=== PATIENT | male | born 1955 | race Caucasian/White ===

== ENCOUNTER → 2017-04-23 10:58 | Outpatient (CLI) | payer MEDICARE, SELFPAY ==
[2017-04-23 12:11] LABS: Basophils % 0.5 % (0.1-2.0); Eosinophils # 0.3 K/mm3 (0.0-0.4); Eosinophils % 4.3 % (0.1-12.0); Hematocrit 43.4 % (42.0-52.0); Hemoglobin 14.6 g/dL (14.1-18.0); Lymphocytes # 1.3 K/mm3 (0.7-4.5); Lymphocytes % 20.2 K/mm3 (10-50); Mean Corpuscular HGB Conc 33.6 g/dL (31.8-35.4); Mean Corpuscular Volume 86.4 fl (80-94); Mean Platelet Volume 7.2 fl (7.4-10.4); Monocytes # 0.4 K/mm3 (0.1-1.0); Monocytes % 6.4 % (1.7-9.3); Neutrophils # 4.5 K/mm3 (1.8-7.8); Neutrophils % 68.5 % (37.0-80.0); Platelet Count 266 K/mm3 (142-424); Red Blood Count 5.02 M/mm3 (4.60-6.20); White Blood Count 6.5 K/mm3 (4.8-10.8)
[2017-04-23 15:30] LABS: Alanine Aminotransferase 28 U/L (12-78); Albumin Level 3.5 gm/dL (3.4-5.0); Albumin/Globulin Ratio 1.1 (1.1-1.8); Alkaline Phosphatase 108 U/L (46-116); Aspartate Amino Transferase 11 U/L (15-37); Bilirubin,Total 0.4 mg/dL (0.2-1.0); Blood Urea Nitrogen 13 mg/dL (7-18); Calcium 8.8 mg/dL (8.5-10.1); Carbon Dioxide 29 mmol/L (21.0-32.0); Creatinine,Serum 0.97 mg/dL (0.70-1.30); Estimated Glomerular Filt Rate 79 ml/min (>60); GFR (African American) 96 ML/MIN (>60); Globulin 3.3 gm/dl (1.3-3.2); Glucose 167 mg/dL (74-106); Total Protein,Serum 6.8 gm/dL (6.4-8.2)
[2017-04-23 18:11] LABS: Chloride 104 mmol/L (98-107); Sodium 141 mmol/L (136-145)
== END ==
PROVIDERS: Visit Provider Internal Medicine
DX: E13.65 Other specified diabetes mellitus with hyperglycemia (principal); F41.9 Anxiety disorder, unspecified; I10 Essential (primary) hypertension; I48.91 Unspecified atrial fibrillation; B96.89 Other specified bacterial agents as the cause of diseases classified elsewhere
CPT/HCPCS: 36415; 80053; 85025

== ENCOUNTER → 2017-08-07 08:29 | Outpatient (CLI) | payer MEDICARE, SELFPAY ==
[2017-08-07 09:23] LABS: Basophils # 0.1 K/mm3 (0-0.2); Basophils % 0.5 % (0.1-2.0); Eosinophils # 0.4 K/mm3 (0.0-0.4); Eosinophils % 4.4 % (0.1-12.0); Hematocrit 47.1 % (42.0-52.0); Hemoglobin 15.5 g/dL (14.1-18.0); Lymphocytes # 2.1 K/mm3 (0.7-4.5); Mean Corpuscular Hemoglobin 28.4 pg (27.0-31.2); Mean Corpuscular Volume 86.1 fl (80-94); Mean Platelet Volume 7.4 fl (7.4-10.4); Monocytes # 0.5 K/mm3 (0.1-1.0); Monocytes % 5.5 % (1.7-9.3); Neutrophils # 6.1 K/mm3 (1.8-7.8); Neutrophils % 66.6 % (37.0-80.0); Platelet Count 263 K/mm3 (142-424); Red Blood Count 5.46 M/mm3 (4.60-6.20); Red Cell Distribution Width 13.8 % (11.5-17.5); White Blood Count 9.2 K/mm3 (4.8-10.8)
[2017-08-07 10:44] LABS: Alanine Aminotransferase 23 U/L (12-78); Albumin Level 3.7 gm/dL (3.4-5.0); Albumin/Globulin Ratio 1.2 (1.1-1.8); Alkaline Phosphatase 126 U/L (46-116); Anion Gap 15.2 mEq/L (5-15); Aspartate Amino Transferase 13 U/L (15-37); Bilirubin,Total 0.6 mg/dL (0.2-1.0); Blood Urea Nitrogen 15 mg/dL (7-18); Calcium 9.4 mg/dL (8.5-10.1); Carbon Dioxide 27 mmol/L (21.0-32.0); Chloride 103 mmol/L (98-107); Creatinine,Serum 1.03 mg/dL (0.70-1.30); Estimated Glomerular Filt Rate 74 ml/min (>60); GFR (African American) 89 ML/MIN (>60); Globulin 3.2 gm/dl (1.3-3.2); Glucose 192 mg/dL (74-106); Potassium 4.2 mmoL/L (3.5-5.1); Sodium 141 mmol/L (136-145); Total Protein,Serum 6.9 gm/dL (6.4-8.2)
== END ==
PROVIDERS: Visit Provider Internal Medicine
DX: I10 Essential (primary) hypertension (principal); E13.65 Other specified diabetes mellitus with hyperglycemia; F41.9 Anxiety disorder, unspecified; I48.91 Unspecified atrial fibrillation; B96.89 Other specified bacterial agents as the cause of diseases classified elsewhere
CPT/HCPCS: 36415; 80053; 85025

== ENCOUNTER → 2017-10-30 10:19 | Outpatient (POV) | payer MEDICARE, SELFPAY | PROVIDERS: Visit Provider Otolaryngology | DX: Z00.00 Encounter for general adult medical examination without abnormal findings (principal) ==

== ENCOUNTER → 2018-01-30 11:30 | Outpatient (CLI) | payer MEDICARE, SELFPAY ==
[2018-01-30 11:55] LABS: Basophils % 0.5 % (0.1-2.0); Eosinophils # 0.2 K/mm3 (0.0-0.4); Eosinophils % 2.7 % (0.1-12.0); Hematocrit 47.1 % (42.0-52.0); Hemoglobin 15.4 g/dL (14.1-18.0); Lymphocytes # 1.5 K/mm3 (0.7-4.5); Lymphocytes % 21.1 % (10-50); Mean Corpuscular HGB Conc 32.7 g/dL (31.8-35.4); Mean Corpuscular Hemoglobin 28.8 pg (27.0-31.2); Mean Corpuscular Volume 88.1 fl (80-94); Mean Platelet Volume 7.5 fl (7.4-10.4); Monocytes # 0.4 K/mm3 (0.1-1.0); Monocytes % 5.2 % (1.7-9.3); Neutrophils % 70.4 % (37.0-80.0); Platelet Count 245 K/mm3 (142-424); Red Blood Count 5.35 M/mm3 (4.60-6.20); Red Cell Distribution Width 14.2 % (11.5-17.5); White Blood Count 7.1 K/mm3 (4.8-10.8)
[2018-01-30 12:44] LABS: Alanine Aminotransferase 28 U/L (12-78); Albumin Level 3.5 gm/dL (3.4-5.0); Albumin/Globulin Ratio 1.1 (1.1-1.8); Alkaline Phosphatase 129 U/L (46-116); Anion Gap 15.9 mEq/L (5-15); Aspartate Amino Transferase 10 U/L (15-37); Bilirubin,Total 0.6 mg/dL (0.2-1.0); Blood Urea Nitrogen 10 mg/dL (7-18); Calcium 8.9 mg/dL (8.5-10.1); Carbon Dioxide 26 mmol/L (21.0-32.0); Chloride 100 mmol/L (98-107); Estimated Glomerular Filt Rate 76 ml/min (>60); GFR (African American) 92 ML/MIN (>60); Globulin 3.2 gm/dl (1.3-3.2); Glucose 238 mg/dL (74-106); Potassium 3.9 mmoL/L (3.5-5.1); Sodium 138 mmol/L (136-145); Total Protein,Serum 6.7 gm/dL (6.4-8.2)
== END ==
PROVIDERS: Visit Provider Internal Medicine
DX: E13.65 Other specified diabetes mellitus with hyperglycemia (principal)
CPT/HCPCS: 36415; 80053; 85025

== ENCOUNTER → 2018-04-26 07:53 | Outpatient (CLI) | payer MEDICARE, SELFPAY ==
--- NOTE | 2018-04-26 08:00 | MR_ITS ---
MR lumbar spine wo con, MR 3-d myelogram/MRCP HISTORY: LBP with LT hip and leg pain and tingling. X3WKS. Twisted back while lifting object. ITS.REASON: LEFT SIDED SCIATICA ORDERING PHYSICIAN: Alpesh Hanson MD PATIENT AGE: 62 years Comparison: None TECHNIQUE: Standard multiplanar multiecho sequences are performed without contrast. 3-D MIP and myelographic images are also rendered and reviewed FINDINGS: There is normal alignment. The spinal cord ends at the L1 level. L1-L2 has an unremarkable appearance. L2-L3: Mild degenerative disc disease with concentric bulging disc along with facet and ligamentum flavum hypertrophy. There is an associated left foraminal disc protrusion causing moderate size left foraminal narrowing. There is bilateral lateral recess narrowing at this level well. L3-L4: Degenerative disc disease with bulging disc along with facet and ligamentum flavum hypertrophy with mild bilateral lateral recess narrowing and mild right foraminal narrowing. L4-5: Degenerative disc disease with concentric bulging disc along with moderate facet and ligamentum flavum hypertrophy. There is bilateral lateral recess narrowing which is greater on the right. There is moderate to severe bilateral foraminal narrowing from the facets hypertrophic change and bulging disc. There is impingement upon both L5 nerve roots in the lateral recess from the facet hypertrophic change. This is. L5-S1: Unremarkable.. There is partial sacralization of L5. IMPRESSION: 1. L2-L3: Mild degenerative disc disease with concentric bulging disc along with facet and ligamentum flavum hypertrophy. There is an associated left foraminal disc protrusion causing moderate size left foraminal narrowing. There is bilateral lateral recess narrowing at this level well. 2. L3-L4: Degenerative disc disease with bulging disc along with facet and ligamentum flavum hypertrophy with mild bilateral lateral recess narrowing and mild right foraminal narrowing. 3. L4-5: Degenerative disc disease with concentric bulging disc along with moderate facet and ligamentum flavum hypertrophy. There is bilateral lateral recess narrowing which is greater on the right. There is moderate to severe bilateral foraminal narrowing from the facets hypertrophic change and bulging disc. There is impingement upon both L5 nerve roots in the lateral recess from the facet hypertrophic change.
== END ==
PROVIDERS: PCP Family Medicine; Visit Provider Family Medicine
DX: M54.32 Sciatica, left side (principal)
CPT/HCPCS: 72148; 76376

== ENCOUNTER 2018-05-08 08:00 | Outpatient (RCR) | payer MEDICARE, SELFPAY ==
--- NOTE | 2018-05-06 18:03 | HMH.PTOPEV ---
PT Outpatient Evaluation Rehab PT Outpatient Evaluation Start: 05/06/18 09:41 Freq: Status: Active Protocol: Document 05/06/18 09:59 PWJORGE LUIS (Rec: 05/06/18 10:25 PWJORGE LUIS [id number]) Electronically Signed By Armani Houser, PT 05/06/18 09:59 Outpatient Therapy Subjective History Subjective History This is the initial Physical Therapy evaluation for for Ken Lopes. Pt is a 62 y/o male referred to PT for c/o LBP and LLE pain. Pt reports pain began 1st week of march. Pt reports he was lifting stuff into pick-up bed and his foot slipped causing him to twist and flex his back. Pt rpeorts pain has stayed the same since March . Pt rpeorts MRI done at [facility], MRI showed multi-level bulging discs w/ L side foraminal stenosis. Pt reports pain into LLE to ankle at worst, mostly in posterior thigh/HS Chief Complaint Pain Symptom Type Ache Throb Sharp Dull Stabbing Burning Numbness Tingling Shooting Symptoms Relieved By Rest/Positioning Prescription Meds Symptoms Aggravated By Sitting Bending/Stooping Twisting Lifting Prior Functional Limitations None Current Functional Limitations Sitting Recreation Activity Bending/Stooping Symptom Description Constant but Variable Level of pain today (0-10) 3 Pain scale - at its best (0-10) 2 Pain scale - at its worst (0-10) 8 Lumbopelvic Eval Posture Lumbar Spine Posture Standing Position Neutral Assistive device Assistive Devices None / NA Gait Observation General Gait Pattern Observation Antalgic Gait Decrease Weight Bear (L) Decrease Stride Lngth (R) Palapation tenderness left thoracic spinal tenderness No lumbar spinal tenderness Yes paraspinal tenderness Yes butt
== END 2018-05-08 08:05 | disposition home or self-care (01) ==
LOC: PT 08:00
PROVIDERS: Visit Provider Family Medicine
DX: M54.16 Radiculopathy, lumbar region (principal)
CPT/HCPCS: 97010; 97014; 97110; 97163; G0283

== ENCOUNTER → 2018-05-13 07:56 | Outpatient (CLI) | payer MEDICARE, SELFPAY ==
[2018-05-13 08:22] LABS: Basophils % 0.6 % (0.1-2.0); Eosinophils # 0.3 K/mm3 (0.0-0.4); Eosinophils % 5.1 % (0.1-12.0); Hematocrit 43.4 % (42.0-52.0); Hemoglobin 14.8 g/dL (14.1-18.0); Lymphocytes # 1.3 K/mm3 (0.7-4.5); Lymphocytes % 22.2 % (10-50); Mean Corpuscular Hemoglobin 29.8 pg (27.0-31.2); Mean Corpuscular Volume 87.6 fl (80-94); Mean Platelet Volume 7.1 fl (7.4-10.4); Monocytes # 0.6 K/mm3 (0.1-1.0); Monocytes % 9.8 % (1.7-9.3); Neutrophils # 3.7 K/mm3 (1.8-7.8); Neutrophils % 62.3 % (37.0-80.0); Platelet Count 280 K/mm3 (142-424); Red Blood Count 4.96 M/mm3 (4.60-6.20); Red Cell Distribution Width 13.7 % (11.5-17.5)
[2018-05-13 11:44] LABS: Alanine Aminotransferase 23 U/L (12-78); Albumin Level 3.6 gm/dL (3.4-5.0); Albumin/Globulin Ratio 1.2 (1.1-1.8); Alkaline Phosphatase 107 U/L (46-116); Aspartate Amino Transferase 10 U/L (15-37); Bilirubin,Total 0.7 mg/dL (0.2-1.0); Blood Urea Nitrogen 16 mg/dL (7-18); Calcium 8.9 mg/dL (8.5-10.1); Carbon Dioxide 25 mmol/L (21.0-32.0); Chloride 101 mmol/L (98-107); Creatinine,Serum 0.98 mg/dL (0.70-1.30); Estimated Glomerular Filt Rate 78 ml/min (>60); GFR (African American) 94 ML/MIN (>60); Glucose 271 mg/dL (74-106); Sodium 137 mmol/L (136-145); Total Protein,Serum 6.6 gm/dL (6.4-8.2)
== END ==
PROVIDERS: Visit Provider Internal Medicine
DX: E13.65 Other specified diabetes mellitus with hyperglycemia (principal); Z94.1 Heart transplant status; F41.9 Anxiety disorder, unspecified; I10 Essential (primary) hypertension; I48.91 Unspecified atrial fibrillation; B96.89 Other specified bacterial agents as the cause of diseases classified elsewhere; K80.20 Calculus of gallbladder without cholecystitis without obstruction
CPT/HCPCS: 36415; 80053; 85025

== ENCOUNTER → 2019-01-10 13:48 | Outpatient (CLI) | payer MEDICARE, SELFPAY ==
[2019-01-10 14:32] LABS: Basophils # 0.1 K/mm3 (0-0.2); Basophils % 0.9 % (0.1-2.0); Eosinophils # 0.2 K/mm3 (0.0-0.4); Eosinophils % 2.5 % (0.1-12.0); Hematocrit 49.8 % (42.0-52.0); Hemoglobin 16.7 g/dL (14.1-18.0); Lymphocytes # 1.7 K/mm3 (0.7-4.5); Lymphocytes % 20.6 % (10-50); Mean Corpuscular HGB Conc 33.5 g/dL (31.8-35.4); Mean Corpuscular Hemoglobin 30.6 pg (27.0-31.2); Mean Corpuscular Volume 91.3 fl (80-94); Mean Platelet Volume 8.1 fl (7.4-10.4); Monocytes # 0.3 K/mm3 (0.1-1.0); Monocytes % 4.2 % (1.7-9.3); Neutrophils # 5.9 K/mm3 (1.8-7.8); Neutrophils % 71.9 % (37.0-80.0); Platelet Count 296 K/mm3 (142-424); Red Blood Count 5.45 M/mm3 (4.60-6.20); Red Cell Distribution Width 13.6 % (11.5-17.5); White Blood Count 8.2 K/mm3 (4.8-10.8)
[2019-01-10 15:14] LABS: Alanine Aminotransferase 27 U/L (12-78); Albumin Level 3.8 gm/dL (3.4-5.0); Albumin/Globulin Ratio 1.2 (1.1-1.8); Alkaline Phosphatase 137 U/L (46-116); Anion Gap 14.9 mEq/L (5-15); Aspartate Amino Transferase 17 U/L (15-37); Blood Urea Nitrogen 14 mg/dL (7-18); Calcium 9.1 mg/dL (8.5-10.1); Carbon Dioxide 25 mmol/L (21.0-32.0); Chloride 102 mmol/L (98-107); Creatinine,Serum 1.06 mg/dL (0.70-1.30); Estimated Glomerular Filt Rate 71 ml/min (>60); GFR (African American) 86 ML/MIN (>60); Globulin 3.1 gm/dl (1.3-3.2); Potassium 4.9 mmoL/L (3.5-5.1); Sodium 137 mmol/L (136-145); Total Protein,Serum 6.9 gm/dL (6.4-8.2)
[2019-01-10 15:40] LABS: Glucose 431 mg/dL (74-106)
== END ==
PROVIDERS: Visit Provider Internal Medicine
DX: Z94.1 Heart transplant status (principal)
CPT/HCPCS: 36415; 80053; 85025

== ENCOUNTER → 2019-02-04 10:28 | Outpatient (CLI) | payer MEDICARE, SELFPAY ==
[2019-02-04 11:22] LABS: Hemoglobin A1C 11.3 % (0.0-7.0)
[2019-02-04 12:16] LABS: Glucose,Random 506 mg/dL (70-110)
== END ==
PROVIDERS: Visit Provider Family Medicine
DX: E11.65 Type 2 diabetes mellitus with hyperglycemia (principal)
CPT/HCPCS: 36415; 82947; 83036

== ENCOUNTER → 2020-06-15 08:45 | Outpatient (CLI) | payer MEDICARE, SELFPAY ==
[2020-06-15 09:13] LABS: Hematocrit 45.8 % (42.0-52.0); Hemoglobin 15.7 g/dL (14.1-18.0); Mean Corpuscular HGB Conc 34.3 g/dL (31.8-35.4); Mean Corpuscular Hemoglobin 30.3 pg (27.0-31.2); Mean Corpuscular Volume 88.3 fl (80-94); Platelet Count 252 K/mm3 (142-424); Red Blood Count 5.19 M/mm3 (4.60-6.20); Red Cell Distribution Width 13.5 % (11.5-17.5); White Blood Count 7.8 K/mm3 (4.8-10.8)
[2020-06-15 09:40] LABS: Chloride 102 mmol/L (98-107)
[2020-06-15 09:41] LABS: Sodium 136 mmol/L (136-145)
[2020-06-15 09:43] LABS: Alanine Aminotransferase 16 U/L (12-78); Albumin Level 4.3 g/dl (3.5-5.0); Albumin/Globulin Ratio 1.8 (1.1-1.8); Alkaline Phosphatase 115 U/L (38-126); Aspartate Amino Transferase 19 U/L (17-59); Bilirubin,Total 0.9 mg/dl (0.2-1.3); Blood Urea Nitrogen 19 mg/dl (9-20); Carbon Dioxide 26 mmol/L (22.0-30.0); Estimated Glomerular Filt Rate 86 ml/min (>60); GFR (African American) 103 ML/MIN (>60); Globulin 2.4 g/dL (1.3-3.2); Total Protein,Serum 6.7 g/dl (6.3-8.2)
[2020-06-15 09:44] LABS: Calcium 9.9 mg/dl (8.4-10.2); Glucose 260 mg/dl (74-100)
== END ==
PROVIDERS: Visit Provider Internal Medicine
DX: Z94.1 Heart transplant status (principal)
CPT/HCPCS: 36415; 80053; 85014; 85018; 85048; 85049

== ENCOUNTER → 2020-12-06 15:31 | Outpatient (CLI) | payer MEDICARE, SELFPAY | PROVIDERS: Visit Provider Obstetrics & Gynecology Gynecology | DX: Z01.812 Encounter for preprocedural laboratory examination (principal); Z11.52 Encounter for screening for COVID-19 | CPT/HCPCS: C9803; U0003; U0005 ==

== ENCOUNTER → 2020-12-10 16:57 | Outpatient (CLI) | payer MEDICARE, SELFPAY ==
[2020-12-10 18:32] LABS: Creatinine,Urine Random 88 mg/dL (Not Estab.)
== END ==
PROVIDERS: Visit Provider Internal Medicine
DX: Z94.1 Heart transplant status (principal)
CPT/HCPCS: 82570; 84155

== ENCOUNTER → 2021-01-14 09:24 | Outpatient (CLI) | payer MEDICARE, SELFPAY ==
[2021-01-14 10:16] LABS: Basophils # 0.1 K/mm3 (0-0.2); Basophils % 1.1 % (0.1-2.0); Eosinophils # 0.2 K/mm3 (0.0-0.4); Eosinophils % 3.2 % (0.1-12.0); Hematocrit 46.9 % (42.0-52.0); Lymphocytes # 1.5 K/mm3 (0.7-4.5); Lymphocytes % 22.3 % (10-50); Mean Corpuscular HGB Conc 34.2 g/dL (31.8-35.4); Mean Corpuscular Hemoglobin 29.5 pg (27.0-31.2); Mean Corpuscular Volume 86.3 fl (80-94); Mean Platelet Volume 7.8 fl (7.4-10.4); Monocytes # 0.4 K/mm3 (0.1-1.0); Monocytes % 5.5 % (1.7-9.3); Neutrophils # 4.5 K/mm3 (1.8-7.8); Neutrophils % 67.8 % (37.0-80.0); Platelet Count 370 K/mm3 (142-424); Red Blood Count 5.44 M/mm3 (4.60-6.20); Red Cell Distribution Width 12.9 % (11.5-17.5); White Blood Count 6.6 K/mm3 (4.8-10.8)
[2021-01-14 10:57] LABS: Creatinine,Urine Random 155 mg/dL (Not Estab.)
[2021-01-14 11:50] LABS: Alanine Aminotransferase 30 U/L (12-78); Albumin Level 4.3 g/dl (3.5-5.0); Albumin/Globulin Ratio 1.6 (1.1-1.8); Alkaline Phosphatase 140 U/L (38-126); Anion Gap 11.3 mEq/L (5-15); Aspartate Amino Transferase 27 U/L (17-59); Bilirubin,Total 0.4 mg/dl (0.2-1.3); Blood Urea Nitrogen 13 mg/dl (9-20); Calcium 9.7 mg/dl (8.4-10.2); Carbon Dioxide 27 mmol/L (22.0-30.0); Chloride 100 mmol/L (98-107); Chol/HDL Ratio 5.6 (1-3.5); Cholesterol 235 mg/dl (140-200); Estimated Glomerular Filt Rate 98 ml/min (>60); GFR (African American) 118 ML/MIN (>60); Globulin 2.7 g/dL (1.3-3.2); Glucose 362 mg/dl (74-100); HDL Cholesterol 42 mg/dl (40-60); Magnesium 1.6 mg/dl (1.6-2.3); Potassium 4.3 mmoL/L (3.5-5.1); Sodium 134 mmol/L (136-145)
[2021-01-14 12:07] LABS: Direct LDL Cholesterol 136.87 mg/dL (100-129)
[2021-01-14 12:16] LABS: Triglycerides 598 mg/dl (30-150)
== END ==
PROVIDERS: Visit Provider Internal Medicine
DX: Z94.1 Heart transplant status (principal); Z79.899 Other long term (current) drug therapy
CPT/HCPCS: 36415; 80053; 80061; 82570; 83735; 84155; 85025

== ENCOUNTER → 2021-02-09 08:47 | Outpatient (CLI) | payer MEDICARE, SELFPAY ==
[2021-02-09 09:36] LABS: Hematocrit 40.3 % (42.0-52.0); Hemoglobin 14.5 g/dL (14.1-18.0); Mean Corpuscular HGB Conc 36.1 g/dL (31.8-35.4); Mean Corpuscular Hemoglobin 29.8 pg (27.0-31.2); Mean Corpuscular Volume 82.3 fl (80-94); Platelet Count 233 K/mm3 (142-424); Red Blood Count 4.89 M/mm3 (4.60-6.20); Red Cell Distribution Width 13.2 % (11.5-17.5); White Blood Count 6.7 K/mm3 (4.8-10.8)
[2021-02-09 10:25] LABS: Chloride 102 mmol/L (98-107); Sodium 136 mmol/L (136-145)
[2021-02-09 10:27] LABS: Alanine Aminotransferase 18 U/L (12-78); Aspartate Amino Transferase 18 U/L (17-59); Bilirubin,Total 0.5 mg/dl (0.2-1.3); Blood Urea Nitrogen 12 mg/dl (9-20); Estimated Glomerular Filt Rate 114 ml/min (>60); GFR (African American) 138 ML/MIN (>60)
[2021-02-09 10:28] LABS: Albumin Level 3.8 g/dl (3.5-5.0); Albumin/Globulin Ratio 1.5 (1.1-1.8); Alkaline Phosphatase 117 U/L (38-126); Calcium 8.9 mg/dl (8.4-10.2); Carbon Dioxide 25 mmol/L (22.0-30.0); Chol/HDL Ratio 2.7 (1-3.5); Cholesterol 119 mg/dl (140-200); Globulin 2.5 g/dL (1.3-3.2); Glucose 345 mg/dl (74-100); HDL Cholesterol 44 mg/dl (40-60); Magnesium 1.7 mg/dl (1.6-2.3); Total Protein,Serum 6.3 g/dl (6.3-8.2); Triglycerides 172 mg/dl (30-150); VLDL Cholesterol 34 mg/dL (0-40)
[2021-02-09 10:33] LABS: Creatinine,Urine Random 68 mg/dL (Not Estab.)
[2021-02-09 10:39] LABS: Direct LDL Cholesterol 54.91 mg/dL (100-129)
== END ==
PROVIDERS: Visit Provider Internal Medicine
DX: Z94.1 Heart transplant status (principal); Z79.899 Other long term (current) drug therapy
CPT/HCPCS: 36415; 80053; 80061; 82570; 83735; 84155; 85014; 85018; 85048; 85049

== ENCOUNTER → 2021-04-05 16:04 | Outpatient (CLI) | payer MEDICARE, SELFPAY ==
[2021-04-05 17:34] LABS: Hematocrit 49.3 % (42.0-52.0); Hemoglobin 16.4 g/dL (14.1-18.0); Mean Corpuscular HGB Conc 33.2 g/dL (31.8-35.4); Mean Corpuscular Hemoglobin 28.1 pg (27.0-31.2); Mean Corpuscular Volume 84.7 fl (80-94); Platelet Count 293 K/mm3 (142-424); Red Blood Count 5.82 M/mm3 (4.60-6.20); Red Cell Distribution Width 14.4 % (11.5-17.5); White Blood Count 6.2 K/mm3 (4.8-10.8)
[2021-04-05 19:40] LABS: Alanine Aminotransferase 32 U/L (12-78); Albumin Level 4.4 g/dl (3.5-5.0); Albumin/Globulin Ratio 1.7 (1.1-1.8); Alkaline Phosphatase 140 U/L (38-126); Anion Gap 16.1 mEq/L (5-15); Aspartate Amino Transferase 27 U/L (17-59); Bilirubin,Total 0.9 mg/dl (0.2-1.3); Blood Urea Nitrogen 9 mg/dl (9-20); Calcium 9.5 mg/dl (8.4-10.2); Carbon Dioxide 24 mmol/L (22.0-30.0); Chloride 98 mmol/L (98-107); Chol/HDL Ratio 3.2 (1-3.5); Cholesterol 133 mg/dl (140-200); Estimated Glomerular Filt Rate 114 ml/min (>60); GFR (African American) 138 ML/MIN (>60); Globulin 2.6 g/dL (1.3-3.2); Glucose 326 mg/dl (74-100); HDL Cholesterol 41 mg/dl (40-60); Magnesium 1.6 mg/dl (1.6-2.3); Potassium 4.1 mmoL/L (3.5-5.1); Sodium 134 mmol/L (136-145); Triglycerides 239 mg/dl (30-150); VLDL Cholesterol 48 mg/dL (0-40)
[2021-04-05 19:50] LABS: Direct LDL Cholesterol 64.35 mg/dL (100-129)
== END ==
PROVIDERS: PCP Family Medicine; Visit Provider Internal Medicine
DX: Z94.1 Heart transplant status (principal); Z79.899 Other long term (current) drug therapy
CPT/HCPCS: 36415; 80053; 80061; 83735; 85014; 85018; 85048; 85049

== ENCOUNTER → 2021-04-06 15:51 | Outpatient (CLI) | payer MEDICARE, SELFPAY ==
[2021-04-06 17:28] LABS: Creatinine,Urine Random 52 mg/dL (Not Estab.)
== END ==
PROVIDERS: PCP Family Medicine; Visit Provider Internal Medicine
DX: Z94.1 Heart transplant status (principal)
CPT/HCPCS: 36415; 82570; 84155

== ENCOUNTER → 2021-07-18 10:27 | Outpatient (CLI) | payer MEDICARE, SELFPAY | PROVIDERS: Visit Provider Specialist | DX: Z94.1 Heart transplant status (principal); D84.821 Immunodeficiency due to drugs; G51.0 Bell's palsy; Z79.899 Other long term (current) drug therapy | CPT/HCPCS: 36415; 86618 ==

== ENCOUNTER → 2021-11-08 09:39 | Outpatient (CLI) | payer MEDICARE, SELFPAY ==
[2021-11-08 10:15] LABS: Hemoglobin 15.3 g/dL (14.1-18.0); Mean Corpuscular HGB Conc 33.2 g/dL (31.8-35.4); Mean Corpuscular Hemoglobin 28.6 pg (27.0-31.2); Platelet Count 270 K/mm3 (142-424); Red Blood Count 5.35 M/mm3 (4.60-6.20); Red Cell Distribution Width 13.9 % (11.5-17.5); White Blood Count 6.6 K/mm3 (4.8-10.8)
[2021-11-08 11:25] LABS: Alanine Aminotransferase 22 U/L (12-78); Albumin Level 3.7 g/dl (3.5-5.0); Albumin/Globulin Ratio 1.6 (1.1-1.8); Alkaline Phosphatase 171 U/L (38-126); Anion Gap 16.8 mEq/L (5-15); Aspartate Amino Transferase 20 U/L (17-59); Bilirubin,Total 0.4 mg/dl (0.2-1.3); Blood Urea Nitrogen 11 mg/dl (9-20); Calcium 8.8 mg/dl (8.4-10.2); Carbon Dioxide 24 mmol/L (22.0-30.0); Chloride 97 mmol/L (98-107); Estimated Glomerular Filt Rate 97 ml/min (>60); GFR (African American) 118 ML/MIN (>60); Globulin 2.3 g/dL (1.3-3.2); Glucose 336 mg/dl (74-100); Magnesium 1.4 mg/dl (1.6-2.3); Potassium 3.8 mmoL/L (3.5-5.1); Sodium 134 mmol/L (136-145)
== END ==
PROVIDERS: PCP Family Medicine; Visit Provider Internal Medicine
DX: Z94.1 Heart transplant status (principal)
CPT/HCPCS: 36415; 80053; 83735; 85014; 85018; 85048; 85049

== ENCOUNTER → 2021-11-28 16:06 | Outpatient (CLI) | payer MEDICARE, SELFPAY ==
[2021-11-28 18:22] LABS: Chloride 98 mmol/L (98-107); Sodium 136 mmol/L (136-145)
[2021-11-28 18:23] LABS: Potassium 4.7 mmoL/L (3.5-5.1)
[2021-11-28 18:25] LABS: Alanine Aminotransferase 24 U/L (12-78); Albumin Level 4.3 g/dl (3.5-5.0); Albumin/Globulin Ratio 1.7 (1.1-1.8); Alkaline Phosphatase 153 U/L (38-126); Anion Gap 18.7 mEq/L (5-15); Aspartate Amino Transferase 26 U/L (17-59); Blood Urea Nitrogen 11 mg/dl (9-20); Calcium 9.3 mg/dl (8.4-10.2); Carbon Dioxide 24 mmol/L (22.0-30.0); Estimated Glomerular Filt Rate 114 ml/min (>60); GFR (African American) 137 ML/MIN (>60); Globulin 2.5 g/dL (1.3-3.2); Glucose 303 mg/dl (74-100); Total Protein,Serum 6.8 g/dl (6.3-8.2)
[2021-11-28 18:26] LABS: Magnesium 1.7 mg/dl (1.6-2.3)
[2021-11-28 18:38] LABS: Basophils % 0.5 % (0.1-2.0); Eosinophils # 0.1 K/mm3 (0.0-0.4); Eosinophils % 1.3 % (0.1-12.0); Hematocrit 49.3 % (42.0-52.0); Hemoglobin 16.5 g/dL (14.1-18.0); Lymphocytes # 1.5 K/mm3 (0.7-4.5); Lymphocytes % 19.5 % (10-50); Mean Corpuscular HGB Conc 33.5 g/dL (31.8-35.4); Mean Corpuscular Hemoglobin 28.2 pg (27.0-31.2); Mean Corpuscular Volume 84.1 fl (80-94); Monocytes # 0.4 K/mm3 (0.1-1.0); Monocytes % 4.8 % (1.7-9.3); Neutrophils # 5.8 K/mm3 (1.8-7.8); Neutrophils % 73.9 % (37.0-80.0); Platelet Count 285 K/mm3 (142-424); Red Blood Count 5.87 M/mm3 (4.60-6.20); Red Cell Distribution Width 13.8 % (11.5-17.5); White Blood Count 7.9 K/mm3 (4.8-10.8)
== END ==
PROVIDERS: PCP Family Medicine; Visit Provider Internal Medicine
DX: Z94.1 Heart transplant status (principal)
CPT/HCPCS: 36415; 80053; 83735; 85025

== ENCOUNTER → 2021-12-13 11:18 | Outpatient (CLI) | payer MEDICARE, SELFPAY ==
[2021-12-13 11:54] LABS: Hematocrit 45.9 % (42.0-52.0); Hemoglobin 15.4 g/dL (14.1-18.0); Mean Corpuscular HGB Conc 33.5 g/dL (31.8-35.4); Mean Corpuscular Hemoglobin 28.6 pg (27.0-31.2); Mean Corpuscular Volume 85.3 fl (80-94); Platelet Count 272 K/mm3 (142-424); Red Blood Count 5.38 M/mm3 (4.60-6.20); Red Cell Distribution Width 14.3 % (11.5-17.5); White Blood Count 8.8 K/mm3 (4.8-10.8)
[2021-12-13 12:22] LABS: Hemoglobin A1C 13.3 % (4.0-6.0)
[2021-12-13 12:30] LABS: Alanine Aminotransferase 22 U/L (12-78); Albumin Level 3.8 g/dl (3.5-5.0); Albumin/Globulin Ratio 1.5 (1.1-1.8); Alkaline Phosphatase 190 U/L (38-126); Anion Gap 15.3 mEq/L (5-15); Aspartate Amino Transferase 23 U/L (17-59); Bilirubin,Total 0.5 mg/dl (0.2-1.3); Blood Urea Nitrogen 10 mg/dl (9-20); Calcium 8.9 mg/dl (8.4-10.2); Carbon Dioxide 25 mmol/L (22.0-30.0); Chloride 100 mmol/L (98-107); Chol/HDL Ratio 3.1 (1-3.5); Cholesterol 128 mg/dl (140-200); Estimated Glomerular Filt Rate 114 ml/min (>60); GFR (African American) 137 ML/MIN (>60); Globulin 2.5 g/dL (1.3-3.2); Glucose 312 mg/dl (74-100); HDL Cholesterol 41 mg/dl (40-60); Potassium 4.3 mmoL/L (3.5-5.1); Sodium 136 mmol/L (136-145); Total Protein,Serum 6.3 g/dl (6.3-8.2); Triglycerides 209 mg/dl (30-150); VLDL Cholesterol 42 mg/dL (0-40)
[2021-12-13 12:30] LABS: Magnesium 1.6 mg/dl (1.6-2.3)
[2021-12-13 12:41] LABS: Direct LDL Cholesterol 59.73 mg/dL (100-129)
== END ==
PROVIDERS: PCP Family Medicine; Visit Provider Internal Medicine
DX: Z94.1 Heart transplant status (principal); E11.65 Type 2 diabetes mellitus with hyperglycemia; E78.5 Hyperlipidemia, unspecified; Z12.5 Encounter for screening for malignant neoplasm of prostate
CPT/HCPCS: 36415; 80053; 80061; 83036; 83735; 85014; 85018; 85048; 85049; G0103

== ENCOUNTER → 2022-07-27 16:15 | Outpatient (CLI) | payer MEDICARE, SELFPAY ==
[2022-07-27 17:57] LABS: Alanine Aminotransferase 23 U/L (12-78); Albumin/Globulin Ratio 1.5 (1.1-1.8); Alkaline Phosphatase 130 U/L (38-126); Anion Gap 15.4 mEq/L (5-15); Aspartate Amino Transferase 19 U/L (17-59); Bilirubin,Total 0.6 mg/dl (0.2-1.3); Blood Urea Nitrogen 12 mg/dl (9-20); Carbon Dioxide 27 mmol/L (22.0-30.0); Chloride 101 mmol/L (98-107); Chol/HDL Ratio 2.3 (1-3.5); Cholesterol 140 mg/dl (140-200); Estimated Glomerular Filt Rate 114 ml/min (>60); GFR (African American) 137 ML/MIN (>60); Globulin 2.6 g/dL (1.3-3.2); Glucose 242 mg/dl (74-100); HDL Cholesterol 62 mg/dl (40-60); Potassium 4.4 mmoL/L (3.5-5.1); Sodium 139 mmol/L (136-145); Total Protein,Serum 6.6 g/dl (6.3-8.2); Triglycerides 145 mg/dl (30-150); VLDL Cholesterol 29 mg/dL (0-40)
[2022-07-27 18:08] LABS: Direct LDL Cholesterol 64.23 mg/dL (100-129)
[2022-07-27 18:19] LABS: Hemoglobin A1C 7.9 % (4.0-6.0)
== END ==
PROVIDERS: PCP Family Medicine; Visit Provider Family Medicine
DX: E11.65 Type 2 diabetes mellitus with hyperglycemia (principal); E78.5 Hyperlipidemia, unspecified; I10 Essential (primary) hypertension
CPT/HCPCS: 36415; 80053; 80061; 83036

== ENCOUNTER → 2022-08-30 15:39 | Outpatient (CLI) | payer MEDICARE, SELFPAY ==
--- NOTE | 2022-08-30 15:45 | XR_ITS ---
FINAL REPORT CLINICAL HISTORY: LEFT FOOT PAIN FINDINGS: LEFT FOOT SERIES Three views of the left foot were obtained. There is no acute fracture or dislocation. There is mild degenerative change. Vascular calcifications are present. A small plantar calcaneal spur is seen. There is dorsal forefoot soft tissue swelling. IMPRESSION: Mild degenerative change. Reviewed, Interpreted and Dictated by Qamar Hennessy III, MD Transcribed by Jena Giles Authenticated and [facility]
== END ==
PROVIDERS: PCP Family Medicine; Visit Provider Family Medicine
DX: M79.672 Pain in left foot (principal)
CPT/HCPCS: 73630

== ENCOUNTER → 2022-11-07 14:41 | Outpatient (CLI) | payer MEDICARE, SELFPAY ==
[2022-11-07 15:04] LABS: Basophils % 0.6 % (0.1-2.0); Eosinophils # 0.1 K/mm3 (0.0-0.4); Eosinophils % 1.7 % (0.1-12.0); Hematocrit 50.8 % (42.0-52.0); Hemoglobin 16.6 g/dL (14.1-18.0); Lymphocytes # 1.4 K/mm3 (0.7-4.5); Lymphocytes % 19.4 % (10-50); Mean Corpuscular HGB Conc 32.7 g/dL (31.8-35.4); Mean Corpuscular Hemoglobin 27.6 pg (27.0-31.2); Mean Corpuscular Volume 84.3 fl (80-94); Mean Platelet Volume 7.5 fl (7.4-10.4); Monocytes # 0.4 K/mm3 (0.1-1.0); Monocytes % 5.4 % (1.7-9.3); Neutrophils # 5.1 K/mm3 (1.8-7.8); Neutrophils % 72.9 % (37.0-80.0); Platelet Count 262 K/mm3 (142-424); Red Blood Count 6.03 M/mm3 (4.60-6.20); Red Cell Distribution Width 13.5 % (11.5-17.5)
[2022-11-07 15:26] LABS: Alanine Aminotransferase 22 U/L (12-78); Albumin Level 4.1 g/dl (3.5-5.0); Albumin/Globulin Ratio 1.5 (1.1-1.8); Alkaline Phosphatase 140 U/L (38-126); Anion Gap 14.4 mEq/L (5-15); Aspartate Amino Transferase 19 U/L (17-59); Bilirubin,Total 0.9 mg/dl (0.2-1.3); Blood Urea Nitrogen 13 mg/dl (9-20); Calcium 9.2 mg/dl (8.4-10.2); Carbon Dioxide 26 mmol/L (22.0-30.0); Chloride 103 mmol/L (98-107); Estimated Glomerular Filt Rate 97 ml/min (>60); GFR (African American) 117 ML/MIN (>60); Globulin 2.8 g/dL (1.3-3.2); Glucose 289 mg/dl (74-100); Potassium 4.4 mmoL/L (3.5-5.1); Sodium 139 mmol/L (136-145); Total Protein,Serum 6.9 g/dl (6.3-8.2)
[2022-11-13 12:44] LABS: Sirolimus(Rapamune) 5.4 ng/mL; Tacrolimus (FK506), Blood 4.2
== END ==
PROVIDERS: PCP Family Medicine; Visit Provider Internal Medicine
DX: Z94.1 Heart transplant status (principal)
CPT/HCPCS: 36415; 80053; 80195; 80197; 85025

== ENCOUNTER → 2022-11-09 10:11 | Outpatient (CLI) | payer MEDICARE, SELFPAY ==
[2022-11-09 10:59] LABS: Hematocrit 49.8 % (42.0-52.0); Hemoglobin 16.6 g/dL (14.1-18.0); Mean Corpuscular HGB Conc 33.3 g/dL (31.8-35.4); Mean Corpuscular Volume 84.1 fl (80-94); Platelet Count 259 K/mm3 (142-424); Red Blood Count 5.93 M/mm3 (4.60-6.20); Red Cell Distribution Width 13.4 % (11.5-17.5); White Blood Count 8.4 K/mm3 (4.8-10.8)
[2022-11-09 11:22] LABS: Alanine Aminotransferase 25 U/L (12-78); Albumin Level 3.9 g/dl (3.5-5.0); Albumin/Globulin Ratio 1.5 (1.1-1.8); Alkaline Phosphatase 156 U/L (38-126); Anion Gap 13.2 mEq/L (5-15); Aspartate Amino Transferase 20 U/L (17-59); Bilirubin,Total 0.6 mg/dl (0.2-1.3); Blood Urea Nitrogen 12 mg/dl (9-20); Carbon Dioxide 27 mmol/L (22.0-30.0); Chloride 103 mmol/L (98-107); Estimated Glomerular Filt Rate 97 ml/min (>60); GFR (African American) 117 ML/MIN (>60); Globulin 2.6 g/dL (1.3-3.2); Glucose 331 mg/dl (74-100); Potassium 4.2 mmoL/L (3.5-5.1); Sodium 139 mmol/L (136-145); Total Protein,Serum 6.5 g/dl (6.3-8.2)
[2022-11-13 13:00] LABS: Tacrolimus (FK506), Blood 6.9
[2022-11-13 13:01] LABS: Sirolimus(Rapamune) 5.9 ng/mL
== END ==
PROVIDERS: PCP Family Medicine; Visit Provider Internal Medicine
DX: Z94.1 Heart transplant status (principal)
CPT/HCPCS: 36415; 80053; 80195; 80197; 85014; 85018; 85048; 85049

== ENCOUNTER → 2022-12-07 11:05 | Outpatient (CLI) | payer MEDICARE, SELFPAY ==
[2022-12-07 11:39] LABS: Basophils % 0.5 % (0.1-2.0); Eosinophils # 0.1 K/mm3 (0.0-0.4); Eosinophils % 1.1 % (0.1-12.0); Hemoglobin 16.2 g/dL (14.1-18.0); Lymphocytes # 1.4 K/mm3 (0.7-4.5); Lymphocytes % 21.2 % (10-50); Mean Corpuscular HGB Conc 35.2 g/dL (31.8-35.4); Mean Corpuscular Hemoglobin 29.9 pg (27.0-31.2); Mean Platelet Volume 7.8 fl (7.4-10.4); Monocytes # 0.4 K/mm3 (0.1-1.0); Monocytes % 5.4 % (1.7-9.3); Neutrophils # 4.8 K/mm3 (1.8-7.8); Neutrophils % 71.7 % (37.0-80.0); Platelet Count 213 K/mm3 (142-424); Red Blood Count 5.41 M/mm3 (4.60-6.20); Red Cell Distribution Width 13.7 % (11.5-17.5); White Blood Count 6.7 K/mm3 (4.8-10.8)
[2022-12-07 12:32] LABS: Alanine Aminotransferase 24 U/L (12-78); Albumin Level 3.9 g/dl (3.5-5.0); Albumin/Globulin Ratio 1.4 (1.1-1.8); Alkaline Phosphatase 149 U/L (38-126); Anion Gap 12.1 mEq/L (5-15); Aspartate Amino Transferase 25 U/L (17-59); Bilirubin,Total 0.9 mg/dl (0.2-1.3); Blood Urea Nitrogen 11 mg/dl (9-20); Calcium 9.1 mg/dl (8.4-10.2); Carbon Dioxide 26 mmol/L (22.0-30.0); Chloride 103 mmol/L (98-107); Estimated Glomerular Filt Rate 113 ml/min (>60); GFR (African American) 137 ML/MIN (>60); Globulin 2.7 g/dL (1.3-3.2); Glucose 318 mg/dl (74-100); Potassium 4.1 mmoL/L (3.5-5.1); Sodium 137 mmol/L (136-145); Total Protein,Serum 6.6 g/dl (6.3-8.2)
[2022-12-12 12:02] LABS: Sirolimus(Rapamune) 4.1 ng/mL; Tacrolimus (FK506), Blood 5.8
== END ==
PROVIDERS: PCP Family Medicine; Visit Provider Internal Medicine
DX: Z94.1 Heart transplant status (principal)
CPT/HCPCS: 36415; 80053; 80195; 80197; 85025

== ENCOUNTER 2024-09-05 16:07 | Outpatient (CLI) | payer MEDICARE, SELFPAY ==
--- OUTSIDE RECORDS SUMMARY | 2024-02-14 05:45 | XMS_ITS ---
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 Role Phone Fatoumata Hanson Primary Care Provider [phone] Allergies Allergen (clinical drug ingredient) Drug/Non Drug Allergy documented on EMR Reaction Allergy Type Onset Date Status carvedilol Coreg Unknown Drug Allergy Active Results Component Value Reference Range Notes Glycohemoglobin A1c (in hous e) Reviewed date:02/26/2024 08:52:15 AM Interpretation:10.7% Performing Lab: Notes/Report: 10.7% glycohemoglobin 10.7% 5 - 6.5 % P-Comprehensive Metabolic Pa alessandra (CMP) Reviewed date:02/26/2024 08:52:15 AM Interpretation:gluc 171, alk phos 171 Performing Lab: Notes/Report: Test performed by [facility] , [address], [place] [address] Mukund Wolff MD, Senior Energy Market Coordinator CLIA: [id number] Sodium 139 135-145 mmol/L Potassium 4.2 3.5-5.3 mmol/L Chloride 102 97-108 mmol/L CO2 26 22-32 mmol/L Glucose 171 65-99 mg/dL BUN 14 8-23 mg/dL Creatinine 0.88 0.70-1.30 mg/dL Calcium 9.9 8.6-10.4 mg/dL eGFR by Creatinine 95 >59 mL/min/1.73m2 Protein 6.9 6.0-8.3 g/dL Albumin 4.3 3.5-5.3 g/dL Alkaline Phosphatase 171 40-129 IU/L ALT (SGPT) 23 <5-55 IU/L AST (SGOT) 16 <5-46 IU/L Bilirubin, Total 0.8 <0.2-1.2 mg/dL A/G Ratio 1.7 1.1-2.5 P-Lipid Panel Reviewed date:02/26/2024 08:52:15 AM Interpretation:Normal Performing Lab: Notes/Report: Test performed by [facility], [address] , [address], [place] [address] Mukund Wolff MD, Senior Energy Market Coordinator CLIA: [id number] Cholesterol 138 <200 mg/dL Triglycerides 141 <150 mg/dL HDL Cholesterol 51 >39 mg/dL Cholesterol / HDL Ratio 2.71 0.00-4.99 Ratio Non-HDL Cholesterol 87 <130 mg/dL LDL Cholesterol (Calculation) 59 <130 mg/dL LDL Cholesterol Levels* Less than 100 mg/dL Optimal 100 to 129 mg/dL Near Optimal/ Above Optimal 130 to 159 mg/dL Borderline High 160 to 189 mg/dL High 190 mg/dL and above Very High * Categories as recommended by the 2004 ATPIII guidelines LDL/HDL Ratio 1.2 <3.3 Ratio LDL Cholesterol Patient History Test Date: 02/15/2023 LDL Results: 41 Units: mg/dL % Change: - Test Date: 08/16/2023 LDL Results: 38 Units: mg/dL % Change: -7% Test Date: 02/14/2024 LDL Results: 59 Units: mg/dL % Change: +55% REASON FOR VISIT 6 MOS CHECKUP, Needs labs with PSA, colon cancer screening, diabetic eye exam, Prevnar, & flu vaccine Medications Medication SIG (Take, Route, Frequency, Duration) Notes Start Date End Date Status DULoxetine HCl 60 MG 1 cap(s) orally onc e a day; Duration: 30 day(s) Active traMADol HCl 50 MG 1-2 tab(s) orally fo ur times a day as needed 01/31/2024 Active NovoLOG Mix 70/30 (70-30) 100 UNIT/ML 60 units sq qam; 40 units sq qpm subcutaneously Active Gabapentin 800 MG 1 tab(s) Orally Two times a day Active Baclofen 20 MG 1 tab(s) orally At B ed Time; Duration: 90 days Active Atorvastatin Calcium 80 MG 1 tab(s) orally once a day Active amLODIPine Besylate 10 MG 1 tab(s) orally once a day Active Lisinopril 10 MG 1 tab(s) orally once a day Active Tacrolimus 1 MG 1 cap(s) orally 2 ca ps in the am, 1 cap at night Active Synthroid 25 MCG 1 tab(s) orally once a day Active BD INSULIN SYRINGE 1CC - DIRECTED; Du ration: 30 DAY(S) 08/10/2020 Active RELION BLOOD GLUCOSE MONITOR Active ReliOn Blood Glucose Test Active Aspirin 81 MG 1 tab(s) orally once a day Active Tamsulosin HCl 0.4 MG 2 cap(s) orally qhs Active Multivitamin - 1 tab(s) orally once a day Active Mycophenolate Mofetil 250 MG 4 cap(s) orally 2 times a day Active BD Pen Needle Short U/F 31G X 8 MM as directed Active Magnesium 400 MG as directed Orally Active Immunizations Vaccine Route Administration Date Status Comme nts Fluzone High Dose (65yr and older) IM Intramuscular 02/14/2024 Administered Prevnar (PCV20) IM Intramuscular 02/14/2024 Administered Vital Signs Weight 189.8 lbs 02/14/2024 Blood pressure systolic 132 mm Hg 02/14/20 24 Blood pressure diastolic 90 mm Hg 024 Heart Rate 85 /min 02/14/2024 Height 66.50 in 02/14/2024 BMI 30.17 kg/m2 02/14/2024 Encounters Encounter Location Date Provider Diagnosis [facility] [address] [id number] 02/14/2024 Fatoumata Hanson Dyslipidemia E78.5 ; Type 2 diabetes mellitus without complications E11.9 ; Essential hypertension I10 ; Hypothyroidism E03.9 ; Diabetic neuropathy E11.40 ; 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 ; Status post orthotopic heart transplant Z94.1 ; Benign prostatic hyperplasia with lower urinary tract symptoms N40.1 and Encounter for immunization Z23 Assessments Encounter Date Diagnosis (ICD Code) Assessment Notes Treatment Notes Treatment Clinical Notes Section Notes 02/14/2024 Dyslipidemia (ICD-10 - E78.5) 02/14/2024 Type 2 diabetes mellitus without complications (ICD-10 - E11.9) 02/14/2024 Essential hypertension (ICD-10 - I10) 02/14/2024 Hypothyroidism (ICD-10 - E03.9) 02/14/2024 Diabetic neuropathy (ICD-10 - E11.40) 02/14/2024 termite treater helper 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 use of insulin (ICD-10 - Z79.4) 02/14/2024 Status post orthotopic heart transplant (ICD-10 - Z94.1) 02/14/2024 Benign prostatic hyperplasia with lower urinary tract symptoms (ICD-10 - N40.1) 02/14/2024 Encounter for immunization (ICD-10 - Z23) Plan Of Treatment Medication Medication Name Sig Start Date Stop Date Notes NovoLOG Mix 70/30 (70-30) 100 UNIT/ML 60 units sq qam; 40 units sq qpm subcutaneously Gabapentin 800 MG 1 tab(s) Orally Two times a day Atorvastatin Calcium 80 MG 1 tab(s) orally once a day amLODIPine Besylate 10 MG 1 tab(s) orally once a day Lisinopril 10 MG 1 tab(s) orally once a day Tacrolimus 1 MG 1 cap(s) orally 2 ca ps in the am, 1 cap at night Synthroid 25 MCG 1 tab(s) orally once a day Next Appt Details Follow Up: 6 Months, Reason: Progress Notes * YENNI MOONNEDOB:[birth year] (69 yo M)Acc No.[id number]:02/14/2024 Progress Notes Patient: YENNI KAHN Provider: Fatoumata Hanson M.D. :1955 A ge:68 Y S ex:Male Date:02/14/2024 Address:[address] [place] [address] Subjective: * Chief Complaints: * 1 . 6 MOS CHECKUP. 2. Needs labs with PSA, colon cancer screening, diabetic eye exam, Prevnar, & flu vaccine. * HPI: E ndocrinology: Pt presents today for a 6 month check up. Pt is fasting today. Pt sts that he has no new concerns or complaints. Pt sts that he just has a few aches and pains. Pt would like to get his flu shot and Prevnar today. He is still getting frequent high blood sugar readings at home. He is accompanied by his today who reports that he is not always compliant with his diet. C ardiology: He continues to follow with the [facility] cardiac transplant team with no change in his regimen. He is scheduled for heart cath in February. Denies : Chest Pain. D enies : Short of Breath. D enies : Palpitations. D enies : Leg Edema. * ROS: D ERMATOLOGY: no R hannah. n o H jimmy. G ASTROENTEROLOGY: no N ausea. n o V omiting. U ROLOGY: no D ifficulty urinating. n o B lood in urine. 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 Tadeo, Vitamin D Deficiency, Paroxysmal AF, MADDISON/ Panic Attacks, Abdominal pain, Congetive Heart Failure, Type 2 diabetes. * Surgical History: h eart cath and pacemaker/defibrillator 10/2004, hernia repair 2003, skin cancer removed from right shoulder 2006, Implanted LVAD (Left Ventricular Assist Device) 03/2013, bacteria removed from drive line 03/2014, Orthotopic heart transplant - [facility] 03/20/2015, heart cath- 07/12/2015, heart cath - - stent 02/2023. * Hospitalization/Major Diagno stic Procedure: R eaction to Medication- [facility] ER 09/2009, Shocked by Pacemaker, later sent to [facility] 08/06/2011, [facility], Heart out of Rhythm- [facility] 10/2012, Dehydration- [facility] 01/2013. * Family History: F ather: alive, DM, heart disease, arthritis, anemia. M other: alive, Potwin Palsy, cataracts. S iblings: heart disease, testicular problems. 2 brother(s) . 2 son(s) - healthy. .? * Social History: C URRENT TOBACCO USE S moking Status: Patient does NOT smoke. C affeine: no. Exercise: yes. Home smoke detector use: yes. Marital Status: . New since last visit: none. Past smoking status: no, hx of cigars and smokeless tobacco, quit Oct 2012 after using for 30 yrs.. Occup. exposure: none. Recreational drug use: no. Alcohol: no, Type: , Frequency: ,Years: , Determination:quit 1 beer qd one mopnth ago. Travel ouside [place]: no. * Medications: T aking BD Pen Needle Short U/F 31G X 8 MM Miscellaneous as directed , Taking Magnesium 400 MG Capsule as directed Orally , Taking Multivitamin - Tablet 1 tab(s) orally once a day , Taking Mycophenolate Mofetil 250 MG Capsule 4 cap(s) orally 2 times a day , Taking Aspirin 81 MG Tablet Delayed Release 1 tab(s) orally once a day , Taking Tamsulosin HCl 0.4 MG Capsule 2 cap(s) orally qhs , Taking BD INSULIN SYRINGE 1CC - DIRECTED , Taking RELION BLOOD GLUCOSE MONITOR , Taking ReliOn Blood Glucose Test , Taking Gabapentin 800 MG Tablet 1 tab(s) Orally Two times a day , Taking Tacrolimus 1 MG Capsule 1 cap(s) orally 2 caps in the am, 1 cap at night , Taking Synthroid 25 MCG Tablet 1 tab(s) orally once a day , Taking Atorvastatin Calcium 80 MG Tablet 1 tab(s) orally once a day , Taking amLODIPine Besylate 10 MG Tablet 1 tab(s) orally once a day , Taking Lisinopril 10 MG Tablet 1 tab(s) orally once a day , Taking NovoLOG Mix 70/30 (70-30) 100 UNIT/ML Suspension 80 units sq qam; 40 units sq qpm subcutaneously , Taking Baclofen 20 MG Tablet 1 tab(s) orally At Bed Time , Taking DULoxetine HCl 60 MG Capsule Delayed Release Particles 1 cap(s) orally once a day , Taking traMADol HCl 50 MG Tablet 1-2 tab(s) orally four times a day as needed , Medication List reviewed and reconciled with the patient * Allergies: C oreg. Objective: * Vitals: W t:189.8, Temp:*, BP:132/90, HR:85, Nurse:FARZAD, Ht: 66.50, BMI:30.17. * Examination: C ardiology: General Appearance: N AD. Weight loss noted. H EENT:?sclera and conjunctiva clear, PERRLA, TM's normal, translucent. C arotid upstroke: n ormal, no bruits. H eart sounds: R RR, normal S1, S2. M urmur, click , gallop: n one. Lungs: c lear. E xtremities: no leg edema. B ell's palsy seems to have resolved. Assessment: * Assessment: 1. T ype 2 diabetes mellitus without complications - E11.9 (Primary) 2 . D yslipidemia - E78.5 3 . E ssential hypertension - I10 4 . H ypothyroidism - E03.9 5 . D iabetic neuropathy - E11.40 6 . L alvaro term current use of insulin - Z79.4 7 . S tatus post orthotopic heart transplant - Z94.1 8 . B enign prostatic hyperplasia with lower urinary tract symptoms - N40.1 9 . E ncounter for immunization - Z23 Plan: * Treatment: Value Reference Range g lycohemoglobin 10.7% 5 - 6.5 % * Jimena Huynh 02/14/2024 10 :30:01 AM > ValentinFatoumata 02/26/2024 8:52:05 AM >See phone encounter 2.?Dyslipidemia? Continue Atorvastatin Calcium Tablet, 80 MG, 1 tab(s), orally, once a day.?LAB: P-Lipid Panel (Collection Date & Time - 02/14/2024 09:09 AM)?Normal* Value Reference Range C holesterol / HDL Ratio 2.71 0.00-4.99 - Ratio * C holesterol 138 <200 - mg/dL * H DL Cholesterol 51 >39 - mg/dL * L DL Cholesterol (Calculation) 59 <130 - mg/d L * L DL/HDL Ratio 1.2 <3.3 - Ratio * N on-HDL Cholesterol 87 <130 - mg/dL * T riglycerides 141 <150 - mg/dL * Fatoumata Hanson 02/26/2024 8:52:05 AM >See phone encounter 3.?Essential hypertension? Continue amLODIPine Besylate Tablet, 10 MG, 1 tab(s), orally, once a day;?Continue Lisinopril Tablet, 10 MG, 1 tab(s), orally, once a day.?LAB: P-Comprehensive Metabolic Panel (CMP) (Collection Date & Time - 02/14/2024 09:09 AM)?gluc 171, alk phos 171* Value Reference Range A /G Ratio 1.7 1.1-2.5 - * A lbumin 4.3 3.5-5.3 - g/dL * A lkaline Phosphatase 171 H 40-129 - IU/L * A LT (SGPT) 23 <5-55 - IU/L * A ST (SGOT) 16 <5-46 - IU/L * B ilirubin, Total 0.8 <0.2-1.2 - mg/dL * B UN 14 8-23 - mg/dL * C alcium 9.9 8.6-10.4 - mg/dL * C hloride 102 97-108 - mmol/L * C O2 26 22-32 - mmol/L * C reatinine 0.88 0.70-1.30 - mg/dL * G lucose 171 H 65-99 - mg/dL * P otassium 4.2 3.5-5.3 - mmol/L * S odium 139 135-145 - mmol/L * P rotein 6.9 6.0-8.3 - g/dL * e GFR by Creatinine 95 >59 - mL/min/1.73m2 * Fatoumata Hanson 02/26/2024 8:52:05 AM >See phone encounter 4.?Hypothyroidism? Continue Synthroid Tablet, 25 MCG, 1 tab(s), orally, once a day.??5.?Diabetic neuropathy? Continue Gabapentin Tablet, 800 MG, 1 tab(s), Orally, Two times a day.?? 6.?Status post orthotopic heart transplant? Continue Tacrolimus Capsule, 1 MG, 1 cap(s), orally, 2 caps in the am, 1 cap at night.?? * Immunizations: Prevnar (PCV20) : 0.5 mL (Route: Intramuscular) given by Payton Jj on Right Deltoid (Encounter for immunization) Fluzone High Dose (65yr and older) : 0.5 mL (Route: Intramuscular) given by Payton Jj on Left Deltoid (Encounter for immunization) * Procedure Codes: G 2211 Complex e/[place], [address] GLYCATED HEMOGLOBIN TEST, Modifiers: QW * Follow Up: 6 Months * Images: Billing Information: * Visit Code: 76112 Office Visit, Est Pt., Level 4. * Procedure Codes: G2211 Complex e/[place]. [address] GLYCATED HEMOGLOBIN TEST. Modifiers: QW * Electronic signature of Fatoumata Hanson MD on 09/05/2024 at 04:11 PM EDT Sign off status: Pending * Provider: Fatoumata Hanson M.D. Date: 04/16/2023 Generated for Chana grimes/Gio/eTransmitting on: 0 09/05/2024 04:11 PM EDT History and Physical Notes * HPI (History of Present Illness) Category Sub-Category Detail Notes Category Not es Endocrinology He is still ge tting frequent high blood sugar readings at home. He is accompanied by his today who reports that he is not always compliant with his diet. Cardiology Short of Breath Chest Pain Palpitations Leg Edema Examination Category Sub-Category Detail Notes Category Not es Cardiology Lungs: clear Haider's palsy se ems to have resolved HEENT: sclera and conjuncti va clear, PERRLA, TM's normal, translucent Heart sounds: RRR, normal S1, S2 Carotid upstroke: normal, no bruits Extremities: no leg edema Murmur, click , gallop: none General Appearance: NAD. Weight loss not ed
--- OUTSIDE RECORDS SUMMARY | 2024-08-12 12:15 | XMS_ITS ---
Author Organization [facility] Address [address] [facility] [address] [id number] Care Team Providers Care Design Leader Name Role Phone Fatoumata Hanson Primary Care Provider Allergies Allergen (clinical drug ingredient) Drug/Non Drug Allergy documented on EMR Reaction Allergy Type Onset Date Status carvedilol Coreg Unknown Drug Allergy Active Results Component Value Reference Range Notes CBC Venipuncture (in house) Reviewed date:09/03/2024 02:49:40 PM Interpretation:Normal Performing Lab: Notes/Report: Normal wbc 8.6 3.5 - 10 lymph 15.3% 15 - 50 mid 4.9% 2 - 15 gran 79.8% 35 - 80 rbc 4.31 3.5 - 5.5 hgb 10.7 11.5 - 16.5 hct 32.8 35 - 55 mcv 76.2 75 - 100 mch 24.8 25 - 35 mchc 32.6 31 - 38 platlet 426 100 - 400 Glycohemoglobin A1c (in hous e) Reviewed date:09/03/2024 02:49:40 PM Interpretation:8.6 Performing Lab: Notes/Report: 8.6 glycohemoglobin 8.6% 5 - 6.5 % P-Comprehensive Metabolic Pa alessandra (CMP) Reviewed date:09/03/2024 02:49:40 PM Interpretation:gluc 288, alb 3.3, alk phos 132, a/g 1 Performing Lab: Notes/Report: Test performed by [facility] [address] , [address], [place] [address] Mukund Wolff MD, Public School Teacher CLIA: [id number] Sodium 135 135-145 mmol/L Potassium 4.3 3.5-5.3 mmol/L Chloride 99 97-108 mmol/L CO2 25 22-32 mmol/L Glucose 288 65-99 mg/dL BUN 14 8-23 mg/dL Creatinine 0.83 0.70-1.30 mg/dL Calcium 8.9 8.6-10.4 mg/dL eGFR by Creatinine 96 >59 mL/min/1.73m2 Protein 6.5 6.0-8.3 g/dL Albumin 3.3 3.5-5.3 g/dL Alkaline Phosphatase 132 40-129 IU/L ALT (SGPT) 12 <5-55 IU/L AST (SGOT) 14 <5-46 IU/L Bilirubin, Total 0.3 <0.2-1.2 mg/dL A/G Ratio 1.0 1.1-2.5 P-Magnesium Reviewed date:09/03/2024 02:49:40 PM Interpretation:Normal Performing Lab: Notes/Report: Test performed by [facility] [address] , [place] [address] Mukund Wolff MD, Public School Teacher CLIA: [id number] Magnesium 1.9 1.6-2.4 mg/dL P-PSA Reviewed date:09/03/2024 02:49:40 PM Interpretation:Normal Performing Lab: Notes/Report: Test performed by [facility] [address] , [place] [address] Mukund Wolff MD, Public School Teacher CLIA: [id number] PSA 0.64 <4.00 ng/mL Please note this is an ultrasensitive PSA assay with a lower limit of detection of 0.014 ng/mL. This test is performed by the Christina ECLIA methodology. Values obtained with different assay methods or kits cannot be directly compared. P-TSH Reviewed date:09/03/2024 02:49:40 PM Interpretation:Normal Performing Lab: Notes/Report: Test performed by [facility] [address] [place] [address] , [address], [place] [address] Mukund Wolff MD, Public School Teacher CLIA: [id number] TSH 1.74 0.43-5.25 mU/L P-Microalbumin/Creatinine, R andom Urine Sample Reviewed date:09/03/2024 02:49:40 PM Interpretation:a/c 59 Performing Lab: Notes/Report: Test performed by [facility] [address] [place] [address] , [address], [place] [address] Mukund Wolff MD, Public School Teacher CLIA: [id number] Albumin/Creatinine Ratio, Urine 59 0-30 ug/m g Microalbumin, Urine, Random 4.7 Creatinine, Urine 79.3 Reason For Referral Reason suspicious lesion of arm Diagnosis 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) Referral Organization [facility] Referring Provider First Name Fatoumata Vazquez Referring Provider Last Name Valenitn Referring Provider Speciality Family Pra khoaice Referred Provider Alan Franco Referred Provider Specialty Dermatology General Notes Adelaida Orantes 2024 11:18:43 AM > completed referral online and also faxed OV notes Referral Priority Routine REASON FOR VISIT 6 month check up and Annual Wellness Visit, Needs KED (uACR and eGFR), Patient in danger of failingfor med adherence for diabetes, hypertension and cholesterol, Needs Diabetic Eye Exam and Colonoscopy Medications Medication SIG (Take, Route, Frequency, Duration) Notes Start Date End Date Status Lisinopril 10 MG 1 tab(s) orally once a day Not-Taking traMADol HCl 50 MG 1-2 tab(s) orally fo ur times a day as needed 08/05/2024 Active Atorvastatin Calcium 80 MG 1 tab(s) orally once a day; Duration: 30 days Active NovoLOG FlexPen 100 UNIT/ML per sliding scale subcutaneously ACHS Active FreeStyle Shan 3 [place] - as directed 06/06/2024 Active Levothyroxine Sodium 25 MCG Take 1 tablet by mouth once daily; Duration: 90 Active Gabapentin 800 MG 1 tab(s) Orally Two times a day; Duration: 30 day(s) 02/25/2024 Active BD Insulin Syringe U-100 1 ML as directed Two times a day 04/02/2024 Active Baclofen 20 MG 1 tab(s) orally At B ed Time; Duration: 90 days Active DULoxetine HCl 60 MG Take 1 capsule by m outh once daily; Duration: 90 Active FreeStyle Shan 3 Plus Sensor - as directed 06/06/2024 Active NovoLOG Mix 70/30 (70-30) 100 UNIT/ML 60 units sq qam; 40 units sq qpm subcutaneously Active amLODIPine Besylate 10 MG 1 tab(s) orally once a day Active ReliOn Blood Glucose Test Active Tacrolimus 1 MG 1 cap(s) orally 2 ca ps in the am, 1 cap at night Active RELION BLOOD GLUCOSE MONITOR Active Losartan Potassium 100 MG 1 tablet Orally Once a day Active Prasugrel HCl 10 MG as directed Orally Active Sirolimus 0.5 MG 1 tablet Orally Once a day Active Magnesium 400 MG 2 Tablets Orally twi ce a day Active Multivitamin - 1 tab(s) orally once a day Active Sirolimus 1 MG 1 tablet Orally Once a day Active Cefdinir 300 MG 1 cap Orally twice a day Active Problems Problem Type SNOMED Code ICD Code Onset Dates Problem Status W/U Status Risk Notes Problem Paroxysmal atrial fibrillation ([id number]) Paroxysmal atrial fibrillation (I48.0) Active confirmed Vital Signs Weight 174.4 lbs 08/12/2024 Blood pressure systolic 130 mm Hg 08/13/19 25 Blood pressure diastolic 70 mm Hg 025 Heart Rate 96 /min 08/12/2024 Height 66.50 in 08/12/2024 BMI 27.72 kg/m2 08/12/2024 Encounters Encounter Location Date Provider Diagnosis [facility] [address] [facility] [address] [id number] 08/12/2024 R George Hanson Adult general medica l examination Z00.00 ; Acute bronchitis J20.9 ; Uncontrolled type 2 diabetes mellitus with hyperglycemia E11.65 ; Dyslipidemia E78.5 ; Essential hypertension I10 ; Benign prostatic hyperplasia with lower urinary tract symptoms N40.1 ; Hypothyroidism E03.9 ; Status post orthotopic heart transplant Z94.1 ; 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 08/12/2024 Acute bronchitis (ICD-10 - J20.9) 08/12/2024 Uncontrolled type 2 diabetes mellitus with hyperglycemia (ICD-10 - E11.65) 08/12/2024 Dyslipidemia (ICD-10 - E78.5) 08/12/2024 Essential hypertension (ICD-10 - I10) 08/12/2024 Benign prostatic hyperplasia with lower urinary tract symptoms (ICD-10 - N40.1) 08/12/2024 Hypothyroidism (ICD-10 - E03.9) 08/12/2024 Status post orthotopic heart transplant (ICD-10 - Z94.1) 08/12/2024 Neoplasm of uncertain behavior (ICD-10 - D48.9) 08/12/2024 Diabetic neuropathy (ICD-10 - E11.40) 08/12/2024 Paroxysmal atrial fibrillation (ICD-10 - I48.0) 08/12/2024 BMI 27.0-27.9,adult (ICD-10 - Z68.27) Plan Of Treatment Medication Medication Name Sig Start Date Stop Date Notes Cefdinir 300 MG 1 cap Orally twice a day 08/12/2024 Treatment Notes Assessment Notes Adult general medical examination Patien t instructed to return to office Annually for Annual Wellness Visits to include annual screenings of Pain assessment, Functional Ability assessment, Cognitive Ability assessment, Fall Risk assessment, Depression screening and Bladder control screening. Referrals Referral Date Details 08/12/2024 08/12/2024, suspicio us lesion of arm, Alan Salvador Next Appt Details Follow Up: 3 Months, Reason: Progress Notes * YENNI MOONOB:[birth year] (69 yo M)Acc No.[id number]:08/12/2024 Annual Wellness Visit Patient: Debra ERICSUSANYENNI Provider: Fatoumata Hanson M.D. :1955 A ge:69 Y S ex:Male Date:08/12/2024 Address:[address] [place] [address] Subjective: * Chief Complaints: * 1 . 6 month check up and Annual Wellness Visit. 2. Needs KED (uACR and eGFR). 3. Patient in danger of failing for med adherence for diabetes, hypertension and cholesterol. 4. Needs Diabetic Eye Exam and Colonoscopy. * HPI: H PI: Patient is here today for a scheduled 6 month check up and?a Medicare Annual Wellness Visit. He brings all of his prescription bottles with him today which are reviewed and his medication list reconciled. His refills are all current and he appears to be compliant with taking his medication. E ndocrinology: Since his last office visit, he has managed to secure health insurance and has been able to obtain a continuous glucose monitor which he states has helped greatly in monitoring his daily sugar. He was having multiple low readings in the mornings and in the middle of the night and therefore discontinued his 70/30 insulin altogether. In reviewing the data from his CGM, it appears that his a.m. readings are consistently in the normal range but afternoon and evening sugars are much higher and while in the office today's reading 290. He would like to go back on sliding scale insulin at least in the short-term to control his sugar. He has been working on his diet but is inconsistent. He has lost weight. C ardiology: He continues to follow with heart transplant team. He had his annual heart cath in February. No change in his regimen, however I have no records from . D ermatology: He is requesting dermatology referral for some lesions on his face and arms. E NT/respiratory: He complains of persistent congestion and productive cough for about a month. No fever. Sputum is green in color at times. No shortness of breath or chest pain. * ROS: D ERMATOLOGY: no R hannah. n o H jimmy. G ASTROENTEROLOGY: no N ausea. n o V omiting. n o D iarrhea.? O PTHALMOLOGY: Negative for d enies vision issues. U ROLOGY: no D ifficulty urinating. n o B lood in urine. * Medical History: H eart transplant, Feb 2015 at , Hypertriglyceridemia, Hyperglycemia, Viral Cardiomyopathy - Ejection fraction =15 % by Cardiac Cath [...] drive line 03/2014, Orthotopic heart transplant - [facility] 03/20/2015, heart cath- 07/12/2015, heart cath - - stent 02/2023. * Hospitalization/Major Diagno stic Procedure: R eaction to Medication- [facility] ER 09/2009, Shocked by Pacemaker, later sent to [facility] 08/06/2011, [facility]thm[facility]2012, [facility] Rhythm[facility], Dehydration- [facility] 01/2013. * Family History: F ather: alive, DM, heart disease, arthritis, anemia. M other: alive, Suring Palsy, cataracts. S iblings: heart disease, testicular [...] ouside US: no. * Medications: T aking Sirolimus 1 MG Tablet 1 tablet Orally Once a day , Taking Losartan Potassium 100 MG Tablet 1 tablet Orally Once a day , Taking Prasugrel HCl 10 MG Tablet as directed Orally , Taking Sirolimus 0.5 MG Tablet 1 tablet Orally Once a day , Taking Magnesium 400 MG Capsule 2 Tablets Orally twice a day , Taking Multivitamin - Tablet 1 tab(s) orally once a day , Taking RELION BLOOD GLUCOSE MONITOR , Taking ReliOn Blood Glucose Test , Taking Tacrolimus 1 MG Capsule 1 cap(s) orally 2 caps in the am, 1 cap at night , Taking amLODIPine Besylate 10 MG Tablet 1 tab(s) orally once a day , Taking NovoLOG Mix 70/30 (70-30) 100 UNIT/ML Suspension 60 units sq qam; 40 units sq qpm subcutaneously , Taking Gabapentin 800 MG Tablet 1 tab(s) Orally Two times a day , Taking BD Insulin Syringe U-100 1 ML Miscellaneous as directed Two times a day , Taking Baclofen 20 MG Tablet 1 tab(s) orally At Bed Time , Taking DULoxetine HCl 60 MG Capsule Delayed Release Particles Take 1 capsule by mouth once daily , Taking FreeStyle Shan 3 Plus Sensor - Miscellaneous as directed , Taking FreeStyle Shan 3 [place] - Device as directed , Taking Levothyroxine Sodium 25 MCG Tablet Take 1 tablet by mouth once daily , Taking NovoLOG FlexPen 100 UNIT/ML Solution Pen-injector per sliding scale subcutaneously ACHS , Taking traMADol HCl 50 MG Tablet 1-2 tab(s) orally four times a day as needed , Taking Atorvastatin Calcium 80 MG Tablet 1 tab(s) orally once a day , Not-Taking Lisinopril 10 MG Tablet 1 tab(s) orally once a day , Discontinued Mycophenolate Mofetil 250 MG Capsule 4 cap(s) orally 2 times a day , Discontinued Aspirin 81 MG Tablet Delayed Release 1 tab(s) orally once a day , Discontinued Tamsulosin HCl 0.4 MG Capsule 2 cap(s) orally qhs , Discontinued Januvia 50 MG Tablet 1 tablet Orally Once a day , Medication List reviewed and reconciled with the patient * Allergies: C oreg. Objective: * Vitals: W t: 174.4, Temp: 000, BP: 130/70, HR: 96, Nurse: analisa, Ht: 66.50, BMI:27.72. * Examination: C ardiology: General Appearance: N AD. Weight loss noted. H EENT:?sclera and conjunctiva clear, PERRLA, TM's normal, translucent. C arotid upstroke: n ormal, no bruits. H eart sounds: R RR, normal S1, S2. M urmur, click , gallop: n one.?Lungs: F ew upper airway rhonchi. E xtremities: no leg edema. G eneral Examination: Skin: Rony akhtar has several keratotic lesions on his face and arms. There is 1 large nodular and crusted lesion on the left forearm suspicious for possible squamous cell carcinoma. * Physical Examination: G ENERAL: Pain Assessment: P ain level: 6, on a scale of 0-10 (with 10 being extreme pain). F unctional Status Assessment: P atient response to question of how often physical health interferes with daily activities: Almost never. Able to perform ADLs-including meal preparation, grocery shopping, housework, laundry, taking medications or handling finances. Cognitive Status: alert and oriented. Ambulation Status: Fully ambulatory. F all Risk Assessment: I ndependant in ambulation, adequate lighting in home. Patient has fallen or had trouble walking within the past 12 months. D epression Screening: D enies depressed mood or anxiety. Describes emotional health as: calm. B ladder Control Screening: D enies problems.? Assessment: * Assessment: 1. A dult general medical examination - Z00.00 (Primary) 2 . A cute bronchitis - J20.9 3 . U ncontrolled type 2 diabetes mellitus with hyperglycemia - E11.65 4 . D yslipidemia - E78.5 5 . E ssential hypertension - I10 6 . B enign prostatic hyperplasia with lower urinary tract symptoms - N40.1? 7. H ypothyroidism - E03.9 8 . S tatus post orthotopic heart transplant - Z94.1 9 . N eoplasm of uncertain behavior - D48.9 1 0. D iabetic neuropathy - E11.40 1 1. P aroxysmal atrial fibrillation - I48.0 1 2. B MN 27.0-27.9,adult - Z68.27 Plan: * Treatment: 2. A cute bronchitis Start Cefdinir Capsule, 300 MG, 1 cap, Orally, twice a day, 14. L AB: CBC Venipuncture (in house) (Collection Date & Time - 08/12/2024) N ormal Value Reference Range w bc 8.6 3.5 - 10 * l ymph 15.3% 15 - 50 * m id 4.9% 2 - 15 * g ran 79.8% 35 - 80 * r bc 4.31 3.5 - 5.5 * h gb 10.7 11.5 - 16.5 * h ct 32.8 35 - 55 * m cv 76.2 75 - 100 * m ch 24.8 25 - 35 * m chc 32.6 31 - 38 * p latlet 426 100 - 400 * Nikia Turner 08/12/2024 05:45: 30 PM EDT > Fatoumata Hanson 09/03/2024 02:49:08 PM EDT > See 08/25/2024 phone encounter 3.?Uncontrolled type 2 diabetes mellitus with hyperglycemia?LAB: P-Microalbumin/Creatinine, Random Urine Sample (Collection Date & Time - 08/12/2024 04:10 PM)?a/c 59* Value Reference Range A lbumin/Creatinine Ratio, Urine 59 H 0-30 - ug /mg * C reatinine, Urine 79.3 - mg/dL * M icroalbumin, Urine, Random 4.7 - mg/dL * Fatoumata Hanson 09/03/2024 0 2:49:08 PM EDT > See 08/25/2024 phone encounter ?LAB: Glycohemoglobin A1c (in house) (Collection Date & Time - 08/12/2024)? 8.6* Value Reference Range g lycohemoglobin 8.6% 5 - 6.5 % * Nikia Turner 08/12/2024 05:47: 00 PM EDT > Fatoumata Hanson 09/03/2024 02:49:08 PM EDT > See 08/25/2024 phone encounter 4.?Essential hypertension?LAB: P-Comprehensive Metabolic Panel (CMP) (Collection Date & Time - 08/12/2024 04:10 PM)?gluc 288, alb 3.3, alk phos 132, a/g 1* Value Reference Range A /G Ratio 1.0 L 1.1-2.5 - * A lbumin 3.3 L 3.5-5.3 - g/dL * A lkaline Phosphatase 132 H 40-129 - IU/L * A LT (SGPT) 12 <5-55 - IU/L * A ST (SGOT) 14 <5-46 - IU/L * B ilirubin, Total 0.3 <0.2-1.2 - mg/dL * B UN 14 8-23 - mg/dL * C alcium 8.9 8.6-10.4 - mg/dL * C hloride 99 97-108 - mmol/L * C O2 25 22-32 - mmol/L * C reatinine 0.83 0.70-1.30 - mg/dL * G lucose 288 H 65-99 - mg/dL * P otassium 4.3 3.5-5.3 - mmol/L * S odium 135 135-145 - mmol/L * P rotein 6.5 6.0-8.3 - g/dL * e GFR by Creatinine 96 >59 - mL/min/1.73m2 * Fatoumata Hanson George 09/03/2024 0 2:49:08 PM EDT > See 08/25/2024 phone encounter ?LAB: P-Magnesium (Collection Date & Time - 08/12/2024 04:10 PM)?Normal* Value Reference Range M agnesium 1.9 1.6-2.4 - mg/dL * Valentin Fatoumata George 09/03/2024 0 2:49:08 PM EDT > See 08/25/2024 phone encounter 5.?Benign prostatic hyperplasia with lower urinary tract symptoms?LAB: P-PSA (Collection Date & Time - 08/12/2024 04:10 PM)?Normal* Value Reference Range P SA 0.64 <4.00 - ng/mL * ValentinFatoumata 09/03/2024 0 2:49:08 PM EDT > See 08/25/2024 phone encounter 6.?Hypothyroidism?LAB: P-TSH (Collection Date & Time - 08/12/2024 04:10 PM)?Normal* Value Reference Range T SH 1.74 0.43-5.25 - mU/L * Valentin Fatoumata George 09/03/2024 0 2:49:08 PM EDT > See 08/25/2024 phone encounter 7.?Neoplasm of uncertain behavior? Referral To:Alan Franco??Dermatology ?Reason:suspicious lesion of arm * Procedure Codes: G 0439 ANNUAL WELLNESS VST; PPS SUBSQT VST, G2211 Complex [place], [address] GLYCATED HEMOGLOBIN TEST, Modifiers: QW , 1090F PRES/ABSN URINE INCON ASSESS, 3288F FALL RISK ASSESSMENT DOCD, 1170F FXNL STATUS ASSESSED, 1159F MED LIST DOCD IN RCRD, 1003F LEVEL OF ACTIVITY ASSESS, 1036F TOBACCO NON-USER, 07066 CBC WITH AUTO DIFF, 1125F AMNT PAIN NOTED PAIN PRSNT, 3052F HG A1C>EQUAL 8.0%<EQUAL 9.0%, G8510 NEG SCR Depression PT NOT ELIG F/U/PLN DOC, G8420 BMI<30 AND >=22 CALC & DOCU, G8950 PREHTN/HTN BP DOC INDCD F/U DOC, G8752 MOST RECENT SYSTOLIC BP < 140MM HG, G8754 MOST RECENT DIASTOLIC BP < 90MM HG * Preventive Medicine: Counseling: E motional health: D iscussed ways to improve socialization. E xercise: P atient advised to start, increase or maintain level of exercise/physical activity. Injury prevention: F all prevention discussed. Discussed need for cane/walker. Potential trip hazards discussed. Immunizations: T etanus u p to date. P neumococcal u p to date. I nfluenza u p to date. Screening / Special Tests: C olonoscopy R ecent history:04/22/2013, recommended.?PSA 1 04/18/2022, normal, ordered today. D iabetic Retinal Eye Exam R ecent history:, recommended today. N ephrology History R ecent history:, GFR and urine M/A ordered today.? * Follow Up: 3 Months * Images: Billing Information: * Visit Code: 72803 Office Visit, Est Pt., Level 3. Modifiers: 25 * Procedure Codes: G0439 ANNUAL WELLNESS VST; PPS SUBSQT VST. G2211 Complex e/[place]. [address] GLYCATED HEMOGLOBIN TEST. Modifiers: QW 1090F PRES/ABSN URINE INCON ASSESS. 3288F FALL RISK ASSESSMENT DOCD. 1170F FXNL STATUS ASSESSED. 1159F MED LIST DOCD IN RCRD. 1003F LEVEL OF ACTIVITY ASSESS. 1036F TOBACCO NON-USER. 95279 CBC WITH AUTO DIFF. 1125F AMNT PAIN NOTED PAIN PRSNT. 3052F HG A1C>EQUAL 8.0%<EQUAL 9.0%. G8510 NEG SCR Depression PT NOT ELIG F/U/PLN DOC. G8420 BMI<30 AND >=22 CALC & DOCU. G8950 PREHTN/HTN BP DOC INDCD F/U DOC. G8752 MOST RECENT SYSTOLIC BP < 140MM HG. G8754 MOST RECENT DIASTOLIC BP < 90MM HG. * Electronic signature of Fatoumata Hanson MD on 09/05/2024 at 04:12 PM EDT Sign off status: Pending * Provider: Fatoumata Hanson M.D. Date: 0 08/12/2024 Generated for Raphaeli cornelio/F[employer]/eTransmitting on: 0 09/05/2024 04:12 PM EDT History and Physical Notes * HPI (History of Present Illness) Category Sub-Category Detail Notes Category Not es ENT/respiratory He complains of persistent congestion and productive cough for about a month. No fever. Sputum is green in color at times. No shortness of breath or chest pain. Dermatology He is parminder pacheco dermatology referral for some lesions on his face and arms. Endocrinology Since his last office visit, he has managed to secure health insurance and has been able to obtain a continuous glucose monitor which he states has helped greatly in monitoring his daily sugar. He was having multiple low readings in the mornings and in the middle of the night and therefore discontinued his 70/30 insulin altogether. In reviewing the data from his CGM, it appears that his a.m. readings are consistently in the normal range but afternoon and evening sugars are much higher and while in the office today's reading 290. He would like to go back on sliding scale insulin at least in the short-term to control his sugar. He has been working on his diet but is inconsistent. He has lost weight. Cardiology He continues to follow with heart transplant team. He had his annual heart cath in February. No change in his regimen, however I have no records from . HPI Patient is here today for a scheduled 6 month check up and a Medicare Annual Wellness Visit He brings all of his prescription bottles with him today which are reviewed and his medication list reconciled. His refills are all current and he appears to be compliant with taking his medication. Physical Examination Category Sub-Category Detail Notes Section Note s GENERAL Pain Assessment: Pain level: 6, on a scale of 0-10 (with 10 being extreme pain) Functional Status Assessment: Patient re sponse to question of how often physical health interferes with daily activities: Almost never. Able to perform ADLs-including meal preparation, grocery shopping, housework, laundry, taking medications or handling finances.Cognitive Status: alert and oriented.Ambulation Status: Fully ambulatory Fall Risk Assessment: Independant in amb ulation, adequate lighting in home. Patient has fallen or had trouble walking within the past 12 months Depression Screening: Denies depressed m ood or anxiety. Describes emotional health as: calm Bladder Control Screening: Denies proble ms Examination Category Sub-Category Detail Notes Category Not es General Examination Skin: He has sever al keratotic lesions on his face and arms. There is 1 large nodular and crusted lesion on the left forearm suspicious for possible squamous cell carcinoma Cardiology Lungs: Few upper airway rhonchi HEENT: sclera and conjuncti va clear, PERRLA, TM's normal, translucent Heart sounds: RRR, normal S1, S2 Carotid upstroke: normal, no bruits Extremities: no leg edema Murmur, click , gallop: none General Appearance: NAD. Weight loss not ed Consultation Request Notes Referral Date Referring Provider Referred Provider Not es 08/12/2024 Fatoumata Hanson Chase suspiciou s lesion of arm
--- OUTSIDE RECORDS SUMMARY | 2024-08-25 17:09 | XMS_ITS ---
Author Organization [facility] Address [address] [place] [phone] Care Team Providers Care Record Press Supervisor Name Role Phone Fatoumata Hanson Primary Care Provider [phone] Problems Problem Type SNOMED Code ICD Code Onset Dates Problem Status W/U Status Risk Notes Problem Hemoglobin low (328093955) Low hemoglobin (D64.9) Active confirmed Encounters Encounter Location Date Provider Diagnosis [facility] [address] [place] [id number] 08/25/2024 Fatoumata Hanson Low hemoglobin D64.9 Assessments Encounter Date Diagnosis (ICD Code) Assessment Notes Treatment Notes Treatment Clinical Notes Section Notes 08/25/2024 Low hemoglobin (ICD-10 - D64.9) Plan Of Treatment Pending Test Test Name Order Date H-Iron, TIBC, Iron Saturation 08/25/2024 H-Folate 08/25/2024 H-VITAMIN B12 08/25/2024 H-Retic count 08/25/2024 H-Ferritin 08/25/2024 Progress Notes * YENNI MOONNEDOB:[birth year] (69 yo M)Acc No.[id number]:08/25/2024 Patient: Debra WALLACE YENNI DIAS :1955 A ge:69 Y S ex:Male Address:[address] [place] [id number] Subjective: * Chief Complaints: * * Medical History: * Surgical History: * Hospitalization/Major Diagno stic Procedure: * Medications: Objective: * Vitals: * Physical Examination: Assessment: * Assessment: 1. L ow hemoglobin - D64.9 (Primary) Plan: * Treatment: * Procedure Codes: * * Date:
--- OUTSIDE RECORDS SUMMARY | 2024-09-05 16:11 | XMS_ITS | Encounter Summary ---
Author Organization [facility] Address [address] [place] [address] Care Team Providers Care Proc Tech Name Role Phone Alpesh Hanson MD Primary Care Provider [phone] Encounter Details Date Type Department Care Team (Late st Contact Info) Description 03/02/2015 [facility] Historical OTTR [address] [place] [address] Dorota Quevedo, RN [facility] [address] [place], [place] [phone] Social History Tobacco Use Types Packs/Day Years Used Date Smoking Tobacco: Never Assessed Sex and Gender Information Value Date Recorded Sex Assigned at Not on file Legal Sex Male 6:23 PM EDT Gender Identity Not on file Sexual Orientation Not on file documented as of this encounter Miscellaneous Notes * Progress Notes - Dorota Quevedo - 03/02/2015 12:50 PM EST Patient discussed in conference. The patient is listed status 1A. Due to high PVR prior to LVAD, the patient will have a repeat RHC today to assess PVR. documented in this encounter Plan of Treatment Upcoming Encounters Date Type Department Care Team (Late st Contact Info) Description 09/17/2024 8:40 AM EDT Clinical Support MD Clinic Lab [address], [address] [place] [address] 09/17/2024 9:30 AM EDT Office Visit [facility] [place] [facility] [address] [facility] [address]st [address] [place] [address] documented as of this encounter Visit Diagnoses Not on filedocumented in this encounter Additional Health Concerns Infection Onset Date Last Indicated Resolved Time Toxoplasmosis Comment:Resolve date added to set historic infection(s) to inactive from SCM to Epic conversion. 03/20/2015 03/20/2015 07/26/2020 12:00 AM EDT Toxoplasmosis 03/20/2015 03/20/2015 documented as of this encounter Care Teams Proc Tech Relationship Specialty Start Date End Date Alpesh Hanson MD [address] [place] [address] [address] PCP - General 07/09/20 documented as of this encounter
--- OUTSIDE RECORDS SUMMARY | 2024-09-05 16:11 | XMS_ITS | Patient Health Record ---
Author Organization [facility] Address [address] [facility] [address] [id number] Care Team Providers Care Direct Care Professional Name Role Phone Fatoumata Hanson Primary Care [...] 1 Performing Lab: Notes/Report: Test performed by [facility]ly [facility] , [address], [place] [address] Mukund Wolff MD, Wetland Scientist CLIA: [id number] Sodium 135 135-145 mmol/L Potassium 4.3 3.5-5.3 [...] 0.3 <0.2-1.2 mg/dL A/G Ratio 1.0 1.1-2.5 P-PSA Reviewed date:09/03/2024 02:49:40 PM Interpretation:Normal Performing Lab: Notes/Report: Test performed by [facility] [address] [place] [address] , [address], [place] [address] Mukund Wolff MD, Wetland Scientist CLIA: [id number] PSA 0.64 <4.00 ng/mL Please note this is an ultrasensitive PSA assay with a lower limit of detection of 0.014 ng/mL. This test is performed by the Christina ECLIA methodology. Values obtained with different assay methods or kits cannot be directly compared. P-TSH Reviewed date:09/03/2024 02:49:40 PM Interpretation:Normal Performing Lab: Notes/Report: Test performed by [facility] [address] [place] [address] , [address], [place] [address] Mukund Wolff MD, Wetland Scientist CLIA: [id number] TSH 1.74 0.43-5.25 mU/L P-Microalbumin/Creatinine, R andom Urine Sample Reviewed date:09/03/2024 02:49:40 PM Interpretation:a/c 59 Performing Lab: Notes/Report: Test performed by [facility] [address] [place] [address] , [address], [place] [address] Mukund Wolff MD, Wetland Scientist CLIA: [id number] Albumin/Creatinine Ratio, Urine 59 0-30 ug/m g Microalbumin, Urine, Random 4.7 Creatinine, Urine 79.3 P-Microalbumin/Creatinine, R andom Urine Sample Reviewed date:08/11/2024 03:35:41 PM Interpretation:no record performed Performing Lab: Notes/Report: no record performed P-Comprehensive Metabolic Pa alessandra (CMP) Reviewed date:08/11/2024 03:36:14 PM Interpretation:no record performed Performing Lab: Notes/Report: no record performed Glycohemoglobin A1c (in hous e) Reviewed date:02/26/2024 08:52:15 AM Interpretation:10.7% Performing Lab: Notes/Report: 10.7% glycohemoglobin 10.7% 5 - 6.5 % P-Comprehensive Metabolic Pa alessandra (CMP) Reviewed date:02/26/2024 08:52:15 AM Interpretation:gluc 171, alk phos 171 Performing Lab: Notes/Report: Test performed by [facility] [address] [place], [place] [address] [address] , [address], [place] [address] Mukund Wolff MD, Wetland Scientist CLIA: [id number] Sodium 139 135-145 mmol/L Potassium 4.2 3.5-5.3 [...] Interpretation:Normal Performing Lab: Notes/Report: Test performed by [facility] [address] [place], [place] [address] [address] , [address], [place] [address] Mukund Wolff MD, Wetland Scientist CLIA: [id number] Cholesterol 138 <200 mg/dL Triglycerides 141 <150 [...] Results: 59 Units: mg/dL % Change: +55% P-Magnesium Reviewed date:09/03/2024 02:49:40 PM Interpretation:Normal Performing Lab: Notes/Report: Test performed by [facility] [address] , [address], [place] [address] Mukund Wolff MD, Wetland Scientist CLIA: [id number] Magnesium 1.9 1.6-2.4 mg/dL Medications Medication SIG (Take, Route, Frequency, Duration) Notes Start Date End Date Status DULoxetine HCl 60 MG 1 capsule Orally On ce a day; Duration: 90 days Active Gabapentin 800 MG 1 tab(s) Orally Two times a day; Duration: 30 days 09/03/2024 Active ReliOn Blood Glucose Test Active Tacrolimus 1 MG 1 cap(s) orally 2 ca ps in the am, 1 cap at night Active Sirolimus 0.5 MG 1 tablet Orally Once a day Active Cefdinir 300 MG 1 cap Orally twice a day Active Magnesium 400 MG 2 Tablets Orally twi ce a day Active FreeStyle Shan 3 Plus Sensor - as directed 06/06/2024 Active Multivitamin - 1 tab(s) orally once a day Active FreeStyle Shan 3 Falcon - as directed 06/06/2024 Active RELION BLOOD GLUCOSE MONITOR Active Levothyroxine Sodium 25 MCG Take 1 tablet by mouth once daily; Duration: 90 Active BD Insulin Syringe U-100 1 ML as directed Two times a day 04/02/2024 Active NovoLOG Mix 70/30 (70-30) 100 UNIT/ML 60 units sq qam; 40 units sq qpm subcutaneously Active Lisinopril 10 MG 1 tab(s) orally once a day Not-Taking Sirolimus 1 MG 1 tablet Orally Once a day Active Losartan Potassium 100 MG 1 tablet Orally Once a day Active Prasugrel HCl 10 MG as directed Orally Active Baclofen 20 MG 1 tab(s) orally At B ed Time; Duration: 90 days Active traMADol HCl 50 MG 1-2 tab(s) orally fo ur times a day as needed 08/05/2024 Active NovoLOG FlexPen 100 UNIT/ML per sliding scale subcutaneously ACHS Active amLODIPine Besylate 10 MG 1 tab(s) orally once a day Active Atorvastatin Calcium 80 MG 1 tab(s) orally once a day; Duration: 30 days Active Immunizations Vaccine Route Administration Date Status Comme nts Flublok IM Intramuscular 03/06/2018 Administered Fluzone High Dose (65yr and older) IM Intramuscular 02/15/2023 Administered Fluzone High Dose (65yr and older) IM Intramuscular 02/14/2024 Administered Fluzone Intradermal Quad private(18-64yrs) ID Intradermal 02/04/2015 Administered Fluzone Quad (6months&older) IM Intramuscular 12/12/2018 Administered Fluzone Quad (6months&older) IM Intramuscular 12/13/2021 Administered Fluzone Quad-Medicare (6months&older) IM Intramuscular 01/02/2017 Administered Fluzone Quad-Medicare (6months&older) IM Intramuscular 10/31/2019 Administered Fluzone Quad-Medicare (6months&older) IM Intramuscular 11/26/2020 Administered Hepatitis A (adult) Unknown 02/13/2018 Administered MMR SC Subcutaneous 12/19/2004 Administered PNEUMOVAX 23 VACCINE IM Intramuscular 11/15/2010 Administe red PNEUMOVAX 23 VACCINE IM Intramuscular 07/04/2016 Administe red PNEUMOVAX 23 VACCINE IM Intramuscular 12/13/2021 Administe red Prevnar (PCV20) IM Intramuscular 02/14/2024 Administered Shingrix IM Intramuscular 04/30/2018 Administered Shingrix Unknown 04/30/2018 Administered Tetanus Tdap-Adacel (over 7yrs) Unknown 10/19/2023 Administered xFlu shot-36 months and older IM Intramuscular 12/24/2006 Administered xFlu shot-36 months and older IM Intramuscular 01/29/2009 Administered xFlu shot-36 months and older IM Intramuscular 11/09/2009 Administered xFlu shot-36 months and older IM Intramuscular 11/15/2010 Administered xFluzone Intradermal (18-64yrs)-trivalent-medic are pts ID Intradermal 11/14/2011 Administered xFluzone Intradermal (18-64yrs)-trivalent-medic are pts ID Intradermal 11/12/2012 Administered Problems Problem Type SNOMED Code ICD Code Onset Dates Problem Status W/U Status Risk Notes Problem Type II diabetes mellitus without complication (262216666) Type 2 diabetes mellitus without complications (E11.9) Active confirmed Problem Essential hypertension (12674151) Essential hypertension (I10) Active confirmed Problem Anxiety (13431565) Anxiety (F41.9) Active confirmed Problem Diabetic neuropathy (707202941) Diabetic neuropathy (E11.40) Active confirmed Problem Paroxysmal atrial fibrillation (183788745) Paroxysmal atrial fibrillation (I48.0) Active confirmed Problem Long-term current use of insulin (879856388) nursing home current use of insulin (Z79.4) Active confirmed Problem Hypothyroidism (02160819) Hypothyroidism (E03.9) Active confirmed Problem Hyperglycemia due to type 2 diabetes mellitus (022250047983555) Poorly controlled diabetes mellitus (E11.65) Active confirmed Problem Body mass index 30.00 to 34.99 (013576423737967) BMI 31.0-31.9,adult (Z68.31) Active confirmed Problem Dyslipidemia (750937372) Dyslipidemia (E78.5) Active confirmed Problem Nocturnal myoclonus (G47.69) Active confirmed Problem Hemoglobin low (165987536) Low hemoglobin (D64.9) Active confirmed Problem Lower urinary tract symptoms due to benign prostatic hypertrophy (39356396156161) Benign prostatic hyperplasia with lower urinary tract symptoms (N40.1) Active confirmed Problem History of heart recipient (471779050) Status post orthotopic heart transplant (Z94.1) Active confirmed Problem Hyperglycemia due to type 2 diabetes mellitus (049367288104753) Uncontrolled type 2 diabetes mellitus with hyperglycemia (E11.65) Active confirmed Vital Signs Heart Rate 96 /min 08/12/2024 Blood pressure diastolic 70 mm Hg 08/12/2024 Height 66.50 in 08/12/2024 Blood pressure systolic 130 mm Hg 08/12/2024 Weight 174.4 lbs 08/12/2024 BMI 27.72 kg/m2 08/12/2024 Encounters Encounter Location Date Provider Diagnosis Maddie [address] [place] [id number] 02/14/2024 R George Hanson Dyslipidemia E78.5 ; Type 2 diabetes mellitus without complications E11.9 ; Essential hypertension I10 ; Hypothyroidism E03.9 ; Diabetic neuropathy E11.40 ; nursing home current use of insulin Z79.4 ; Status post orthotopic heart transplant Z94.1 ; Benign prostatic hyperplasia with lower urinary tract symptoms N40.1 and Encounter for immunization Z23 [facility] [address] [place], [place] [id number] 08/12/2024 R George Valentin Adult general medica l examination Z00.00 ; [...] atrial fibrillation I48.0 and BMI 27.0-27.9,adult Z68.27 [facility] [address] [place], [place] [id number] 08/25/2024 R George Valentin Low hemoglobin D64.9 [facility] [address] [place], [place] [id number] 10/03/2023 R George Valentin [facility] [address] [place], [place] [id number] 11/05/2023 R George Valentin [facility] [address] [place], [place] [id number] 12/10/2023 R Geogre Valentin [facility] [address] [place], [place] [id number] 01/31/2024 R George Valentin [facility] [address] [place], [place] [id number] 02/25/2024 R George Valentin Diabetic neuropathy E11.40 [facility] [address] [place], [place] [id number] 02/26/2024 R George Valentin [facility] [address] [place], [place] [id number] 03/28/2024 R George Valentin [facility] [address] [place], [place] [id number] 04/01/2024 R George Valentin Hypothyroidism E03.9 [facility] [address] [place], [place] [id number] 04/02/2024 R George Valentin [facility] [address] [place], [place] [id number] 04/18/2024 R George Valentin [facility] [address] [place], [place] [id number] 04/28/2024 R George Valentin [facility] [address] [place], [place] [id number] 06/06/2024 R George Valentin [facility] [address] [place], [place] [id number] 06/11/2024 R George Valentin [facility] [address] [place], [place] [id number] 07/22/2024 R George Valentin Poorly controlled diabetes mellitus E11.65 [facility] [address] [place], [place] [id number] 08/05/2024 R George Valentin Dyslipidemia E78.5 [facility] [address] [place], [place] [id number] 08/13/2024 R George Valentin Poorly controlled diabetes mellitus E11.65 [facility] [address] [place] [id number] 08/19/2024 R George Valentin [facility] [address] [place], [place] [id number] 09/03/2024 R George Valentin Diabetic neuropathy E11.40 Assessments Encounter Date Diagnosis (ICD Code) Assessment Notes Treatment Notes Treatment Clinical Notes Section Notes 02/14/2024 Type 2 diabetes mellitus without complications (ICD-10 - E11.9) 02/14/2024 Dyslipidemia (ICD-10 - E78.5) 02/25/2024 Diabetic neuropathy (ICD-10 - E11.40) 04/01/2024 Hypothyroidism (ICD-10 - E03.9) 07/22/2024 Poorly controlled diabetes mellitus (ICD-10 - E11.65) 08/05/2024 Dyslipidemia (ICD-10 - E78.5) 08/12/2024 Acute bronchitis (ICD-10 - J20.9) 08/12/2024 Adult general medical examination (ICD-10 - Z00.00) Patient instructed to return to office Annually for Annual Wellness Visits to include annual screenings of Pain assessment, Functional Ability assessment, Cognitive Ability assessment, Fall Risk assessment, Depression screening and Bladder control screening. 08/13/2024 Poorly controlled diabetes mellitus (ICD-10 - E11.65) 08/25/2024 Low hemoglobin (ICD-10 - D64.9) 09/03/2024 Diabetic neuropathy (ICD-10 - E11.40) 08/12/2024 Uncontrolled type 2 diabetes mellitus with hyperglycemia (ICD-10 - E11.65) 02/14/2024 Essential hypertension (ICD-10 - I10) 02/14/2024 Hypothyroidism (ICD-10 - E03.9) 08/12/2024 Dyslipidemia (ICD-10 - E78.5) 08/12/2024 Essential hypertension (ICD-10 - I10) 02/14/2024 Diabetic neuropathy (ICD-10 - E11.40) 02/14/2024 nursing home current use of insulin (ICD-10 - Z79.4) 08/12/2024 Benign prostatic hyperplasia with lower urinary tract symptoms (ICD-10 - N40.1) 08/12/2024 Hypothyroidism (ICD-10 - E03.9) 02/14/2024 Status post orthotopic heart transplant (ICD-10 - Z94.1) 02/14/2024 Benign prostatic hyperplasia with lower urinary tract symptoms (ICD-10 - N40.1) 08/12/2024 Status post orthotopic heart transplant (ICD-10 - Z94.1) 08/12/2024 Neoplasm of uncertain behavior (ICD-10 - D48.9) 02/14/2024 Encounter for immunization (ICD-10 - Z23) 08/12/2024 Diabetic neuropathy (ICD-10 - E11.40) 08/12/2024 Paroxysmal atrial fibrillation (ICD-10 - I48.0) 08/12/2024 BMI 27.0-27.9,adult (ICD-10 - Z68.27) Plan Of Treatment Pending Test Test Name Order Date colonoscopy 02/15/2023 H-Iron, TIBC, Iron Saturation 08/25/2024 H-Folate 08/25/2024 H-VITAMIN B12 08/25/2024 H-Retic count 08/25/2024 H-Ferritin 08/25/2024 Insurance Providers Payer Name Payer Address Payer Phone Subscriber Number Group Number Insured Name Patient Relationship to Insured Coverage Start Date Coverage End Date [employer] (MEDICARE) [address] [address] [place] [address] [id number] YENNI MOON Self - patient is the insured MEDICARE PART B [address] [address] [place] [address] [id number] YENNI MOON Self - patient is the insured Medications Administered Medication Instructions Date of Administration Dosage Notes Dexamethasone 07/04/2022 1 mL Medical (General) History Medical History History ICD Code Heart transplant, Feb 2015 at Hypertriglyceridemia Hyperglycemia Viral Cardiomyopathy - Ejection fraction =15 % by Cardiac Cath 10/31 Severe Mitral regurgitation - followed b y Dr. Tadeo Vitamin D Deficiency Paroxysmal AF MADDISON/ Panic Attacks Abdominal pain Congetive Heart Failure Type 2 diabetes Surgical History Surgery Date(Month/Year) heart cath and pacemaker/defibrillator 0 10/2004 hernia repair 2003 skin cancer removed from right shoulder 2006 Implanted LVAD (Left Ventricular Assist Device) 03/[address] line 03/2014 Orthotopic heart transplant - [facility] 03/20 heart cath- 07/12/2015 heart cath - - stent 02/2023 Hospitalization History Reason Date(Month/Year) Reaction to Medication- [facility] ER 09/2009 Dehydration- [facility] 01/2013 Heart out of Rhythm- [facility] 2012 Heart out of Rythmn- [facility] Shocked by Pacemaker, later sent to [facility] 08/06/2011
--- OUTSIDE RECORDS SUMMARY | 2024-09-05 16:11 | XMS_ITS ---
Author Organization Healthcare Address [address] [place] [address] Care Team Providers Care Wildlife Biologist Name Role Phone Alpesh Hanson MD Primary Care Provider [phone] Transplant Episode Heart Recipient [facility] ([place], [place]) [facility] Organ Received: Heart Transplanted on 03/20/2015 Marked as Active Follow-up on 09/19/2016 Heart CoordinatorDorota Quevedo RN Fax: N/A Email: N/A [place] Organ Diagnosis Organ Primary Contributory Heart Dilated Myopathy: Idiopathic Donor Information Organ ABO Source Meets Risk Criteria HLA Match Mismatches Cross Match Heart Transplanted O DBD No A: B: DR: Heart Donor Serology Results Anti-CMV CMV IgG: Negative EBV IgG EBV VCA IgG: Positive Anti-HBcAb HBC Total: Negative HBsAg HBsAg: Negative HBV DNA HBV HENRY: Negative Anti-HCV HCV: Negative Anti-HIV I/II HIV-1: Negative Anti-HTLV I/II HTLV: Not Done RPR/VDRL RPR: Negative EBV IgM EBV VCA IgM: Negative HBsAb HBsAb: Not Done EBNA No results on file SARS CoV-2 No results on file Care Team Name Role Phone Fax Email Dorota Quevedo RN Director Of Campus Recreation [phone] N/A N/A Dragan Eng Transformer Shop Supervisor N/A N/A N/A Bharathi Goodrich MD Transplant Physician [phone] N/A Berny Mora MD Referring Physician [phone] N/A Alpesh Hanson MD Primary Care Provider [phone] N/A Events Post-Transplant Pre-Transplant Admitted: 02/05/2015 Referred: 02/08/2015 Transplanted: 03/20/2015 Evaluation began: 5 Discharged: 04/13/2015 Center waitlisted: 5 Appointments (08/06/2024 - 10/06/2024) When With Visit Type Description 09/17/2024 Transplant Office Visit - T ransplant
--- OUTSIDE RECORDS SUMMARY | 2024-09-05 16:11 | XMS_ITS ---
Author Organization Unknown Allergies, Adverse Reactions and Alerts Date IsAllergic OnsetDate Allergen Reaction Type Severity Porter rgyCode Legacyallergictoid ReactionCode ReactionCodeSystemID 08/05 00:00 :00 1 Coreg 98483242190 07/22 00:00 :00 1 Coreg 80036983268 06/11 00:00 :00 1 Coreg 59910899535 06/06 00:00 :00 1 Coreg 77730295851
--- OUTSIDE RECORDS SUMMARY | 2024-09-05 16:11 | XMS_ITS | Clinical Summary ---
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 q.i.d. FORTAZ (IV) Bharathi Christopher SODIUM BICARBONATE 650 MG TABS SODIUM BICARBONATE 97200531510 Bharathi Christopher ALPRAZOLAM 0.5 MG TABS ALPRAZOLAM 34029592868 Bharathi Christopher COUMADIN 2.5 MG ORAL TABLET WARFARIN SODIUM 94114237731 Bharathi Christopher VITAMIN D3 50 MCG (1999 [place]) CAPS CHOLECALCIFEROL 04575175000 Bharathi Christopher BETAPACE 80 MG TABS SOTALOL HCL 56942449867 Bharathi Christopher REGLAN 10 MG TABS METOCLOPRAMIDE HCL 84622724799 Bharathi Christopher RANITIDINE HCL 300 MG ORAL CAPSULE RANITIDINE HCL 18595721677 Bharathi Christopher MULTIVITAMINS ORAL CAPSULE MULTIPLE VITAMIN 63940748346 Bharathi Candi LASIX 40 MG TABS FUROSEMIDE 94317541798 Bharathi Candi ASPIRIN 81 MG ORAL TABLET ASPIRIN 82013733207 Bharathi Christopher Medications Administered No information available. 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 Vital Signs Date Name Value Unit Description BMI (Body Mass Index) 32.50 kg/m2 Bod y Mass Index (Ratio) Body Temperature 97.9 [degF] temperat ure E&M BP Diastolic 70 mm[Hg] blood pressu re, diastolic BP Systolic 92 mm[Hg] blood pressur e, systolic Heart Rate 68 /min pulse rate Height 68 [in_us] height E&M Respiratory Rate 18 /min respirat ory rate E&M Weight Measured 213 [lb_av] weight E& M Weight Measured 213 [lb_av] weight E& M Immunizations No information available. Advance Directives No information available.
--- OUTSIDE RECORDS SUMMARY | 2024-09-05 16:11 | XMS_ITS | Data Portability ---
Author Organization [facility] [place] & [facility] Address [address] [place] [id number] Assessment Encounter Date Assessment Date Assessment LastModified by Organization Details LastModified Time 10/19/2023 10/19/2023 xray viewed no fracture noted will await the final radiology reading brace placed on patient at visit patient was instructed on DX to take medicine as prescribed warm compresses and follow up as needed [email or web address] Not available 10/19/2023 13:53:51 Plan of Treatment Reminders Order Date Submit Date Provider Last Modified By Organization Details Last Modified Time Details Appointments None recorded. Lab None recorded. Referral None recorded. Procedures None recorded. Surgeries None recorded. Imaging XR, finger(s), 2 or more view 2023 024 [facility], [address] , [place], [address], 13:55:10 Medication Orders ketorolac 60 mg/2 mL intramuscul ar solution 2023 024 Not available 14:03:35 cephalexin 500 mg capsule 2023 024 [facility] 591, [address], [address], 13:49:07 Patient TargetsNo targets recorded. Patient InstructionsNo instructions recorded. Reason for Referral None Reported. Results Created Date Observation Date Name Description Value Unit Range Abnormal Flag Note LastModifiedBy Organization Detail LastModifiedTime 10/19/19 24 10/19/2023 XR, finge r(s), 2 or more view No observ ation record ed. [email or web address] In-House Imaging - [facility] [address] , [place], [address], 10/19/2023 14:01:08 Result Notes None recorded. Medical Equipment None Reported. Allergies No known drug allergies Medications Name Sig Start Date Stop Date Status Note LastModified by Organization Details LastModified Time metformin 500 mg tablet TAKE 1 TABLET BY MOUTH TWICE DAILY WITH FOOD active Not Available Not Available No t Available atorvastati n 80 mg tablet TAKE 1 TABLET BY MOUTH ONCE DAILY IN THE EVENING active Not Available Not Available No t Available gabapentin 600 mg tablet TAKE 1 TABLET BY MOUTH TWICE DAILY active Not Available Not Available No t Available tramadol 50 mg tablet TAKE 1 TO 2 TABLETS BY MOUTH 4 TIMES DAILY NEEDED active Not Available Not Available No t Available baclofen 20 mg tablet TAKE 1 TABLET BY MOUTH EVERY DAY AT BEDTIME 10/18 completed Not Available Not Available Not Available sirolimus 1 mg tablet TAKE 1 TABLET BY MOUTH ONCE DAILY IN THE MORNING TAKE WITH 0.5 MG TABLET FOR 1.5 MG DAILY. DO NOT CRUSH, CHEW, OR SPLIT active Not Available Not Available No t Available gabapentin 800 mg tablet TAKE 1 TABLET BY MOUTH TWICE DAILY active Not Available Not Available No t Available amlodipine 10 mg tablet TAKE 1 TABLET BY MOUTH ONCE DAILY active Not Available Not Available No t Available cephalexin 500 mg capsule TAKE 1 CAPSULE BY MOUTH EVERY 8 HOURS FOR 10 DAYS active Not Available Not Available No t Available gabapentin 300 mg capsule TAKE 1 CAPSULE BY MOUTH TWICE DAILY active Not Available Not Available No t Available ketorolac 60 mg/2 mL intramuscul ar solution Inject 60 mg by intramusc ular route. 2023 active Not Available Not Available Not Avai lable losartan 100 mg tablet TAKE 1 TABLET BY MOUTH ONCE DAILY active Not Available Not Available No t Available tacrolimus 1 mg capsule, immediate-r elease TAKE 2 CAPSULES BY MOUTH ONCE DAILY IN THE MORNING THEN TAKE 1 CAPSULE BY MOUTH ONCE DAILY IN THE EVENING active Not Available Not Available No t Available Novolog Mix 70-30 U-100 Insulin 100 unit/mL subcutaneou s solution INJECT 60 UNITS SUBCUTANE OUSLY IN THE MORNING AND 40 UNITS IN THE EVENING active Not Available Not Available No t Available duloxetine 60 mg capsule,del ayed release TAKE 1 CAPSULE BY MOUTH ONCE DAILY FOR 90 DAYS active Not Available Not Available No t Available prasugrel HCl 10 mg tablet TAKE 1 TABLET BY MOUTH ONCE DAILY active Not Available Not Available No t Available sirolimus 0.5 mg tablet TAKE 1 TABLET BY MOUTH ONCE DAILY IN THE MORNING TAKE WITH 1 MG TABLET FOR 1.5 MG DAILY. DO NOT CRUSH, CHEW, OR SPLIT active Not Available Not Available No t Available Vitals Date Recorded Body weight Body temperature Oxygen saturation Oxygen saturation in Arterial blood by Pulse oximetry Heart rate Heart rate Systolic And Diastolic Provider Name and Address Organization Details Last Updated DateTime 4 98243.6 6 g 99 [degF] 97 % 97 % 84 /min 84 /min 156/98 mm[Hg] Isela PAUL [facility] & [place] 13:30:49 Social History None recorded. Functional Status None recorded. Mental Status None recorded. Family History Nothing Reported. Medical History No medical history recorded. Immunizations Vaccine Type Date Status Note Provider Nam e and Address Organization Details Recorded Time Tdap 10/19/2023 completed [place] [facility] & [place] 10/19/2023 14:07:10 Past Encounters Encounter ID Performer Location Encounter Start Date Encounter Closed Date Diagnosis/Indication Diagnosis SNOMED-CT Code Diagnosis ICD10 Code Diagnosis Note [id number] JUAN Harris [facility] [address] [facility] [place] [address] 10/19/2023 13:16:23 10/19/2023 13:58:28 Pain in finger of left hand [id number] 11472 M79.645 Accident c aused by powered staple gun [id number] W29.8XXA Health Concerns Section Related Observation LastModified by Organization Detai ls LastModified Time None Recorded Concern Status LastModified by Organization Details LastModified Time None Recorded Advance Directives Directive None Recorded Payers Insurance Date Sequence Insurance Name Policy Number Policy Garrett Covered Member ID Garrett Member ID Guarantor Name 01/15/2024 1 [place]ICARE[place] Ken Lopes [id number] Ken Lopes 10/19/2023 1 [facility] PLAN [facility] (MEDICARE SUPPLEMENT) Ken Lopes [id number] 1 Ken Lopes Notes Date Note Type Note Provider Name and Address Organization Details Recorded Time 10/19/2023 text/html Joint & Soft Tissue PainReported bypatient.Location :left middle finger Quality:aching; throbbing Timing:constant Severity:worsening ;pain level 10/10 Duration:1 days Context:staple went through the finger yesterday Alleviating Factors:none Aggravating Factors:moving the left middle finger Associated Symptoms:no weakness; no numbness; no tingling; no warmth; no ecchymosis; no catching/locking; no popping/clicking; no buckling; no grinding; no instability; no radiating pain; no fever/chills; no sleep disturbance; no cognitive disturbance; no weight loss; no fatigue; no change in bowel habits; no change in bladder habits;swellingNot es:patient states that he is not up to date on TDAP Daily Conde, [employer] [address], [place], [address], [facility] - [facility] & [place] 10/19/2023 13:54:31
--- OUTSIDE RECORDS SUMMARY | 2024-09-05 16:11 | XMS_ITS | Encounter Summary ---
Author Organization Healthcare Address [address] [id number] Care Team Providers Care Canoe Inspector Name Role Phone Alpesh Hanson MD Primary Care Provider [phone] Encounter Details Date Type Department Care Team (Late st Contact Info) Description 11/08/2021 Lab Requisition [facility] [address] [place] [address] Bharathi Goodrich MD [address] [place] [address] Heart transplant status (CMS/HCC); Other fpc (current) drug therapy Social History Tobacco Use Types Packs/Day Years Used Date Smoking Tobacco: Never Smokeless Tobacco: Former Sex and Gender Information Value Date Recorded Sex Assigned at Not on file Legal Sex Male 6:23 PM EDT Gender Identity Not on file Sexual Orientation Not on file COVID-19 Exposure Response Date Recorded In the last 10 days, have yo u been in contact with someone who was confirmed or suspected to have Coronavirus/COVID-19? No / Unsure 11/02/2021 7:47 AM EDT documented as of this encounter Miscellaneous Notes * Result Encounter Note - Arcelia Concepcion RN - 11/08/2021 1:35 PM EDT Per aquilino note pt took tacro/siro during clinic labs and these are repeat documented in this encounter Plan of Treatment Upcoming Encounters Date Type Department Care Team (Late st Contact Info) Description 09/17/2024 8:40 AM EDT Clinical Support [place] [facility] [address] [place] [address] 09/17/2024 9:30 AM EDT Office Visit [facility] [place] [facility] [address] [place] [address] documented as of this encounter Procedures Procedure Name Priority Date/Time Associated Diagnosis Comments TACROLIMUS LEVEL Routine 11/08/2021 10:0 0 AM EDT Heart transplant status (CMS/HCC) Other predatory animal exterminator (current) drug therapy SIROLIMUS LEVEL Routine 11/08/2021 10:00 AM EDT Heart transplant status (CMS/HCC) Other fpc (current) drug therapy documented in this encounter Results * Tacrolimus level (11/08/2021 10:00 AM EDT) Tacrolimus 11.1 4 - 17 ng/mL 11/09/2021 12:54 PM EDT HEALTHCARE LAB Blood Venous blood specimen / Unknown 11/08/2021 10:00 AM EDT 11/08/2021 1:35 PM EDT Bharathi Goodrich MD LAB BLOOD ORDERABLES Final Result Performing Organization Address City/[facility]/ZIP Co de Phone Number [facility] [address] [place] [address] * Sirolimus level (11/08/2021 10:00 AM EDT) Sirolimus 6.8 3 - 20 ng/mL 11/09/2021 12:54 PM EDT HEALTHCARE LAB Blood Venous blood specimen / Unknown 11/08/2021 10:00 AM EDT 11/08/2021 1:35 PM EDT Bharathi Goodrich MD LAB BLOOD ORDERABLES Final Result [facility] [address] [place] [address] documented in this encounter Visit Diagnoses Diagnosis Heart transplant status (CMS/HCC) Other fpc (current) drug therapy documented in this encounter Additional Health Concerns Infection Onset Date Last Indicated Resolved Time 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
--- OUTSIDE RECORDS SUMMARY | 2024-09-05 16:11 | XMS_ITS | Encounter Summary ---
Author Organization [facility] Address [address] [id number] Care Team Providers Care Health Service Worker Name Role Phone Alpesh Hanson MD Primary Care Provider [phone]- [phone] Encounter Details Date Type Department Care Team (Late st Contact Info) Description 02/25/2016 Legacy OTTR Encounter Historical OTTR [address] [place] [address] Arcelia Concepcion, [id number] [address] [place] [address] Social History Tobacco Use Types Packs/Day Years Used Date Smoking Tobacco: Never Assessed Sex and Gender Information Value Date Recorded Sex Assigned at Not on file Legal Sex Male 6:23 PM EDT Gender Identity Not on file Sexual Orientation Not on file documented as of this encounter Miscellaneous Notes * Progress Notes - Arabella Arellano - 01/31/2017 3:30 PM EST Pt scheduled for 2 year Cath MD Jensen 03/29/17 * Progress Notes - Arabella Arellano - 01/31/2017 9:38 AM EST Pt seen in [facility] today. Pt states he is doing well. Pt reports he has had a cold for a few days now. Pt has taken Mucinex a few times but nothing else. Told pt he can take plain Tylenol cold and Coricidin HBP as well. Pt verbalizes understanding. BP 135/80. FSBS 120-130. Pt following with PCPfor DM management. F/U appt given. Pepcid stopped. * Progress Notes - Arabella Arellano - 01/24/2017 5:51 PM EST 01/24 appt canceled and rescheduled for 01/31 in [facility] * Progress Notes - Maddi Melissa Cyndi - 01/23/2017 1:30 PM EST pt had a to attend and cannot come on 01/24, appt moved to 01/31. * Progress Notes - Arabella Arellano - 01/17/2017 9:06 AM EST Labs reviewed with MD Fregoso. No changes. * Progress Notes - Arabella Arellano - 12/18/2016 5:36 PM EDT Escribed Famotidine to [facility]. * Progress Notes - Arcelia Concepcion - 11/20/2016 3:33 PM EDT Meds refilled to [facility] * Progress Notes - Arabella Arellano - 10/04/2016 4:33 PM EDT Pt called asking if he is allowed to eat oysters on the half shell. I told him no, he is not allowed to eat any raw fish and that includes oysters. He states he thought he couldn't but just wanted tomake sure. Pt also states he went to his PCP for prostate issues and they put him on something to help but he can't remember what it is called because he is not at home right now. * Progress Notes - Arabella Arellano - 09/28/2016 10:38 AM EDT Labs reviewed with MD Fregoso. No changes. * Progress Notes - Arabella Arellano - 09/27/2016 3:51 PM EDT Pt scheduled for [facility] only 9am 01/24. Pt requested early appointment. * Progress Notes - Arabella Arellano - 09/27/2016 3:09 PM EDT Pt seen in TC. Pt states he is doing very well and has no complaints. Pt states he still has issueswith sleeping. He takes melatonin still but it does not seem to help. Pt to see PCP for sleep regimen. BPs at home 130/80-90s. Meds reviewed with Allen Astorga. Follow up appt given. * Progress Notes - Arabella Arellano - 09/26/2016 9:50 AM EDT Pt called me back this morning. Told pt we need an accurate Tacro level on him because his last onewas drawn at 1630. Pt states he can go this morning. Faxed order for Tacro level to be drawn to [facility]. * Progress Notes - Arabella Arellano - 09/25/2016 9:41 AM EDT Called pt and left VM to let him know we reviewed his labs but his Tacro level was really high but he had labs drawn at 430pm so it is not accurate. Asked pt if he would be able to have labs drawn tomorrow morning or if he would rather have labs drawn here on Sunday before clinic appt. Asked pt to call me back when he got my VM so we could decide. * Progress Notes - Arabella Arellano - 06/30/2016 3:50 PM EDT Allomap 31. MD Fregoso and Arcelia Concepcion notified. * Progress Notes - Arcelia Concepcion - 06/28/2016 3:19 PM EDT Patient seen in TC. Has c/o not sleeping well and pain in the back of his head. Denies any other symptoms. I instructed the patient to f/U with his PCP in regards to those issues and to contact me with results. Given f/u appointments. * Progress Notes - Arcelia Concepcion - 06/28/2016 2:49 PM EDT RTC 2pm 09/27/16 with allomap * Progress Notes - Arcelia Concepcion - 06/22/2016 1:28 PM EDT Labs reviewed with Md Fregoso. No changes. * Progress Notes - Arcelia Concepcion - 06/19/2016 4:12 PM EDT New standing lab order faxed to lab * Progress Notes - Arcelia Concepcion - 04/13/2016 1:22 PM EST Labs reviewed with MD Fregoso. No changes * Progress Notes - Arcelia Concepcion - 03/27/2016 11:02 AM EST Labs and biopsy results reviewed with Md Fregoso. Tacro decreased to 1BID. TSH/Free T4 added to standing lab order and faxed for a one time lab draw. * Progress Notes - Ana Diaz - 03/24/2016 5:44 PM EST Biopsy result received. Per Dr. Cunha, grade 0R, no rejection. Result entered into OTTR. CATHLEEN Maguire and MD Juarez notified. * Progress Notes - Arcelia Concepcion - 02/25/2016 3:52 PM EST labs reviewed with MD Fregoso. No changes. * Progress Notes - Arcelia Concepcion - 02/22/2016 10:09 AM EST Prednisone escribed to pharmacy. * Progress Notes - Dorota Quevedo - 02/14/2016 7:02 PM EST pt contacted me for Pred refill-spoke with MD Fregoso and Pred dose changed to 2.5mg every other day X1week and then stop, pt notified and he stated he will let me know if he needs a refill, Arcelia Concepcionnotified * Progress Notes - Isela Noriega Thomas - 02/07/2016 11:21 AM EST DOS 03/23/2016 OP cpt [id number] RHC/LHC, [id number] BX, [id number] Echo: Fed Med B, NPR. Notified jamison pinto via email. * Progress Notes - Arcelia Concepcion - 02/01/2016 5:17 PM EST Labs reviewed with Md Fregoso. No changes. * Progress Notes - rAcelia Concepcion - 01/31/2016 3:18 PM EST Called [facility] to get patients lab results. Patient did not go for labs. Called and left him a VM to return my call or go for labs as soon as possible for him. * Progress Notes - Karen Bermudez - 01/27/2016 11:17 AM EST LM with pt notify him that we have not recieved his labs from [facility]. I asked him to have his labs drawn 8 -9 am before taking his medications on 01/28/16 * Progress Notes - Karen Bermudez - 01/25/2016 10:54 AM EST Labs requested * Progress Notes - Karen Bermudez - 01/13/2016 8:54 AM EST Labs reviewed with Dr. Juarez, tacrolimus dose decreased to 2 mg am and 1 mg pm. Updated prescription escribed to [facility]. Local labs ordered for 01/24/16. Pt notified and verbalized understanding re POC. * Progress Notes - Karen Bermudez. - 01/12/2016 2:48 PM EST Pt seen in clinic, seen by PCP and started on paroxetine 20 mg once a day and citalopram dc'd. Pt is experiencing problems with anxiety because of family dynamics. Discussed ways of managing anxiety.Pt verbalized understanding re POC. * Progress Notes - Karen Bermudez - 01/11/2016 11:42 AM EST Labs requested from local lab. Pt no show for labs 01/05/16. LM with pt asking him to have labs drawn 01/12/16 am and then we would see him in clinic 01/12/16 pm. Asked pt to return my call to confirm. * Progress Notes - Karen Bermudez - 12/24/2015 12:30 PM EDT Labs reviewed by Dr. Juarez, no changes noted. * Progress Notes - Karen Bermudez - 12/21/2015 2:47 PM EDT LM asking pt to have labs drawn in am, pt no show on 12/19. I stressed that it is important for us to know his tacro level and that his kidney function is normal. I asked pt to return my call. * Progress Notes - Karen Bermudez - 12/17/2015 8:06 AM EDT Called lab to request labs, pt no show on 12/15/15. * Progress Notes - Karen Bermudez - 12/14/2015 4:24 PM EDT Per IMP: The current, 09-13-15, specimen contains low level donor specific antibodies directed against HLA-DRB1*04:04 (1680 MFI), HLA-DR53 (1092 MFI), HLA- DQA1*05:01 (1880 MFI) and HLA-DPA1*01:03/DPB1*01:01 combined epitope (2022 MFI), all of which fall below our laboratory cutoff for positivity. The previous, 06-14-15, specimen contains low level donor specific antibodies directed against HLA-DRB1*04:04 (1318 MFI), HLA-DR53 (1043 MFI), HLA-DQA1*05:01 (291 MFI) and HLA-DPA1*01:03/ DPB1*01:01 combined epitope ([address] Juarez notified * Progress Notes - Karen Bermudez - 12/06/2015 2:32 PM EDT Per pts request prescription for famotidine escribed to [facility] for 30 day supply with 11refills. * Progress Notes - Karen Bermudez - 11/26/2015 3:18 PM EDT pt called to request a 5 day supply of cellcept to be escribed to [facility]. A second prescription for cellcept escribed to [facility] for a 30 day supply with 11 refills. * Progress Notes - Karen Bermudez - 11/19/2015 12:11 PM EDT Allomap score reviewed with Dr. Juarez, prednisone dose decreased to 2.5mg once a day. Pt notified and verbalized understanding re POC. * Progress Notes - Karen Bermudez - 11/16/2015 9:52 AM EDT Labs reviewed by Dr. Juarez no changes noted. Awaiting Allomap score before decreasing prednisone dose. * Progress Notes - Karen eBrmudez - 11/15/2015 10:23 AM EDT Pt seen by Dr. Juarez who reinforced the need to exercise and lose weight. No chnages with POCat this time. Will continue to follow. * Progress Notes - Karen Bermudez - 11/15/2015 10:22 AM EDT Pt seen in [facility]. Discussed weight gain and lack of exercise. Pt educated re why exercise andheart healthy diet is important. Pt advised to lose 1 - 2 pounds a week and to walk 30 minutes twice a day. Pt verbalized understanding. BP at home 120 - 130/70-80. Pt has no questions or concerns atthis time. * Progress Notes - Karen Bermudez. - 11/12/2015 10:36 AM EDT Pt returned my call to confirm schedule for 11/14 * Progress Notes - Karen Bermudez - 11/11/2015 1:09 PM EDT LM to remind pt that he will have allomap on sunday. [facility] Asked pt to call back to confirm message. * Progress Notes - Karen Bermudez - 11/11/2015 1:04 PM EDT RHC cancelled for 11/15/15. Labs only transplant clinic am followed by cardiology appt at [facility] with Dr. Juarez. Melissa Linda notified * Progress Notes - Karen Bermudez - 11/05/2015 10:59 AM EDT Per pts request refills for magnesium oxide, multivitamin, asprin, melatonin, pravastatin and calcium escribed to [facility] for 30 days with 11 refills. * Progress Notes - Elizabeth Arzola MD - 11/02/2015 7:12 PM EDT DOS 11/15/2015 OP cpt [id number] RHC: Fed Med B, NPR. Notified cardiac cath technologist via email. * Progress Notes - Karen Bermudez - 10/28/2015 4:16 PM EDT Labs reviewed with Dr. Juarez no changes noted. * Progress Notes - Karen Bermudez - 10/14/2015 9:45 AM EDT Labs reviewd with Dr. Juarez, tacrolimus dose increased to 2mg BID, updated prescription escribed to [facility]. Local labs orederd for 10/27/15. Pt notified and verbalized understanding re POC. * Progress Notes - Elizabeth Arzola MD - 09/29/2015 12:49 PM EDT Per IMP, preliminary DSA results are positive; DR4, DR53, [id number], [id number], [id number], all <2500. * Progress Notes - Karen Bermudez - 09/27/2015 3:34 PM EDT Pt called to say that he did not recieve his mycopheolate from [facility]. Pt said that he has ran out of medication. Prescrition for 4 days called into [facility]. I notified Joselo kaba and they confrimed pt's address and said that the medication was mailed on Sunday and he should receive it today or tomorrow. Pt notified * Progress Notes - Karen Bermudez - 09/22/2015 12:04 PM EDT I returned pts call, LM asking him to return my call. * Progress Notes - Karen Bermudez - 09/14/2015 10:57 AM EDT Labs and biopsy results reviewed with Dr. Juarez, prednisone dose decraesed to 5mg once a day,SCM updated. Local labs on 10/13/15 and clinic MD only at 2pm on 10/20/15. Pt notified and verbalizedundertsanding re POC. * Progress Notes - Elizabeth Arzola MD - 09/13/2015 5:19 PM EDT Biopsy results received,0R * Progress Notes - Karen Bermudez - 09/13/2015 10:26 AM EDT Pt seen by Dr. Juarez no change with POC at this time. Local labs ordered for 10/13/15. Clinic appointment scheduled for 10/19 at 14:00. Pt verbalized understanding re schedule. 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 Pt educated re the importance of skin checks and wearing sunscreen and a hat. Pt verbalized understanding re POC. * Progress Notes - Karen Bermudez - 09/09/2015 11:42 AM EDT Labs reviewed by Dr. Juarez, tacrolimus dose decreased to 2mg in am and 1 mg in pm, SCM updated. Pt has RHC scheduled for 09/13/15. Pt notified and verbalized understanding re POC. * Progress Notes - Karen Bermudez - 09/09/2015 7:21 AM EDT Lab results requested from [facility] * Progress Notes - Arcelia Concepcion - 09/02/2015 1:28 PM EDT Called patients lab provider to get results faxed over. They reported they dont have lab results for patient. Called patient to see if he went for labs. No answer, left VM. * Progress Notes - ProviderElizabeth MD - 08/24/2015 5:58 PM EDT received word that patient out of his cellcept and needed sent to [facility]. I escribed to [facility] * Progress Notes - Karen Bermudez. - 08/19/2015 5:31 PM EDT Insurance information faxed to [facility] * Progress Notes - Karen Bermudez - 08/19/2015 10:59 AM EDT Allomap score 25, reviewed with Dr. Juarez no changes noted. Pt notified and verbalized understanding * Progress Notes - Karen Bermudez - 08/17/2015 10:56 AM EDT Labs reviewed with Dr. Juarez, tacrolimus dose increased to 3mg BID, SCM updated. Local labs ordered for 08/31/15. Pt notified and verbalized understanding re POC. * Progress Notes - Dorota Quevedo Rin - 08/16/2015 11:42 AM EDT pt stopped by my office and asked that I call in refills for Celexa-refills called in to [facility] [id number], pt also expressed that he received a bill from the pharmacy and shouldnt have because he put his credit card on file- I suggested he speak to the pharmacy aide, pt also stated he requested Pred refill to be mailed and they didn't mail it-I suggested that he also discuss that with the pharmacy mgr, I also verified that pt has Karen Bermudez's contact info for refill requests and asked that the pt contact the coordinator instead of the ENCEPHALOGRAPHER when he needs refills, etc., pt verbalizedunderstanding Karen Bermudez notified * Progress Notes - Karen Bermudez. - 08/16/2015 11:01 AM EDT Pt seen by Dr. Juarez, no changes noted with POC. RHC on 09/13/15 * Progress Notes - Karen Bermudez - 08/16/2015 10:25 AM EDT Pt seen in clinic after lab draw, including allomap. Pt complains of sore throat, no fever, coughing greenish sputum, denies SOA. Pt states that his cold symptoms are improving. Pt advised to follow with PCP if symptoms worsen. Left eye bloodshot, pt complains of allergies, advised to use eye dropsto relieve itchiness. PCP managing blood sugar, next appointment in am. Pt continues to experience foot cramps, * Progress Notes - Karen Bermudez. - 08/12/2015 3:36 PM EDT RHC and labs cancelled for 08/16/15. Labs ordered for transplant clinic on 08/15 in am (allomap, cbc,cmp, and tacro). After labs have been drawn pt will go [facility] to see Dr. Juarez. Melissa Linda notifie. Pt notified and verbalized understanding re POC. * Progress Notes - Dorota Quevedo - 08/11/2015 11:35 AM EDT pt contacted Dolly Tello ENCEPHALOGRAPHER for Pravastatin refills-escribed to [facility] as requested with 12refKaren sesay notified * Progress Notes - Dorota Quevedo - 08/06/2015 6:46 PM EDT lab results reviewed with MD Fregoso-no changes noted * Progress Notes - Karen Bermudez - 08/04/2015 9:01 AM EDT I spoke with pt he forgot to have labs drawn on 07/27 and will go in am on 08/05/15. * Progress Notes - Karen Bermudez - 08/04/2015 8:33 AM EDT Labs requested from [place] [facility] * Progress Notes - Elizabeth Arzola MD - 07/28/2015 2:57 PM EDT DOS 08/16/2015 OP cpt [id number] RHC: Fed Med B, NPR. Notified cardiac cath technologist via email. * Progress Notes - Elizabeth Arzola MD - 07/15/2015 4:00 PM EDT DOS 09/13/2015 OP cpt [id number] RHC: Fed Med B, NPR. Notified cardiac cath technologist via email. * Progress Notes - Karen Bermudez - 07/13/2015 12:34 PM EDT Labs and biopsy results reviewed with Dr. Juarez, prednisone dose decreased to 7.5mg once a day SCM updated. RHC ordered for 08/16/15. Pt notified and verbalized understanding re POC. Pt saw his PCP and was started on levemir 10 units at night. Pt told to call PCP if changes are made to prednisone. * Progress Notes - ProviderElizabeth MD - 07/12/2015 5:52 PM EDT biopsy result per DR Guerline Burrows reported to Dr Fregoso and coordinator * Progress Notes - Karen Bermudez - 07/12/2015 12:15 PM EDT Pt seen by Dr. Juarez no changes with POC at this time. * Progress Notes - Karen Bermudez - 07/12/2015 11:40 AM EDT Pt seen in clinic after RHC, pt says that he has occasional ringing in his ears and his hearing hasnot completely returned. * Progress Notes - Karen Bermudez - 07/12/2015 8:11 AM EDT Labs ordered for transplant clinic this morning, 07/12/15. Melissa Linda notified * Progress Notes - Karen Bermudez - 06/30/2015 3:20 PM EDT Labs reviewed with Dr. Juarez, tacrolimus dose decreased to 2mgs BID, RHC ordered for 06/1615. LM to notify pts re changes and asked him to return my call. * Progress Notes - Karen Bermudez - 06/24/2015 5:44 PM EDT Per [facility] lab re specimen date 06/14/15 Possible donor specific low level antibody directed against HLA-DR4 (1492 MFI) and HLA-DQB1*02 (1250 MFI) are identified but fall below our laboratory cutoff for positivity. The MFI values for both of these possible antibodies has risen compared with the 04/26/15erum, tested simultaneously: HLA-DR4 (1168 MFI) and HLA-DQB1*02 ([address] Juarez notifed * Progress Notes - Ana Diaz - 06/17/2015 10:11 AM EDT Preliminary DSA results received. Per Jeannie in the [facility] lab, negative. RN coordinator and Dr. Fregoso notified. * Progress Notes - Karen Bermudez - 06/15/2015 1:26 PM EDT Labs and biopsy results reviewed with Dr. Juarez. Tacrolimus dose increased to 3 mgs BID. Outside labs ordered for 06/28/15, RHC 07/12/15. Prednisone dose decreased to 10mgs once a day. Pt notifiedand verbalized understanding re POC. * Progress Notes - Ana Diaz - 06/14/2015 4:49 PM EDT Biopsy results received. Per Dr. Rosales, results are as follows: 0R, negative. Biopsy results entered into OTTR. MD Fregoso and RN coordinator notified. * Progress Notes - Karen Bermudez - 06/14/2015 11:13 AM EDT Pt seen by Dr. Juarez, no changes with POC at this time. Pt told that he can go fishing. RHC on 07/12/15. Pt verbalizes understanding re POC. * Progress Notes - Karen Bermudez - 06/14/2015 10:50 AM EDT Pt seen in clinic after RHC. Pt seeing Dr. Bocanegra re blood sugars. Pt has no questions or concerns at this time. Bp at home 117/80 - 130/85. * Progress Notes - Elizabeth Arzola MD - 05/30/2015 6:48 PM EDT DOS 06/14/2015 OP cpt [id number] RHC: Fed med B, NPR. Notified cardiac cath technologist via email. * Progress Notes - Karen Bermudez - 05/18/2015 11:24 AM EDT Labs and biopsy results reviewed with Dr. Juarez, tacrolimus dose increased to 3mgs in am and 2 mgs in pm. Local labs scheduled for 06/01/15. RHC scheduled for 06/14/15.LM asking pt to return my call. * Progress Notes - Karen Bermudez - 05/17/2015 5:[address] Lorenz, biopsy result 1R. Dr. Juarez notified. * Progress Notes - Karen Bermudez - 05/17/2015 11:25 AM EDT Pt seen by jackelin Callahan. RHC scheduled 06/13. Pt verbalized understanding re POC. * Progress Notes - Karen Bermudez - 05/13/2015 8:10 AM EDT No donor specific antibodies are considered positive. Antibodies to donor DR4 (1121 MFI) and DPB1 (1575 MFI) are below our usual cut-off value for positivity. Dr. Juarez notified * Progress Notes - Karen Bermudez - 05/11/2015 10:47 AM EDT Labs reviewed with Dr. Juarez, tacrolimus dose increased to 2mgs in am and 1 mgs in pm. RHC scheduled for 05/17/15. Pt notified and verbalized understanding re POC. Pt said that his wound is healing with no signs of infection. * Progress Notes - Dorota Quevedo - 05/04/2015 3:28 PM EST rec'd call from [facility] this AM and they stated they rec'd 2 specimens for HLA antibody screen and theyare aware that pt has been transplanted, after discussion with Karen Bermudez we discovered that the outside lab theron labs using pre transplant orders, I notified Mabel in [facility] not to perform HLA testing, Dr. Cunha later called me and asked if he can perform DSA testing because he is suspicious that pt may have DSA's due to C4d high background, I told him that is okay to complete DSA's, MD Fregoso and Karen Bermudez notified * Progress Notes - Karen Bermudez - 05/04/2015 11:14 AM EST Labs and biopsy results reviewed with Dr. Juarez, pt to hold tonights dose of tacrolimus and then take 1mgs BID. Local labs scheduled for 05/09. RHC scheduled for 05/19. Pt notified and verbalizedunderstanding re POC. * Progress Notes - Ana Diaz - 05/04/2015 10:48 AM EST Biopsy results put into OTTR. RN coordinator and Dr. Fregoso notified. 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 * Progress Notes - ProviderElizabeth MD - 05/03/2015 9:53 PM EST DOS 05/17/2015 OP cpt [id number] RHC: Fed Med B, NPR. Notified cardiac cath technologist via email. * Progress Notes - Karen Bermudez - 05/03/2015 2:15 PM EST Pt seen by Dr. Juarez, abdominal wound clean, moist, pink, no odor, no drainage, packed with 1' wick, wound healing. Local labs on 05/09 and RHC 05/16. Stop torsemide. Pt verbalized understanding re POC. * Progress Notes - Karen Bermudez - 05/03/2015 1:49 PM EST Pt seen in clinic after RHC. Complains of legs and arms jerking at night. Occasional foot cramps. Education provided re diet and blood sugar management. Pt waiting to see Dr. Juarez * Progress Notes - Karen Bermudez - 04/30/2015 3:38 PM EST Labs reviewed with Dr Juarez, tacrolimus dose decreased to 2mgs in am and 1 mgs in pm. C scheduled for 05/02. Pt notified and verbalized understanding re POC * Progress Notes - Karen Bermudez - 04/30/2015 11:39 AM EST Per cardiac cath technologist request pt to have labs drawn in transplant clinic on 05/03/15. Melissa Maddi notified * Progress Notes - Karen Bermudez - 04/30/2015 10:43 AM EST Pt called asking if he could chage his appt to 05/04. I expalined that we were fully booked on 05/04. Pt verbalized understanding and said that he would keep his appointment on 05/02. wastewater analyst lab analyst notified * Progress Notes - Karen Bermudez - 04/28/2015 3:57 PM EST Pt confirmed that he had his labs drawn after he had taken his medications. Pt told to have labs drawn in am before taking his medications. Pt verbalized understanding re POC. * Progress Notes - Karen Bermudez - 04/28/2015 12:36 PM EST LM asking if pt took his tacro before having labs drawn * Progress Notes - Elizabeth Arzola MD - 04/23/2015 7:19 AM EST DOS 05/03/2015 OP cpt [id number] RHC: Fed Med B, NPR. Notified cardiac cath technologist via email. * Progress Notes - Karen Bermudez - 04/21/2015 5:32 PM EST 03/31/15: SPECIMEN DESCRIPTION:: HARDWARE AICD LEAD TIPS CULTURE:: NO FUNGAL GROWTH AT [address] Juarez notified * Progress Notes - Karen Bermudez - 04/20/2015 11:09 AM EST Labs and biopsy results reviewed with Dr Juarez, tacrolimus dose decreased to 2mgs BID, prednisone dose decreased to 10mgs in am and 5 mgs in pm. Local labs scheduled for 04/26/15 and RHC scheduled for 05/03/15. Pt notified and verbalized understanding re POC. * Progress Notes - Karen Bermudez - 04/19/2015 4:44 PM EST Per Cornea, biopsy OR. Dr. Juarez notified * Progress Notes - Karen Bermudez - 04/19/2015 11:00 AM EST Sutures removed from right groin, wound has small open area, no drainage, reddened, no swelling noted, Kira CASSIDY notified, per her instructions wound cleaned with betadine and bacitracin applied. Pt and educated re signs of wound infection and when to call. Magnesium oxide increased to TID. Ptnotified and verbalized understanding re POC. * Progress Notes - Karen Bermudez - 04/19/2015 9:40 AM EST Pt seen in clinic after RHC, complains of sternal pain when he moves, right quadrant dressing old drainage, wound clean, no odor. Sternal and left upper chest incisions scabbed, no signs of infection. * Progress Notes - Elizabeth Arzola MD - 04/16/2015 3:15 PM EST DOS 11/15/2015 OP cpt [id number] RHC/Bx: Fed Med B, NPR. Notified cardiac cath technologist via email. * Progress Notes - Elizabeth Arzola MD - 04/16/2015 3:14 PM EST DOS 08/16/2015 OP cpt [id number] RHC/Bx: Fed Med B, NPR. Notified cardiac cath technologist via email. * Progress Notes - Elizabeth Arzola MD - 04/16/2015 3:13 PM EST DOS 07/12/2015 OP cpt [id number] RHC/Bx: Fed Med B, NPR. Notified cardiac cath technologist via email. * Progress Notes - Elizabeth Arzola MD - 04/16/2015 3:12 PM EST DOS 05/17/2015 OP cpt [id number] RHC/Bx: Fed Med B, NPR. Notified cardiac cath technologist via email. * Progress Notes - Elizabeth Arzola MD - 04/16/2015 3:10 PM EST DOS 04/19/2015 OP cpt [id number] RHC/Bx; Fed Med B, NPR. Notified cardiac cath technologist via email. * Progress Notes - Karen Bermudez. - 04/16/2015 2:11 PM EST Labs reviewed with Dr. Juarez no changes noted. * Progress Notes - Karen Bermudez - 04/15/2015 10:12 AM EST Pt seen in clinic after lab draw, pt said that he was going to go home for the day because his father is very sick. Pt denies pain and SOA, says that swelling in ankles is improving. BP 126/85, No insulin required for control of blood sugars.Pt has no questions or concerns at this time * Progress Notes - Karen Bermudez. - 04/14/2015 5:18 PM EST Pt called to say that he was experiencing sternal pain when moving. Gail Tello notified and prescription for percocet5 1-2 tablets every 4 hours as needed for pain sent to [facility] * Progress Notes - Karen Bermudez - 04/13/2015 5:34 PM EST Reviewed post discharge instructions with pt and his . Reviewed medication regime with pt and his . Reviewed follow up appointment, labs and clinic on 04/15, [facility] 04/19. Patient and his have my number and the information security officer coordinators number and I have explained scenarios for when they should call. Patient and his have received glucometer and insulin administration by his bedside nurse. Patient and his were engaged and asked appropriate questions and verbalized understanding re POC. * Progress Notes - Karen Bermudez - 04/13/2015 1:10 PM EST Labs and nurse scheduled for 2/18/16 at 8am. Melissa Truongtaker notified * Progress Notes - Elizabeth Arzola MD - 04/09/2015 6:16 PM EST Biopsy results received, 0R. * Progress Notes - Dorota Quevedo - 03/31/2015 11:30 AM EST Per MD Lower-biopsy 0R, MD Jacob Bermudez notified * Progress Notes - Karen Bermudez. - 03/30/2015 10:52 AM EST Clinic MD only scheduled for 10/20/15, 7mths, and 01/11, 10mths. 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 Notifications sent and orders entered. 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 There were no lesions identified that are concerning for malignancy. In addition we did not identify any areas that would require a biopsy at this time. No lesions of the skin would preclude any surgical interventions for his cardiac disease. * Progress Notes - Refugio Juarez MD - 03/06/2015 10:24 AM EST Listed 1A for heart transplantation. Worsening anemia due to daily blood draws and low level of hemolysis. Discussed with Dr Solis. Will transfuse 1 unit. Will need repeat PRA - has several unacceptables. Will discuss using ATG at the time of transplant instead of Simulect. Pre-nursing program coordinator notified. documented in this encounter Plan of Treatment Upcoming Encounters Date Type Department Care Team (Late st Contact Info) Description 09/17/2024 8:40 AM EDT Clinical Support [place] [facility] [address], [address] [place] [address] 09/17/2024 9:30 AM EDT Office Visit [facility] [address] [place] [address] documented as of this encounter Procedures Procedure Name Priority Date/Time Associated Diagnosis Comments OTTR LAB RESULTS (MANUAL) Routine 01/15/2017 2:33 PM EST OTTR LAB RESULTS (MANUAL) Routine 09/27/2016 11:31 AM EDT OTTR LAB RESULTS (MANUAL) Routine 09/19/2016 11:41 AM EDT OTTR LAB RESULTS (MANUAL) Routine 06/28/2016 3:44 PM EDT OTTR LAB RESULTS (MANUAL) Routine 06/20/2016 8:03 AM EDT OTTR LAB RESULTS (MANUAL) Routine 04/07/2016 3:08 PM EST OTTR LAB RESULTS (MANUAL) Routine 03/24/2016 5:43 PM EST OTTR LAB RESULTS (MANUAL) Routine 03/23/2016 10:15 AM EST OTTR LAB RESULTS (MANUAL) Routine 02/23/2016 1:49 PM EST OTTR LAB RESULTS (MANUAL) Routine 01/31/2016 12:00 AM EST OTTR LAB RESULTS (MANUAL) Routine 12/22/2015 8:58 AM EDT OTTR LAB RESULTS (MANUAL) Routine 11/15/2015 9:03 AM EDT OTTR LAB RESULTS (MANUAL) Routine 11/15/2015 8:37 AM EDT OTTR LAB RESULTS (MANUAL) Routine 10/27/2015 10:17 AM EDT OTTR LAB RESULTS (MANUAL) Routine 10/13/2015 12:41 PM EDT OTTR LAB RESULTS (MANUAL) Routine 09/13/2015 5:19 PM EDT OTTR LAB RESULTS (MANUAL) Routine 09/13/2015 6:52 AM EDT OTTR LAB RESULTS (MANUAL) Routine 09/03/2015 8:50 AM EDT OTTR LAB RESULTS (MANUAL) Routine 09/03/2015 8:02 AM EDT OTTR LAB RESULTS (MANUAL) Routine 08/16/2015 10:59 AM EDT OTTR LAB RESULTS (MANUAL) Routine 08/16/2015 8:44 AM EDT OTTR LAB RESULTS (MANUAL) Routine 08/05/2015 6:19 PM EDT OTTR LAB RESULTS (MANUAL) Routine 07/12/2015 11:41 AM EDT OTTR LAB RESULTS (MANUAL) Routine 07/12/2015 9:13 AM EDT OTTR LAB RESULTS (MANUAL) Routine 06/28/2015 6:41 PM EDT OTTR LAB RESULTS (MANUAL) Routine 06/14/2015 4:49 PM EDT OTTR LAB RESULTS (MANUAL) Routine 06/14/2015 7:31 AM EDT OTTR LAB RESULTS (MANUAL) Routine 05/17/2015 11:20 AM EDT OTTR LAB RESULTS (MANUAL) Routine 05/17/2015 7:55 AM EDT OTTR LAB RESULTS (MANUAL) Routine 05/10/2015 4:52 PM EDT OTTR LAB RESULTS (MANUAL) Routine 05/03/2015 10:45 AM EST OTTR LAB RESULTS (MANUAL) Routine 05/03/2015 10:12 AM EST documented in this encounter Results * OTTR LAB RESULTS (MANUAL) (01/15/2017 2:33 PM EST) External WBC 8 k/uL EXTERNAL LAB External Red Blood Cell (RBC) 5.53 M/uL EXTERNAL LAB External Hemoglobin (Hgb) 15.5 gm/dL EXTERNAL LAB External Hematocrit (Hct) 47.7 % EXTERNAL LAB External Platelet Count (Plt) 252 k/uL EXTERNAL LAB External MCV 86.4 fL EXTERNAL LAB External Glucose 329 mg/dL EXTERNAL LAB External BUN 12 mg/dL EXTERNAL LAB External Creatinine Blood 1 mg/dL EXTERNAL LAB External Sodium (Na) 141 mmol/L EXTERNAL LAB External Potassium (K) 4.2 mmol/L EXTERNAL LAB External Chloride (Cl) 102 mmol/L EXTERNAL LAB External Carbon Dioxide (CO2) 26 mmol/L EXTERNAL LAB External Calcium (Ca) 9.1 mg/dL EXTERNAL LAB External AST (SGOT) 20 units/L EXTERNAL LAB External ALT (SGPT) 30 units/L EXTERNAL LAB External Alkaline Phosphatase 138 U/L EXTERNAL LAB External Bilirubin Total 0.7 mg/dL EXTERNAL LAB External Total Protein 7.2 g/dL EXTERNAL LAB External Albumin 3.8 g/dL EXTERNAL LAB External Estimated GFR 81.29 EXTERNAL LAB 01/15/2017 2:33 PM EST Narrative EXTERNAL LAB - 01/16/2017 2:35 PM EST [facility] Historical Provider MD LAB BLOOD ORDERABLES Angi l Result EXTERNAL LAB * OTTR LAB RESULTS (MANUAL) (09/27/2016 11:31 AM EDT) External Allomap Score 33 EXTERNAL LAB 09/27/2016 11:3 1 AM EDT Narrative EXTERNAL LAB - 10/04/2016 11:32 AM EDT Lab Dx us Historical Provider LAB BLOOD ORDERABLES Angi l Result EXTERNAL LAB * OTTR LAB RESULTS (MANUAL) (09/19/2016 11:41 AM EDT) External WBC 7.9 k/uL EXTERNAL LAB External Red Blood Cell (RBC) 5.50 M/uL EXTERNAL LAB External Hemoglobin (Hgb) 16.1 gm/dL EXTERNAL LAB External Hematocrit (Hct) 47.9 % EXTERNAL LAB External MCV 87.0 fL EXTERNAL LAB External Platelet Count (Plt) 252 k/uL EXTERNAL LAB External Glucose 271 mg/dL EXTERNAL LAB External BUN 12 mg/dL EXTERNAL LAB External Creatinine Blood 0.9 mg/dL EXTERNAL LAB External Sodium (Na) 138 mmol/L EXTERNAL LAB External Potassium (K) 3.7 mmol/L EXTERNAL LAB External Chloride (Cl) 100 mmol/L EXTERNAL LAB External Carbon Dioxide (CO2) 26 mmol/L EXTERNAL LAB External Calcium (Ca) 9.3 mg/dL EXTERNAL LAB External AST (SGOT) 19 units/L EXTERNAL LAB External ALT (SGPT) 28 units/L EXTERNAL LAB External Alkaline Phosphatase 118 U/L EXTERNAL LAB External Bilirubin Total 0.9 mg/dL EXTERNAL LAB External Total Protein 6.9 g/dL EXTERNAL LAB External Albumin 3.6 g/dL EXTERNAL LAB External Estimated GFR 91.80 EXTERNAL LAB 09/19/2016 11:4 1 AM EDT Narrative EXTERNAL LAB - 10/11/2016 11:47 AM EDT [facility] Historical Provider MD LAB BLOOD ORDERABLES Angi l Result EXTERNAL LAB * OTTR LAB RESULTS (MANUAL) (06/28/2016 3:44 PM EDT) Pathologist [facility] External Allomap Score 31 EXTERNAL LAB 06/28/2016 3:44 PM EDT Narrative EXTERNAL LAB - 06/30/2016 3:47 PM EDT [facility] us Historical Provider MD LAB BLOOD ORDERABLES Angi l Result EXTERNAL LAB * OTTR LAB RESULTS (MANUAL) (06/20/2016 8:03 AM EDT) External WBC 6.8 k/uL EXTERNAL LAB External Red Blood Cell (RBC) 5.03 M/uL EXTERNAL LAB External Hemoglobin (Hgb) 14.4 gm/dL EXTERNAL LAB External Hematocrit (Hct) 44.4 % EXTERNAL LAB External Platelet Count (Plt) 324 k/uL EXTERNAL LAB External MCV 88.3 fL EXTERNAL LAB External Glucose 226 mg/dL EXTERNAL LAB External BUN 11 mg/dL EXTERNAL LAB External Creatinine Blood 1.0 mg/dL EXTERNAL LAB External Sodium (Na) 139 mmol/L EXTERNAL LAB External Potassium (K) 3.7 mmol/L EXTERNAL LAB External Chloride (Cl) 102 mmol/L EXTERNAL LAB External Carbon Dioxide (CO2) 28 mmol/L EXTERNAL LAB External Calcium (Ca) 8.8 mg/dL EXTERNAL LAB External AST (SGOT) 15 units/L EXTERNAL LAB External ALT (SGPT) 27 units/L EXTERNAL LAB External Alkaline Phosphatase 135 U/L EXTERNAL LAB External Bilirubin Total 0.4 mg/dL EXTERNAL LAB External Total Protein 6.5 g/dL EXTERNAL LAB External Albumin 3.3 g/dL EXTERNAL LAB External Estimated GFR 81.29 EXTERNAL LAB 06/20/2016 8:03 AM EDT Narrative EXTERNAL LAB - 08/24/2016 3:31 PM EDT [facility] Historical Provider MD LAB BLOOD ORDERABLES Angi l Result EXTERNAL LAB * OTTR LAB RESULTS (MANUAL) (04/07/2016 3:08 PM EST) External WBC 5.9 k/uL EXTERNAL LAB External Red Blood Cell (RBC) 4.63 M/uL EXTERNAL LAB External Hemoglobin (Hgb) 14.2 gm/dL EXTERNAL LAB External Hematocrit (Hct) 39.9 % EXTERNAL LAB External Platelet Count (Plt) 231 k/uL EXTERNAL LAB External MCV 86.1 fL EXTERNAL LAB External Glucose 315 mg/dL EXTERNAL LAB External BUN 13 mg/dL EXTERNAL LAB External Creatinine Blood 0.9 mg/dL EXTERNAL LAB External Sodium (Na) 140 mmol/L EXTERNAL LAB External Potassium (K) 4.1 mmol/L EXTERNAL LAB External Chloride (Cl) 102 mmol/L EXTERNAL LAB External Carbon Dioxide (CO2) 28 mmol/L EXTERNAL LAB External Calcium (Ca) 9.1 mg/dL EXTERNAL LAB External AST (SGOT) 10 units/L EXTERNAL LAB External ALT (SGPT) 27 units/L EXTERNAL LAB External Alkaline Phosphatase 130 U/L EXTERNAL LAB External Bilirubin Total 0.3 mg/dL EXTERNAL LAB External Total Protein 6.4 g/dL EXTERNAL LAB External Albumin 3.4 g/dL EXTERNAL LAB External Thyroid Stimulating Hormone (TSH) 0.34 uIU/mL EXTERNAL LAB External Thyroxine Free (T4 Free) 1.26 EXTERNAL LAB External Estimated GFR 91.80 EXTERNAL LAB 04/07/2016 3:08 PM EST Narrative EXTERNAL LAB - 06/26/2016 3:10 PM EDT [facility] Historical Provider LAB BLOOD ORDERABLES Angi l Result EXTERNAL LAB * OTTR LAB RESULTS (MANUAL) (03/24/2016 5:43 PM EST) External Biopsy 0R EXTERNAL LAB 03/24/2016 5:43 PM EST Narrative EXTERNAL LAB - 03/24/2016 5:43 PM EST [facility] Historical Provider MD LAB BLOOD ORDERABLES Angi l Result EXTERNAL LAB * OTTR LAB RESULTS (MANUAL) (03/23/2016 10:15 AM EST) External Estimated GFR 80.36 EXTERNAL LAB 03/23/2016 10:1 5 AM EST Narrative EXTERNAL LAB - 03/23/2016 2:33 PM EST Automated LAB Interface Historical Provider MD LAB BLOOD ORDERABLES Angi l Result EXTERNAL LAB * OTTR LAB RESULTS (MANUAL) (02/23/2016 1:49 PM EST) External Glucose 285 mg/dL EXTERNAL LAB External BUN 8 mg/dL EXTERNAL LAB External Creatinine Blood 1 mg/dL EXTERNAL LAB External UN/Creat Ratio (UC) 8 EXTERNAL LAB External Sodium (Na) 138 mmol/L EXTERNAL LAB External Potassium (K) 4.2 mmol/L EXTERNAL LAB External Chloride (Cl) 102 mmol/L EXTERNAL LAB External Carbon Dioxide (CO2) 29 mmol/L EXTERNAL LAB External Calcium (Ca) 8.9 mg/dL EXTERNAL LAB External AST (SGOT) 17 units/L EXTERNAL LAB External ALT (SGPT) 28 units/L EXTERNAL LAB External Alkaline Phosphatase 127 U/L EXTERNAL LAB External Bilirubin Total 1.1 mg/dL EXTERNAL LAB External Total Protein 6.4 g/dL EXTERNAL LAB External Albumin 3.6 g/dL EXTERNAL LAB External WBC 9.1 k/uL EXTERNAL LAB External Red Blood Cell (RBC) 4.65 M/uL EXTERNAL LAB External Hemoglobin (Hgb) 13.4 gm/dL EXTERNAL LAB External Hematocrit (Hct) 40.9 % EXTERNAL LAB External Platelet Count (Plt) 269 k/uL EXTERNAL LAB External MCV 88 fL EXTERNAL LAB External Basophils % 0.5 % EXTERNAL LAB External Eosinophils 1.7 % EXTERNAL LAB External Lymphocytes 10.7 % EXTERNAL LAB External Monocytes 5.6 % EXTERNAL LAB External Neutrophils 81.6 % EXTERNAL LAB External Estimated GFR 81.29 EXTERNAL LAB 02/23/2016 1:49 PM EST Narrative EXTERNAL LAB - 03/04/2016 1:51 PM [facility] Historical Provider LAB BLOOD ORDERABLES Angi l Result Performing Organization Address City/[facility]/ZIP Co de Phone Number EXTERNAL LAB * OTTR LAB RESULTS (MANUAL) (01/31/2016 12:00 AM EST) External Glucose 255 mg/dL EXTERNAL LAB External BUN 13 mg/dL EXTERNAL LAB External Creatinine Blood 1 mg/dL EXTERNAL LAB External Sodium (Na) 141 mmol/L EXTERNAL LAB External Potassium (K) 3.8 mmol/L EXTERNAL LAB External Chloride (Cl) 102 mmol/L EXTERNAL LAB External Carbon Dioxide (CO2) 30 mmol/L EXTERNAL LAB External Calcium (Ca) 8.8 mg/dL EXTERNAL LAB External AST (SGOT) 18 units/L EXTERNAL LAB External ALT (SGPT) 30 units/L EXTERNAL LAB External Alkaline Phosphatase 117 U/L EXTERNAL LAB External Bilirubin Total 0.7 mg/dL EXTERNAL LAB External Total Protein 6.8 g/dL EXTERNAL LAB External Albumin 3.9 g/dL EXTERNAL LAB External WBC 8.4 k/uL EXTERNAL LAB External Red Blood Cell (RBC) 4.63 M/uL EXTERNAL LAB External Hemoglobin (Hgb) 13.4 gm/dL EXTERNAL LAB External Hematocrit (Hct) 40.1 % EXTERNAL LAB External Platelet Count (Plt) 233 k/uL EXTERNAL LAB External MCV 86.8 fL EXTERNAL LAB External Estimated GFR 81.29 EXTERNAL LAB 01/31/2016 Narrative EXTERNAL LAB - 02/04/2016 11:53 AM [facility] Historical Provider LAB BLOOD ORDERABLES Angi l Result Performing Organization Address City/[facility]/ZIP Co de Phone Number EXTERNAL LAB * OTTR LAB RESULTS (MANUAL) (12/22/2015 8:58 AM EDT) External WBC 5.8 k/uL EXTERNAL LAB External Red Blood Cell (RBC) 4.35 M/uL EXTERNAL LAB External Hemoglobin (Hgb) 13.1 gm/dL EXTERNAL LAB External Hematocrit (Hct) 39.5 % EXTERNAL LAB External Platelet Count (Plt) 225 k/uL EXTERNAL LAB External Glucose 196 mg/dL EXTERNAL LAB External BUN 15 mg/dL EXTERNAL LAB External Creatinine Blood 1 mg/dL EXTERNAL LAB External Sodium (Na) 142 mmol/L EXTERNAL LAB External Potassium (K) 4 mmol/L EXTERNAL LAB External Chloride (Cl) 104 mmol/L EXTERNAL LAB External Carbon Dioxide (CO2) 28 mmol/L EXTERNAL LAB External Calcium (Ca) 8.7 mg/dL EXTERNAL LAB External AST (SGOT) 11 units/L EXTERNAL LAB External ALT (SGPT) 24 units/L EXTERNAL LAB External Alkaline Phosphatase 113 U/L EXTERNAL LAB External Bilirubin Total 0.5 mg/dL EXTERNAL LAB External Total Protein 6.2 g/dL EXTERNAL LAB External Albumin 3.5 g/dL EXTERNAL LAB External Estimated GFR 81.57 EXTERNAL LAB 12/22/2015 8:58 AM EDT Narrative EXTERNAL LAB - 12/23/2015 8:59 AM EDT [facility] Historical Provider MD LAB BLOOD ORDERABLES Angi l Result EXTERNAL LAB * OTTR LAB RESULTS (MANUAL) (11/15/2015 9:03 AM EDT) External Allomap Score 31 EXTERNAL LAB 11/15/2015 9:03 AM EDT Narrative EXTERNAL LAB - 11/18/2015 9:03 AM EDT [facility] Historical Provider MD LAB BLOOD ORDERABLES Angi l Result EXTERNAL LAB * OTTR LAB RESULTS (MANUAL) (11/15/2015 8:37 AM EDT) External Estimated GFR 73.08 EXTERNAL LAB 11/15/2015 8:37 AM EDT Narrative EXTERNAL LAB - 11/15/2015 9:48 AM EDT Automated LAB Interface Historical Provider MD LAB BLOOD ORDERABLES Angi l Result EXTERNAL LAB * OTTR LAB RESULTS (MANUAL) (10/27/2015 10:17 AM EDT) External WBC 7.9 k/uL EXTERNAL LAB External Red Blood Cell (RBC) 4.18 M/uL EXTERNAL LAB External Hemoglobin (Hgb) 13 gm/dL EXTERNAL LAB External Hematocrit (Hct) 38.7 % EXTERNAL LAB External Platelet Count (Plt) 261 k/uL EXTERNAL LAB External Glucose 155 mg/dL EXTERNAL LAB External BUN 15 mg/dL EXTERNAL LAB External Creatinine Blood 1.1 mg/dL EXTERNAL LAB External Sodium (Na) 141 mmol/L EXTERNAL LAB External Potassium (K) 3.9 mmol/L EXTERNAL LAB External Chloride (Cl) 104 mmol/L EXTERNAL LAB External Carbon Dioxide (CO2) 29 mmol/L EXTERNAL LAB External Calcium (Ca) 8.8 mg/dL EXTERNAL LAB External AST (SGOT) 11 units/L EXTERNAL LAB External ALT (SGPT) 23 units/L EXTERNAL LAB External Alkaline Phosphatase 111 U/L EXTERNAL LAB External Bilirubin Total 0.6 mg/dL EXTERNAL LAB External Total Protein 6.7 g/dL EXTERNAL LAB External Albumin 3.9 g/dL EXTERNAL LAB External Estimated GFR 73.08 EXTERNAL LAB 10/27/2015 10:1 7 AM EDT Narrative EXTERNAL LAB - 10/27/2015 10:19 AM EDT [facility] us Historical Provider LAB BLOOD ORDERABLES Angi l Result EXTERNAL LAB * OTTR LAB RESULTS (MANUAL) (10/13/2015 12:41 PM EDT) External WBC 6.8 k/uL EXTERNAL LAB External Red Blood Cell (RBC) 4.28 M/uL EXTERNAL LAB External Hemoglobin (Hgb) 13.3 gm/dL EXTERNAL LAB External Hematocrit (Hct) 40.6 % EXTERNAL LAB External Platelet Count (Plt) 252 k/uL EXTERNAL LAB External Glucose 188 mg/dL EXTERNAL LAB External BUN 17 mg/dL EXTERNAL LAB External Creatinine Blood 1.2 mg/dL EXTERNAL LAB External Sodium (Na) 139 mmol/L EXTERNAL LAB External Potassium (K) 4 mmol/L EXTERNAL LAB External Chloride (Cl) 102 mmol/L EXTERNAL LAB External Carbon Dioxide (CO2) 31 mmol/L EXTERNAL LAB External Calcium (Ca) 8.7 mg/dL EXTERNAL LAB External AST (SGOT) 8 units/L EXTERNAL LAB External ALT (SGPT) 22 units/L EXTERNAL LAB External Alkaline Phosphatase 110 U/L EXTERNAL LAB External Bilirubin Total 0.5 mg/dL EXTERNAL LAB External Total Protein 6.5 g/dL EXTERNAL LAB External Albumin 3.7 g/dL EXTERNAL LAB External Estimated GFR 66.09 EXTERNAL LAB 10/13/2015 12:4 1 PM EDT Narrative EXTERNAL LAB - 10/13/2015 12:43 PM EDT [facility] us Historical Provider MD LAB BLOOD ORDERABLES Angi l Result EXTERNAL LAB * OTTR LAB RESULTS (MANUAL) (09/13/2015 5:19 PM EDT) External Biopsy 0R EXTERNAL LAB 09/13/2015 5:19 PM EDT Narrative EXTERNAL LAB - 09/13/2015 5:19 PM EDT [facility] Historical Provider MD LAB BLOOD ORDERABLES Angi l Result Performing Organization Address City/[facility]/ZIP Co de Phone Number EXTERNAL LAB * OTTR LAB RESULTS (MANUAL) (09/13/2015 6:52 AM EDT) External Estimated GFR 95.79 EXTERNAL LAB 09/13/2015 6:52 AM EDT Narrative EXTERNAL LAB - 09/13/2015 2:40 PM EDT Automated LAB Interface us Historical Provider MD LAB BLOOD ORDERABLES Angi l Result EXTERNAL LAB * OTTR LAB RESULTS (MANUAL) (09/03/2015 8:50 AM EDT) External Glucose 155 mg/dL EXTERNAL LAB External BUN 17 mg/dL EXTERNAL LAB External Creatinine Blood 1.3 mg/dL EXTERNAL LAB External Sodium (Na) 140 mmol/L EXTERNAL LAB External Potassium (K) 4.1 mmol/L EXTERNAL LAB External Chloride (Cl) 104 mmol/L EXTERNAL LAB External Carbon Dioxide (CO2) 29 mmol/L EXTERNAL LAB External Calcium (Ca) 8.6 mg/dL EXTERNAL LAB External AST (SGOT) 13 units/L EXTERNAL LAB External ALT (SGPT) 18 units/L EXTERNAL LAB External Alkaline Phosphatase 95 U/L EXTERNAL LAB External Bilirubin Total 0.6 mg/dL EXTERNAL LAB External Total Protein 6.6 g/dL EXTERNAL LAB External Albumin 3.9 g/dL EXTERNAL LAB External WBC 8.4 k/uL EXTERNAL LAB External Red Blood Cell (RBC) 4.22 M/uL EXTERNAL LAB External Hemoglobin (Hgb) 13.3 gm/dL EXTERNAL LAB External Hematocrit (Hct) 41.6 % EXTERNAL LAB External Platelet Count (Plt) 248 k/uL EXTERNAL LAB External MCV 98.6 fL EXTERNAL LAB External Estimated GFR 60.26 EXTERNAL LAB 09/03/2015 8:50 AM EDT Narrative EXTERNAL LAB - 09/13/2015 8:53 AM EDT [facility] us Historical Provider LAB BLOOD ORDERABLES Angi l Result EXTERNAL LAB * OTTR LAB RESULTS (MANUAL) (09/03/2015 8:02 AM EDT) External WBC 8.4 k/uL EXTERNAL LAB External Red Blood Cell (RBC) 4.22 M/uL EXTERNAL LAB External Hemoglobin (Hgb) 13.3 gm/dL EXTERNAL LAB External Hematocrit (Hct) 41.6 % EXTERNAL LAB External Platelet Count (Plt) 248 k/uL EXTERNAL LAB External Glucose 155 mg/dL EXTERNAL LAB External BUN 17 mg/dL EXTERNAL LAB External Creatinine Blood 1.3 mg/dL EXTERNAL LAB External Sodium (Na) 140 mmol/L EXTERNAL LAB External Potassium (K) 4.1 mmol/L EXTERNAL LAB External Chloride (Cl) 104 mmol/L EXTERNAL LAB External Carbon Dioxide (CO2) 29 mmol/L EXTERNAL LAB External Calcium (Ca) 8.6 mg/dL EXTERNAL LAB External AST (SGOT) 13 units/L EXTERNAL LAB External ALT (SGPT) 18 units/L EXTERNAL LAB External Alkaline Phosphatase 95 U/L EXTERNAL LAB External Bilirubin Total 0.6 mg/dL EXTERNAL LAB External Total Protein 6.6 g/dL EXTERNAL LAB External Albumin 3.9 g/dL EXTERNAL LAB External Estimated GFR 60.26 EXTERNAL LAB 09/03/2015 8:02 AM EDT Narrative EXTERNAL LAB - 09/09/2015 8:03 AM EDT [facility] Historical Provider MD LAB BLOOD ORDERABLES Angi l Result EXTERNAL LAB * OTTR LAB RESULTS (MANUAL) (08/16/2015 10:59 AM EDT) Pathologist [facility] External Allomap Score 25 EXTERNAL LAB 08/16/2015 10:5 9 AM EDT Narrative EXTERNAL LAB - 08/19/2015 10:59 AM EDT [facility] Historical Provider MD LAB BLOOD ORDERABLES Angi l Result Performing Organization Address [facility]/ZIP Co de Phone Number EXTERNAL LAB * OTTR LAB RESULTS (MANUAL) (08/16/2015 8:44 AM EDT) Pathologist [facility] External Estimated GFR 79.73 EXTERNAL LAB 08/16/2015 8:44 AM EDT Narrative EXTERNAL LAB - 08/16/2015 9:48 AM EDT Automated LAB Interface Historical Provider MD LAB BLOOD ORDERABLES Angi l Result Performing Organization Address [facility] Co de Phone Number EXTERNAL LAB * OTTR LAB RESULTS (MANUAL) (08/05/2015 6:19 PM EDT) Pathologist [facility] External WBC 12.5 k/uL EXTERNAL LAB External Red Blood Cell (RBC) 4.31 M/uL EXTERNAL LAB External Hemoglobin (Hgb) 13.7 gm/dL EXTERNAL LAB External Hematocrit (Hct) 43.1 % EXTERNAL LAB External Platelet Count (Plt) 288 k/uL EXTERNAL LAB External MCV 99.9 fL EXTERNAL LAB External Glucose 159 mg/dL EXTERNAL LAB External BUN 16 mg/dL EXTERNAL LAB External Creatinine Blood 1.0 mg/dL EXTERNAL LAB External Sodium (Na) 138 mmol/L EXTERNAL LAB External Potassium (K) 3.8 mmol/L EXTERNAL LAB External Chloride (Cl) 102 mmol/L EXTERNAL LAB External Carbon Dioxide (CO2) 27 mmol/L EXTERNAL LAB External Calcium (Ca) 8.8 mg/dL EXTERNAL LAB External AST (SGOT) 10 units/L EXTERNAL LAB External ALT (SGPT) 15 units/L EXTERNAL LAB External Alkaline Phosphatase 103 U/L EXTERNAL LAB External Bilirubin Total 0.9 mg/dL EXTERNAL LAB External Total Protein 6.7 g/dL EXTERNAL LAB External Albumin 3.7 g/dL EXTERNAL LAB External Estimated GFR 81.57 EXTERNAL LAB 08/05/2015 6:19 PM EDT Narrative EXTERNAL LAB - 08/06/2015 6:21 PM EDT [facility] Historical Provider MD LAB BLOOD ORDERABLES Angi l Result EXTERNAL LAB * OTTR LAB RESULTS (MANUAL) (07/12/2015 11:41 AM EDT) External Biopsy 0R EXTERNAL LAB 07/12/2015 11:4 1 AM EDT Narrative EXTERNAL LAB - 07/12/2015 5:53 PM EDT [facility] Historical Provider LAB BLOOD ORDERABLES Angi l Result EXTERNAL LAB * OTTR LAB RESULTS (MANUAL) (07/12/2015 9:13 AM EDT) External Estimated GFR 80.64 EXTERNAL LAB 07/12/2015 9:13 AM EDT Narrative EXTERNAL LAB - 07/12/2015 10:17 AM EDT Automated LAB Interface Historical Provider LAB BLOOD ORDERABLES Angi l Result EXTERNAL LAB * OTTR LAB RESULTS (MANUAL) (06/28/2015 6:41 PM EDT) External WBC 8.9 k/uL EXTERNAL LAB External Red Blood Cell (RBC) 4.23 M/uL EXTERNAL LAB External Hemoglobin (Hgb) 13.8 gm/dL EXTERNAL LAB External Hematocrit (Hct) 42.6 % EXTERNAL LAB External Platelet Count (Plt) 261 k/uL EXTERNAL LAB External Glucose 144 mg/dL EXTERNAL LAB External BUN 12 mg/dL EXTERNAL LAB External Creatinine Blood 1.1 mg/dL EXTERNAL LAB External Sodium (Na) 143 mmol/L EXTERNAL LAB External Potassium (K) 4.4 mmol/L EXTERNAL LAB External Chloride (Cl) 105 mmol/L EXTERNAL LAB External Carbon Dioxide (CO2) 27 mmol/L EXTERNAL LAB External Calcium (Ca) 9 mg/dL EXTERNAL LAB External AST (SGOT) 12 units/L EXTERNAL LAB External ALT (SGPT) 21 units/L EXTERNAL LAB External Alkaline Phosphatase 85 U/L EXTERNAL LAB External Bilirubin Total 0.8 mg/dL EXTERNAL LAB External Total Protein 6.8 g/dL EXTERNAL LAB External Albumin 3.8 g/dL EXTERNAL LAB External Estimated GFR 73.08 EXTERNAL LAB 06/28/2015 6:41 PM EDT Narrative EXTERNAL LAB - 06/29/2015 6:42 PM EDT [facility] Historical Provider LAB BLOOD ORDERABLES Angi l Result EXTERNAL LAB * OTTR LAB RESULTS (MANUAL) (06/14/2015 4:49 PM EDT) External Biopsy 0R, Negative. EXTERNAL LAB 06/14/2015 4:49 PM EDT Narrative EXTERNAL LAB - 06/14/2015 4:52 PM EDT [facility] Historical Provider LAB BLOOD ORDERABLES Angi l Result EXTERNAL LAB * OTTR LAB RESULTS (MANUAL) (06/14/2015 7:31 AM EDT) External Estimated GFR 93.31 EXTERNAL LAB 06/14/2015 7:31 AM EDT Narrative EXTERNAL LAB - 06/14/2015 10:00 AM EDT Automated LAB Interface Historical Provider MD LAB BLOOD ORDERABLES Angi l Result EXTERNAL LAB * OTTR LAB RESULTS (MANUAL) (05/17/2015 11:20 AM EDT) External Biopsy 1R EXTERNAL LAB 05/17/2015 11:2 0 AM EDT Narrative EXTERNAL LAB - 05/18/2015 11:20 AM EDT [facility] Historical Provider MD LAB BLOOD ORDERABLES Angi l Result EXTERNAL LAB * OTTR LAB RESULTS (MANUAL) (05/17/2015 7:55 AM EDT) External Estimated GFR 115.46 EXTERNAL LAB 05/17/2015 7:55 AM EDT Narrative EXTERNAL LAB - 05/17/2015 10:15 AM EDT Automated LAB Interface us Historical Provider MD LAB BLOOD ORDERABLES Angi l Result Performing Organization Address City/[facility]/ZIP Co de Phone Number EXTERNAL LAB * OTTR LAB RESULTS (MANUAL) (05/10/2015 4:52 PM EDT) External WBC 10 k/uL EXTERNAL LAB External Red Blood Cell (RBC) 4.36 M/uL EXTERNAL LAB External Hemoglobin (Hgb) 13.1 gm/dL EXTERNAL LAB External Hematocrit (Hct) 39.7 % EXTERNAL LAB External Platelet Count (Plt) 170 k/uL EXTERNAL LAB External Glucose 133 mg/dL EXTERNAL LAB External BUN 20 mg/dL EXTERNAL LAB External Creatinine Blood 1.2 mg/dL EXTERNAL LAB External Sodium (Na) 142 mmol/L EXTERNAL LAB External Potassium (K) 4.1 mmol/L EXTERNAL LAB External Chloride (Cl) 105 mmol/L EXTERNAL LAB External Carbon Dioxide (CO2) 28 mmol/L EXTERNAL LAB External Calcium (Ca) 9 mg/dL EXTERNAL LAB External AST (SGOT) 12 units/L EXTERNAL LAB External ALT (SGPT) 32 units/L EXTERNAL LAB External Alkaline Phosphatase 99 U/L EXTERNAL LAB External Bilirubin Total 1 mg/dL EXTERNAL LAB External Total Protein 6 g/dL EXTERNAL LAB External Albumin 3.5 g/dL EXTERNAL LAB External Estimated GFR 66.09 EXTERNAL LAB 05/10/2015 4:52 PM EDT Narrative EXTERNAL LAB - 05/10/2015 4:54 PM EDT [facility] us Historical Provider MD LAB BLOOD ORDERABLES Angi l Result EXTERNAL LAB * OTTR LAB RESULTS (MANUAL) (05/03/2015 10:45 AM EST) External Biopsy 1R EXTERNAL LAB 05/03/2015 10:4 5 AM EST Narrative EXTERNAL LAB - 05/04/2015 10:46 AM EST [facility] Historical Provider MD LAB BLOOD ORDERABLES Angi l Result EXTERNAL LAB * OTTR LAB RESULTS (MANUAL) (05/03/2015 10:12 AM EST) External Estimated GFR 37.30 EXTERNAL LAB 05/03/2015 10:1 2 AM EST Narrative EXTERNAL LAB - 05/03/2015 12:16 PM EST Automated LAB Interface Historical Provider MD LAB BLOOD ORDERABLES Angi l Result EXTERNAL LAB documented in this encounter Visit Diagnoses Not on filedocumented in this encounter Additional Health Concerns Infection Onset Date Last Indicated Resolved Time Toxoplasmosis Comment:Resolve date added to set historic infection(s) to inactive from SCM to Epic conversion. 03/20/2015 03/20/2015 07/26/2020 12:00 AM EDT Toxoplasmosis 03/20/2015 03/20/2015 documented as of this encounter Care Teams Health Service Worker Relationship Specialty Start Date End Date Alpesh Hanson MD [address] [place] [id number] PCP - General 07/09/20 documented as of this encounter
--- OUTSIDE RECORDS SUMMARY | 2024-09-05 16:11 | XMS_ITS | Encounter Summary ---
Author Organization Healthcare Address [address] [id number] Care Team Providers Care Eyeglass Lens Grinder Name Role Phone Alpesh Hanson MD Primary Care Provider [phone]- [phone] Encounter Details Date Type Department Care Team (Late st Contact Info) Description 02/06/2018 [facility] OT[facility] Encounter Historical OTTR [address] [place] [address] Arcelia Concepcion RN [id number] [address] [place] [address] Social History Tobacco Use Types Packs/Day Years Used Date Smoking Tobacco: Never Assessed Sex and Gender Information Value Date Recorded Sex Assigned at Not on file Legal Sex Male 6:23 PM EDT Gender Identity Not on file Sexual Orientation Not on file documented as of this encounter Miscellaneous Notes * Progress Notes - Arabella Arellano - 01/14/2019 1:44 PM EST Labs reviewed with PharmD . No changes. Called pt to let him know results and that there are no changes. He understood. * Progress Notes - Arabella Arellano - 01/10/2019 3:40 PM EST Pt's lab called with critical glucose result of 431 * Progress Notes - Arabella Arellano - 01/10/2019 10:17 AM EST 12/19 Cath report reviewed by MD Goodrich on 12/31. No changes. * Progress Notes - Ameya Goncalves - 01/08/2019 11:51 AM EST Called to remind him that he needs to get his labs drawn this week. * Progress Notes - Arabella Arellano - 12/23/2018 11:07 AM EDT DSA Results (normalized MFI units) Sample DateA 1A 24B 8B 60C 7C 10DR 4DR 17DRw 53DRw 52DQA 03:01DQA 05:01DQ 2DQ 3DPA 01:03DPA 02:01DPB 01:01DPB 03:01Tested Date 12/19/20181629103/29/2017175 Comments CLINICAL PATHOLOGY CONSULTATION REPORT: Comparison of the results of the Luminex single antigen testing performed on the current specimen (12/19/18) and the concurrently run previous specimen (03/29/17) to the mismatched donor antigens reveals that the strength of the donor specific antibody, based upon MFI values, has not significantly changed. * Progress Notes - Arabella Arellano - 12/20/2018 2:21 PM EDT Labs reviewed with WK PharmD. Tacro increased to 2mg bid. Called pt and had to leave stating results from yesterday are normal and also told him to increase tacro to 2mg twice a day and to repeat labs locally in 2 weeks, 01/02. Asked him to call me back if he had any questions. New tacro script escribed to [facility]. Standing lab order faxed to [facility] * Progress Notes - Arabella Arellano - 12/19/2018 3:54 PM EDT Pt seen in [facility] for annual testing. Pt reports he is doing well and has no major complaints or concerns. Went over lab results with pt and he is aware his [id number] is 13 and will contact hisPCP to discuss better DM control. He is also aware his triglycerides are very high. We discussed getting blood sugar under control to help this and also diet and exercise. He understood. Medications reviewed with pt. No changes. He is aware I will call him tomorrow with results. Pt scheduled for follow up on 07/02/19 with labs locally the week prior. * Progress Notes - Arabella Arellano - 12/19/2018 10:19 AM EDT Pt scheduled for RTC MD only 07/02/19 * Progress Notes - ProviderElizabeth MD - 11/19/2018 11:48 AM EDT DOS 12/19/2018 RHC/LHC/Echo/CXR/Labs Pt has Fed Medicare AandB active NPR updating IAuth and nurse. * Progress Notes - Arabella Arellano - 06/05/2018 2:37 PM EDT Pt scheduled for 4 year Cath Any 12/19 * Progress Notes - Arabella Arellano - 06/05/2018 2:35 PM EDT Pt seen in [facility] today for routine f/u appt. Pt still has some residual coughing and post nasal drip after being sick a few weeks back. Oterwise, pt has not complaints and is doing well. Medications reviewed with Allen Astorga PharmD. Pt reports blood pressures at home have been running 140s/90s now. Lisinopril increased to 10mg daily per MD Stanley. New script sent to [facility]. Pt scheduled for annual appt 12/19. * Progress Notes - Arabella Arellano - 05/15/2018 9:33 AM EDT Labs reviewed with MD THAO. No changes. * Progress Notes - Arabella Arellano - 05/14/2018 1:45 PM EDT Pt called to let me know he has a bacterial infection and the doctor started him on Cefdinir. Told pt we should reschedule him to be on the safe side. 05/15 appt canceled and rescheduled for MD faustin 06/05 130pm * Progress Notes - Ameya Goncalves - 05/14/2018 11:42 AM EDT Called for Labs and they are faxing results today * Progress Notes - Arabella Arellano - 05/10/2018 2:52 PM EDT Pt going for local labs Sunday. New standing lab order faxed to [facility] * Progress Notes - Arcelia Concepcion - 03/14/2018 12:17 PM EST Pt was a no show for endocrine appt * Progress Notes - Arcelia Concepcion - 02/06/2018 9:43 AM EST RTC 05/15 Md only. local labs 05/07 * Progress Notes - Arcelia Concepcion - 02/06/2018 9:41 AM EST Patient seen in [facility]. He reports he is doing well. PCP is managing diabetes. He reports starting a new diabetic medication that they are slowly increasing. FSBS have been running right at 300.Doesn't check BP's at home but reports his PCP does. They run around 140/80's. He has restless leg that PCP is managing and is needing help with what he can take for arthritis. Will be seen in 3 months for MD/Clinic. * Progress Notes - Arcelia Concepcion - 02/01/2018 1:10 PM EST Labs reviewed with Md Fregoso. no changes * Progress Notes - Arabella Arellano - 10/30/2017 12:07 PM EDT Pt scheduled for RTC Md only 02/06 (pt would like morning appt time if possible) * Progress Notes - Arabella Arellano - 10/30/2017 11:58 AM EDT Called and talked to pt about labs and Cath result from last week. Told him there are no changes. Asked if he would like 01/30 or 02/06 for RTC appt and he would like 02/06 morning appt time if possible. Told him we will send appt reminder in mail. * Progress Notes - Arcelia Concepcion - 10/26/2017 11:04 AM EDT Labs reviewed with MD Fregoso. Cath still pending. no med changes * Progress Notes - Elizabeth Arzola MD - 10/17/2017 3:04 PM EDT DOS 10/25/2017 [facility]/LHC/Labs Pt has Federal Medicare NPR updating IAuth and nurse. 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 * Progress Notes - Arabella Arellano - 08/15/2017 3:20 PM EDT Pt seen in [facility] for routine f/u. Pt has no complaints today and reports he has been doing well. Medications reviewed. Per MD Fregoso, stop Pravastatin and start Lipitor 40mg once a day. Pt also started on Lisinopril 5mg once a day. Scripts sent to [facility] per pt request and anew med list printed for pt to take home. BPs at home running 120-140/85-90. Pt also reports FSBS have been well controlled. 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 Pt scheduled for 10/25. * Progress Notes - Arabella Arellano - 08/14/2017 2:59 PM EDT Labs reviewed with MD Fregoso. No changes. * Progress Notes - Arabella Arellano - 08/06/2017 3:09 PM EDT Pt called saying he needs new standing lab order faxed to his lab. New order faxed to [facility]. Reminded pt to go in the morning before taking morning meds. * Progress Notes - Arabella Arellano - 05/02/2017 11:06 AM EST Pt scheduled for RTC MD only 08/15 (pt flexible with time of appt) * Progress Notes - Arabella Arellano - 05/02/2017 11:01 AM EST Pt seen in [facility]. Pt reports he is doing great. Pt has been making a lot of diet changes and has been more actively lately. Pt has better diabetic control now, FSBS 120-140. MD Fregoso discussed starting Sirolimus with him but he would like to hold off since he has been making diet and exercise changes. Pt to return to clinic in 3 months. Medications reviewed with Allen Astorga PharmD, F/u appt given for 08/15. Pt aware he needs to start taking blood pressures at home more regularly to let us knowin 3 months how they have been running. * Progress Notes - Arabella Arellano - 04/26/2017 1:32 PM EST Labs reviewed with MD Fregoso. No changes. Called pt to let him know labs were good and we do not need to make any changes. Pt aware of appt next Sunday. * Progress Notes - Arabella Arellano - 04/03/2017 1:24 PM EST Per IMP report, No DSAs. MD Fregoso notified. * Progress Notes - Arabella Arellano - 03/30/2017 9:49 AM EST Labs and tests reviewed with MD Fregoso. Tacro increased to 2mg/1mg. Called pt to update him on medication change. Pt verbalized understanding and states he will make the change. Told pt his ECHO and Chest Xray were normal. Told him to continue to work on DM management because his HgbA1C is 8.7. Pt reports he will. Pt said his FSBS was 125 this morning. Pt aware to go for local labs the week of 04/23. * Progress Notes - Arabella Arellano - 03/29/2017 1:36 PM EST Pt seen in [facility] delivery for 2 year visit. Pt reports he has been trying to walk and eat healthy to loseweight. Pt reports he has stopped drinking soft drinks and has been drinking more tea and water. Ptstates he is getting over head cold still and has taken Coricidin HBP OTC. Still has small cough d/t sinus drainage. Pt reports he has an appt with his PCP in the next 2 weeks. At that time he will discuss Clonazepam and Prostate medications with him. Pt reports they have not been as effective. BPsrunning higher, 145/90s. FSBS 130s. Pt still following with PCP for DM management. Medications reviewed. Pt states he has stopped taking Famotidine and Protonix. Pt denies heartburn. F/U appt given for 05/02. * Progress Notes - Arabella Arellano - 03/29/2017 1:35 PM EST Per MD Fregoso., pt scheduled for RTC MD roxie 05/02 (pt would like around 10am appt time) * Progress Notes - Arabella Arellano - 03/20/2017 3:10 PM EST Escribed Tacro to [facility] per pt request. Reminded pt of his appt on 03/29 in [facility]. Pt reports he will be here. * Progress Notes - Hari Isela G - 03/09/2017 1:38 PM EST DOS 03/29/17 Op Cpt RHC/LHC [id number], Echo [id number], NPR. Pt has Fed Med B. Nurse, cath and echo updated. documented in this encounter Plan of Treatment Upcoming Encounters Date Type Department Care Team (Late st Contact Info) Description 09/17/2024 8:40 AM EDT Clinical Support [facility] [address] [place] [address] 09/17/2024 9:30 AM EDT Office Visit [facility] [place] [address] [place] [address] documented as of this encounter Procedures Procedure Name Priority Date/Time Associated Diagnosis Comments OTTR LAB RESULTS (MANUAL) Routine 05/13/2018 3:41 PM EDT OTTR LAB RESULTS (MANUAL) Routine 01/30/2018 1:46 PM EST OTTR LAB RESULTS (MANUAL) Routine 10/25/2017 9:39 AM EDT OTTR LAB RESULTS (MANUAL) Routine 08/07/2017 2:59 PM EDT OTTR LAB RESULTS (MANUAL) Routine 04/23/2017 3:58 PM EST documented in this encounter Results * OTTR LAB RESULTS (MANUAL) (05/13/2018 3:41 PM EDT) External WBC 6.0 k/uL EXTERNAL LAB External Red Blood Cell (RBC) 4.96 M/uL EXTERNAL LAB External Hemoglobin (Hgb) 14.8 gm/dL EXTERNAL LAB External Hematocrit (Hct) 43.4 % EXTERNAL LAB External Platelet Count (Plt) 280 k/uL EXTERNAL LAB External Glucose 271 mg/dL EXTERNAL LAB External BUN 16 mg/dL EXTERNAL LAB External Creatinine Blood 0.98 mg/dL EXTERNAL LAB External Sodium (Na) 137 mmol/L EXTERNAL LAB External Potassium (K) 4.0 mmol/L EXTERNAL LAB External Chloride (Cl) 101 mmol/L EXTERNAL LAB External Carbon Dioxide (CO2) 25 mmol/L EXTERNAL LAB External Calcium (Ca) 8.9 mg/dL EXTERNAL LAB External AST (SGOT) 10 units/L EXTERNAL LAB External ALT (SGPT) 23 units/L EXTERNAL LAB External Alkaline Phosphatase 107 U/L EXTERNAL LAB External Bilirubin Total 0.7 mg/dL EXTERNAL LAB External Total Protein 6.6 g/dL EXTERNAL LAB External Albumin 3.6 g/dL EXTERNAL LAB External Estimated GFR 82.64 EXTERNAL LAB 05/13/2018 3:41 PM EDT Narrative EXTERNAL LAB - 05/16/2018 3:44 PM EDT [facility] us Historical Provider LAB BLOOD ORDERABLES Angi gallegos Result EXTERNAL LAB * OTTR LAB RESULTS (MANUAL) (01/30/2018 1:46 PM EST) External WBC 7.1 k/uL EXTERNAL LAB External Red Blood Cell (RBC) 5.35 M/uL EXTERNAL LAB External Hemoglobin (Hgb) 15.4 gm/dL EXTERNAL LAB External Hematocrit (Hct) 47.1 % EXTERNAL LAB External Platelet Count (Plt) 245 k/uL EXTERNAL LAB External MCV 88.1 fL EXTERNAL LAB External Glucose 238 mg/dL EXTERNAL LAB External BUN 10 mg/dL EXTERNAL LAB External Creatinine Blood 1.00 mg/dL EXTERNAL LAB External Sodium (Na) 138 mmol/L EXTERNAL LAB External Potassium (K) 3.9 mmol/L EXTERNAL LAB External Chloride (Cl) 100 mmol/L EXTERNAL LAB External Carbon Dioxide (CO2) 26 mmol/L EXTERNAL LAB External Calcium (Ca) 8.9 mg/dL EXTERNAL LAB External AST (SGOT) 10 units/L EXTERNAL LAB External ALT (SGPT) 28 units/L EXTERNAL LAB External Alkaline Phosphatase 129 U/L EXTERNAL LAB External Bilirubin Total 0.6 mg/dL EXTERNAL LAB External Total Protein 6.7 g/dL EXTERNAL LAB External Albumin 3.5 g/dL EXTERNAL LAB External Estimated GFR 80.74 EXTERNAL LAB 01/30/2018 1:46 PM EST Narrative EXTERNAL LAB - 01/30/2018 1:48 PM EST [facility] Historical Provider MD LAB BLOOD ORDERABLES Angi l Result EXTERNAL LAB * OTTR LAB RESULTS (MANUAL) (10/25/2017 9:39 AM EDT) Pathologist [facility] External Estimated GFR 92.67 EXTERNAL LAB 10/25/2017 9:39 AM EDT Narrative EXTERNAL LAB - 10/25/2017 11:00 AM EDT Automated LAB Interface Historical Provider MD LAB BLOOD ORDERABLES Angi l Result EXTERNAL LAB * OTTR LAB RESULTS (MANUAL) (08/07/2017 2:59 PM EDT) Pathologist [facility] External WBC 9.2 k/uL EXTERNAL LAB External Red Blood Cell (RBC) 5.46 M/uL EXTERNAL LAB External Hemoglobin (Hgb) 15.5 gm/dL EXTERNAL LAB External Hematocrit (Hct) 47.1 % EXTERNAL LAB External Platelet Count (Plt) 263 k/uL EXTERNAL LAB External MCV 86.1 fL EXTERNAL LAB External Glucose 192 mg/dL EXTERNAL LAB External BUN 15 mg/dL EXTERNAL LAB External Creatinine Blood 1.03 mg/dL EXTERNAL LAB External Sodium (Na) 141 mmol/L EXTERNAL LAB External Potassium (K) 4.2 mmol/L EXTERNAL LAB External Chloride (Cl) 103 mmol/L EXTERNAL LAB External Carbon Dioxide (CO2) 27 mmol/L EXTERNAL LAB External Calcium (Ca) 9.4 mg/dL EXTERNAL LAB External AST (SGOT) 13 units/L EXTERNAL LAB External ALT (SGPT) 23 units/L EXTERNAL LAB External Alkaline Phosphatase 126 U/L EXTERNAL LAB External Bilirubin Total 0.6 mg/dL EXTERNAL LAB External Total Protein 6.9 g/dL EXTERNAL LAB External Albumin 3.7 g/dL EXTERNAL LAB External Estimated GFR 78.30 EXTERNAL LAB 08/07/2017 2:59 PM EDT Narrative EXTERNAL LAB - 08/14/2017 3:01 PM EDT [facility] Historical Provider LAB BLOOD ORDERABLES Angi gallegos Result EXTERNAL LAB * OTTR LAB RESULTS (MANUAL) (04/23/2017 3:58 PM EST) External WBC 6.5 k/uL EXTERNAL LAB External Red Blood Cell (RBC) 5.02 M/uL EXTERNAL LAB External Hemoglobin (Hgb) 14.6 gm/dL EXTERNAL LAB External Hematocrit (Hct) 43.4 % EXTERNAL LAB External Platelet Count (Plt) 266 k/uL EXTERNAL LAB External MCV 86.4 fL EXTERNAL LAB External Glucose 167 mg/dL EXTERNAL LAB External BUN 13 mg/dL EXTERNAL LAB External Creatinine Blood 0.97 mg/dL EXTERNAL LAB External Sodium (Na) 141 mmol/L EXTERNAL LAB External Potassium (K) 5.0 mmol/L EXTERNAL LAB External Chloride (Cl) 104 mmol/L EXTERNAL LAB External Carbon Dioxide (CO2) 29 mmol/L EXTERNAL LAB External Calcium (Ca) 8.8 mg/dL EXTERNAL LAB External AST (SGOT) 11 units/L EXTERNAL LAB External ALT (SGPT) 28 units/L EXTERNAL LAB External Alkaline Phosphatase 108 U/L EXTERNAL LAB External Bilirubin Total 0.4 mg/dL EXTERNAL LAB External Total Protein 6.8 g/dL EXTERNAL LAB External Albumin 3.5 g/dL EXTERNAL LAB External Estimated GFR 83.91 EXTERNAL LAB 04/23/2017 3:58 PM EST Narrative EXTERNAL LAB - 05/09/2017 4:01 PM EDT [facility] Historical Provider LAB BLOOD ORDERABLES Angi l Result EXTERNAL LAB documented in this encounter Visit Diagnoses Not on filedocumented in this encounter Additional Health Concerns Infection Onset Date Last Indicated Resolved Time Toxoplasmosis Comment:Resolve date added to set historic infection(s) to inactive from [facility] to Epic conversion. 03/20/2015 03/20/2015 07/26/2020 12:00 AM EDT Toxoplasmosis 03/20/2015 03/20/2015 documented as of this encounter Care Teams Eyeglass Lens Grinder Relationship Specialty Start Date End Date Alpesh Hanson MD [address] [place] [id number] PCP - General 07/09/20 documented as of this encounter
--- OUTSIDE RECORDS SUMMARY | 2024-09-05 16:12 | XMS_ITS | Encounter Summary ---
Author Organization [facility] Address [address] [place] [address] Care Team Providers Care Distributor Sales Consultant Name Role Phone Alpesh Hanson MD Primary Care Provider +1- [phone] Encounter Details Date Type Department Care Team (Late st Contact Info) Description 01/14/2021 Lab Requisition [facility] [address] [place] [address] Bharathi Goodrich MD [address] [place] [address] Heart transplant status (CMS/HCC) Social History Tobacco Use Types Packs/Day Years Used Date Smoking Tobacco: Never Assessed Sex and Gender Information Value Date Recorded Sex Assigned at Not on file Legal Sex Male 6:23 PM EDT Gender Identity Not on file Sexual Orientation Not on file documented as of this encounter Plan of Treatment Upcoming Encounters Date Type Department Care Team (Late st Contact Info) Description 09/17/2024 8:40 AM EDT Clinical Support [place] [facility] [address], [address] [place] [address] 09/17/2024 9:30 AM EDT Office Visit [facility] [place] [address] [facility] 1st Floor [address] [place] [phone] documented as of this encounter Procedures Procedure Name Priority Date/Time Associated Diagnosis Comments TACROLIMUS LEVEL Routine 01/14/2021 10:0 0 AM EST Heart transplant status (CMS/HCC) SIROLIMUS LEVEL Routine 01/14/2021 10:00 AM EST Heart transplant status (CMS/HCC) documented in this encounter Results * Tacrolimus level (01/14/2021 10:00 AM EST) Tacrolimus 8.2 4 - 17 ng/mL 01/15/2021 1:51 PM EST [facility] Comment: Tacrolimus therapeutic range: Initial (<3 mo.) Maintenance Kidney 8-13 ng/mL 4-8 ng/mL Liver 8-13 ng/mL 4-8 ng/mL Heart 8-15 ng/mL 7-13 ng/mL Lung;Heart/Lung 8-17 ng/mL 8-13 ng/mL Test performed by LC-MS/MS at the [facility]. This test was developed and its performance characteristics determined by [facility]. It has not been cleared or approved by the FDA. The laboratory is regulated under CLIA as qualified to perform high-complexity testing. This test is used for clinical purposes. Blood Venous blood specimen / Unknown 01/14/2021 10:00 AM EST 01/14/2021 12:43 PM EST Bharathi Goodrich MD LAB BLOOD ORDERABLES Final Result [facility] [address] [place] [address] * Sirolimus level (01/14/2021 10:00 AM EST) Sirolimus 6.7 3 - 20 ng/mL 01/15/2021 1:52 PM EST [facility] Comment: Test performed by LC-MS/MS at the [facility]. This test was developed and its performance characteristics determined by [facility]. It has not been cleared or approved by the FDA. The laboratory is regulated under CLIA as qualified to perform high-complexity testing. This test is used for clinical purposes. Blood Venous blood specimen / Unknown 01/14/2021 10:00 AM EST 01/14/2021 12:43 PM EST Bharathi Goodrich MD LAB BLOOD ORDERABLES Final Result [facility] [address] [place] [address] documented in this encounter Visit Diagnoses Diagnosis Heart transplant status (CMS/HCC) documented in this encounter Additional Health Concerns Infection Onset Date Last Indicated Resolved Time Toxoplasmosis 03/20/2015 03/20/2015 documented as of this encounter Care Teams Distributor Sales Consultant Relationship Specialty Start Date End Date Alpesh Hanson MD [address] [place] [address] PCP - General 07/09/20 documented as of this encounter
--- OUTSIDE RECORDS SUMMARY | 2024-09-05 16:12 | XMS_ITS | Encounter Summary ---
Author Organization [facility] Address [address] [place] [address] Care Team Providers Care Videographer Name Role Phone Alpesh Hanson MD Primary Care Provider +1- [phone] Reason for Visit * Reason Comments Med Refill Encounter Details Date Type Department Care Team (Late st Contact Info) Description 08/05/2024 Refill [facility] [place] 800 [facility]. [address] [place] [phone] Bharathi Goodrich MD [address] [place] [address] Social History Tobacco Use Types Packs/Day Years Used Date Smoking Tobacco: Never Smokeless Tobacco: Former PHQ-2A Answer Date Recorded Depression Risk 0 11/22/2022 Sex and Gender Information Value Date Recorded Sex Assigned at Not on file Legal Sex Male 6:23 PM EDT Gender Identity Not on file Sexual Orientation Not on file documented as of this encounter Plan of Treatment Upcoming Encounters Date Type Department Care Team (Late st Contact Info) Description 09/17/2024 8:40 AM EDT Clinical Support [place] [facility] Lab [address], [address] [place] [address] 09/17/2024 9:30 AM EDT Office Visit [facility] 800 [facility] 1st Floor [address] [place] [phone] documented as of this encounter Visit Diagnoses Not on filedocumented in this encounter Additional Health Concerns Infection Onset Date Last Indicated Resolved Time 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
--- OUTSIDE RECORDS SUMMARY | 2024-09-05 16:12 | XMS_ITS | Encounter Summary ---
Author Organization Healthcare Address [address] [place] [address] Care Team Providers Care Neuropsychology Division Chief Name Role Phone Alpesh Hanson MD Primary Care Provider +1- [phone] Reason for Visit * Reason Comments Med Refill Encounter Details Date Type Department Care Team (Late Contact Info) Description 03/01/2022 Refill [facility] [address] [address] Bharathi Goodrich MD [address] [place] [address] Social History Tobacco Use Types Packs/Day Years Used Date Smoking Tobacco: Never Smokeless Tobacco: Former Sex and Gender Information Value Date Recorded Sex Assigned at Not on file Legal Sex Male 6:23 PM EDT Gender Identity Not on file Sexual Orientation Not on file documented as of this encounter Plan of Treatment Upcoming Encounters Date Type Department Care Team (Late Contact Info) Description 09/17/2024 8:40 AM EDT Clinical Support [place] [facility] [address], [address] [place] [address] 09/17/2024 9:30 AM EDT Office Visit [facility] [address] [phone] documented as of this encounter Visit Diagnoses Not on filedocumented in this encounter Additional Health Concerns Infection Onset Date Last Indicated Resolved Time 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
--- OUTSIDE RECORDS SUMMARY | 2024-09-05 16:12 | XMS_ITS | Encounter Summary ---
Author Organization Healthcare Address [address] [place] [address] Care Team Providers Care Automatic Lathe Setter Name Role Phone Alpesh Hanson MD Primary Care Provider +1- [phone] Reason for Visit * Reason Comments Med Refill Encounter Details Date Type Department Care Team (Late st Contact Info) Description 03/16/2022 Refill [facility] 800 [facility] [address] [address] Riri Mujica, AUDIT TECH 800 [place] [address] Social History Tobacco Use Types Packs/Day Years [...] Description 09/17/2024 8:40 AM EDT Clinical Support [place] [facility] [address], [address] [place] [address] 09/17/2024 9:30 AM EDT Office Visit [facility] 800 [facility] [address]st [address] [phone] documented as of this encounter Visit Diagnoses Not on filedocumented in this encounter Additional Health Concerns Infection Onset Date Last Indicated Resolved Time 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
--- OUTSIDE RECORDS SUMMARY | 2024-09-05 16:12 | XMS_ITS | Clinical Summary ---
Author Organization [facility] Address [address] [place] [address] Care Team Providers Care Optics Engineer Name Role Phone Alpesh Hanson MD Primary Care Provider +1- [phone] Allergies Active Allergy Reactions Criticality Noted Date Comments Carvedilol Itching,Other - plea se document in the comment field,Unknown - Patient states they do not know rxn details Medium 03/17/2013 at high doses of Coreg, patient reports getting jittery and also itching on his arms Morphine Other - please docum ent in the comment field Low 10/20/2015 hallucinations at high doses Medications DULoxetine (Cymbalta) [address] capsule Take 1 capsule (60 mg) by mouth 1 (one) time each day. Do not crush or chew. Prescribed by PCP Active baclofen (Lioresal) 20 MG tablet Take 1 tablet (20 mg) by mouth every night. Prescribed by PCP 4 Active traMADol (Ultram) 50 MG tablet Take 1 tablet (50 mg) by mouth every 6 (six) hours if needed for moderate pain (back pain). Prescribed by PCP 3 Active Multiple Vitamins-Mineral s (MENS MULTIVITAMIN PO) Take 1 tablet by mouth 1 (one) time each day. Pt purchases OTC Active insulin NPH-insulin regular (Novolin 70-30,Humulin 70-30) (70-30) 100 UNIT/ML injection vial Inject 0.6 mL (60 Units) under the skin 1 (one) time each day in the morning AND 0.4 mL (40 Units) 1 (one) time each day in the evening. Prescribed by PCP. 90 mL 3 4 Active SITagliptin (Januvia) 50 MG tablet Take 1 tablet (50 mg) by mouth 1 (one) time each day. Active amLODIPine (Norvasc) 10 MG tablet Take 1 tablet (10 mg) by mouth 1 (one) time each day. 90 tablet 5 Active atorvastatin (Lipitor) 80 MG tablet Take 1 tablet (80 mg) by mouth 1 (one) time each day in the evening. 90 tablet 5 Active losartan (Cozaar) 100 MG tablet Take 1 tablet (100 mg) by mouth 1 (one) time each day. 90 tablet 5 Active magnesium oxide (Mag-Ox) 400 (240 Mg) MG tabletIndication s:Hypomagnesemia Take 2 tablets (800 mg) by mouth 2 (two) times a day. 120 tablet 5 Active prasugrel (Effient) 10 MG tablet Take 1 tablet (10 mg) by mouth 1 (one) time each day. 90 tablet 5 Active levothyroxine (Synthroid) 25 MCG tablet Take 1 tablet (25 mcg) by mouth Daily. Active tamsulosin (Flomax) 0.4 MG 24 hr capsule Take 2 capsules (0.8 mg) by mouth every night. Active gabapentin (Neurontin) 800 MG tablet Take 1 tablet (800 mg) by mouth 2 (two) times a day. 5 Active sirolimus (Rapamune) 0.5 MG tablet Take 1 tablet by mouth every morning. Take with 1mg tablet for 1.5mg daily. Do not crush, chew, or split. 30 tablet 5 Active sirolimus (Rapamune) 1 MG tablet Take 1 tablet by mouth every morning. Take with 0.5mg tablet for 1.5mg daily. Do not crush, chew, or split. 30 tablet 5 Active tacrolimus 1 MG PO capsule Take 2 capsules by mouth every morning AND 1 capsule every evening. 270 capsule 5 Active sirolimus (Rapamune) 0.5 MG tablet Take 1 tablet (0.5 mg) by mouth 1 (one) time each morning. Take with 1mg tablet for 1.5mg daily. Do not crush, chew, or split. 30 tablet 11 4 025 Discontin ued(Reord er) sirolimus (Rapamune) 1 MG tablet Take 1 tablet (1 mg) by mouth 1 (one) time each morning. Take with 0.5mg tablet for 1.5mg daily. Do not crush, chew, or split. 30 tablet 11 4 025 Discontin ued(Reord er) tacrolimus 1 MG PO capsule Take 2 capsules by mouth every morning AND 1 capsule every evening. 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 Overview (03/28/2024): STUART to LAD 11/2020, patent stent 05/2021, patent stent 04/2022, 2 LAD stents 04/19/23 Donor specific antibody (DSA) positive 5 Status post transplant, heart 12/13/2020 Overview (12/13/2020): Added automatically from request for surgery [id number] Long-term use of immunosuppressant medication Overview (12/13/2020): Added automatically from request for surgery [id number] HTN (hypertension) 09/24/2014 Overview (03/28/2024): Hypertensive disorder Diabetes mellitus Hyperlipidemia Encounters Date Type Department Care Team Description 09/03/2024 [facility] [place] 800 [facility] [address]st Floor [address] [place] [address] Dorota Quevedo, RN 08/05/2024 [facility] [place] [address] [place] [address] Bharathi Goodrich MD from Last 3 Months Immunizations Immunization Administration Dates Next Due Hep A, Adult 02/13/2018 Influenza, Recombinant, inje ctable, preservative free 03/06/2018 Influenza, high-dose, quadrivalent 02/14/2024, Influenza, injectable, quadrivalent 11/26,11/26/2020,10/31/2019,12/12,01/02/2017 Influenza, seasonal, injectable 01/26/20 17,11/15/2010,11/09/2009,01/29,12/24/2006 Influenza, seasonal, intrade rmal, preservative free 02/04/2015,11/12/2012,11/14/2011 MMR 12/19/2004 Pneumococcal 20-ca Conj Vaccine 02/14/2024 Pneumococcal Conjugate PCV 13 08/25/2016 Pneumococcal Polysaccharide PPV23 12/13/2021,10/2016,11/15/2010 Tdap 10/19/2023 Zoster, Recombinant 04/30/2018 Family History Medical History Relation Name Comments Cardiac disorder Father Diabetes type II Father Hypertension Father Relation Name Status Comments Father Social History Tobacco Use Types Packs/Day Years Used Date Smoking Tobacco: Never Smokeless Tobacco: Former Tobacco Cessation:Counseling Given: Not Answered PHQ-2A Answer Date Recorded Depression Risk 0 11/22/2022 Sex and Gender Information Value Date Recorded Sex Assigned at Not on file Legal Sex Male 6:23 PM EDT Gender Identity Not on file Sexual Orientation Not on file Last Filed Vital Signs Vital Sign Reading Time Taken Comments Blood Pressure 161/91 03/27/2024 2:00 PM EST Pulse 72 03/27/2024 2:00 PM EST Temperature 36.7 C (98 F) 03/27/2024 11:30 AM EST Respiratory Rate 14 03/27/2024 2:00 PM EST Oxygen Saturation 95% 03/27/2024 2:00 PM EST Inhaled Oxygen Concentration - - Weight 89.2 kg (196 lb 10.4 oz) 03/27/2024 8:33 AM EST Height 172.7 cm (5' 7.99 ) 03/27/2024 8:33 AM ES T Body Mass Index 29.91 03/27/2024 8:33 AM EST Plan of Treatment Upcoming Encounters Date Type Department Care Team (Late st Contact Info) Description 09/17/2024 8:40 AM EDT Clinical Support [place] [facility] [address], [address] [place] [address] 09/17/2024 9:30 AM EDT Office Visit [facility] [place] [address] [place] [address] Health Maintenance Due Date Last Done Comments [facility]-Medicare Annual Wellness (AWV) 1955 [facility]-/Child/Adol SDOH Screenings 1955 [id number] Vaccine (#1) 1962 Diabetes: Dental Exam 07/30/1967 [facility]- SDOH Screenings 07/30/1975 [facility]-Adult SDOH Screenings 07/30/1975 CT Colonography 2002 FIT-DNA 2002 FIT 2002 FOBT 2002 Sigmoidoscopy 2002 [facility]-RSV Vaccine: 60+ Years or (1 - Risk 60-74 years 1-dose series) 2017 [facility]-Zoster Vaccines (2 of 2) 06/25/2018 04/30/2018 Colonoscopy 04/22/2023 04/22/2013 [facility]-Colorectal Cancer Screening 04/22/2023 [facility]-Depression Screening 11/23/2023 11/22/2022 [facility]-Diabetes: Hemoglobin A1C 06/26/2024, 04/19/2023, 04/27/2022, Additional history exists [facility]-Influenza Vaccine (#1) 10/27/202402/13, 02/15/2023, 12/13/2021, Additional history exists [facility]-DTaP,Tdap,and Td Vaccines (2 - Td or Tdap) 10/18/2033 10/19/2023 [facility]-Hepatitis C Screening Completed 02/10/2015 [facility]-Hepatitis A Vaccines Aged Out 02/13/2018 No longer eligible based on patient's age to complete this topic [facility]-Obesity Intervention Completed 024, 11/22/2022, 10/23/2022 [facility]-Pneumococcal Vaccine: 50+ Years Completed 02/14/2024, 12/13/2021, 08/25/2016, Additional history exists HPV Vaccines Aged Out No longer eligi ble based on patient's age to complete this topic [facility]-HIB Vaccines Aged Out No longer e ligible based on patient's age to complete this topic [facility]-IPV Vaccines Aged Out No longer e ligible based on patient's age to complete this topic [facility]-Rotavirus Vaccines Aged Out No lo nger eligible based on patient's age to complete this topic Medical Devices Implanted Type Area Big Data Engineer Device Identifier Shelf Expiration Date Model / Serial / Lot Pacemaker Pacemaker Chest Wall Stent Coronary Resolute Vermillion Rx 3.50mm X 30mm - [id number] Implanted:Qty : 1 on 12/09/2020 by Arnie Jensen MD at [id number] 07/03/2023 [id number] / / [id number] Stent Paw Paw Michael Rx 2.5mm X 34mm - [id number] Implanted:Qty : 1 on 04/19/2023 by Arnie Jensen MD at [id number] 06/14/2025 [id number] / / [id number] Stent Coronary Paw Paw Vermillion Rx 3.50mm X 18mm - [id number] Implanted:Qty : 1 on 04/19/2023 by Arnie Jensen MD at [id number] 01/18/2026 [id number] / / [id number] Procedures Procedure Name Priority Date/Time Associated Diagnosis Comments HEMOGLOBIN A1C Routine 03/27/2024 8:14 AM EST HEPATITIS C ANTIBODY W/REFLEX TO HCV QUANT PCR Routine 02/10/2015 4:23 AM EST COLONOSCOPY 04/22/2013 from Last 3 Months or Most Recently Relevant to Health Maintenance Results * (ABNORMAL) Hemoglobin A1c (03/27/2024 8:14 AM EST) Hemoglobin A1c 9.0(H) <5.7 % 03/27/2024 9:16 AM EST [facility] Blood Venous blood specimen / Unknown Venipuncture / Unknown 03/27/2024 8:14 AM EST 03/27/2024 8:51 AM EST Narrative [facility] - 03/27/2024 9:16 AM EST HA1C Interpretive Data: Diagnosis of Diabetes: Diabetic > or = 6.5% Pre-diabetic 5.7 to 6.4% Non-diabetic < or = 5.6% Glycemic Targets for Type I and Type II Diabetics: Non- Adults <7.0% Adults <6.0% Children and Adolescents <7.5% Source: [place] [employer]. Standards of medical care in diabetes,2017. Diabetes Care.2017:40 (suppl 1):S1-S135. HbA1c assay performed by an ion-exchange chromatography method that is certified traceable to the DCCT. us Bharathi Goodrich MD LAB BLOOD ORDERABLES Final Result Performing Organization Address City/Va Hospital/ZIP Co de Phone Number [facility] [address] [place] [address] * Hepatitis C Antibody (02/10/2015 4:23 AM EST) Hepatitis C Antibody NEGATIVE Reference Range: Negative [facility] 02/10/2015 4:23 AM EST 02/10/2015 5:53 AM EST Refugio Juarez MD LAB BLOOD ORDERABLES Final Result Performing Organization Address City/[facility] Hospital/[facility] Co de Phone Number [facility] * COLONOSCOPY (04/22/2013) Anatomical Region Laterality Modality Endoscopy Narrative 04/22/2013 Ordered by an unspecified provider. 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 Yes * Full Code Date Activated Date Inactivated Comments 04/19/2023 11:40 AM 04/19/2023 7:09 PM Question Answer Comments Patient has decision-making capacity? Yes * Full Code Date Activated Date Inactivated Comments 04/27/2022 11:00 AM 04/27/2022 3:07 PM Question Answer Comments Patient has decision-making capacity? Yes * Full Code Date Activated Date Inactivated Comments 06/02/2021 11:40 AM 06/02/2021 5:44 PM Question Answer Comments Patient has decision-making capacity? Yes Care Teams Optics Engineer Relationship Specialty Start Date End Date Alpesh Hanson MD [address] [place] [address] PCP - General 07/09/20
--- OUTSIDE RECORDS SUMMARY | 2024-09-05 16:12 | XMS_ITS | Encounter Summary ---
Author Organization [facility] [address] [facility] [place] [id number] Care Team Providers Care Systems Software Engineer Name Role Phone Alpesh Hanson MD Primary Care Provider +1- [phone] Encounter Details Date Type Department Care Team (Late st Contact Info) Description 09/03/2024 Refill [facility] [address] [phone] Dorota Quevedo RN [id number] [address] [place] [address] Social History Tobacco Use Types Packs/Day Years [...] [address], [address] [place] [address] 09/17/2024 9:30 AM EDT Office Visit [facility] [address] [address] documented as of this encounter Visit Diagnoses [...] documented as of this encounter Care Teams Systems Software Engineer Relationship Specialty Start Date End Date Alpesh Hanson MD [address] [place] [address] PCP - General 07/09/20 documented as of this encounter
--- OUTSIDE RECORDS SUMMARY | 2024-09-05 16:12 | XMS_ITS | Encounter Summary ---
Author Organization [facility] Address [address] [place] [address] Care Team Providers Care Industrial Green Systems Designer Name Role Phone Alpesh Hanson MD Primary Care Provider +1- [phone] Encounter Details Date Type Department Care Team (Late st Contact Info) Description 02/09/2021 Lab Requisition [facility] [address] [place] [address] Bharathi Goodrich MD [address] [place] [address] Heart transplant status (CMS/HCC) Social History Tobacco [...] Description 09/17/2024 8:40 AM EDT Clinical Support [place] [facility] [address], [address] [place] [address] 09/17/2024 9:30 AM EDT Office Visit [facility] [place] Joselo [address] [facility] 1st Floor [address] [place] [id number] documented as of this encounter Procedures Procedure Name Priority Date/Time Associated Diagnosis Comments TACROLIMUS LEVEL Routine 02/09/2021 9:00 AM EST Heart transplant status (CMS/HCC) SIROLIMUS LEVEL Routine 02/09/2021 9:00 AM EST Heart transplant status (CMS/HCC) documented in this encounter Results * Tacrolimus level (02/09/2021 9:00 AM EST) Tacrolimus 6.6 4 - 17 ng/mL 02/10/2021 1:52 PM EST [facility] Comment: Tacrolimus therapeutic range: Initial (<3 mo.) Maintenance Kidney 8-13 ng/mL 4-8 ng/mL Liver 8-13 ng/mL 4-8 ng/mL Heart 8-15 ng/mL 7-13 ng/mL Lung;Heart/Lung 8-17 ng/mL 8-13 ng/mL Test performed by LC-MS/MS at the [facility]. This test was developed and its performance characteristics determined by [facility]. It has not been cleared or approved by the FDA. The laboratory is regulated under CLIA as qualified to perform high-complexity testing. This test is used for clinical purposes. Blood Venous blood specimen / Unknown 02/09/2021 9:00 AM EST 02/09/2021 1:20 PM EST Bharathi Goodrich MD LAB BLOOD ORDERABLES Final Result [facility] [address] [place] [address] * Sirolimus level (02/09/2021 9:00 AM EST) Sirolimus 4.6 3 - 20 ng/mL 02/10/2021 1:52 PM EST [facility] Comment: Test performed by LC-MS/MS at the [facility]. This test was developed and its performance characteristics determined by [facility]. It has not been cleared or approved by the FDA. The laboratory is regulated under CLIA as qualified to perform high-complexity testing. This test is used for clinical purposes. 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
--- OUTSIDE RECORDS SUMMARY | 2024-09-05 16:12 | XMS_ITS | Encounter Summary ---
Author Organization Healthcare Address [address] [place] [address] Care Team Providers Care Occupational Health Nurse Name Role Phone Alpesh Hanson MD Primary Care Provider +1- [phone] Encounter Details Date Type Department Care Team (Late st Contact Info) Description 11/28/2021 Lab Requisition [facility] [address] [place] [address] Bharathi Goodrich MD [address] [place] [address] Heart transplant status (CMS/[facility]) Social History Tobacco Use Types Packs/Day Years [...] AM EDT documented as of this encounter Plan of Treatment Upcoming Encounters Date Type Department Care Team (Late st Contact Info) Description 09/17/2024 8:40 AM EDT Clinical Support [place] [facility] [address], [address] [place] [address] 09/17/2024 9:30 AM EDT Office Visit [facility] [place] Joselo [address] [facility] 1st [address] [place] [address] documented as of this encounter Procedures Procedure Name Priority Date/Time Associated Diagnosis Comments TACROLIMUS LEVEL Routine 11/28/2021 4:20 PM EDT Heart transplant status (CMS/HCC) SIROLIMUS LEVEL Routine 11/28/2021 4:20 PM EDT Heart transplant status (CMS/HCC) documented in this encounter Results * Sirolimus level (11/28/2021 4:20 PM EDT) Sirolimus 9.8 3 - 20 ng/mL 11/29/2021 2:06 PM EDT [facility] Comment: Test performed by LC-MS/MS at the [facility]. This test was developed and its performance characteristics determined by [facility]. It has not been cleared or approved by the FDA. The laboratory is regulated under CLIA as qualified to perform high-complexity testing. This test is used for clinical purposes. Blood Venous blood specimen / Unknown 11/28/2021 4:20 PM EDT 11/28/2021 10:41 PM EDT us Bharathi Goodrich MD LAB BLOOD ORDERABLES Final Result Performing Organization Address [facility] Co de Phone Number [facility] [address] [place] [id number] * Tacrolimus level (11/28/2021 4:20 PM EDT) Tacrolimus 4.7 4 - 17 ng/mL 11/29/2021 2:06 PM EDT [facility] Comment: Tacrolimus therapeutic range: Initial (<3 mo.) Maintenance Kidney 8-13 ng/mL 4-8 ng/mL Liver 8-13 ng/mL 4-8 ng/mL Heart 8-15 ng/mL 7-13 ng/mL Lung;Heart/Lung 8-17 ng/mL 8-13 ng/mL Test performed by LC-MS/MS at the [facility]. This test was developed and its performance characteristics determined by [facility]. It has not been cleared or approved by the FDA. The laboratory is regulated under CLIA as qualified to perform high-complexity testing. This test is used for clinical purposes. 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
--- OUTSIDE RECORDS SUMMARY | 2024-09-05 16:12 | XMS_ITS | Encounter Summary ---
Author Organization [facility] Address [address] [id number] Care Team Providers Care Firebreak Cutter Name Role Phone Alpesh Hanson MD Primary Care Provider +1- [phone] Encounter Details Date Type Department Care Team (Late st Contact Info) Description 12/08/2019 [facility] Encounter Historical OTTR [address] [place] [address] Arabella Arellano, RN [facility] [id number] [address] [place] [address] Social History Tobacco Use Types Packs/Day Years Used Date Smoking Tobacco: Never Assessed Sex and Gender Information Value Date Recorded Sex Assigned at Not on file Legal Sex Male 6:23 PM EDT Gender Identity Not on file Sexual Orientation Not on file documented as of this encounter Miscellaneous Notes * Progress Notes - Arabella Arellano RN - 06/17/2020 3:41 PM EDT Labs reviewed with MD THAO. No changes. Called pt to make him aware. * Progress Notes - Arabella Arellano RN - 06/16/2020 12:38 PM EDT 5 year Nuha Escobedo 12/09 * Progress Notes - Arabella Arellano RN - 06/16/2020 12:30 PM EDT Pt seen in [facility] for routine follow up. Medications reviewed. Pt doing well and has no complaints today. Labs received and he is aware we are just waiting on his tacro level to result and I will follow up with him when we see that result. Scheduled for annual Cath 12/09. * Progress Notes - Arabella Arellano RN - 06/14/2020 9:26 AM EDT Pt called saying the lab didn't have a lab order this morning. He went home by the time I called him back. Said he would go again tomorrow morning. I have re- faxed the lab order to [phone] and [phone] * Progress Notes - Arabella Arellano RN - 06/11/2020 10:11 AM EDT called pt and had to leave vm. Left detailed vm reminding him to have local labs drawn prior to hisclinic visit next sun if he has not already gone. Reminded him to get labs drawn in the morning prior to AM dose of meds. I already faxed a standing lab order to [facility] and I let him know.Also reminded him his apt is at 1130am next sun. * Progress Notes - Arabella Arellano RN - 06/01/2020 2:07 PM EDT Pt called to confirm it is safe for him to get the covid vaccine and asked which one he should take. I let him know all 3 covid vaccine out right now are safe for him to take, so which ever one he can get sooner is completely ok. * Progress Notes - Arabella Arellano RN - 12/08/2019 10:30 AM EDT DSA Results (normalized MFI units) Comments CLINICAL PATHOLOGY CONSULTATION REPORT: Comparison of the results of the Luminex single antigen testing performed on the current specimen (12/04/19) and the concurrently run previous specimen (12/19/18) to the mismatched donor antigens does not reveal the presence of donor specific antibodies in either specimen. * Progress Notes - Arabella Arellano RN - 12/05/2019 11:58 AM EDT Labs and tests reviewed. No changes. Tried calling pt's number first, but no answer and he had toldme yesterday he does not listen to his vms. So I called pt's and was able to talk to her aboutresults. She is aware there are no changes. I told her to just make sure he continues to take care of his diabetes. She said she is always trying to get him to walk with her but he refuses to walk, says he hates walking. I told her I will try giving him a call in 1-2 weeks to discuss exercise/walking with him and relay the importance. 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 Medications reviewed. We discussed A1C. He is aware it's high and was recently seen by his PCP and put on Novolin 70/30 40u twice a day with sliding scale as needed for meals. We discussed the importance of tight diabetic control. He said he is trying to do better and has eliminated a lot of things from his diet. Pt doing well otherwise and has no complaints. F/u given for 06/16. * Progress Notes - Arabella Arellano RN - 12/03/2019 4:04 PM EDT I was able to get a hold of the pt to let him know his cath is scheduled for 730am. He is aware to be NPO at midnight and to hold AM meds until after the procedure is complete. * Progress Notes - Ameya Goncalves - 11/21/2019 11:11 AM EDT Voice mail full unable to leave a message. Called to inform him of covid screening for 11/30 @ [facility] for his up comong cath 12/03. He should be contacted with date/time/location ofscreening prior to cath. * Progress Notes - Mariana Hayward - 11/14/2019 3:41 PM EDT Amolodipine 10mg po qd #30 with Refill x2 sent to [facility] * Progress Notes - Mariana Hayward - 11/12/2019 5:38 PM EDT Lisinopril 10mg po qd #90 No refills sent to [facility] per fax request * Progress Notes - Elizabeth Arzola MD - 11/04/2019 9:49 AM EDT DOS 12/04/2019 Post heart LHC/RHC/Echo/CXR/Labs Pt has [facility] active NPR updating IAuth and nurse. * Progress Notes - Melissa Linda - 06/12/2019 1:31 PM EDT spoke to pt, he is aware * Progress Notes - Melissa Linda - 06/11/2019 1:12 PM EDT unable to reach pt or leave vm, vm is full. Unable to reach Hailey at her #. Will try again to notify them of CANCELED MAY appt and cath being scheduled. If I cannot reach them tomorrow I will mail a letter signifying change in care plan. * Progress Notes - Arabella Arellano - 06/05/2019 1:04 PM EDT d/t covid-19 pandemic: 5/6 apt canceled. Pt scheduled for 5 year Cath Any 12/03 documented in this encounter Plan of Treatment Upcoming Encounters Date Type Department Care Team (Late st Contact Info) Description 09/17/2024 8:40 AM EDT Clinical Support [place] [facility] [address], [address] [place] [address] 09/17/2024 9:30 AM EDT Office Visit [facility] [place] [address] [place] [address] documented as of this encounter Procedures Procedure Name Priority Date/Time Associated Diagnosis Comments OTTR LAB RESULTS (MANUAL) Routine 06/15/2020 2:43 PM EDT OTTR LAB RESULTS (MANUAL) Routine 12/04/2019 7:38 AM EDT OTTR LAB RESULTS (MANUAL) Routine 01/10/2019 3:40 PM EST documented in this encounter Results * OTTR LAB RESULTS (MANUAL) (06/15/2020 2:43 PM EDT) External Sodium (Na) 136 mmol/L EXTERNAL LAB External Potassium (K) 5.0 mmol/L EXTERNAL LAB External Chloride (Cl) 102 mmol/L EXTERNAL LAB External Carbon Dioxide (CO2) 26 mmol/L EXTERNAL LAB External BUN 19 mg/dL EXTERNAL LAB External Creatinine Blood 0.90 mg/dL EXTERNAL LAB External Glucose 260 mg/dL EXTERNAL LAB External Calcium (Ca) 9.9 mg/dL EXTERNAL LAB External Bilirubin Total 0.9 mg/dL EXTERNAL LAB External AST (SGOT) 19 units/L EXTERNAL LAB External ALT (SGPT) 16 units/L EXTERNAL LAB External Total Protein 6.7 g/dL EXTERNAL LAB External Albumin 4.3 g/dL EXTERNAL LAB External Alkaline Phosphatase 115 U/L EXTERNAL LAB External WBC 7.8 k/uL EXTERNAL LAB External Red Blood Cell (RBC) 5.19 M/uL EXTERNAL LAB External Hemoglobin (Hgb) 15.7 gm/dL EXTERNAL LAB External Hematocrit (Hct) 45.8 % EXTERNAL LAB External Platelet Count (Plt) 252 k/uL EXTERNAL LAB External Estimated GFR 90.58 EXTERNAL LAB 06/15/2020 2:43 PM EDT Narrative EXTERNAL LAB - 06/18/2020 2:46 PM EDT [facility] us Historical Provider MD LAB BLOOD ORDERABLES Angi l Result EXTERNAL LAB * OTTR LAB RESULTS (MANUAL) (12/04/2019 7:38 AM EDT) External Estimated GFR 79.56 EXTERNAL LAB 12/04/2019 7:38 AM EDT Narrative EXTERNAL LAB - 12/04/2019 8:48 AM EDT Automated LAB Interface us Historical Provider MD LAB BLOOD ORDERABLES Angi l Result EXTERNAL LAB * OTTR LAB RESULTS (MANUAL) (01/10/2019 3:40 PM EST) External WBC 8.2 k/uL EXTERNAL LAB External Red Blood Cell (RBC) 5.45 M/uL EXTERNAL LAB External Hemoglobin (Hgb) 16.7 gm/dL EXTERNAL LAB External Hematocrit (Hct) 49.8 % EXTERNAL LAB External Platelet Count (Plt) 296 k/uL EXTERNAL LAB External Glucose 431 mg/dL EXTERNAL LAB External BUN 14 mg/dL EXTERNAL LAB External Creatinine Blood 1.06 mg/dL EXTERNAL LAB External Sodium (Na) 137 mmol/L EXTERNAL LAB External Potassium (K) 4.9 mmol/L EXTERNAL LAB External Chloride (Cl) 102 mmol/L EXTERNAL LAB External Carbon Dioxide (CO2) 25 mmol/L EXTERNAL LAB External Calcium (Ca) 9.1 mg/dL EXTERNAL LAB External Bilirubin Total 1.0 mg/dL EXTERNAL LAB External AST (SGOT) 17 units/L EXTERNAL LAB External ALT (SGPT) 27 units/L EXTERNAL LAB External Total Protein 6.9 g/dL EXTERNAL LAB External Albumin 3.8 g/dL EXTERNAL LAB External Alkaline Phosphatase 137 U/L EXTERNAL LAB External Estimated GFR 75.49 EXTERNAL LAB 01/10/2019 3:40 PM EST Narrative EXTERNAL LAB - 01/14/2019 3:48 PM EST [facility] us Historical Provider LAB BLOOD ORDERABLES Angi gallegos Result EXTERNAL LAB documented in this encounter Visit Diagnoses Not on filedocumented in this encounter Additional Health Concerns Infection Onset Date Last Indicated Resolved Time Toxoplasmosis Comment:Resolve date added to set historic infection(s) to inactive from SCM to Epic conversion. 03/20/2015 03/20/2015 07/26/2020 12:00 AM EDT Toxoplasmosis 03/20/2015 03/20/2015 documented as of this encounter Care Teams Firebreak Cutter Relationship Specialty Start Date End Date Alpesh Hanson MD [address] [place] [address] PCP - General 07/09/20 documented as of this encounter
--- OUTSIDE RECORDS SUMMARY | 2024-09-05 16:12 | XMS_ITS | Encounter Summary ---
Author Organization Healthcare Address [address] [place] [address] Care Team Providers Care Apartment Maintenance Name Role Phone Alpesh Hanson MD Primary Care Provider +1- [phone] Encounter Details Date Type Department Care Team (Late st Contact Info) Description 12/13/2021 Lab Requisition [facility] [address] [place] [id number] Bharathi Goodrich MD [address] [place] [address] Heart transplant status (CMS/HCC); Other alf (current) drug therapy Social History Tobacco Use [...] [address] [place] [address] 09/17/2024 9:30 AM EDT Office Visit [facility] [place] Joselo 800 [facility] 1st Floor [address] [place] [address] documented as of this encounter Procedures Procedure Name Priority Date/Time Associated Diagnosis Comments TACROLIMUS LEVEL Routine 12/13/2021 11:3 0 AM EDT Heart transplant status (CMS/HCC) Other alf (current) drug therapy SIROLIMUS LEVEL Routine 12/13/2021 11:30 AM EDT Heart transplant status (CMS/HCC) Other alf (current) drug therapy documented in this encounter Results * (ABNORMAL) Tacrolimus level (12/13/2021 11:30 AM EDT) Tacrolimus 3.3(L) 4 - 17 ng/mL 12/14/2021 1:36 PM EDT [facility] Comment: Tacrolimus therapeutic range: Initial (<3 mo.) Maintenance Kidney 8-13 ng/mL 4-8 ng/mL Liver 8-13 ng/mL 4-8 ng/mL Heart 8-15 ng/mL 7-13 ng/mL Lung;Heart/Lung 8-17 ng/mL 8-13 ng/mL Test performed by LC-MS/MS at the [facility]. This test was developed and its performance characteristics determined by [facility]. It has not been cleared or approved by the FDA. The laboratory is regulated under CLIA as qualified to perform high-complexity testing. This test is used for clinical purposes. Blood Venous blood specimen / Unknown 12/13/2021 11:30 AM EDT 12/13/2021 2:33 PM EDT us Bharathi Goodrich MD LAB BLOOD ORDERABLES Final Result [facility] [address] [place] [address] * Sirolimus level (12/13/2021 11:30 AM EDT) Sirolimus 4.7 3 - 20 ng/mL 12/14/2021 1:36 PM EDT [facility] Comment: Test performed by LC-MS/MS at the [facility]. This test was developed and its performance characteristics determined by [facility]. It has not been cleared or approved by the FDA. The laboratory is regulated under CLIA as qualified to perform high-complexity testing. This test is used for clinical purposes. Blood Venous blood specimen / Unknown 12/13/2021 11:30 AM EDT 12/13/2021 2:33 PM EDT us Bharathi Goodrich MD LAB BLOOD ORDERABLES Final Result [facility] [address] [place] [address] documented in this encounter Visit Diagnoses Diagnosis Heart transplant status (CMS/HCC) Other alf (current) drug therapy documented in this encounter Additional Health Concerns Infection Onset Date Last Indicated Resolved Time Toxoplasmosis 03/20/2015 03/20/2015 Assessment Noted Time A fall risk assessment has been complete d for the patient 11/02/2021 8:10 AM EDT documented as of this encounter Care Teams Apartment Maintenance Relationship Specialty Start Date End Date Alpesh Hanson MD [address] [place] [address] PCP - General 07/09/20 documented as of this encounter
--- OUTSIDE RECORDS SUMMARY | 2024-09-05 16:12 | XMS_ITS | Encounter Summary ---
Author Organization Healthcare Address [address] [place] [address] Care Team Providers Care Fleet Manager/Dispatch Name Role Phone Alpesh Hanson MD Primary Care Provider [phone]- [phone] Encounter Details Date Type Department Care Team (Late st Contact Info) Description 04/06/2021 Lab Requisition [facility] [address] [place] [address] Bharathi Goodrich MD [address] [place] [address] Encounter for general adult medical examination without abnormal findings Social History Tobacco Use Types Packs/Day Years Used Date Smoking Tobacco: Never Smokeless Tobacco: Former Sex and Gender Information Value Date Recorded Sex Assigned at Not on file Legal Sex Male 6:23 PM EDT Gender Identity Not on file Sexual Orientation Not on file COVID-19 Exposure Response Date Recorded In the last month, have you been in contact with someone who was confirmed or suspected to have Coronavirus / COVID-19? No / Unsure 03/16/2021 8:27 AM EST documented as of this encounter Plan of Treatment Upcoming Encounters Date Type Department Care Team (Late st Contact Info) Description 09/17/2024 8:40 AM EDT Clinical Support [facility] [address], [address] [place] [address] 09/17/2024 9:30 AM EDT Office Visit [facility] Joselo [address] [facility] 1st Floor [address] [place] [address] documented as of this encounter Procedures Procedure Name Priority Date/Time Associated Diagnosis Comments TACROLIMUS LEVEL Routine 04/06/2021 3:51 PM EST Encounter for general adult medical examination without abnormal findings SIROLIMUS LEVEL Routine 04/06/2021 3:51 PM EST Encounter for general adult medical examination without abnormal findings CBC W/O DIFFERENTIAL Routine 04/06/2021 3:51 PM EST Encounter for general adult medical examination without abnormal findings documented in this encounter Results * Sirolimus level (04/06/2021 3:51 PM EST) Sirolimus 5.8 3 - 20 ng/mL 04/07/2021 1:49 PM EST [facility] Comment: Test performed by LC-MS/MS at the [facility]. This test was developed and its performance characteristics determined by [facility]. It has not been cleared or approved by the FDA. The laboratory is regulated under CLIA as qualified to perform high-complexity testing. This test is used for clinical purposes. Blood Venous blood specimen / Unknown 04/06/2021 3:51 PM EST 04/06/2021 10:34 PM EST us Bharathi Goodrich MD LAB BLOOD ORDERABLES Final Result [facility] [address] [place] [id number] * Tacrolimus level (04/06/2021 3:51 PM EST) Tacrolimus 6.3 4 - 17 ng/mL 04/07/2021 1:49 PM EST [facility] Comment: Tacrolimus therapeutic range: Initial (<3 mo.) Maintenance Kidney 8-13 ng/mL 4-8 ng/mL Liver 8-13 ng/mL 4-8 ng/mL Heart 8-15 ng/mL 7-13 ng/mL Lung;Heart/Lung 8-17 ng/mL 8-13 ng/mL Test performed by LC-MS/MS at the [facility]. This test was developed and its performance characteristics determined by [facility]. It has not been cleared or approved by the FDA. The laboratory is regulated under CLIA as qualified to perform high-complexity testing. This test is used for clinical purposes. Blood Venous blood specimen / Unknown 04/06/2021 3:51 PM EST 04/06/2021 10:34 PM EST Bharathi Goodrich MD LAB BLOOD ORDERABLES Final Result Performing Organization Address City/State/[facility] Co de Phone Number [facility] [address] [place] [id number] * CBC W/O Differential (04/06/2021 3:51 PM EST) WBC Count 5.75 3.70 - 10.30 10*3/uL LAB HEMATOLOGY METHOD 04/06/2021 10:46 PM EST [facility] RBC Count 5.67 4.60 - 6.10 10*6/uL LAB HEMATOLOGY METHOD 04/06/2021 10:46 PM EST [facility] HGB 15.4 13.7 - 17.5 g/dL LAB HEMATOLOGY METHOD 04/06/2021 10:46 PM EST [facility] HCT 46.7 40.0 - 51.0 % LAB HEMATOLOGY METHOD 04/06/2021 10:46 PM EST [facility] Platelet Count 263 155 - 369 10*3/uL LAB HEMATOLOGY METHOD 04/06/2021 10:46 PM EST [facility] MCV 82 79 - 98 fL LAB HEMATOLOGY METHOD 04/06/2021 10:46 PM EST [facility] MCH 27.2 26.0 - 32.0 pg LAB HEMATOLOGY METHOD 04/06/2021 10:46 PM EST [facility] MCHC 33.0 30.7 - 35.5 g/dL LAB HEMATOLOGY METHOD 04/06/2021 10:46 PM EST [facility] RDW 13.1 11.5 - 14.5 % LAB HEMATOLOGY METHOD 04/06/2021 10:46 PM EST [facility] MPV 10.3 8.8 - 12.5 fL LAB HEMATOLOGY METHOD 04/06/2021 10:46 PM EST [facility] nRBC 0.0 <=0.0 per 100 WBCs LAB HEMATOLOGY METHOD 04/06/2021 10:46 PM EST [facility] Blood Venous blood specimen / Unknown 04/06/2021 3:51 PM EST 04/06/2021 10:34 PM EST us Bharathi Goodrich MD LAB BLOOD ORDERABLES Final Result [facility] [address] [place] [address] documented in this encounter Visit Diagnoses Diagnosis Encounter for general adult medical examination without abnormal findings documented in this encounter Additional Health Concerns Infection Onset Date Last Indicated Resolved Time Toxoplasmosis 03/20/2015 03/20/2015 Assessment Noted Time A fall risk assessment has been complete d for the patient 03/16/2021 8:34 AM EST documented as of this encounter Care Teams Fleet Manager/Dispatch Relationship Specialty Start Date End Date Alpesh Hanson MD [address] [place] [address] PCP - General 07/09/20 documented as of this encounter
[2024-09-05 16:37] LABS: Reticulocyte % (Auto) 2.5 % (0.9-3.2)
[2024-09-05 16:58] LABS: Iron 70 ug/dL (49-181)
[2024-09-05 17:48] LABS: Vitamin B12 888 pg/mL (239-931)
[2024-09-05 18:07] LABS: Folate 13.60 ng/mL
[2024-09-05 18:26] LABS: Total Iron Binding Capacity 294 ug/dL (261-462)
[2024-09-05 18:54] LABS: Ferritin 271 ng/ml (17.9-464)
== END 2024-09-05 23:59 | disposition home or self-care (01) ==
LOC: LAB 16:09
PROVIDERS: PCP Family Medicine; Visit Provider Family Medicine
DX: D64.9 Anemia, unspecified (principal)
CPT/HCPCS: 36415; 82607; 82728; 82746; 83540; 83550; 85044

== ENCOUNTER 2024-09-18 08:04 | Outpatient (CLI) | payer MEDICARE, SELFPAY ==
--- OUTSIDE RECORDS SUMMARY | 2024-08-12 12:15 | XMS_ITS ---
Author Organization [facility] Address [address] [facility] [address] [phone] Care Team Providers Care Tractor Trailer Truck Driver Name Role Phone Fatoumata Hanson Primary Care [...] 1 Performing Lab: Notes/Report: Test performed by [facility] [address] [facility] , [address], [place] [address] Mukund Wolff MD, Telegraph Mechanic CLIA: [id number] Sodium 135 135-145 mmol/L Potassium 4.3 3.5-5.3 [...] Interpretation:Normal Performing Lab: Notes/Report: Test performed by [facility] [address] , [place] [address] Mukund Wolff MD, Telegraph Mechanic CLIA: [id number] Magnesium 1.9 1.6-2.4 mg/dL P-PSA Reviewed date:09/03/2024 02:49:40 PM Interpretation:Normal Performing Lab: Notes/Report: Test performed by [facility] [address] , [place] [address] Mukund Wolff MD, Telegraph Mechanic CLIA: [id number] PSA 0.64 <4.00 ng/mL Please note this is an ultrasensitive PSA assay with a lower limit of detection of 0.014 ng/mL. This test is performed by the Christina ECLIA methodology. Values obtained with different assay methods or kits cannot be directly compared. P-TSH Reviewed date:09/03/2024 02:49:40 PM Interpretation:Normal Performing Lab: Notes/Report: Test performed by [facility] [address] [place] [address] , [address], [place] [address] Mukund Wolff MD, Telegraph Mechanic CLIA: [id number] TSH 1.74 0.43-5.25 mU/L P-Microalbumin/Creatinine, R andom Urine Sample Reviewed date:09/03/2024 02:49:40 PM Interpretation:a/c 59 Performing Lab: Notes/Report: Test performed by [facility] [address] [place] [address] , [address], [place] [address] Mukund Wolff MD, Telegraph Mechanic CLIA: [id number] Albumin/Creatinine Ratio, Urine 59 0-30 ug/m g Microalbumin, Urine, Random 4.7 Creatinine, Urine 79.3 Reason For Referral Reason suspicious lesion of arm Diagnosis 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) Referral Organization [facility] Referring Provider First Name Fatoumata Vazquez Referring Provider Last Name Valentin Referring Provider Speciality Family Pra khoaice Referred [...] scale subcutaneously ACHS Active FreeStyle Shan [facility] [place] - as directed 06/06/2024 Active Levothyroxine Sodium [...] Status Risk Notes Problem Paroxysmal atrial fibrillation (671061190) Paroxysmal atrial fibrillation (I48.0) Active confirmed Vital Signs Weight 174.4 lbs 08/12/2024 Blood pressure systolic 130 mm Hg 08/13/19 25 Blood pressure diastolic 70 mm Hg 025 Heart Rate 96 /min 08/12/2024 Height 66.50 in 08/12/2024 BMI 27.72 kg/m2 08/12/2024 Encounters Encounter Location Date Provider Diagnosis [facility] [address] [facility] [address] [phone] 08/12/2024 R George Hanson Adult general medica [...] Notes * YENNI MOONOB:[birth year] (69 yo M)Acc No.[id number]:08/12/2024 Annual Wellness Visit Patient: Debra ERICSUSANYENNI Provider: Fatoumata Hanson M.D. :1955 A ge:69 Y S ex:Male Date:08/12/2024 Address:[address] [place] [address] Subjective: * Chief Complaints: * 1 . [...] drive line 03/2014, Orthotopic heart transplant - [facility] 03/20/2015, heart cath- 07/12/2015, heart cath - - stent 02/2023. * Hospitalization/Major Diagno stic Procedure: R eaction to Medication- [facility] 09/2009, Shocked by Pacemaker, later sent to [facility] 08/06/2011, [facility]2012, [facility], Dehydration- [facility] 01/2013. * Family History: F ather: alive, DM, heart disease, arthritis, anemia. M other: alive, [place] Palsy, cataracts. S iblings: heart disease, testicular [...] as directed , Taking FreeStyle Shan 3 [facility] - Device as directed , Taking Levothyroxine [...] atrial fibrillation - I48.0 1 2. B NC 27.0-27.9,adult - Z68.27 Plan: * Treatment: 2. [...] 08/12/2024 05:45: 30 PM EDT > Fatoumata Hansno 09/03/2024 02:49:08 PM EDT > See 08/25/2024 phone encounter 3.?Uncontrolled type 2 diabetes mellitus with hyperglycemia?LAB: P-Microalbumin/Creatinine, Random Urine Sample (Collection Date & Time - 08/12/2024 04:10 PM)?a/c 59* Value Reference Range A lbumin/Creatinine Ratio, Urine 59 H 0-30 - ug /mg * C reatinine, Urine 79.3 - mg/dL * M icroalbumin, Urine, Random 4.7 - mg/dL * Fatoumata Hanosn 09/03/2024 0 2:49:08 PM EDT > See [...] VST, G2211 Complex e/[place], [address] GLYCATED HEMOGLOBIN TEST, Modifiers: QW , 1090F PRES/ABSN URINE INCON ASSESS, 3288F FALL RISK ASSESSMENT DOCD, 1170F FXNL STATUS ASSESSED, 1159F MED LIST DOCD IN RCRD, 1003F LEVEL OF ACTIVITY ASSESS, 1036F TOBACCO NON-USER, 76884 CBC WITH AUTO DIFF, 1125F AMNT PAIN [...] * Images: Billing Information: * Visit Code: 40206 Office Visit, Est Pt., Level 3. Modifiers: 25 * Procedure Codes: G0439 ANNUAL WELLNESS VST; PPS SUBSQT VST. G2211 Complex e/[place]. [address] GLYCATED HEMOGLOBIN TEST. Modifiers: QW 1090F PRES/ABSN URINE INCON ASSESS. 3288F FALL RISK ASSESSMENT DOCD. 1170F FXNL STATUS ASSESSED. 1159F MED LIST DOCD IN RCRD. 1003F LEVEL OF ACTIVITY ASSESS. 1036F TOBACCO NON-USER. 08640 CBC WITH AUTO DIFF. 1125F AMNT PAIN NOTED PAIN PRSNT. 3052F HG A1C>EQUAL 8.0%<EQUAL 9.0%. G8510 NEG SCR Depression PT NOT ELIG F/U/PLN DOC. G8420 BMI<30 AND >=22 CALC & DOCU. G8950 PREHTN/HTN BP DOC INDCD F/U DOC. G8752 MOST RECENT SYSTOLIC BP < 140MM HG. G8754 MOST RECENT DIASTOLIC BP < 90MM HG. * Electronic signature of Fatoumata Hanson MD on 09/18/2024 at 08:20 AM EDT Sign off status: Pending * Provider: Fatoumata Hanson M.D. Date: 0 08/12/2024 Generated for Printi ng/Faperfectog/eTransmitting on: 0 09/18/2024 08:20 AM EDT History and Physical Notes * HPI [...]
--- OUTSIDE RECORDS SUMMARY | 2024-08-25 17:09 | XMS_ITS ---
Author Organization [facility] Address [address] [place] [phone] Care Team Providers Care Clothespin Drier Operator Name Role Phone Fatoumata Hanson Primary Care Provider Problems Problem Type SNOMED Code ICD Code Onset Dates Problem Status W/U Status Risk Notes Problem Hemoglobin low (102416833) Low hemoglobin (D64.9) Active confirmed Encounters Encounter Location Date Provider Diagnosis [facility] [address] [place] [phone] 08/25/2024 Fatoumata Hanson Low hemoglobin D64.9 Assessments Encounter Date Diagnosis (ICD Code) Assessment Notes Treatment Notes Treatment Clinical Notes Section Notes 08/25/2024 Low hemoglobin (ICD-10 - D64.9) Plan Of Treatment Pending Test Test Name Order Date H-Iron, TIBC, Iron Saturation 08/25/2024 H-Folate 08/25/2024 H-VITAMIN B12 08/25/2024 H-Retic count 08/25/2024 H-Ferritin 08/25/2024 Progress Notes * YENNI MOONNEDOB:[birth year] (69 yo M)Acc No.[id number]:08/25/2024 Patient: Debra WALLACE YENNI DIAS :1955 A ge:69 Y S ex:Male Address:[address] [place] [address] Subjective: * Chief Complaints: * * Medical History: * Surgical History: * Hospitalization/Major Diagno stic Procedure: * Medications: Objective: * Vitals: * Physical Examination: Assessment: * Assessment: 1. L ow hemoglobin - D64.9 (Primary) Plan: * Treatment: * Procedure Codes: * true * Date: Generated for Chana grimes/Gio/Sammie on: 0 09/18/2024 08:19 AM EDT
--- OUTSIDE RECORDS SUMMARY | 2024-09-12 04:45 | XMS_ITS ---
Author Organization [facility] Address [address] [id number] Care Team Providers Care Jewish History Professor Name Role Phone Valentin Fatoumata George Primary Care Provider Results Component Value Reference Range Notes Hemoccult- IFOBT (in house) Reviewed date:09/12/2024 09:35:56 AM Interpretation:Positive Performing Lab: Notes/Report: Positive results Pos REASON FOR VISIT stool sample Medications Medication SIG (Take, Route, Frequency, Duration) Notes Start Date End Date Status Gabapentin 800 MG 1 tab(s) Orally Two times a day; Duration: 30 days 09/03/2024 Active DULoxetine HCl 60 MG 1 capsule Orally On ce a day; Duration: 90 days Active Lisinopril 10 MG 1 tab(s) orally once a day Not-Taking NovoLOG FlexPen 100 UNIT/ML per sliding scale subcutaneously ACHS Active BD Insulin Syringe U-100 1 ML as directed Two times a day 04/02/2024 Active Levothyroxine Sodium 25 MCG Take 1 tablet by mouth once daily; Duration: 90 Active FreeStyle Shan 3 [place] - as directed 06/06/2024 Active Atorvastatin Calcium 80 MG 1 tab(s) orally once a day; Duration: 30 days Active traMADol HCl 50 MG 1-2 tab(s) orally fo ur times a day as needed 08/05/2024 Active Cefdinir 300 MG 1 cap Orally twice a day Active NovoLOG Mix 70/30 (70-30) 100 UNIT/ML 60 units sq qam; 40 units sq qpm subcutaneously Active amLODIPine Besylate 10 MG 1 tab(s) orally once a day Active FreeStyle Shan 3 Plus Sensor - as directed 06/06/2024 Active Baclofen 20 MG 1 tab(s) orally At B ed Time; Duration: 90 days Active Tacrolimus 1 MG 1 cap(s) orally 2 ca ps in the am, 1 cap at night Active Sirolimus 0.5 MG 1 tablet Orally Once a day Active Multivitamin - 1 tab(s) orally once a day Active Magnesium 400 MG 2 Tablets Orally twi ce a day Active ReliOn Blood Glucose Test Active RELION BLOOD GLUCOSE MONITOR Active Losartan Potassium 100 MG 1 tablet Orally Once a day Active Sirolimus 1 MG 1 tablet Orally Once a day Active Prasugrel HCl 10 MG as directed Orally Active Encounters Encounter Location Date Provider Diagnosis [facility] [address] [place] [id number] 09/12/2024 Fatoumata Hanson Low hemoglobin D64.9 Assessments Encounter Date Diagnosis (ICD Code) Assessment Notes Treatment Notes Treatment Clinical Notes Section Notes 09/12/2024 Low hemoglobin (ICD-10 - D64.9) Plan Of Treatment No Information Progress Notes * YENNI MOONNEDOB:[birth year] (69 yo M)Acc No.[id number]:09/12/2024 Patient: Debra WALLACE YENNI LARISSA Provider: Fatoumata Hanson M.D. :1955 A ge:69 Y S ex:Male Date:09/12/2024 Address:[address] [place] [address] Subjective: * Chief Complaints: * 1 . Stool sample. * Medical History: * Medications: T aking Sirolimus 1 MG [...] tab(s) orally At Bed Time , Taking FreeStyle Shan 3 Plus Sensor - Miscellaneous as directed , Taking FreeStyle Shan 3 [place] - Device as directed , Taking Levothyroxine Sodium 25 MCG Tablet Take 1 tablet by mouth once daily , Taking traMADol HCl 50 MG Tablet 1-2 tab(s) orally four times a day as needed , Taking Atorvastatin Calcium 80 MG Tablet 1 tab(s) orally once a day , Taking Cefdinir 300 MG Capsule 1 cap Orally twice a day , Taking NovoLOG FlexPen 100 UNIT/ML Solution Pen-injector per sliding scale subcutaneously ACHS , Taking BD Insulin Syringe U-100 1 ML Miscellaneous as directed Two times a day , Taking DULoxetine HCl 60 MG Capsule Delayed Release Particles 1 capsule Orally Once a day , Taking Gabapentin 800 MG Tablet 1 tab(s) Orally Two times a day , Not- Taking Lisinopril 10 MG Tablet 1 tab(s) orally once a day , Medication List reviewed and reconciled with the patient Objective: * Vitals: Assessment: * Assessment: 1. L ow hemoglobin - D64.9 (Primary) Plan: * Treatment: Value Reference Range r esults Pos * Nikia Turner 09/12/2024 09:11: 36 AM EDT >Yu Conner 09/12/2024 09:35:48 AM EDT > See phone encounter * Procedure Codes: 8 2274 ASSAY TEST FOR BLOOD, FECAL, Modifiers: QW * Images: Billing Information: * Visit Code: * Procedure Codes: 52867 ASSAY TEST FOR BLOOD, FECAL. Modifiers: QW * Electronic signature of Fatoumata Hanson MD on 09/18/2024 at 08:20 AM EDT Sign off status: Pending * Provider: Fatoumata Hanson M.D. Date: 09/12/2024 Generated for Chana grimes/Gio/aSmmie on: 09/18/2024 08:20 AM EDT
--- OUTSIDE RECORDS SUMMARY | 2024-09-17 09:30 | XMS_ITS | Encounter Summary ---
Author Organization [facility] Address [address] [place] [address] Care Team Providers Care Vp Emerging Media Name Role Phone Alpesh Hanson MD Primary Care Provider [phone]- [phone] Reason for Visit * Reason Comments Follow-up - Heart Post Txp Encounter Details Date Type Department Care Team (Latest Contact Info) Description 09/17/2024 9:30 AM EDT Office Visit [facility] [address] [facility] 1st Floor [address] [place] [address] Sharla Whitman MD [address] [place] [address] Riri Mujica, JUAN [address] [place] [address] Heart transplanted (CMS/HCC) (Primary Dx); Long-term use of immunosuppressant medication; Vasculopathy of cardiac allograft; Essential hypertension Social History Tobacco Use Types Packs/Day Years Used Date Smoking Tobacco: Never Smokeless Tobacco: Former PHQ-2A Answer Date Recorded Depression Risk 0 11/22/2022 Sex and Gender Information Value Date Recorded Sex Assigned at Not on file Legal Sex Male 6:23 PM EDT Gender Identity Not on file Sexual Orientation Not on file documented as of this encounter Last Filed Vital Signs Vital Sign Reading Time Taken Comments Blood Pressure 143/87 09/17/2024 8:53 AM EDT usually 130s over 80s at home Pulse 84 09/17/2024 8:53 AM EDT Temperature - - Respiratory Rate - - Oxygen Saturation 97% 09/17/2024 8:5 3 AM EDT Inhaled Oxygen Concentration - - Weight 82.4 kg (181 lb 10.5 oz) 09/17/2024 8:53 AM EDT Height 172.7 cm (5' 8 ) 09/17/2024 8:53 AM EDT Body Mass Index 27.62 09/17/2024 8:53 AM EDT documented in this encounter Miscellaneous Notes * Progress Notes - Riri Mujica APRN - 09/17/2024 9:30 AM EDT Images from the original note were not included. Transplant Follow Up HPI Ken Lopes is a 69 y.o. male who presents for routine follow up s/p OHT 03/20/2015. Today patient reports feeling well overall. No recent illnesses or hospitalizations. 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 Reports no physical limitations. BPs typically 130s/80s at home. Denies chest pain, SOB, palpitations, lightheadedness, dizziness, syncope, LE edema, and orthopnea. He has been compliant with medications and is tolerating without adverse effects. He follows regularly with his PCP but has not seen dermatology yet. Review of symptoms 14 Point ROS reviewed and is otherwise negative except as per HPI. Past Medical History Past Medical History[1] Surgical History Surgical History[2] Family History Family History[3] Social History reports that he has never smoked. He has quit using smokeless tobacco. No history on file for alcohol use and drug use. Physical Exam Constitutional: Appearance: Normal appearance. Neck: No JVD Cardiovascular: Rate and Rhythm: Normal rate and regular rhythm. Heart sounds: Normal heart sounds. Pulmonary: Effort: Pulmonary effort is normal. Breath sounds: Normal breath sounds. Abdominal: Palpations: Abdomen is soft. Skin: General: Skin is warm and dry. Neurological: General: No focal deficit present. Mental Status: Alert and oriented to person, place, and time. Psychiatric: Mood and Affect: Mood normal. Behavior: Behavior normal. Extremities: no edema Visit Vitals BP (!) 143/87 Comment: usually 130s over 80s at home Pulse 84 Ht 1.727 m (5' 8 ) Wt 82.4 kg (181 lb 10.5 oz) SpO2 97% BMI 27.62 kg/m?? Medications Current Medications[4] Imaging Echo, Adult Transthoracic (TTE) Complete Result Date: 03/27/2024 Left Ventricle: Based on the linear dimension and/or 2D volumes, the left ventricle is small in size. There is concentric remodeling. The left ventricular systolic function is normal. The LVEF as measured by biplane volume is 56%. The diastolic function is normal. The left ventricular filling pressure is indeterminate. No regional wall motion abnormalities are seen. Right Ventricle: The right ventricle is mildly dilated. The right ventricular systolic function is normal. Aortic Valve: There is mild aortic valve regurgitation with a centrally directed jet. Mitral Valve: There is mild mitral regurgitation. Tricuspid Valve: There is mild tricuspid regurgitation. Great Vessels: The aortic root is normal in size. The sinus of Valsalva (aortic root) diameter is 32 mm by leading edge to leading edge method. In the maximally visualized portion, the ascending aorta appears normal in size. The ascending aorta diameter is 34 mm. Compared to the most recently available prior study, and allowing for differences in image quality and technique, there is no significant interval change noted. Catheterizations: -[facility] 05/2021: normal L and R filling pressures. 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 Widely patent mid-LAD stent. iFR evaluation of indeterminate na rrowing in the LAD normal, result 1.0 -[facility] 04/2022: RA 7, PA, 36/16 (25), PCW 10, widely patent stent in the mid-LAD, 60-70% candy wrapper stenosis prior to the stent segment. Distal to the stent, the LAD has minimal luminal irregularities. The diagonal branches appear to have diffuse mild narrowing. PDA is moderately diffusely diseased including a focal 50-60% stenosis in the proximal PDA, but unchanged since November2020. -[facility] 03/2023: Widely patent LAD stent from 2020, Hemodynamically significant mid- LAD disease by iFR and angiographically significant appearing LAD disease proximal to the 2020 stent, s/p STUART to mid LAD, 100% occlusion of the distal PDA -[facility] 02/2024: Known cardiac allograft vasculopathy; widely patent LAD stents with no significant late loss; one short occluded segment of what is probably a distal right coronary branch, appearance unchanged from 2023; otherwise, diffuse nonobstructive CAV appearing dormant Labs Lab Results Component Value Date HGB 14.1 03/27/2024 HCT 41.3 03/27/2024 PLT 254 03/27/2024 CHOL 103 03/27/2024 TRIG 67 03/27/2024 HDL 48 03/27/2024 LDLCALC 41 03/27/2024 ALT 19 03/27/2024 AST 17 03/27/2024 NA 138 03/27/2024 K 3.8 03/27/2024 CREATININE 0.84 03/27/2024 BUN 14 03/27/2024 CO2 25 03/27/2024 TSH 4.34 (H) 03/27/2024 HGBA1C 9.0 (H) 03/27/2024 BNP 209 12/04/2019 TACROLIMUS 4.2 03/27/2024 SIROLIMUS 4.3 03/27/2024 Assessment and Plan Orthotopic Heart Transplant -transplanted February 2015 -Immunosuppression: tacrolimus, sirolimus -CAV ppx: ASA and statin -[facility] 02/2024: RA 14, PA 42/21 (29), PCW 18, CI 2.2, LHC as below -Echo 02/2024: EF 56%, mildly dilated RV with normal function, mild AR/MR/TR -tacro, siro level pending, although he took his medications prior to the lab draw this morning, sowill redraw CAV -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 Widely patent mid-LAD stent. iFR evaluation of indeterminate narrowing in the LAD normal, result 1.0 -[facility] 03/2023: Widely patent LAD stent from 2020, Hemodynamically significant mid- LAD disease by iFR and angiographically significant appearing LAD disease proximal to the 2020 stent, s/p STUART to mid LAD, 100% occlusion of the distal PDA -[facility] 02/2024: Known cardiac allograft vasculopathy; widely patent LAD stents with no significant late loss; one short occluded segment of what is probably a distal right coronary branch, appearance unchanged from 2023; otherwise, diffuse nonobstructive CAV appearing dormant -continue DAPT, ASA, and statin Hypertension -stable -Continue amlodipine, losartan -continue to monitor and call with problems Diabetes -managed by PCP Hypomagnesemia -on mag supplement 800 mg TID -continue to monitor Health maintenance -Recommended dermatology follow up -Continue follow up with PCP for all routine health care screenings A total time of 40 minutes was spent addressing the current illness, reviewing records (prior imaging, lab work, etc), and formulating a plan. The patient is agreeable to the plan and all pertinent questions were answered. Follow up in 6 months Riri Mujica, COLUMNIST/COMMENTATOR 09/17/24 [1] Past Medical History: Diagnosis Date Chronic systolic (congestive) heart failure (CMS/HCC) Chronic systolic congestive heart failure Coronary artery disease Diabetes mellitus (CMS/HCC) Hyperlipidemia Hypertension Other specified bacterial agents as the cause of diseases classified elsewhere Clostridium difficile infection Personal history of other diseases of the circulatory system History of ventricular tachycardia Personal history of other malignant neoplasm of skin History of skin cancer Presence of automatic (implantable) cardiac defibrillator Biventricular ICD (implantable cardioverter-defibrillator) in place Unspecified abdominal hernia without obstruction or gangrene Hernia Unspecified complication of cardiac and vascular prosthetic device, implant and graft, initial encounter Left ventricular assist device (LVAD) complication [2] Past Surgical History: Procedure Laterality Date CARDIAC PACEMAKER PLACEMENT N/A removed at time of heart transplant [3] Family History Problem Relation Name Age of Onset Cardiac disorder Father Hypertension Father Diabetes type II Father [4] Current Outpatient Medications Medication Sig Dispense Refill amLODIPine (Norvasc) 10 MG tablet Take 1 tablet (10 mg) by mouth 1 (one) time each day. 90 tablet 3 atorvastatin (Lipitor) 80 MG tablet Take 1 tablet (80 mg) by mouth 1 (one) time each day in the evening. 90 tablet 3 baclofen (Lioresal) 20 MG tablet Take 1 tablet (20 mg) by mouth every night. Prescribed by PCP DULoxetine (Cymbalta) [address] capsule Take 1 capsule (60 mg) by mouth 1 (one) time each day. Do not crush or chew. Prescribed by PCP gabapentin (Neurontin) 800 MG tablet Take 1 tablet (800 mg) by mouth 2 (two) times a day. insulin NPH-insulin regular (Novolin 70-30,Humulin 70-30) (70-30) 100 UNIT/ML injection vial Inject0.6 mL (60 Units) under the skin 1 (one) time each day in the morning AND 0.4 mL (40 Units) 1 (one)time each day in the evening. Prescribed by PCP. 90 mL 3 levothyroxine (Synthroid) 25 MCG tablet Take 1 tablet (25 mcg) by mouth Daily. losartan (Cozaar) 100 MG tablet Take 1 tablet (100 mg) by mouth 1 (one) time each day. 90 tablet 3 magnesium oxide (Mag-Ox) 400 (240 Mg) MG tablet Take 2 tablets (800 mg) by mouth 2 (two) times a day. 120 tablet 11 Multiple Vitamins-Minerals (MENS MULTIVITAMIN PO) Take 1 tablet by mouth 1 (one) time each day. Pt purchases OTC prasugrel (Effient) 10 MG tablet Take 1 tablet (10 mg) by mouth 1 (one) time each day. 90 tablet 3 sirolimus (Rapamune) 0.5 MG tablet Take 1 tablet by mouth every morning. Take with 1mg tablet for 1.5mg daily. Do not crush, chew, or split. 30 tablet 11 sirolimus (Rapamune) 1 MG tablet Take 1 tablet by mouth every morning. Take with 0.5mg tablet for 1.5mg daily. Do not crush, chew, or split. 30 tablet 11 tacrolimus 1 MG PO capsule Take 2 capsules by mouth every morning AND 1 capsule every evening. 270 capsule 3 tamsulosin (Flomax) 0.4 MG 24 hr capsule Take 2 capsules (0.8 mg) by mouth every night. traMADol (Ultram) 50 MG tablet Take 1 tablet (50 mg) by mouth every 6 (six) hours if needed for moderate pain (back pain). Prescribed by PCP SITagliptin (Januvia) 50 MG tablet Take 1 tablet (50 mg) by mouth 1 (one) time each day. (Patient not taking: Reported on 09/17/2024) No current facility-administered medications for this visit. documented in this encounter Plan of Treatment Upcoming Encounters Date Type Department Care Team (Late st Contact Info) Description 03/12/2025 Hospital Encounter Cardiac Eligibility Technician [address] [place] [address] [facility] [place] [address] Scheduled Procedures Name Priority Associated Diagnoses Date/Ti me RIGHT HEART CATH Status post transplant, heart (CMS/HCC) CORONARY ANGIOGRAPHY Status post transplant, heart (CMS/HCC) documented as of this encounter Visit Diagnoses Diagnosis Heart transplanted (CMS/HCC)- Primary Heart replaced by transplant Long-term use of immunosuppressant medication Vasculopathy of cardiac allograft Coronary atherosclerosis of inupiat coronary artery of transplanted heart Essential hypertension Unspecified essential hypertension Status post transplant, heart (CMS/HCC)- Primary Heart replaced by transplant documented in this encounter Additional Health Concerns Infection Onset Date Last Indicated Resolved Time 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
--- OUTSIDE RECORDS SUMMARY | 2024-09-18 08:19 | XMS_ITS | Encounter Summary ---
Author Organization [facility] Address [address] [id number] Care Team Providers Care Thoracic Medicine Specialist Name Role Phone Alpesh Hanson MD Primary Care Provider +1- [phone] Encounter Details Date Type Department Care Team (Late st Contact Info) Description 02/25/2016 Legacy OTTR Encounter Historical OTTR [address] [place] [address] Arcelia Concepcion, [facility] [id number] [address] [place] [address] Social History Tobacco Use Types Packs/Day Years [...] appt canceled and rescheduled for 01/31 in [facility] * Progress Notes - Maddi Melissa [...] for Tacro level to be drawn to [facility]. * Progress Notes - Arabella Arellano - [...] 11:21 AM EST DOS 03/23/2016 OP cpt [id number] RHC/LHC, [id number] BX, [id number] Echo: Fed Med B, NPR. Notified jamison pinto via email. * Progress Notes - Arcelia Concepcion - 02/01/2016 5:17 PM EST Labs reviewed with Md Fregoso. No changes. * Progress Notes - Arcelia Concepcion - 01/31/2016 3:18 PM EST Called [facility] to get patients lab results. Patient did not go for labs. Called and left him a VM to return my call or go for labs as soon as possible for him. * Progress Notes - Karen Bermudez - 01/27/2016 11:17 AM EST LM with pt notify him that we have not recieved his labs from [facility]. I asked him to have his labs drawn 8 -9 am before taking his medications on 01/28/16 * Progress Notes - Karen Bermudez - 01/25/2016 10:54 AM EST Labs requested * Progress Notes - Karen Bermudez - 01/13/2016 8:54 AM EST Labs reviewed with Dr. Juarez, tacrolimus dose decreased to 2 mg am and 1 mg pm. Updated prescription escribed to [facility]. Local labs ordered for 01/24/16. Pt [...] pts request prescription for famotidine escribed to [facility] for 30 day supply with 11refills. * Progress Notes - Karen Bermudez - 11/26/2015 3:18 PM EDT pt called to request a 5 day supply of cellcept to be escribed to [facility]. A second prescription for cellcept escribed to [facility] for a 30 day supply with 11 [...] prednisone dose. * Progress Notes - Karen Bermudez - 11/15/2015 10:23 AM EDT Pt seen [...] [facility] Asked pt to call back to confirm message. * Progress Notes - Karen Bermudez - 11/11/2015 1:04 PM EDT RHC cancelled for 11/15/15. Labs only transplant clinic am followed by cardiology appt at [facility] with Dr. Juarez. Melissa Linda notified * Progress Notes - Karen Bermudez - 11/05/2015 10:59 AM EDT Per pts request refills for magnesium oxide, multivitamin, asprin, melatonin, pravastatin and calcium escribed to [facility] for 30 days with 11 refills. * Progress Notes - Elizabeth Arzola MD - 11/02/2015 7:12 PM EDT DOS 11/15/2015 OP cpt [id number] RHC: Fed Med B, NPR. Notified photo lab specialist via email. * Progress Notes - Karen Bermudez - 10/28/2015 4:16 PM EDT Labs reviewed with Dr. Juarez no changes noted. * Progress Notes - Karen Bermudez - 10/14/2015 9:45 AM EDT Labs reviewd with Dr. Juarez, tacrolimus dose increased to 2mg BID, updated prescription escribed to [facility]. Local labs orederd for 10/27/15. Pt notified and verbalized understanding re POC. 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 * Progress Notes - Karen Bermudez - 09/27/2015 3:34 PM EDT Pt called to say that he did not recieve his mycopheolate from [facility]. Pt said that he has ran out of medication. Prescrition for 4 days called into [facility]. I notified Joselo kaba and [...] advised to increase exercise and to walk calculating machine mechanic or evening when it is cooler. Pt [...] 7:21 AM EDT Lab results requested from [facility] * Progress Notes - Arcelia Concepcion - [...] his cellcept and needed [facility]. I escribed to [facility] * Progress [...] in refills for Celexa-refills called in to [facility] [id number], pt also expressed that he received a bill from the pharmacy and shouldnt have because he put his credit card on file- I suggested he speak to the clinical pharmacy coordinator, pt also stated he requested Pred refill to be mailed and they didn't mail it-I suggested that he also discuss that with the pharmacy mgr, I also verified that pt has Karen Bermudez's contact info for refill requests and asked that the pt contact the coordinator instead of the LOAN ADMINISTRATOR when he needs refills, etc., pt verbalizedunderstanding [...] have been drawn pt will go to [facility] to see Dr. Juarez. Melissa Linda notifie. Pt notified and verbalized understanding re POC. * Progress Notes - Dorota Quevedo - 08/11/2015 11:35 AM EDT pt contacted Dolly Tello LOAN ADMINISTRATOR for Pravastatin refills-escribed to [facility] as requested with 12refKaren sesay [...] 08/04/2015 8:33 AM EDT Labs requested from [facility] * Progress Notes - Elizabeth Arzola MD - 07/28/2015 2:57 PM EDT DOS 08/16/2015 OP cpt [id number] RHC: Fed Med B, NPR. Notified photo lab specialist via email. * Progress Notes - Elizabeth Arzola MD - 07/15/2015 4:00 PM EDT DOS 09/13/2015 OP cpt [id number] RHC: Fed Med B, NPR. Notified photo lab specialist via email. * Progress Notes - Karen [...] 6:48 PM EDT DOS 06/14/2015 OP cpt [id number] RHC: Fed med B, NPR. Notified photo lab specialist via email. * Progress Notes - Karen [...] 05/04/2015 3:28 PM EST rec'd call from [facility] this AM and they stated they rec'd 2 specimens for HLA antibody screen and theyare aware that pt has been transplanted, after discussion with Karen Bermudez we discovered that the outside lab theron labs using pre transplant orders, I notified Mabel in [facility] not to perform HLA testing, [...] 9:53 PM EST DOS 05/17/2015 OP cpt [id number] RHC: Fed Med B, NPR. Notified photo lab specialist via email. * Progress Notes - Karen [...] Bermudez - 04/30/2015 11:39 AM EST Per photo lab specialist request pt to have labs drawn in transplant clinic on 05/03/15. Melissa Maddi notified * Progress Notes - Karen Bermudez - 04/30/2015 10:43 AM EST Pt called asking if he could chage his appt to 05/04. I expalined that we were fully booked on 05/04. Pt verbalized understanding and said that he would keep his appointment on 05/02. photo lab specialist notified * Progress Notes - Karen Bermudez [...] 7:19 AM EST DOS 05/03/2015 OP cpt [id number] RHC: Fed Med B, NPR. Notified photo lab specialist via email. * Progress Notes - Karen [...] 3:15 PM EST DOS 11/15/2015 OP cpt [id number] RHC/Bx: Fed Med B, NPR. Notified photo lab specialist via email. * Progress Notes - Elizabeth Arzola MD - 04/16/2015 3:14 PM EST DOS 08/16/2015 OP cpt [id number] RHC/Bx: Fed Med B, NPR. Notified photo lab specialist via email. * Progress Notes - Elizabeth Arzola MD - 04/16/2015 3:13 PM EST DOS 07/12/2015 OP cpt [id number] RHC/Bx: Fed Med B, NPR. Notified photo lab specialist via email. * Progress Notes - Elizabeth Arzola MD - 04/16/2015 3:12 PM EST DOS 05/17/2015 OP cpt [id number] RHC/Bx: Fed Med B, NPR. Notified photo lab specialist via email. * Progress Notes - Elizabeth Arzola MD - 04/16/2015 3:10 PM EST DOS 04/19/2015 OP cpt [id number] RHC/Bx; Fed Med B, NPR. Notified photo lab specialist via email. * Progress Notes - Karen [...] hours as needed for pain sent to [facility] * Progress Notes - Karen Bermudez - 04/13/2015 5:34 PM EST Reviewed post discharge instructions with pt and his . Reviewed medication regime with pt and his . Reviewed follow up appointment, labs and clinic on 04/15, [facility] 04/19. Patient and his have my number and the day habilitation supervisor coordinators number and I have explained scenarios [...] the time of transplant instead of [employer]. Pre-clinical administrative coordinator notified. documented in this encounter Plan of Treatment Upcoming Encounters Date Type Department Care Team (Late st Contact Info) Description 03/12/2025 Hospital Encounter Cardiac Poultry Buyer [address] [place] [address] Molly Basketball Referee, [address] [place] [address] Scheduled Procedures Name Priority Associated Diagnoses Date/Ti ms RIGHT HEART CATH Status post transplant, heart ([facility]/HCC) CORONARY ANGIOGRAPHY Status post transplant, heart ([facility]) documented as of this encounter Procedures Procedure [...] 81.29 EXTERNAL LAB 01/15/2017 2:[address] [facility] EXTERNAL LAB - 01/16/2017 2:35 PM EST [facility] Historical Provider MD LAB BLOOD ORDERABLES Angi l Result Performing Organization Address City/[facility]/ZIP Co de Phone Number EXTERNAL LAB * OTTR LAB RESULTS (MANUAL) (09/27/2016 11:31 AM EDT) External Allomap Score 33 EXTERNAL LAB 09/27/2016 11:3 1 AM EDT Narrative EXTERNAL LAB - 10/04/2016 11:32 AM EDT Lab Dx Historical Provider MD LAB BLOOD ORDERABLES Angi l Result Performing Organization Address [facility]/ZIP Co de Phone Number EXTERNAL LAB * [...] EXTERNAL LAB - 10/11/2016 11:47 AM EDT [facility] Historical Provider MD LAB BLOOD ORDERABLES Angi l Result EXTERNAL LAB * OTTR LAB RESULTS (MANUAL) (06/28/2016 3:44 PM EDT) Pathologist [facility] External Allomap Score 31 EXTERNAL LAB 06/28/2016 3:44 PM EDT Narrative EXTERNAL LAB - 06/30/2016 3:47 PM EDT [facility] us Historical Provider MD LAB BLOOD ORDERABLES [...] EXTERNAL LAB - 08/24/2016 3:31 PM EDT [facility] Historical Provider MD LAB BLOOD ORDERABLES Angi [...] EXTERNAL LAB - 06/26/2016 3:10 PM EDT [facility] Historical Provider LAB BLOOD ORDERABLES Angi l Result EXTERNAL LAB * OTTR LAB RESULTS (MANUAL) (03/24/2016 5:43 PM EST) External Biopsy 0R EXTERNAL LAB 03/24/2016 5:43 PM EST Narrative EXTERNAL LAB - 03/24/2016 5:43 PM EST [facility] Historical Provider MD LAB BLOOD ORDERABLES Angi [...] Narrative EXTERNAL LAB - 03/04/2016 1:51 PM [facility] Historical Provider LAB BLOOD ORDERABLES Angi l Result Performing Organization Address City/[facility]/ZIP Co de Phone Number EXTERNAL LAB * [...] Narrative EXTERNAL LAB - 02/04/2016 11:53 AM [facility] Historical Provider LAB BLOOD ORDERABLES Angi [...] EXTERNAL LAB - 12/23/2015 8:59 AM EDT [facility] Historical Provider LAB BLOOD ORDERABLES Angi l Result EXTERNAL LAB * OTTR LAB RESULTS (MANUAL) (11/15/2015 9:03 AM EDT) External Allomap Score 31 EXTERNAL LAB 11/15/2015 9:03 AM EDT Narrative EXTERNAL LAB - 11/18/2015 9:03 AM EDT [facility]plant [facility] Historical Provider LAB BLOOD [...] EXTERNAL LAB - 10/27/2015 10:19 AM EDT [facility] us Historical Provider MD LAB BLOOD ORDERABLES Angi l Result Performing Organization Address City/[facility]/ZIP Co de Phone Number EXTERNAL LAB * [...] EXTERNAL LAB - 10/13/2015 12:43 PM EDT [facility] Historical Provider MD LAB BLOOD ORDERABLES Angi l Result Performing Organization Address City/[facility]/ZIP Co de Phone Number EXTERNAL LAB * OTTR LAB RESULTS (MANUAL) (09/13/2015 5:19 PM EDT) External Biopsy 0R EXTERNAL LAB 09/13/2015 5:19 PM EDT Narrative EXTERNAL LAB - 09/13/2015 5:19 PM EDT [facility] Center Historical Provider MD LAB BLOOD ORDERABLES Angi l Result Performing Organization Address City/[facility]/ZIP Co de Phone Number EXTERNAL LAB * OTTR LAB RESULTS (MANUAL) (09/13/2015 6:52 AM EDT) External Estimated GFR 95.79 EXTERNAL LAB 09/13/2015 6:52 AM EDT Narrative EXTERNAL LAB - 09/13/2015 2:40 PM EDT Automated LAB Interface Historical Provider MD [...] EXTERNAL LAB - 09/13/2015 8:53 AM EDT [facility] us Historical Provider LAB BLOOD ORDERABLES Angi [...] EXTERNAL LAB - 09/09/2015 8:03 AM EDT [facility] Historical Provider MD LAB BLOOD ORDERABLES Angi l Result EXTERNAL LAB * OTTR LAB RESULTS (MANUAL) (08/16/2015 10:59 AM EDT) Pathologist [facility] External Allomap Score 25 EXTERNAL LAB 08/16/2015 10:5 9 AM EDT Narrative EXTERNAL LAB - 08/19/2015 10:59 AM EDT Transplant Center Historical Provider LAB BLOOD ORDERABLES Angi l Result Performing Organization Address [facility]/ZIP Co de Phone Number EXTERNAL LAB * OTTR LAB RESULTS (MANUAL) (08/16/2015 8:44 AM EDT) Pathologist [facility] External Estimated GFR 79.73 EXTERNAL LAB 08/16/2015 8:44 AM EDT Narrative EXTERNAL LAB - 08/16/2015 9:48 AM EDT Automated LAB Interface Historical Provider LAB BLOOD ORDERABLES Angi l Result Performing Organization Address [facility] Co de Phone Number EXTERNAL LAB * OTTR LAB RESULTS (MANUAL) (08/05/2015 6:19 PM EDT) Pathologist [facility] External WBC 12.5 k/uL EXTERNAL LAB External [...] EXTERNAL LAB - 08/06/2015 6:21 PM EDT [facility] Historical Provider LAB BLOOD ORDERABLES Angi l Result EXTERNAL LAB * OTTR LAB RESULTS (MANUAL) (07/12/2015 11:41 AM EDT) External Biopsy 0R EXTERNAL LAB 07/12/2015 11:4 1 AM EDT Narrative EXTERNAL LAB - 07/12/2015 5:53 PM EDT Transplant Center Historical Provider LAB BLOOD ORDERABLES Angi l Result Performing Organization Address City/[facility]/ZIP Co de Phone Number EXTERNAL LAB * OTTR LAB RESULTS (MANUAL) (07/12/2015 9:13 AM EDT) External Estimated GFR 80.64 EXTERNAL LAB 07/12/2015 9:13 AM EDT Narrative EXTERNAL LAB - 07/12/2015 10:17 AM EDT Automated LAB Interface us Historical Provider LAB BLOOD ORDERABLES Angi [...] EXTERNAL LAB - 06/29/2015 6:42 PM EDT [facility] Historical Provider LAB BLOOD ORDERABLES Angi l [...] 06/14/2015 10:00 AM EDT Automated LAB Interface us Historical [...] EXTERNAL LAB - 05/10/2015 4:54 PM EDT [facility] Historical Provider MD LAB BLOOD ORDERABLES Angi [...] documented as of this encounter Care Teams Thoracic Medicine Specialist Relationship Specialty Start Date End Date Alpesh Hanson MD [address] [place] [address] PCP - General 07/09/20 documented as of this encounter
--- OUTSIDE RECORDS SUMMARY | 2024-09-18 08:19 | XMS_ITS | Encounter Summary ---
Author Organization Healthcare Address [address] [id number] Care Team Providers Care Ordering Machine Operator Name Role Phone Alpesh Hanson MD Primary Care Provider +1- [phone] Encounter Details Date Type Department Care Team (Late st Contact Info) Description 02/06/2018 [facility] OTTR Encounter Historical OTTR [address] [place] [address] Arcelia Concepcion RN HOSPITAL HEART [id number] [address] [place] [address] Social History Tobacco Use Types Packs/Day Years [...] any questions. New tacro script escribed to [facility]. Standing lab order faxed to [facility] * Progress Notes - Arabella Arellano - 12/19/2018 3:54 PM EDT Pt seen in powerhouse laborer for annual testing. Pt reports he is doing well and has no major complaints or concerns. Went over lab results with pt and he is aware his [id number] is 13 and will contact hisPCP to [...] Sunday. New standing lab order faxed to [facility] * Progress Notes - Arcelia Concepcion [...] 1:10 PM EST Labs reviewed with Md Freogso. no changes * Progress Notes - Arabella [...] - 10/17/2017 3:04 PM EDT DOS 10/25/2017 Test Inspection Engineer/LHC/Labs Pt has Federal Medicare NPR updating IAuth and nurse. 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 * Progress Notes - Arabella Arellano - 08/15/2017 3:20 PM EDT Pt seen in [facility] for routine f/u. Pt has no [...] to his lab. New order faxed to [facility]. Reminded pt to go in the [...] 03/29/2017 1:36 PM EST Pt seen in powerhouse laborer for 2 year visit. Pt reports he [...] pt of his appt on 03/29 in powerhouse laborer. Pt reports he will be here. * Progress Notes - Hari Isela Thomas - 03/09/2017 1:38 PM EST DOS 03/29/17 Op Cpt RHC/LHC [id number], Echo [id number], NPR. Pt has Fed Med B. Nurse, cath and echo updated. documented in this encounter Plan of Treatment Upcoming Encounters Date Type Department Care Team (Late st Contact Info) Description 03/12/2025 Hospital Encounter Cardiac Test Inspection Engineer [address] [place] [address] Molly, Business Analyst Ecommerce, [address] [place], [place] [phone] Scheduled Procedures Name Priority Associated Diagnoses Date/Ti me RIGHT HEART CATH Status post transplant, heart (CMS/HCC) CORONARY ANGIOGRAPHY Status post transplant, heart (CMS/HCC) documented as of this encounter Procedures Procedure [...] EXTERNAL LAB - 05/16/2018 3:44 PM EDT [facility] us Historical Provider LAB BLOOD ORDERABLES Angi [...] EXTERNAL LAB - 01/30/2018 1:48 PM EST [facility] us Historical Provider MD LAB BLOOD ORDERABLES Angi l Result EXTERNAL LAB * OTTR LAB RESULTS (MANUAL) (10/25/2017 9:39 AM EDT) External Estimated GFR 92.67 EXTERNAL LAB 10/25/2017 9:39 AM EDT Narrative EXTERNAL LAB - 10/25/2017 11:00 AM EDT Automated LAB Interface us Historical Provider LAB BLOOD ORDERABLES Angi l Result EXTERNAL LAB * OTTR LAB RESULTS (MANUAL) (08/07/2017 2:59 PM EDT) External WBC 9.2 k/uL EXTERNAL LAB External [...] EXTERNAL LAB - 08/14/2017 3:01 PM EDT [facility] Historical Provider LAB BLOOD ORDERABLES Angi [...] EXTERNAL LAB - 05/09/2017 4:01 PM EDT [facility] Historical Provider LAB BLOOD ORDERABLES Angi l Result Performing Organization Address City/[facility]/ZIP Co de Phone Number EXTERNAL LAB documented in this encounter Visit Diagnoses Not on filedocumented in this encounter Additional Health Concerns Infection Onset Date Last Indicated Resolved Time Toxoplasmosis Comment:Resolve date added to set historic infection(s) to inactive from [facility] to Epic conversion. 03/20/2015 03/20/2015 07/26/2020 12:00 AM EDT Toxoplasmosis 03/20/2015 03/20/2015 documented as of this encounter Care Teams Ordering Machine Operator Relationship Specialty Start Date End Date Alpesh Hanson MD [address] [place] [address] PCP - General 07/09/20 documented as of this encounter
--- OUTSIDE RECORDS SUMMARY | 2024-09-18 08:19 | XMS_ITS | Encounter Summary ---
Author Organization [facility] Address [address] [place] [address] Care Team Providers Care Paperhanger Contractor Name Role Phone Alpesh Hanson MD Primary Care Provider +1- [phone] Encounter Details Date Type Department Care Team (Late st Contact Info) Description 03/02/2015 [facility] OTTR Committee Historical OTTR [address] [place] [address] Dorota Quevedo RN HOSPITAL HEART [id number] [address] [place] [address] Social History Tobacco Use Types [...] Contact Info) Description 03/12/2025 Hospital Encounter Cardiac Line Lead [address] [place] [address] Sandoval BarnesSenior Health Physics Technician, [address] [place] [address] Scheduled Procedures Name Priority Associated Diagnoses Date/Ti me RIGHT HEART CATH Status post transplant, heart (CMS/HCC) CORONARY ANGIOGRAPHY Status post transplant, heart ([facility]) documented as of this encounter Visit Diagnoses Not on filedocumented in this encounter Additional Health Concerns Infection Onset Date Last Indicated Resolved Time Toxoplasmosis Comment:Resolve date added to set historic infection(s) to inactive from SCM to Epic conversion. 03/20/2015 03/20/2015 07/26/2020 12:00 AM EDT Toxoplasmosis 03/20/2015 03/20/2015 documented as of this encounter Care Teams Paperhanger Contractor Relationship Specialty Start Date End Date Alpesh Hanson MD [address] [place] [address] PCP - General 07/09/20 documented as of this encounter
--- OUTSIDE RECORDS SUMMARY | 2024-09-18 08:19 | XMS_ITS | Patient Health Record ---
Author Organization [facility] Address [address] [facility] [address] [id number] Care Team Providers Care Membership Counselor Name Role Phone Fatoumata Hanson Primary Care Provider Allergies Allergen (clinical drug ingredient) Drug/Non Drug Allergy documented on EMR Reaction Allergy Type Onset Date Status carvedilol Coreg Unknown Drug Allergy Active Results Component Value Reference Range Notes Hemoccult- IFOBT (in house) Reviewed date:09/12/2024 09:35:56 AM Interpretation:Positive Performing Lab: Notes/Report: Positive results Pos H-Ferritin (Not yet reviewed by provider) Interpretation: Normal Performing Lab: Notes/Report: JULIEN 271 17.9-464 ng/ml H-Retic count (Not yet revie wed by provider) Interpretation: Normal Performing Lab: Notes/Report: MYRTLE 2.5 0.9-3.2 % H-VITAMIN B12 (Not yet revie wed by provider) Interpretation: Normal Performing Lab: Notes/Report: VITB12 888 239-931 pg/mL H-Folate (Not yet reviewed b y provider) Interpretation: Normal Performing Lab: Notes/Report: FOL 13.60 Normal Adult: 2.76->20 ng/mL Folate Deficent: 1.04-2.79ng/mL H-Iron, TIBC, Iron Saturatio n (Not yet reviewed by provider) Interpretation: Normal Performing Lab: Notes/Report: FE 70 49-181 ug/dL DTIBC 294 261-462 ug/dL IRONSAT 23.39733 15-55 % P-Microalbumin/Creatinine, R andom Urine Sample Reviewed date:08/11/2024 [...] 171 Performing Lab: Notes/Report: Test performed by [facility] [address] [place], [place] [address] , [address], [place] [address] Mukund Wolff MD, Microwave Oven Assembler CLIA: [id number] Sodium 139 135-145 mmol/L Potassium 4.2 3.5-5.3 [...] Interpretation:Normal Performing Lab: Notes/Report: Test performed by [facility] [address] [place], [place] [address] , [address], [place] [address] Mukund Wolff MD, Microwave Oven Assembler CLIA: [id number] Cholesterol 138 <200 mg/dL Triglycerides 141 <150 [...] Results: 59 Units: mg/dL % Change: +55% CBC Venipuncture (in house) Reviewed date:09/03/2024 02:49:40 [...] 1 Performing Lab: Notes/Report: Test performed by [facility] [address] [facility] , [address], [place] [address] Mukund Wolff MD, Microwave Oven Assembler CLIA: [id number] Sodium 135 135-145 mmol/L Potassium 4.3 3.5-5.3 [...] Interpretation:Normal Performing Lab: Notes/Report: [facility] by [facility] , [place] [address] Mukund Wolff MD, Microwave Oven Assembler CLIA: [id number] Magnesium 1.9 1.6-2.4 mg/dL P-PSA Reviewed date:09/03/2024 02:49:40 PM Interpretation:Normal Performing Lab: Notes/Report: Test performed by [facility] , [place] [address] Mukund Wolff MD, Microwave Oven Assembler CLIA: [id number] PSA 0.64 <4.00 ng/mL Please note this is an ultrasensitive PSA assay with a lower limit of detection of 0.014 ng/mL. This test is performed by the Christina ECLIA methodology. Values obtained with different assay methods or kits cannot be directly compared. P-TSH Reviewed date:09/03/2024 02:49:40 PM Interpretation:Normal Performing Lab: Notes/Report: Test performed by [facility] , [place] [address] Mukund Wolff MD, Microwave Oven Assembler CLIA: [id number] TSH 1.74 0.43-5.25 mU/L P-Microalbumin/Creatinine, R andom Urine Sample Reviewed date:09/03/2024 02:49:40 PM Interpretation:a/c 59 Performing Lab: Notes/Report: Test performed by [facility] , [address], [place] [address] Mukund Wolff MD, Microwave Oven Assembler CLIA: [id number] Albumin/Creatinine Ratio, Urine 59 0-30 ug/mg Microalbumin, Urine, Random 4.7 Creatinine, Urine 79.3 Medications Medication SIG (Take, Route, Frequency, Duration) Notes Start Date End Date Status ReliOn Blood Glucose Test Active NovoLOG FlexPen 100 UNIT/ML per sliding scale subcutaneously ACHS Active RELION BLOOD GLUCOSE MONITOR Active Cefdinir 300 MG 1 cap Orally twice a day 5 Active Tacrolimus 1 MG 1 cap(s) orally 2 ca ps in the am, 1 cap at night Active NovoLOG Mix 70/30 (70-30) 100 UNIT/ML 60 units sq qam; 40 units sq qpm subcutaneously Active Gabapentin 800 MG 1 tab(s) Orally Two times a day; Duration: 30 days 09/03/2024 Active amLODIPine Besylate 10 MG 1 tab(s) orally once a day Active DULoxetine HCl 60 MG 1 capsule Orally On ce a day; Duration: 90 days Active Losartan Potassium 100 MG 1 tablet Orally Once a day Active FreeStyle Shan 3 Plus Sensor - as directed 06/06/2024 Active Sirolimus 1 MG 1 tablet Orally Once a day Active Baclofen 20 MG 1 tab(s) orally At B ed Time; Duration: 90 days Active Lisinopril 10 MG 1 tab(s) orally once a day Not-Taking Sirolimus 0.5 MG 1 tablet Orally Once a day Active Levothyroxine Sodium 25 MCG Take 1 tablet by mouth once daily; Duration: 90 Active Prasugrel HCl 10 MG as directed Orally Active FreeStyle Shan 3 Industry - as directed 06/06/2024 Active Multivitamin - 1 tab(s) orally once a day Active Atorvastatin Calcium 80 MG 1 tab(s) orally once a day; Duration: 30 days Active Magnesium 400 MG 2 Tablets Orally twi ce a day Active traMADol HCl 50 MG 1-2 tab(s) orally fo ur times a day as needed 08/05/2024 Active BD Insulin Syringe U-100 1 ML as directed Two times a day 04/02/2024 Active Immunizations Vaccine Route Administration Date Status Comme nts xFluzone Intradermal (18-64yrs)-trivalent-medic are pts ID Intradermal 11/14/2011 Administered xFluzone Intradermal (18-64yrs)-trivalent-medic are pts ID Intradermal 11/12/2012 Administered xFlu shot-36 months and older IM Intramuscular 12/24/2006 Administered xFlu shot-36 months and older IM Intramuscular 01/29/2009 Administered xFlu shot-36 months and older IM Intramuscular 11/09/2009 Administered xFlu shot-36 months and older IM Intramuscular 11/15/2010 Administered Tetanus Tdap-Adacel (over 7yrs) Unknown 10/19/2023 Administered Shingrix IM Intramuscular 04/30/2018 Administered Shingrix Unknown 04/30/2018 Administered Prevnar (PCV20) IM Intramuscular 02/14/2024 Administered PNEUMOVAX 23 VACCINE IM Intramuscular 11/15/2010 Administe red PNEUMOVAX 23 VACCINE IM Intramuscular 07/04/2016 Administe red PNEUMOVAX 23 VACCINE IM Intramuscular 12/13/2021 Administe red MMR SC Subcutaneous 12/19/2004 Administered Hepatitis A (adult) Unknown 02/13/2018 Administered Fluzone Quad-Medicare (6months&older) IM Intramuscular 01/02/2017 Administered Fluzone Quad-Medicare (6months&older) IM Intramuscular 10/31/2019 Administered Fluzone Quad-Medicare (6months&older) IM Intramuscular 11/26/2020 Administered Fluzone Quad (6months&older) IM Intramuscular 12/12/2018 Administered Fluzone Quad (6months&older) IM Intramuscular 12/13/2021 Administered Fluzone Intradermal Quad private(18-64yrs) ID Intradermal 02/04/2015 Administered Fluzone High Dose (65yr and older) IM Intramuscular 02/15/2023 Administered Fluzone High Dose (65yr and older) IM Intramuscular 02/14/2024 Administered Flublok IM Intramuscular 03/06/2018 Administered Problems Problem Type SNOMED Code ICD Code Onset Dates Problem Status W/U Status Risk Notes Problem Type II diabetes mellitus without complication (089365577) Type 2 diabetes mellitus without complications (E11.9) Active confirmed Problem Essential hypertension (80033827) Essential hypertension (I10) Active confirmed Problem Anxiety (47322221) Anxiety (F41.9) Active confirmed Problem Diabetic neuropathy (451759023) Diabetic neuropathy (E11.40) Active confirmed Problem Paroxysmal atrial fibrillation (406449062) Paroxysmal atrial fibrillation (I48.0) Active confirmed Problem Long-term current use of insulin (222522765) jail current use of insulin (Z79.4) Active confirmed Problem Hypothyroidism (09990616) Hypothyroidism (E03.9) Active confirmed Problem Hyperglycemia due to type 2 diabetes mellitus (227498935737618) Poorly controlled diabetes mellitus (E11.65) Active confirmed Problem Body mass index 30.00 to 34.99 (661838033348097) BMI 31.0-31.9,adult (Z68.31) Active confirmed Problem Dyslipidemia (697820633) Dyslipidemia (E78.5) Active confirmed Problem Nocturnal myoclonus (G47.69) Active confirmed Problem Hemoglobin low (769067120) Low hemoglobin (D64.9) Active confirmed Problem Lower urinary tract symptoms due to benign prostatic hypertrophy (64853309111674) Benign prostatic hyperplasia with lower urinary tract symptoms (N40.1) Active confirmed Problem History of heart recipient (283906677) Status post orthotopic heart transplant (Z94.1) Active confirmed Problem Hyperglycemia due to type 2 diabetes mellitus (898184035505326) Uncontrolled type 2 diabetes mellitus with hyperglycemia (E11.65) Active confirmed Vital Signs Heart Rate 96 /min 08/12/2024 Blood pressure diastolic 70 mm Hg 08/12/2024 Height 66.50 in 08/12/2024 Blood pressure systolic 130 mm Hg 08/12/2024 Weight 174.4 lbs 08/12/2024 BMI 27.72 kg/m2 08/12/2024 Encounters Encounter Location Date Provider Diagnosis [place] [address] [facility] [address] [place] [id number] 02/14/2024 Fatoumata Hanson Dyslipidemia E78.5 ; Type 2 diabetes mellitus without complications E11.9 ; Essential hypertension I10 ; Hypothyroidism E03.9 ; Diabetic neuropathy E11.40 ; jail current use of insulin Z79.4 ; Status post orthotopic heart transplant Z94.1 ; Benign prostatic hyperplasia with lower urinary tract symptoms N40.1 and [facility] [address] [id number] 08/12/2024 Fatoumata Hanson Adult general medica l examination Z00.00 [...] atrial fibrillation I48.0 and BMI 27.0-27.9,adult Z68.27 [facility] [address] [place] [id number] 09/12/2024 Fatoumtaa Hanson Low hemoglobin D64.9 [facility] [address] [place] [id number] 09/12/2024 R George Valentin [facility] [address] [place], [place] [id number] 10/03/2023 R George Valentin [facility] [address] [place], [place] [id number] 11/05/2023 R George Valentin [facility] [address] [place], [place] [id number] 12/10/2023 R George Valentin [facility] [address] [place], [place] [id number] 01/31/2024 R George Valentin [facility] [address] [place], [place] [id number] 02/25/2024 R George Valentin Diabetic neuropathy E11.40 [facility] [address] [place], [place] [id number] 02/26/2024 R George Valentin [facility] [address] [place] [id number] 03/28/2024 R George Valentin [facility] [address] [place], [place] [id number] 04/01/2024 R George Valentin Hypothyroidism E03.9 [facility] [address] [place], [place] [id number] 04/02/2024 R George Valentin [facility] [address] [place] [id number] 04/18/2024 R George Valentin [facility] [address] [place], [place] [id number] 04/28/2024 R George Valentin [facility] [address] [place] [id number] 06/06/2024 R George Valentin [facility] [address] [place] [id number] 06/11/2024 R George Valentin [facility] [address] [place], [place] [id number] 07/22/2024 R George Valentin Poorly controlled diabetes mellitus E11.65 [facility] [address] [place], [place] [id number] 08/05/2024 R George Valentin Dyslipidemia E78.5 [facility] [address] [place], [place] [id number] 08/13/2024 R George Valentin Poorly controlled diabetes mellitus E11.65 [facility] [address] [place] [id number] 08/19/2024 R George Valentin [facility] [address] [place], [place] [id number] 08/25/2024 R George Valentin Low hemoglobin D64.9 [facility] [address] [facility] [address] [place], [place] [id number] 09/03/2024 R George Valentin Diabetic neuropathy E11.40 Assessments Encounter Date Diagnosis (ICD Code) Assessment Notes Treatment Notes Treatment Clinical Notes Section Notes 02/14/2024 Type 2 diabetes mellitus without complications (ICD-10 - E11.9) 02/25/2024 Diabetic neuropathy (ICD-10 - E11.40) 04/01/2024 Hypothyroidism (ICD-10 - E03.9) 07/22/2024 Poorly controlled diabetes mellitus (ICD-10 - E11.65) 08/05/2024 Dyslipidemia (ICD-10 - E78.5) 08/12/2024 Acute bronchitis (ICD-10 - J20.9) 02/14/2024 Dyslipidemia (ICD-10 - E78.5) 08/12/2024 Adult general medical examination (ICD-10 - Z00.00) Patient instructed to return to office Annually for Annual Wellness Visits to include annual screenings of Pain assessment, Functional Ability assessment, Cognitive Ability assessment, Fall Risk assessment, Depression screening and Bladder control screening. 08/13/2024 Poorly controlled diabetes mellitus (ICD-10 - E11.65) 08/25/2024 Low hemoglobin (ICD-10 - D64.9) 09/03/2024 Diabetic neuropathy (ICD-10 - E11.40) 09/12/2024 Low hemoglobin (ICD-10 - D64.9) 08/12/2024 Uncontrolled type 2 diabetes mellitus with hyperglycemia (ICD-10 - E11.65) 02/14/2024 Essential hypertension (ICD-10 - I10) 08/12/2024 Dyslipidemia (ICD-10 - E78.5) 02/14/2024 Hypothyroidism (ICD-10 - E03.9) 02/14/2024 Diabetic neuropathy (ICD-10 - E11.40) 08/12/2024 Essential hypertension (ICD-10 - I10) 02/14/2024 terminal system operator current use of insulin (ICD-10 - Z79.4) 08/12/2024 Benign prostatic hyperplasia with lower urinary tract symptoms (ICD-10 - N40.1) 02/14/2024 Status post orthotopic heart transplant (ICD-10 - Z94.1) 08/12/2024 Hypothyroidism (ICD-10 - E03.9) 02/14/2024 Benign prostatic hyperplasia with lower urinary [...] colonoscopy 02/15/2023 H-Iron, TIBC, Iron Saturation 08/25/2024 H-Iron, TIBC, Iron Saturation 09/05/2024 H-Folate 08/25/2024 H-Folate 09/05/2024 H-VITAMIN B12 09/05/2024 H-VITAMIN B12 08/25/2024 H-Retic count 08/25/2024 H-Retic count 09/05/2024 H-Ferritin 08/25/2024 H-Ferritin 09/05/2024 Insurance Providers Payer Name Payer Address Payer Phone Subscriber Number Group Number Insured Name Patient Relationship to Insured Coverage Start Date Coverage End Date [employer] (MEDICARE) [address] [address] [place] [address] [id number] YENNI MOON Self - patient is the insured MEDICARE PART B [address] [address] [place] [id number] [phone] [id number] YENNI MOON Self - patient is the [...] drive line 03/2014 Orthotopic heart transplant - [facility] 03/20 heart cath- 07/12/2015 heart cath - - stent 02/2023 Hospitalization History Reason Date(Month/Year) Reaction to Medication- [facility] ER 09/2009 Dehydration- [facility] 01/2013 [facility], [facility] 08/06/2011
--- OUTSIDE RECORDS SUMMARY | 2024-09-18 08:19 | XMS_ITS | Encounter Summary ---
Author Organization [facility] Address [address] [place] [address] Care Team Providers Care String Studies Director Name Role Phone Alpesh Hanson MD Primary Care Provider +1- [phone] Reason for Visit * Reason Comments Med Refill Encounter Details Date Type Department Care Team (Late st Contact Info) Description 03/01/2022 Refill [facility] [place]elo [address] [facility] 1st Floor [address] [place] [phone] Bharathi Goodrich MD [address] [place] [address] Social History Tobacco Use Types Packs/Day Years [...] Contact Info) Description 03/12/2025 Hospital Encounter Cardiac Maintenance Engineer [address] [place] [phone] [facility] [employer] Market ConsultantMD [address] [place] [address] Scheduled Procedures Name Priority Associated Diagnoses [...] documented as of this encounter Care Teams String Studies Director Relationship Specialty Start Date End Date Alpesh Hanson MD [address] [place] [address] PCP - General 07/09/20 documented as of this encounter
--- OUTSIDE RECORDS SUMMARY | 2024-09-18 08:19 | XMS_ITS | Encounter Summary ---
Author Organization [facility] Address [address] [place] [address] Care Team Providers Care Coin Machine Supervisor Name Role Phone Alpesh Hanson MD Primary Care Provider +1- [phone] Encounter Details Date Type Department Care Team (Late st Contact Info) Description 11/28/2021 Lab Requisition [facility] [address] [place] [address] Bharathi Goodrich MD [address] [place] [address] Heart transplant status (CMS/HCC) Social History Tobacco [...] Contact Info) Description 03/12/2025 Hospital Encounter Cardiac Aemt [address] [place] [address] Sandoval BarnesLevel DesignerMD [address] [place] [address] Scheduled Procedures Name Priority Associated Diagnoses [...] - 20 ng/mL 11/29/2021 2:06 PM EDT [email or web address] Comment: Test performed by LC-MS/MS at the [facility]. This test was developed and its performance characteristics determined by [facility]. It has not been cleared or approved by the FDA. The laboratory is regulated under CLIA as qualified to perform high-complexity testing. This test is used for clinical purposes. Blood Venous blood specimen / Unknown 11/28/2021 4:20 PM EDT 11/28/2021 10:41 PM EDT us Bharathi Goodrich MD LAB BLOOD ORDERABLES Final Result [email or web address] [address] [place] [address] * Tacrolimus level (11/28/2021 4:20 PM EDT) Tacrolimus 4.7 4 - 17 ng/mL 11/29/2021 2:06 PM EDT [email or web address] Comment: Tacrolimus therapeutic range: Initial (<3 mo.) Maintenance Kidney 8-13 ng/mL 4-8 ng/mL Liver 8-13 ng/mL 4-8 ng/mL Heart 8-15 ng/mL 7-13 ng/mL Lung;Heart/Lung 8-17 ng/mL 8-13 ng/mL Test performed by LC-MS/MS at the [facility]. This test was developed and its performance characteristics determined by [facility]. It has not been cleared or approved by the FDA. The laboratory is regulated under CLIA as qualified to perform high-complexity testing. This test is used for clinical purposes. 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
--- OUTSIDE RECORDS SUMMARY | 2024-09-18 08:19 | XMS_ITS | Encounter Summary ---
Author Organization [facility] Address [address] [place] [address] Care Team Providers Care Painting Department Supervisor Name Role Phone Alpesh Hanson MD Primary Care Provider +1- [phone] Encounter Details Date Type Department Care Team (Late st Contact Info) Description 12/13/2021 Lab Requisition [facility] [address] [place] [phone] Bharathi Goodrich MD [address] [place] [address] Heart transplant status (CMS/HCC); Other fdc (current) drug therapy Social History Tobacco Use [...] Contact Info) Description 03/12/2025 Hospital Encounter Cardiac Vein Pumper [address] [place] [address] Sandoval BarnesDirector Of Social ServicesMD [address] [place] [address] Scheduled Procedures Name Priority Associated Diagnoses Date/Ti me RIGHT HEART CATH Status post transplant, heart (CMS/HCC) CORONARY ANGIOGRAPHY Status post transplant, heart (CMS/HCC) documented as of this encounter Procedures Procedure Name Priority Date/Time Associated Diagnosis Comments TACROLIMUS LEVEL Routine 12/13/2021 11:3 0 AM EDT Heart transplant status (CMS/HCC) Other fdc (current) drug therapy SIROLIMUS LEVEL Routine 12/13/2021 11:30 AM EDT Heart transplant status (CMS/HCC) Other fdc (current) drug therapy documented in this encounter Results * (ABNORMAL) Tacrolimus level (12/13/2021 11:30 AM EDT) Tacrolimus 3.3(L) 4 - 17 ng/mL 12/14/2021 1:36 PM EDT [facility] Comment: Tacrolimus therapeutic range: Initial (<3 mo.) Maintenance Kidney 8-13 ng/mL 4-8 ng/mL Liver 8-13 ng/mL 4-8 ng/mL Heart 8-15 ng/mL 7-13 ng/mL Lung;Heart/Lung 8-17 ng/mL 8-13 ng/mL Test performed by LC-MS/MS at the [facility]. This test was developed and its performance characteristics determined by [facility]. It has not been cleared or approved by the FDA. The laboratory is regulated under CLIA as qualified to perform high-complexity testing. This test is used for clinical purposes. Blood Venous blood specimen / Unknown 12/13/2021 11:30 AM EDT 12/13/2021 2:33 PM EDT us Bharathi Goodrich MD LAB BLOOD ORDERABLES Final Result [facility] [address] [place] [address] * Sirolimus level (12/13/2021 11:30 AM EDT) Sirolimus 4.7 3 - 20 ng/mL 12/14/2021 1:36 PM EDT [facility] Comment: Test performed by LC-MS/MS at the [facility]. This test was developed and its performance characteristics determined by [facility]. It has not been cleared or approved by the FDA. The laboratory is regulated under CLIA as qualified to perform high-complexity testing. This test is used for clinical purposes. Blood Venous blood specimen / Unknown 12/13/2021 11:30 AM EDT 12/13/2021 2:33 PM EDT Bharathi Goodrich MD LAB BLOOD ORDERABLES Final Result [facility] [address] [place] [address] documented in this encounter Visit Diagnoses Diagnosis Heart transplant status (CMS/HCC) Other termite control servicer (current) drug therapy documented in this encounter Additional Health Concerns Infection Onset Date Last Indicated Resolved Time Toxoplasmosis 03/20/2015 03/20/2015 Assessment Noted Time A fall risk assessment has been complete d for the patient 11/02/2021 8:10 AM EDT documented as of this encounter Care Teams Painting Department Supervisor Relationship Specialty Start Date End Date Alpesh Hanson MD [address] [place] [address] PCP - General 07/09/20 documented as of this encounter
--- OUTSIDE RECORDS SUMMARY | 2024-09-18 08:19 | XMS_ITS | Encounter Summary ---
Author Organization [facility] Address [address] [place] [address] Care Team Providers Care Consulting Sales Executive Name Role Phone Alpesh Hanson MD Primary Care Provider +1- [phone] Reason for Visit * Reason Comments Med Refill Encounter Details Date Type Department Care Team (Late st Contact Info) Description 03/16/2022 Refill [facility] [place] 800 [facility] 1st Floor [address] [place] [phone] Riri Mujica, DAG COATER [address] [place] [address] Social History Tobacco Use Types [...] Contact Info) Description 03/12/2025 Hospital Encounter Cardiac Vet Tech [address] [place] [phone] Sandovla BarnesSwimming Pool Service TechnicianMD [address] [place] [address] Scheduled Procedures Name Priority Associated Diagnoses [...] documented as of this encounter Care Teams Consulting Sales Executive Relationship Specialty Start Date End Date Alpesh Hanson MD [address] [place] [phone] PCP - General 07/09/20 documented as of this encounter
--- OUTSIDE RECORDS SUMMARY | 2024-09-18 08:19 | XMS_ITS | Clinical Summary ---
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 q.i.d. FORTAZ (IV) Bharathi Christopher SODIUM BICARBONATE 650 MG TABS SODIUM BICARBONATE 51357119088 Bharathi Christopher ALPRAZOLAM 0.5 MG TABS ALPRAZOLAM 27374922001 Bharathi Christopher COUMADIN 2.5 MG ORAL TABLET WARFARIN SODIUM 50148078942 Bharathi Christopher VITAMIN D3 50 MCG (1999 UT) CAPS CHOLECALCIFEROL 63176897473 Bharathi Christopher BETAPACE 80 MG TABS SOTALOL HCL 35399007208 Bharathi Christopher REGLAN 10 MG TABS METOCLOPRAMIDE HCL 40277752018 Bharathi Christopher RANITIDINE HCL 300 MG ORAL CAPSULE RANITIDINE HCL 40327227697 Bharathi Christopher MULTIVITAMINS ORAL CAPSULE MULTIPLE VITAMIN 39062179654 Bharathi Candi LASIX 40 MG TABS FUROSEMIDE 64418983878 Bharathi Candi ASPIRIN 81 MG ORAL TABLET ASPIRIN 67441892473 Bharathi Christopher Medications Administered No information available. [...] medications (procedure) SMOK STATUS never smoker Toba operations accountant smoking status Plan of Care Type [...]
--- OUTSIDE RECORDS SUMMARY | 2024-09-18 08:19 | XMS_ITS | Clinical Summary ---
Author Organization [facility] Address [address] [place] [address] Care Team Providers Care Control Officer Manager Name Role Phone Unavailable Primary Care Provider Unavailabl e Social History Tobacco Use Types Packs/Day Years Used Date Smoking Tobacco: Never Assessed Abuse Screen Answer Date Recorded Unsafe at Home or Work/School Not on file Feels Threatened by Someone? Not on file 10/2022 Does Anyone Keep You from Co ntacting Others or Doint Things Outside the Home? Not on file 12/04/2022 Physical Sign of Abuse Present Not on file 1 Housing Stability Answer Date Recorded Current Living Arrangements Not on file 10/2022 Potentially Unsafe Housing Conditions Not on nory e 12/04/2022 Family and Community Support Answer Panfilo e Recorded Help with Day-to-Day Activities Not on file 12/04/2022 Lonely or Isolated Not on file 12/04/2022 Employment Answer Date Recorded Do you want help finding or keeping work or a maria luisa b? Not on file 12/04/2022 Disabilities Answer Date Recorded Concentrating, Remembering, or Making Decisions Difficulty Not on file 12/04/2022 Doing Errands Independently Difficulty Not on fi le 12/04/2022 Education Answer Date Recorded Help with school or training? Not on file Preferred Language Not on file 12/04/2022 Sex and Gender Information Value Date Recorded Sex Assigned at Not on file Legal Sex Male 12:23 PM EDT Gender Identity Not on file Sexual Orientation Not on file Plan of Treatment Health Maintenance Due Date Last Done Comments ANNUAL PHYSICAL 1955 HEPATITIS C SCREENING 1957 TDAP/TD VACCINES (1 - Tdap) 1976 COLOGUARD 2002 COLON CANCER SCREENING 5 YEAR SIGMOIDOSCOPY 2002 COLONOSCOPY 2002 [address]AL CANCER SCREENING 2002 CT COLONOGRAPHY 2002 FECAL OCCULT BLOOD TEST 2002 FIT Testing (1 year) 2002 ZOSTER VACCINE (1 of 2) 07/30/2007 Pneumococcal Vaccine 50+ (2 of 2 - PPSV23) 08/25/2017 08/25/2016 AAA SCREEN ONCE 2022 COVID-19 Vaccine ( season) 2023 INFLUENZA VACCINE 11/26/2024 01/25/2017
--- OUTSIDE RECORDS SUMMARY | 2024-09-18 08:19 | XMS_ITS ---
Author Organization Healthcare Address [address] [place] [address] Care Team Providers Care Freezer Unloader Name Role Phone Alpesh Hanson MD Primary Care Provider +1- [phone] Transplant Episode Heart Recipient [facility] ([place], [place]) [facility] Organ Received: Heart Transplanted on 03/20/2015 Marked as Active Follow-up on 09/19/2016 Heart CoordinatorDorota Quevedo RN Fax: N/A Email: N/A [place] Organ Diagnosis Organ Primary Contributory Heart Dilated [...] Role Phone Fax Email Dorota Quevedo RN Patient Accounts Clerk [phone] N/A N/A Dragan Eng Vacuum Forming Machine Operator N/A N/A N/A Bharathi Goodrich MD Transplant Physician [phone] N/A Berny Mora MD Referring Physician [phone] N/A Alpesh Hanson MD Primary Care Provider [phone] N/A Events Post-Transplant Pre-Transplant Admitted: 02/05/2015 Referred: 02/08/2015 Transplanted: 03/20/2015 Evaluation began: 5 Discharged: 04/13/2015 Center waitlisted: 5 Appointments (08/19/2024 - 10/19/2024) When With Visit Type Description 09/17/2024 Transplant - Sharla Whitman MD; Riri Mujica APRN Office Visit - Transplant Heart transplanted ([facility]) (Primary Dx); Long-term use of immunosuppressant medication; Vasculopathy of cardiac allograft; Essential hypertension
--- OUTSIDE RECORDS SUMMARY | 2024-09-18 08:19 | XMS_ITS | Encounter Summary ---
Author Organization Healthcare Address [address] [id number] Care Team Providers Care Health Analytics Consultant Name Role Phone Alpesh Hanson MD Primary Care Provider +1- [phone] Encounter Details Date Type Department Care Team (Late st Contact Info) Description 11/08/2021 Lab Requisition [facility] [address] [place] [address] Bharathi Goodrich MD [address] [place] [address] Heart transplant status (CMS/HCC); Other snf (current) drug therapy Social History Tobacco Use [...] Contact Info) Description 03/12/2025 Hospital Encounter Cardiac Logistics Service Representative [address] [place] [address] Sandoval BanresReach Truck Operator, [address] [place] [address] Scheduled Procedures Name Priority Associated Diagnoses Date/Ti me RIGHT HEART CATH Status post transplant, heart (CMS/HCC) CORONARY ANGIOGRAPHY Status post transplant, heart (CMS/HCC) documented as of this encounter Procedures Procedure Name Priority Date/Time Associated Diagnosis Comments TACROLIMUS LEVEL Routine 11/08/2021 10:0 0 AM EDT Heart transplant status (CMS/HCC) Other terminal make up operator (current) drug therapy SIROLIMUS LEVEL Routine 11/08/2021 10:00 AM EDT Heart transplant status (CMS/HCC) Other terminal make up operator (current) drug therapy documented in this encounter Results * Tacrolimus level (11/08/2021 10:00 AM EDT) Tacrolimus 11.1 4 - 17 ng/mL 11/09/2021 12:54 PM EDT [facility] Blood Venous blood specimen / Unknown 11/08/2021 10:00 AM EDT 11/08/2021 1:35 PM EDT us Bharathi Goodrich MD LAB BLOOD ORDERABLES Final Result Performing Organization Address City/[facility] Co de Phone Number [facility] [address] [place] [address] * Sirolimus level (11/08/2021 10:00 AM EDT) Sirolimus 6.8 3 - 20 ng/mL 11/09/2021 12:54 PM EDT [facility] Blood Venous blood specimen / Unknown 11/08/2021 10:00 AM EDT 11/08/2021 1:35 PM EDT Bharathi Goodrich MD LAB BLOOD ORDERABLES Final Result Performing Organization Address City/[facility] Co de Phone Number [facility] [address] [place] [address] documented in this encounter Visit Diagnoses Diagnosis Heart transplant status (CMS/[facility]) Other terminal make up operator (current) drug therapy documented in this encounter Additional Health Concerns Infection Onset Date Last Indicated Resolved Time 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
--- OUTSIDE RECORDS SUMMARY | 2024-09-18 08:19 | XMS_ITS | Data Portability ---
Author Organization [facility] [place] & [facility] Address [address] [place] [id number] Assessment Encounter Date Assessment Date Assessment LastModified by Organization Details LastModified Time 10/19/2023 10/19/2023 xray viewed no fracture noted will await the final radiology reading brace placed on patient at visit patient was instructed on DX to take medicine as prescribed warm compresses and follow up as needed [email or web address] Not available 10/19/2023 13:53:51 Plan of Treatment Reminders Order Date Submit Date Provider Last Modified By Organization Details Last Modified Time Details Appointments None recorded. Lab None recorded. Referral None recorded. Procedures None recorded. Surgeries None recorded. Imaging XR, finger(s), 2 or more view 2023 024 [facility] - [facility], [address] , [place], [address], 13:55:10 Medication Orders ketorolac 60 mg/2 mL intramuscul ar solution 2023 024 Not available 14:03:35 cephalexin 500 mg capsule 2023 024 [facility] 591, [address], [address], 13:49:07 Patient TargetsNo targets recorded. Patient InstructionsNo instructions recorded. Reason for Referral None Reported. Results Created Date Observation Date Name Description Value Unit Range Abnormal Flag Note LastModifiedBy Organization Detail LastModifiedTime 10/19/1910/19/2023 XR, finge r(s), 2 or more view No observ ation record ed. [email or web address] In-House Imaging - [facility] [address] , [place], [address], 10/19/2023 14:01:08 Result Notes None recorded. Medical [...] Address Organization Details Last Updated DateTime 4 [address].6 6 g 99 [degF] 97 % 97 % 84 /min 84 /min 156/98 mm[Hg] Isela PAUL [facility] & [place] 13:30:49 Social History None recorded. Functional Status None recorded. Mental Status None recorded. Family History Nothing Reported. Medical History No medical history recorded. Immunizations Vaccine Type Date Status Note Provider Nam e and Address Organization Details Recorded Time Tdap 10/19/2023 completed [place] TALAT [facility] & [place] 10/19/2023 14:07:10 Past Encounters Encounter ID Performer Location Encounter Start Date Encounter Closed Date Diagnosis/Indication Diagnosis SNOMED-CT Code Diagnosis ICD10 Code Diagnosis Note [id number] JUAN Harris [facility] [address] [facility] [place] [address] 10/19/2023 13:16:23 10/19/2023 13:58:28 Pain in finger of left hand 6925475786 04248 M79.645 Accident c aused by powered staple gun [id number] W29.8XXA Health Concerns Section Related Observation LastModified by Organization Detai ls LastModified Time None Recorded Concern Status LastModified by Organization Details LastModified Time None Recorded Advance Directives Directive None Recorded Payers Insurance Date Sequence Insurance Name Policy Number Policy Garrett Covered Member ID Garrett Member ID Guarantor Name 01/15/2024 1 [place] Ken Lopes [id number] 1 Ken Lopes 10/19/2023 1 [facility] (MEDICARE SUPPLEMENT) Ken Lopes [id number] 1 Ken Lopes Notes Date Note Type Note Provider Name and Address Organization Details Recorded Time 4 text/htm l Joint & Soft Tissue PainReported by PatientHPIFor severity, patient reportsworseningandpain level 12/05. For alleviating factors, patient reportsnone. For associated symptoms, patient reportsswellingbut reportsno weakness,no numbness,no tingling,no warmth,no ecchymosis,no catching/locking,no popping/clicking,no buckling,no grinding,no instability,no radiating pain,no fever/chills,no sleep disturbance,no cognitive disturbance,no weight loss,no fatigue,no change in bowel habits, andno change in bladder habits. For quality, patient reportsachingandthrobbing. For timing, patient reportsconstant. For duration, patient reports1 days. For location, (left middle finger). For context, (staple went through the finger yesterday). For aggravating factors, (moving the left middle finger).patient states that he is not up to date on TDAPROS as noted in the HPI Daily Conde, JUAN [address], [place], [address], [place] [facility] [place] [facility] [place] 10/19/2023 13:54:31
--- OUTSIDE RECORDS SUMMARY | 2024-09-18 08:20 | XMS_ITS | Encounter Summary ---
Author Organization [facility] Address [address] [id number] Care Team Providers Care Flight Attendant/Inflight Supervisor Name Role Phone Alpesh Hanson MD Primary Care Provider +1- [phone] Encounter Details Date Type Department Care Team (Late Contact Info) Description 04/06/2021 Lab Requisition [facility] [address] [place] [address] Bharathi Goodrich MD [address] [place] [address] Encounter for general adult medical [...] Contact Info) Description 03/12/2025 Hospital Encounter Cardiac Bar Tacker Sewing Machine [address] [place] [address] Sandoval BarnesCane Flume Chute OperatorMD [address] [place] [address] Scheduled Procedures Name Priority Associated Diagnoses [...] - 20 ng/mL 04/07/2021 1:49 PM EST [facility] Comment: Test performed by LC-MS/MS at the [facility]. This test was developed and its performance characteristics determined by [facility]. It has not been cleared or approved by the FDA. The laboratory is regulated under CLIA as qualified to perform high-complexity testing. This test is used for clinical purposes. Blood Venous blood specimen / Unknown 04/06/2021 3:51 PM EST 04/06/2021 10:34 PM EST us Bharathi Goodrich MD LAB BLOOD ORDERABLES Final Result [facility] [address] [place] [address] * Tacrolimus level (04/06/2021 3:51 PM EST) Tacrolimus 6.3 4 - 17 ng/mL 04/07/2021 1:49 PM EST [facility] Comment: Tacrolimus therapeutic range: Initial (<3 mo.) Maintenance Kidney 8-13 ng/mL 4-8 ng/mL Liver 8-13 ng/mL 4-8 ng/mL Heart 8-15 ng/mL 7-13 ng/mL Lung;Heart/Lung 8-17 ng/mL 8-13 ng/mL Test performed by LC-MS/MS at the [facility]. This test was developed and its performance characteristics determined by [facility]. It has not been cleared or approved by the FDA. The laboratory is regulated under CLIA as qualified to perform high-complexity testing. This test is used for clinical purposes. Blood Venous blood specimen / Unknown 04/06/2021 3:51 PM EST 04/06/2021 10:34 PM EST us Bharathi Goodrich MD LAB BLOOD ORDERABLES Final Result [facility] [address] [place] [address] * CBC W/O Differential (04/06/2021 3:51 PM EST) WBC Count 5.75 3.70 - 10.30 10*3/uL LAB HEMATOLOGY METHOD 04/06/2021 10:46 PM EST [facility] RBC Count 5.67 4.60 - 6.10 10*6/uL LAB HEMATOLOGY METHOD 04/06/2021 10:46 PM EST [facility] HGB 15.4 13.7 - 17.5 g/dL LAB HEMATOLOGY METHOD 04/06/2021 10:46 PM EST [facility] HCT 46.7 40.0 - 51.0 % LAB HEMATOLOGY METHOD 04/06/2021 10:46 PM EST [facility] Platelet Count 263 155 - 369 10*3/uL LAB HEMATOLOGY METHOD 04/06/2021 10:46 PM EST [facility] MCV 82 79 - 98 fL LAB HEMATOLOGY METHOD 04/06/2021 10:46 PM EST [facility] MCH 27.2 26.0 - 32.0 pg LAB HEMATOLOGY METHOD 04/06/2021 10:46 PM EST [facility] MCHC 33.0 30.7 - 35.5 g/dL LAB HEMATOLOGY METHOD 04/06/2021 10:46 PM EST [facility] RDW 13.1 11.5 - 14.5 % LAB HEMATOLOGY METHOD 04/06/2021 10:46 PM EST [facility] MPV 10.3 8.8 - 12.5 fL LAB HEMATOLOGY METHOD 04/06/2021 10:46 PM EST [facility] nRBC 0.0 <=0.0 per 100 WBCs LAB HEMATOLOGY METHOD 04/06/2021 10:46 PM EST [facility] Blood Venous blood specimen / Unknown 04/06/2021 3:51 PM EST 04/06/2021 10:34 PM EST us Bharathi Goodrich MD LAB BLOOD ORDERABLES Final Result Performing Organization Address City/State/ZIP Co mt Phone Number [facility] [address] [place] [address] documented in this encounter Visit Diagnoses Diagnosis Encounter for general adult medical examination without abnormal findings documented in this encounter Additional Health Concerns Infection Onset Date Last Indicated Resolved Time 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
--- OUTSIDE RECORDS SUMMARY | 2024-09-18 08:20 | XMS_ITS | Encounter Summary ---
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 Name Role Phone Unavailable Primary Care Provider Unavailabl e Encounter Details Date Type Department Care Team (Late st Contact Info) Description 02/27/2013 Conversion Encounter [facility]V [address] [place] [address] Interface, See Report Social History Tobacco Use Types Packs/Day Years Used Date Smoking Tobacco: Never Assessed Sex and Gender Information Value Date Recorded Sex Assigned at Not on file Legal Sex Male 12:23 PM EDT Gender Identity Not on file Sexual Orientation Not on file documented as of this encounter Discharge Summaries * Interface, See Report - 02/27/2013 12:49 PM EST [place] [id number] DISCHARGE SUMMARY PATIENT NAME: KEN MOON [address] HOSPITAL NO: [id number] DATE OF : 1955 DATE OF ADMISSION: 02/27/2013 DATE OF DISCHARGE: 03/05/2013 PRIMARY CARE PHYSICIAN: Dr. Lopes. PROBLEM LIST: 1. Acute on chronic nonischemic class III congestive heart failure. a) Cardiac catheterization, 10/2004: Luminal irregularities, EF 15%. b) ICD implantation for primary prevention, 10/2004 with change out, 06/2009. c) Multiple ICD shocks for atrial fibrillation and atrial tachycardia. d) Echocardiogram, 09/2000: EF 20% with severe diffuse hypokinesis/moderate to severe MR. e) Echocardiogram, 02/27/2013: EF less than 20%, moderate MR, mild TR, mild CA. f) Cardiac catheterization, left and right, 03/04/2013, Dr. Cedric Mora: No significant obstructive coronary artery disease, severe pulmonary hypertension with right atrial pressure of 18, capillary wedge was unobtainable. 2. Atrial fibrillation. a) SAMMIE cardioversion, 08/07/2011, Dr. Saroj Tsai with sotalol initiation. b) Recurrent atrial fibrillation status post SAMMIE cardioversion, 01/19/2012 with continued sotalol therapy. c) Recurrent atrial fibrillation was symptomatic dyspnea and fatigue with ER presentation 04/23/2012; medical management only. d) Chronically anticoagulated with Coumadin. 3. Valvular heart disease/severe MR with a previous deferral of surgery by patient. 4. History of recurrent acute hepatic failure secondary passive hepatic congestions with resolution. 5. Benign hypertension. 6. Hypercholesterolemia. 7. Type 2 diabetes mellitus. 8. Panic attacks/mild anxiety. 9. Lower extremity edema. PAST SURGICAL HISTORY: 1. Right inguinal herniorrhaphy. 2. Right shoulder rotator cuff repair. 3. BI-V ICD implantation with subsequent generator change. 4. Dental extractions. HISTORY: The patient is a 57-year-old male well known to Dr. Mora who has been in and out of the hospital over the last six months with congestive heart failure exacerbation with hepatic congestion. He was just released from the hospital three to four weeks ago and presented once again with dyspnea, progression in lower extremity edema. He presented to the emergency room at which point we admitted him to the telemetry floor for medical management and congestive heart failure exacerbation. He was admitted to the telemetry floor with strict I's and O's and increase in his diuretics. His INR was found to be supratherapeutic and he was given vitamin K to reverse reading of seven. He was consulted by the dietitians at time of admission due to cardiac cachexia. We stopped his sotalol and initiated amiodarone 200 b.i.d. along with an RENE inhibitor with close monitoring of his renal function and hepatic function. Consultation by [facility] was obtained to help transfer patient as an outpatient to [facility] for possible BIVAD implantation and possible valvular repair. It had been some time since the patient underwent cardiac catheterization, so he underwent right and left heart catheterization on 03/04/2013 to evaluate for any coronary disease, as well as pulmonary pressures. There were no complications during the procedure and the patient was returned to the floor. By 03/05/2013, the patient was feeling better. He had shown improvement in his lower extremity edema and his respiratory status was stable. Again, he was consulted by [facility] to help assist his appointment at [facility]. DIAGNOSTIC DATA: INR on day of discharge was 1.23. BMP showed glucose 88, sodium 138, potassium 3.9, chloride 101, CO2 29, BUN 16, creatinine of 1. FOLLOW-UP: The patient was discharged home on 03/05/2013, he has a follow-up appointment with Dr. Mora in four to six weeks. [facility] will contact him regarding an appointment at their Transplant Clinic. He has an appointment in [facility] in one week which was scheduled for 03/12/2013 at 1 in the afternoon. He also is to have INR in one week and our [facility]. DISCHARGE MEDICATIONS: 1. Metoprolol tartrate 25 mg one p.o. b.i.d. 2. Sodium bicarbonate 650 mg b.i.d. 3. Vitamin D3 2000 units 1 p.o. daily. 4. Coumadin 4 mg 1 p.o. daily, followed by [facility]. 5. Xanax 0.5 mg 1 p.o. q.8 hours as needed. 6. Digoxin 0.125 mg 1 p.o. daily. 7. Altace 5 mg 1 p.o. daily. 8. Amiodarone 200 mg one p.o. b.i.d. 9. Reglan 10 mg 1 p.o. q.8h. and q.h.s. 10. Zantac 300 mg 1 p.o. daily. 11. Multivitamin 1 p.o. daily. 12. Potassium 10 mEq daily. 13. Lasix 40 mg 1 p.o. daily. Courtney Colindres P.A.-C* Dictated For: Jalil Velarde/PRAVEENrxckg Voice Rec. ID #[id number] Voice Original ID #[id number] Doc ID #[id number] Rev. #0 cc: Cedric Mora M.D.* Addis Lopes M.D.* DO NOT TEXT EDIT THIS LINE :CDS:291: Authenticated by TORI ORTIZ On 03/26/2013 12:11:14 PM Authenticated by CEDRIC MORA M.D. On 04/15/2013 08:01:34 AM documented in this encounter ED Notes * Interface, See Report - 02/27/2013 12:49 PM EST Clinical Report - Physicians/Mid Levels Emergency Department [address] [place] [address] 02/27/2013 Patient: KEN MOON Sex: M : 1955 Age: 57y Arrived- By private vehicle. HISTORY OF PRESENT ILLNESS Chief Complaint: DYSPNEA and HISTORY OF CONGESTIVE HEART FAILURE. This started several months ago and is still present and worsening. It was gradual in onset and has been waxing/waning. The dyspnea is described as moderate. The dyspnea is worsened by walking and exertion, is improved by rest, is improved with oxygen and is improved with sitting upright. No sweating episodes. He has had chest discomfort, wheezing, dyspnea on exertion, foot swelling and orthopnea. He has had anxiety. (DR LOPES, JOSIAH, RAMY, CONNIE CAN GET ROOM TO ROOM WITHOUT PROBLEMS BUT SOB WHEN OUT NOT ON 02 OR CPAP HAS CHRONIC AFIB AND MVR NONISCHEMIC CM, VIRAL DM BIVAICD ANXIETY). Similar symptoms previously: Chronically, milder. Recent medical care: The patient was seen recently at this facility and hospitalized. REVIEW OF SYSTEMS The patient has had nausea but not had weight loss. No muscle aches, eye irritation, sore throat, nasal discharge or vomiting. No abdominal pain, diarrhea, headache or difficulty with urination. All systems otherwise negative, except as recorded above. PAST HISTORY See nurses notes. Hypertension. Diabetes mellitus. Congestive heart failure. Additional Problems: Hypertension. Implanted Defibrillator. Pacemaker. Cardiomyopathy. Coronary Artery Disease. Dyspnea. Renal Failure. Diabetes Mellitus. Hyperlipidemia. Non-ischemic cardiomyopathy. ENLARGED HEART. AFIB. Oral Anticoagulation Therapy. Atrial Fibrillation. Palpitations. Panic Attack. Additional Surgeries: Bi-V ICD. Cardioversion. Defibrillator. Hernia Repair. Pacemaker. Skin cancer shoulder removed. Medications: Albuterol Sulfate Oral, as needed. ALPRAZolam Oral 0.5 mg, 4x a day as needed. ASA Oral 81 MG DAILY. Cholecalciferol Oral (Tablet 2000 unit) 1 tablet, DAILY. Furosemide Oral 40 mg, 2x a day. Metoclopramide HCl Oral 10 mg, 4x a day. Multivitamins Oral, daily. Sodium Bicarbonate Oral (Tablet 650 mg) 1 tablet, BID. Sotalol HCl Oral 80 mg, 2x a day. Warfarin Sodium Oral 7.5 mg (SUNDAY AND SUNDAY 3.25 MG ON ALVA, M, W, F, SAT). Zantac Oral 300 mg, at bedtime. Allergies: Aldactone. Coreg. SOCIAL HISTORY Nonsmoker. No alcohol use or drug use. ADDITIONAL NOTES The nursing notes have been reviewed. PHYSICAL EXAM Appearance: Alert. Patient in moderate distress. Eyes: Pupils equal, round and reactive to light. Eyes normal inspection. ENT: Ears normal. Nose normal. Pharynx normal. Neck: Normal inspection. No jugular venous distention. Neck supple. CVS: Tachycardia. Abnormal rhythm, which is irregular. Systolic ejection murmur. Respiratory: Mild respiratory distress with accessory muscle use. Rhonchi present. Rales present. Abdomen: Soft and nontender. No organomegaly. Moderately obese. Back: Normal inspection. Skin: Skin warm. Normal skin color. No rash. Normal skin turgor. Diaphoresis. Extremities: Bilateral 2+ edema of the lower extremities involving both ankles. Extremities exhibit normal ROM. Neuro: Oriented X 3. No motor deficit. No sensory deficit. LABS, X-RAYS, AND EKG Laboratory Tests: Laboratory tests have been ordered, with results reviewed and considered in the medical decision making process. st dL High: greatmature Gran 0.2 % (0.0-0.6) BMP: (MER: 02/28/2013 04:54)( MsgRcvd 02/28/2013 06:33) Final results Test Result Flag Units (Reference) Glucose 111 H mg/dL (70-100) BUN 31 H mg/dL (6-20) Creatinine 1.4 H mg/dL (0.6-1.3) Sodium 140 mmol/L (136-145) Potassium 3.4 mmol/L (3.4-5.4) Verified by repeat analysis. Chloride 99 mmol/L (98-107) Carbon Dioxide 30 mmol/L (20-31) Calcium 8.5 L mg/dL (8.7-10.4) Est MDRD GFR 56 ml/min/1.732 National Kidney Foundation Guidelines Stage Description GFR 1 Normal or High 90+ 2 Mild decrease 60-89 3 Moderate decrease 30-59 4 Severe decrease 15-29 5 Kidney failure <15 Anion Gap 11 mmol/L (3-11) VL Echo 2D Adult Comp w Spec Colr: (MER: 02/27/2013 11:39)( [facility] 02/27/2013 11:39) Final results JOSIAH TEJEDA AL TO READ Test Result Flag Units (Reference) -- -- -- Chest 1V Port: (MER: 02/27/2013 14:22)( [facility] 02/27/2013 14:22) Final results Exam Report PORTABLE CHEST X-RAY HISTORY- Congestion. FINDINGS- The heart is large. There is mild congestive change which has slightly improved when compared with 02/18/13. An implantable cardio defibrillator is noted. IMPRESSION- Mild congestive changes, improved since the previous examination. D- 02/27/2013 E- 02/27/2013 Locomotive Driver- BRENDA KOWALSKI Reading Radiologist- Horace DANIELS Releasing Radiologist- Horace DANIELS Released Date Time- 02/27/13 1422 Read By Horace DANIELS Released By Horace DANIELS EKG: (MER: 02/27/2013 13:43)( [facility] 02/27/2013 21:40) Correction to results Exam EKG Results Results Performing Tech: CRYSTAL Test Reason : Shortness of Breath Blood Pressure : / mmHG Vent. Rate : 081 BPM Atrial Rate : 081 BPM P-R Int : 118 ms QRS Dur : 168 ms QT Int : 490 ms P-R-T Axes : 076 103 -22 degrees QTc Int : 569 ms AV sequential or dual chamber electronic pacemaker Authenticated by: Fausto Castle MD 02/27/13 See original in PIM Referred By: LAURIE Overread By: FILI KAMARA EKG: (MER: 02/27/2013 10:34)( MsgRcvd 02/27/2013 21:41) Correction to results Exam EKG Results Results Performing Tech: BALL Test Reason : SOA Blood Pressure : / mmHG Vent. Rate : 129 BPM Atrial Rate : 129 BPM P-R Int : 112 ms QRS Dur : 164 ms QT Int : 384 ms P-R-T Axes : 000 145 -32 degrees QTc Int : 562 ms Electronic ventricular pacemaker Authenticated by: Fausto Castle MD See original in PIM Referred By: LAURIE Overread By: FILI KAMARA Blood Culture: (MER: 02/27/2013 12:10)( MsgRcvd 03/02/2013 06:27) In Progress Test Result Flag Units (Reference) Clinical Report Specimen/Source: Blood/RAC Collected: 02/27/2013 12:10 -- Status: Preliminary Last Updated: 03/02/2013 06:23 -- -- Culture Result (Prelim) No Growth 2 Days -- -- D-Dimer: (MER: 02/27/2013 10:35)( MsgRcvd 02/27/2013 11:54) Final results This order has been rejected, and a replacement order with accession number [id number] has been created Test Result Flag Units (Reference) D Dimer Quant CANCELED mg/L FEU Canceled result- Result previously reported as 2.27. Result changed 02/27/2013 11:54 by [id number]. Above is a corrected result. Previously reported on ( [employer] 02/27/2013 11:54) as: D Dimer Quant 2.27 H mg/L FEU (0.00-0.50) Negative predictive value for exclusion of venous thromboembolism: < or= 0.5 mg/L (FEU) BNP (Natriuretic Peptide): (MER: 02/27/2013 10:35)( [employer] 02/27/2013 11:43) Final results Test Result Flag Units (Reference) BNP 2250 H pg/mL (0-100) PTT: (MER: 02/27/2013 10:35)( [employer] 02/27/2013 12:03) Final results Called to, read back and verified by: ALLI VALVERDE RN Test Result Flag Units (Reference) PTT 40 H Seconds (24-31) PTT = The equivalent PTT values for the therapeutic range of heparinlevels at 0.3 to 0.5 U/ml are 45 to 60 seconds.PTT = The equivalent PTT values for the therapeutic range of heparinlevels at 0.3 to 0.5 U/ml are 45 to 60 seconds. PT with INR: (MER: 02/27/2013 10:35)( [employer] 02/27/2013 11:54) Canceled This order has been rejected, and a replacement order with accession number [id number] has been created Urinalysis (UA ) wo Micro: (MER: 02/27/2013 10:49)( [facility] 02/27/2013 10:51) New Order CMP: (MER: 02/27/2013 10:35)( [facility] 02/27/2013 11:43) Final results Test Result Flag Units (Reference) Glucose 91 mg/dL (70-100) BUN 25 H mg/dL (6-20) Creatinine 1.8 H mg/dL (0.6-1.3) Sodium 139 mmol/L (136-145) Potassium 4.7 mmol/L (3.4-5.4) Chloride 98 mmol/L (98-107) Carbon Dioxide 25 mmol/L (20-31) Calcium 10.4 mg/dL (8.7-10.4) Alkaline Phos 86 Units/L (25-100) AST 68 H Units/L (8-33) ALT 58 H Units/L (7-40) Bilirubin,Total 5.0 H mg/dL (0.3-1.2) Total Protein 8.6 H g/dL (6.4-8.3) Albumin 4.5 g/dL (3.4-4.8) Ext. MDRD GFR 44 ml/min/1.732 National Kidney Foundation Guidelines Stage Description GFR 1 Normal or High 90+ 2 Mild decrease 60-89 3 Moderate decrease 30-59 4 Severe decrease 15-29 5 Kidney failure <15 Anion Gap 16 H mmol/L (3-11) CBC w Auto Diff: (MER: 02/27/2013 10:35)( [facility] 02/27/2013 11:04) Final results Test Result Flag Units (Reference) WBC 10.08 K/mcL (3.50-10.80) RBC 6.26 H M/mcL (4.20-5.76) Hemoglobin 18.1 H g/dL (13.1-17.5) Hematocrit 54.1 H % (38.9-50.9) MCV 86.4 fL (80.0-99.0) MCH 28.9 pg (27.0-31.0) MCHC 33.5 g/dL (32.0-36.0) RDWCV 17.3 H % (11.3-14.5) Platelet 225 K/mcL (150-450) Abs Neutrophil 5.47 K/mcL (1.50-8.30) Abs Lymph 3.61 K/mcL (0.60-4.80) Abs [place] 0.92 K/mcL (0.00-1.00) Abs Eos 0.03 L K/mcL (0.10-0.30) Abs Baso 0.03 K/mcL (0.00-0.20) Neutrophils 54.3 % (41.0-71.0) Lymphocytes 35.8 % (24.0-44.0) Monocytes 9.1 % (0.0-12.0) Eosinophils 0.3 % (0.0-3.0) Basophils 0.3 % (0.0-1.0) Immature Gran 0.2 % (0.0-0.6) D-Dimer: (MER: 02/27/2013 12:10)( MsgRcvd 02/27/2013 13:20) Final results This order is a replacement of the rejected order with accession number [id number] Test Result Flag Units (Reference) D Dimer Quant 3.18 H mg/L FEU (0.00-0.50) Verified by repeat analysis.Negative predictive value for exclusion of venous thromboembolism: < or= 0.5 mg/L (FEU) PT with INR: (MER: 02/27/2013 12:10)( MsgRcvd 02/27/2013 13:20) Final results This order is a replacement of the rejected order with accession number [id number] Test Result Flag Units (Reference) Protime >100.0 C Seconds (9.6-11.5) Verified by repeat analysis.Called to, read back and verified by:ALLI VALVERDE RN INR Unable to calculate INR due to elevated PT result. Verified by repeat analysis.Called to, read back and verified by:ALLI VALVERDE RNTherapeutic Ranges for INR:2.0-3.0 (PT 20-30) 2.5-3.5 (PT 25-34) Troponin-I Rapid (ER: (MER: 02/27/2013 14:00)( MsgRcvd 02/27/2013 14:15) Final results Test Result Flag Units (Reference) Rapid Troponin I 0.11 ng/mL (0.00-0.60) Different methodologies are used for cardiac testing between the ED andmain laboratory. Refer to the appropriate reference range forinterpretation. Troponin-I Rapid (ER: (MRE: 02/27/2013 10:56)( MsgRcvd 02/27/2013 11:17) Final results Test Result Flag Units (Reference) Rapid Troponin I 0.10 ng/mL (0.00-0.60) Different methodologies are used for cardiac testing between the ED andmain laboratory. Refer to the appropriate reference range forinterpretation. . PROGRESS AND PROCEDURES Course of Care: (ALL STAUDIES REVIEWED TX FOR CHF UNFORTUANTELY HAS NONISCHMEIC CM WITH AFIB,, MVR IS DECLINING SUBACUTELY DESPITE MAXIMAL OP EFFORTS, BIV, [facility] SPOKE WITH CARDIOLOGY WILL ADMIT ALL AGREEABLE WITHPLAN). (DOES HE NEED SLEEP STUDY? DOBUTAMINE OR NATRECOR? REFERAL FOR TRANSPLANT? VAD? MV REPAIR?). CLINICAL IMPRESSION CHF AND PULMONARY HTN REFRACTORY TO OP TX. (Electronically signed by Fausto Castle M.D. 03/02/2013 10:16) documented in this encounter Plan of Treatment Not on file documented as of this encounter Procedures Procedure Name Priority Date/Time Associated Diagnosis Comments POCT GLUCOSE FINGERSTICK Routine 03/05/2013 11:40 AM EST POCT GLUCOSE FINGERSTICK Routine 03/05/2013 7:08 AM EST PROTIME-INR Routine 03/05/2013 5:42 AM EST BASIC METABOLIC PANEL Routine 03/05/2013 5:42 AM EST POCT GLUCOSE FINGERSTICK Routine 03/04/2013 8:38 PM EST POCT GLUCOSE FINGERSTICK Routine 03/04/2013 4:25 PM EST POCT GLUCOSE FINGERSTICK Routine 03/04/2013 11:20 AM EST POCT GLUCOSE FINGERSTICK Routine 03/04/2013 7:01 AM EST PROTIME-INR Routine 03/04/2013 6:27 AM EST CBC AND DIFFERENTIAL Routine 03/04/2013 6:27 AM EST BASIC METABOLIC PANEL Routine 03/04/2013 6:27 AM EST POCT GLUCOSE FINGERSTICK Routine 03/03/2013 8:23 PM EST POCT GLUCOSE FINGERSTICK Routine 03/03/2013 4:18 PM EST POCT GLUCOSE FINGERSTICK Routine 03/03/2013 11:14 AM EST POCT GLUCOSE FINGERSTICK Routine 03/03/2013 6:59 AM EST PROTIME-INR Routine 03/03/2013 5:23 AM EST CBC AND DIFFERENTIAL Routine 03/03/2013 5:23 AM EST BASIC METABOLIC PANEL Routine 03/03/2013 5:23 AM EST POCT GLUCOSE FINGERSTICK Routine 03/02/2013 8:59 PM EST POCT GLUCOSE FINGERSTICK Routine 03/02/2013 4:16 PM EST POCT GLUCOSE FINGERSTICK Routine 03/02/2013 11:18 AM EST POCT GLUCOSE FINGERSTICK Routine 03/02/2013 6:56 AM EST PROTIME-INR Routine 03/02/2013 5:34 AM EST CBC AND DIFFERENTIAL Routine 03/02/2013 5:34 AM EST COMPREHENSIVE METABOLIC PANEL Routine 03/02/2013 5:34 AM EST POCT GLUCOSE FINGERSTICK Routine 03/01/2013 8:53 PM EST POCT GLUCOSE FINGERSTICK Routine 03/01/2013 4:20 PM EST POCT GLUCOSE FINGERSTICK Routine 03/01/2013 11:20 AM EST POCT GLUCOSE FINGERSTICK Routine 03/01/2013 7:07 AM EST PROTIME-INR Routine 03/01/2013 5:55 AM EST CBC AND DIFFERENTIAL Routine 03/01/2013 5:55 AM EST B-TYPE NATRIURETIC PEPTIDE Routine 03/01/2013 5:55 AM EST COMPREHENSIVE METABOLIC PANEL Routine 03/01/2013 5:55 AM EST POCT GLUCOSE FINGERSTICK Routine 02/28/2013 8:20 PM EST POCT GLUCOSE FINGERSTICK Routine 02/28/2013 4:25 PM EST PROTIME-INR Routine 02/28/2013 12:23 PM EST POCT GLUCOSE FINGERSTICK Routine 02/28/2013 11:14 AM EST POCT GLUCOSE FINGERSTICK Routine 02/28/2013 7:07 AM EST TROPONIN Routine 02/28/2013 4:54 AM EST PROTIME-INR Routine 02/28/2013 4:54 AM EST CBC AND DIFFERENTIAL Routine 02/28/2013 4:54 AM EST HEMOGLOBIN A1C Routine 02/28/2013 4:54 AM EST LIPID PANEL Routine 02/28/2013 4:54 AM EST BASIC METABOLIC PANEL Routine 02/28/2013 4:54 AM EST POCT GLUCOSE FINGERSTICK Routine 02/27/2013 8:35 PM EST POCT GLUCOSE FINGERSTICK Routine 02/27/2013 4:23 PM EST POCT TROPONIN I, RAPID Routine 4 2:00 PM EST ECHO - CONVERTED Routine 02/27/2013 12:4 9 PM EST CARDIAC CATHETERIZATION Routine 02/27/19 14 12:49 PM EST BLOOD CULTURE Routine 02/27/2013 12:10 PM EST PROTIME-INR Routine 02/27/2013 12:10 PM EST D-DIMER, QUANTITATIVE Routine 02/27/2013 12:10 PM EST XR CHEST 1 VW Routine 02/27/2013 11:05 AM EST POCT TROPONIN I, RAPID Routine 4 10:56 AM EST APTT Routine 02/27/2013 10:35 AM EST CBC AND DIFFERENTIAL Routine 02/27/2013 10:35 AM EST B-TYPE NATRIURETIC PEPTIDE Routine 02/27/2013 10:35 AM EST COMPREHENSIVE METABOLIC PANEL Routine 02/27/2013 10:35 AM EST SCANNED EKG 02/27/2013 SCANNED - CARDIOLOGY 02/27/2013 documented in this encounter Results * POCT Glucose Fingerstick (03/05/2013 11:40 AM EST) Glucose 125 75 - 125 mg/dL [facility] Blood specimen (specimen) 03/05/2013 11:40 AM EST [facility] - 03/07/2013 4:02 PM EST Specimen Type: Blood Historical Provider MD POINT OF CARE TEST ORDERA BLES Final Result Performing Organization Address [facility] Co de Phone Number [facility] [address] [place] [address], * POCT Glucose Fingerstick (03/05/2013 7:08 AM EST) Glucose 85 75 - 125 mg/dL [facility] Blood specimen (specimen) 03/05/2013 7:08 AM EST [facility] - 03/07/2013 4:01 PM EST Specimen Type: Blood Historical Provider POINT OF CARE TEST ORDERA BLES Final Result Performing Organization Address [facility] de Phone Number [facility] [address] [place] [address], * Basic metabolic panel (03/05/2013 5:42 AM EST) Glucose 88 70 - 100 mg/dL [facility] BUN 16 6 - 20 mg/dL [facility] Creatinine 1.0 0.6 - 1.3 mg/dL [facility] Sodium 138 136 - 145 mmol/L [facility] Potassium 3.9 3.4 - 5.4 mmol/L [facility] Comment:Verified by repeat a nalysis. Chloride 101 98 - 107 mmol/L [facility] CO2 29 20 - 31 mmol/L [facility] Calcium 9.0 8.7 - 10.4 mg/dL [facility] eGFR 82 ml/min/1.7 32 [facility] Comment: DF by IF @ 03/05/2013 07:43 National Kidney Foundation Guidelines Stage Description GFR 1 Normal or High 90+ 2 Mild decrease 60-89 3 Moderate decrease 30-59 4 Severe decrease 15-29 5 Kidney failure <15 Anion Gap 7 3 - 11 mmol/L [facility] Blood specimen (specimen) 03/05/2013 5:42 AM EST [facility] - 03/05/2013 7:47 AM EST Specimen Type: Blood Cedric Mora MD LAB BLOOD ORDERABLES Final Result Performing Organization Address [facility] [place] [address], * (ABNORMAL) Protime-INR (03/05/2013 5:42 AM EST) Protime 13.3(H) 9.6 - 11.5 Seconds [facility] INR 1.23 [facility] Comment: US by IF @ 03/05/2013 06:37 Therapeutic Ranges for INR: 2.0-3.0 (PT 20-30) 2.5-3.5 (PT 25-34) Blood specimen (specimen) 03/05/2013 5:42 AM EST [facility] - 03/05/2013 6:37 AM EST Specimen Type: Blood Cedric Mora MD LAB BLOOD ORDERABLES Final Result Performing Organization Address [facility] [place] [address], * (ABNORMAL) POCT Glucose Fingerstick (03/04/2013 8:38 PM EST) Glucose 130(H) 75 - 125 mg/dL [facility] Blood specimen (specimen) 03/04/2013 8:38 PM EST [facility] - 03/04/2013 8:48 PM EST Specimen Type: Blood Historical Provider MD POINT OF CARE TEST ORDERA BLES Final Result Performing Organization Address [facility] Co de Phone Number [facility] [address] [place] [address], * POCT Glucose Fingerstick (03/04/2013 4:25 PM EST) Glucose 78 75 - 125 mg/dL [facility] Blood specimen (specimen) 03/04/2013 4:25 PM EST [facility] [facility] - 03/04/2013 4:35 PM EST Specimen Type: Blood Historical Provider POINT OF CARE TEST ORDERA BLES Final Result Performing Organization Address [facility] Co de Phone Number [facility] [address] [place] [address], * POCT Glucose Fingerstick (03/04/2013 11:20 AM EST) Glucose 111 75 - 125 mg/dL [facility] Blood specimen (specimen) 03/04/2013 11:20 AM EST [facility] LABORATORY - 03/04/2013 11:29 AM EST Specimen Type: Blood Historical Provider POINT OF CARE TEST ORDERA BLES Final Result Performing Organization Address [facility] Co de Phone Number [facility] [address] [place] [address], * (ABNORMAL) POCT Glucose Fingerstick (03/04/2013 7:01 AM EST) Glucose 138(H) 75 - 125 mg/dL [facility] Blood specimen (specimen) 03/04/2013 7:01 AM EST Narrative [facility] - 03/04/2013 7:05 AM EST Specimen Type: Blood Elizabeth Provider POINT OF CARE TEST ORDERA BLES Final Result Performing Organization Address [facility] [place] [address], * (ABNORMAL) Protime-INR (03/04/2013 6:27 AM EST) Protime 14.0(H) 9.6 - 11.5 Seconds [facility] INR 1.29 [facility] Comment: US by IF @ 03/04/2013 07:06 Therapeutic Ranges for INR: 2.0-3.0 (PT 20-30) 2.5-3.5 (PT 25-34) Blood specimen (specimen) 03/04/2013 6:27 AM EST [facility] LABORATORY - 03/04/2013 7:06 AM EST Specimen Type: Blood Albino CASSIDY LAB BLOOD ORDERABLES Final Result Performing Organization Address [facility] [place] [address], * (ABNORMAL) CBC and Differential (03/04/2013 6:27 AM EST) WBC 7.64 3.50 - 10.80 K/[facility] LABORATORY RBC 5.07 4.20 - 5.76 M/[facility] LABORATORY Hemoglobin 14.5 13.1 - 17.5 g/dL [facility] Hematocrit 44.3 38.9 - 50.9 % [facility] MCV 87.4 80.0 - 99.0 fL [facility] MCH 28.6 27.0 - 31.0 pg [facility] MCHC 32.7 32.0 - 36.0 g/dL [facility] RDW-CV 16.9(H) 11.3 - 14.5 % [facility] Platelets 182 150 - [facility] Neutrophils Absolute 4.15 1.50 - 8.30 [facility] Lymphocytes Absolute 2.40 0.60 - 4.80 [facility] Monocytes Absolute 0.91 0.00 - 1.00 [facility] Eosinophils Absolute 0.13 0.10 - 0.30 [facility] Basophils Absolute 0.02 0.00 - 0.20 [facility] nRBC 0.0 [facility] Neutrophil Rel % 54.3 41.0 - 71.0 % [facility] Lymphocyte Rel % 31.4 24.0 - 44.0 % [facility] Monocyte Rel % 11.9 0.0 - 12.0 % [facility] Eosinophil Rel % 1.7 0.0 - 3.0 % [facility] Basophil Rel % 0.3 0.0 - 1.0 % [facility] Immature Granulocyte Rel % 0.4 0.0 - 0.6 % [facility] Blood specimen (specimen) 03/04/2013 6:27 AM EST Narrative [facility] - 03/04/2013 6:49 AM EST Specimen Type: Blood Albino CASSIDY LAB BLOOD ORDERABLES Final Result Performing Organization Address City/State/[facility] [place] [address], * (ABNORMAL) Basic metabolic panel (03/04/2013 6:27 AM EST) Glucose 83 70 - 100 mg/dL [facility] BUN 17 6 - 20 mg/dL [facility] Creatinine 1.0 0.6 - 1.3 mg/dL [facility] Sodium 135(L) 136 - 145 mmol/L [facility] Potassium 3.2(L) 3.4 - 5.4 mmol/L [facility] Chloride 100 98 - 107 mmol/L [facility] CO2 32(H) 20 - 31 mmol/L [facility] Calcium 8.5(L) 8.7 - 10.4 mg/dL [facility] eGFR 82 ml/min/1.7 32 [facility] Comment: DF by IF @ 03/04/2013 07:28 National Kid[employer] Guidelines Stage Description GFR 1 Normal or High 90+ 2 Mild decrease 60-89 3 Moderate decrease 30-59 4 Severe decrease 15-29 5 Kidney failure <15 Anion Gap 4 3 - 11 mmol/L [facility] Blood specimen (specimen) 03/04/2013 6:27 AM EST [facility] LABORATORY - 03/04/2013 7:28 AM EST Specimen Type: Blood Albino CASSIDY LAB BLOOD ORDERABLES Final Result [facility] [address] [place] [address], * POCT Glucose Fingerstick (03/03/2013 8:23 PM EST) Glucose 123 75 - 125 mg/dL [facility] Blood specimen (specimen) 03/03/2013 8:23 PM EST [facility] LABORATORY - 03/03/2013 8:34 PM EST Specimen Type: Blood Historical Provider POINT OF CARE TEST ORDERA BLES Final Result Performing Organization Address City/[facility]/ZIP Co de Phone Number [facility] [address] [place] [address], * POCT Glucose Fingerstick (03/03/2013 4:18 PM EST) Glucose 125 75 - 125 mg/dL [facility] Blood specimen (specimen) 03/03/2013 4:18 PM EST [facility] LABORATORY - 03/03/2013 4:26 PM EST Specimen Type: Blood Historical Provider MD POINT OF CARE TEST ORDERA BLES Final Result Performing Organization Address [facility] [place] [address], * (ABNORMAL) POCT Glucose Fingerstick (03/03/2013 11:14 AM EST) Glucose 159(H) 75 - 125 mg/dL [facility] Blood specimen (specimen) 03/03/2013 11:14 AM EST [facility] LABORATORY - 03/03/2013 11:34 AM EST Specimen Type: Blood Historical Provider POINT OF CARE TEST ORDERA BLES Final Result Performing Organization Address [facility] de Phone Number [facility] [address] [place] [address], * POCT Glucose Fingerstick (03/03/2013 6:59 AM EST) Glucose 90 75 - 125 mg/dL [facility] Blood specimen (specimen) 03/03/2013 6:59 AM EST [facility] LABORATORY - 03/03/2013 7:05 AM EST Specimen Type: Blood [facility] Provider POINT OF CARE TEST ORDERA BLES Final Result Performing Organization Address [facility] [place] [address], * (ABNORMAL) Protime-INR (03/03/2013 5:23 AM EST) Protime 14.7(H) 9.6 - 11.5 Seconds [facility] INR 1.35 [facility] Comment: US by IF @ 03/03/2013 06:32 Therapeutic Ranges for INR: 2.0-3.0 (PT 20-30) 2.5-3.5 (PT 25-34) Blood specimen (specimen) 03/03/2013 5:23 AM EST Narrative [facility] - 03/03/2013 6:32 AM EST Specimen Type: Blood Albino CASSIDY LAB BLOOD ORDERABLES Final Result [facility] [address] [place] [address], * (ABNORMAL) CBC and Differential (03/03/2013 5:23 AM EST) WBC 9.74 3.50 - 10.80 K/[facility] RBC 5.09 4.20 - 5.76 /[facility] Hemoglobin 14.2 13.1 - 17.5 g/dL [facility] Hematocrit 43.7 38.9 - 50.9 % [facility] MCV 85.9 80.0 - 99.0 fL [facility] MCH 27.9 27.0 - 31.0 pg [facility] MCHC 32.5 32.0 - 36.0 g/dL [facility] RDW-CV 17.0(H) 11.3 - 14.5 % [facility] Platelets 202 150 - 450 [facility] Neutrophils Absolute 6.41 1.50 - 8.30 [facility] Lymphocytes Absolute 2.03 0.60 - 4.80 [facility] Monocytes Absolute 1.11(H) 0.00 - 1.00 [facility] Eosinophils Absolute 0.13 0.10 - 0.30 [facility] Basophils Absolute 0.03 0.00 - 0.20 [facility] Neutrophil Rel % 65.9 41.0 - 71.0 % [facility] Lymphocyte Rel % 20.8(L) 24.0 - 44.0 % [facility] Monocyte Rel % 11.4 0.0 - 12.0 % [facility] Eosinophil Rel % 1.3 0.0 - 3.0 % [facility] Basophil Rel % 0.3 0.0 - 1.0 % [facility] Immature Granulocyte Rel % 0.3 0.0 - 0.6 % [facility] Blood specimen (specimen) 03/03/2013 5:23 AM EST Narrative [facility] - 03/03/2013 6:21 AM EST Specimen Type: Blood Albino CASSIDY LAB BLOOD ORDERABLES Final Result [facility] [address] [place] [address], * (ABNORMAL) Basic metabolic panel (03/03/2013 5:23 AM EST) Glucose 98 70 - 100 mg/dL [facility] BUN 20 6 - 20 mg/dL [facility] Creatinine 1.2 0.6 - 1.3 mg/dL [facility] Sodium 136 136 - 145 mmol/L [facility] Potassium 4.0 3.4 - 5.4 mmol/L [facility] Chloride 99 98 - 107 mmol/L [facility] CO2 33(H) 20 - 31 mmol/L [facility] Calcium 8.7 8.7 - 10.4 mg/dL [facility] eGFR 67 ml/min/1.7 32 [facility] Comment: DF by IF @ 03/03/2013 06:32 National Kid[employer] Guidelines Stage Description GFR 1 Normal or High 90+ 2 Mild decrease 60-89 3 Moderate decrease 30-59 4 Severe decrease 15-29 5 Kidney failure <15 Anion Gap 3 3 - 11 mmol/L [facility] Blood specimen (specimen) 03/03/2013 5:23 AM EST [facility] LABORATORY - 03/03/2013 6:32 AM EST Specimen Type: Blood Albino CASSIDY LAB BLOOD ORDERABLES Final Result Performing Organization Address [facility] Phone Number [facility] [address] [place] [address], * (ABNORMAL) POCT Glucose Fingerstick (03/02/2013 8:59 PM EST) Glucose 153(H) 75 - 125 mg/dL [facility] Blood specimen (specimen) 03/02/2013 8:59 PM EST [facility] LABORATORY - 03/02/2013 9:17 PM EST Specimen Type: Blood Historical Provider POINT OF CARE TEST ORDERA BLES Final Result Performing Organization Address [facility] Phone Number [facility] [address] [place] [address], * POCT Glucose Fingerstick (03/02/2013 4:16 PM EST) Glucose 85 75 - 125 mg/dL [facility] Blood specimen (specimen) 03/02/2013 4:16 PM EST [facility] LABORATORY - 03/02/2013 4:22 PM EST Specimen Type: Blood Historical Provider POINT OF CARE TEST ORDERA BLES Final Result Performing Organization Address [facility] de Phone Number [facility] [address] [place] [address], * (ABNORMAL) POCT Glucose Fingerstick (03/02/2013 11:18 AM EST) Glucose 149(H) 75 - 125 mg/dL [facility] Blood specimen (specimen) 03/02/2013 11:18 AM EST [facility] LABORATORY - 03/02/2013 11:33 AM EST Specimen Type: Blood Historical Provider MD POINT OF CARE TEST ORDERA BLES Final Result Performing Organization Address [facility] Co de Phone Number [facility] [address] [place] [address], * POCT Glucose Fingerstick (03/02/2013 6:56 AM EST) Glucose 87 75 - 125 mg/dL [facility] Blood specimen (specimen) 03/02/2013 6:56 AM EST [facility] LABORATORY - 03/02/2013 7:05 AM EST Specimen Type: Blood Historical Provider MD POINT OF CARE TEST ORDERA BLES Final Result Performing Organization Address [facility] Phone Number [facility] [address] [place] [address], * (ABNORMAL) Protime-INR (03/02/2013 5:34 AM EST) Protime 15.7(H) 9.6 - 11.5 Seconds [facility] Comment:Verified by repeat a nalysis. INR 1.43 [facility] Comment: Verified by repeat analysis. [place] by [id number] @ 03/02/2013 06:58 Therapeutic Ranges for INR: 2.0-3.0 (PT 20-30) 2.5-3.5 (PT 25-34) Blood specimen (specimen) 03/02/2013 5:34 AM EST [facility] LABORATORY - 03/02/2013 6:58 AM EST Specimen Type: Blood Albino CASSIDY LAB BLOOD ORDERABLES Final Result Performing Organization Address [facility] [place] [address], * (ABNORMAL) CBC and Differential (03/02/2013 5:34 AM EST) WBC 9.48 3.50 - 10.80 K/[facility] RBC 5.24 4.20 - 5.76 /[facility] Hemoglobin 14.5 13.1 - 17.5 g/dL [facility] Hematocrit 44.8 38.9 - 50.9 % [facility] MCV 85.5 80.0 - 99.0 fL [facility] MCH 27.7 27.0 - 31.0 pg [facility] MCHC 32.4 32.0 - 36.0 g/dL [facility] RDW-CV 17.0(H) 11.3 - 14.5 % [facility] Platelets 210 150 - 450 [facility] Neutrophils Absolute 5.88 1.50 - 8.30 [facility] Lymphocytes Absolute 2.39 0.60 - 4.80 [facility] Monocytes Absolute 1.09(H) 0.00 - 1.00 [facility] Eosinophils Absolute 0.08(L) 0.10 - 0.30 [facility] Basophils Absolute 0.02 0.00 - 0.20 [facility] Neutrophil Rel % 62.1 41.0 - 71.0 % [facility] Lymphocyte Rel % 25.2 24.0 - 44.0 % [facility] Monocyte Rel % 11.5 0.0 - 12.0 % [facility] Eosinophil Rel % 0.8 0.0 - 3.0 % [facility] Basophil Rel % 0.2 0.0 - 1.0 % [facility] Immature Granulocyte Rel % 0.2 0.0 - 0.6 % [facility] Blood specimen (specimen) 03/02/2013 5:34 AM EST Narrative [facility] - 03/02/2013 6:14 AM EST Specimen Type: Blood Albino CASSIDY LAB BLOOD ORDERABLES Final Result [facility] [address] [place] [address], * (ABNORMAL) Comprehensive metabolic panel (03/02/2013 5:34 AM EST) Glucose 85 70 - 100 mg/dL [facility] BUN 24(H) 6 - 20 mg/dL [facility] Creatinine 1.2 0.6 - 1.3 mg/dL [facility] Sodium 138 136 - 145 mmol/L [facility] Potassium 3.5 3.4 - 5.4 mmol/L [facility] Chloride 96(L) 98 - 107 mmol/L [facility] CO2 32(H) 20 - 31 mmol/L [facility] Calcium 8.4(L) 8.7 - 10.4 mg/dL [facility] Alkaline Phosphatase 74 25 - 100 Units/L [facility] AST (SGOT) 72(H) 8 - 33 Units/L [facility] ALT (SGPT) 76(H) 7 - 40 Units/L [facility] Total Bilirubin 3.7(H) 0.3 - 1.2 mg/dL [facility] Total Protein 5.9(L) 6.4 - 8.3 g/dL [facility] Albumin 3.0(L) 3.4 - 4.8 g/dL [facility] eGFR 58 ml/min/1.7 32 [facility] Comment: DF by IF @ 03/02/2013 06:35 National Kid[employer] Guidelines Stage Description GFR 1 Normal or High 90+ 2 Mild decrease 60-89 3 Moderate decrease 30-59 4 Severe decrease 15-29 5 Kidney failure <15 Anion Gap 10 3 - 11 mmol/L [facility] Blood specimen (specimen) 03/02/2013 5:34 AM EST Narrative [facility] - 03/02/2013 6:35 AM EST Specimen Type: Blood Cedric Mora MD LAB BLOOD ORDERABLES Final Result Performing Organization Address [facility] [place] [address], * (ABNORMAL) POCT Glucose Fingerstick (03/01/2013 8:53 PM EST) Glucose 141(H) 75 - 125 mg/dL [facility] Blood specimen (specimen) 03/01/2013 8:53 PM EST [facility] LABORATORY - 03/01/2013 9:02 PM EST Specimen Type: Blood Historical Provider POINT OF CARE TEST ORDERA BLES Final Result Performing Organization Address [facility] [place] [address], * (ABNORMAL) POCT Glucose Fingerstick (03/01/2013 4:20 PM EST) Glucose 165(H) 75 - 125 mg/dL [facility] Blood specimen (specimen) 03/01/2013 4:20 PM EST [facility] - 03/01/2013 4:25 PM EST Specimen Type: Blood Historical Provider POINT OF CARE TEST ORDERA BLES Final Result Performing Organization Address [facility] de Phone Number [facility] [address] [place] [address], * POCT Glucose Fingerstick (03/01/2013 11:20 AM EST) Glucose 125 75 - 125 mg/dL [facility] Blood specimen (specimen) 03/01/2013 11:20 AM EST [facility]ORAT[facility] - 03/01/2013 11:29 AM EST Specimen Type: Blood Historical Provider MD POINT OF CARE TEST ORDERA BLES Final Result Performing Organization Address City/[facility]/ZIP Co de Phone Number [facility] [address] [place] [address], * POCT Glucose Fingerstick (03/01/2013 7:07 AM EST) Glucose 79 75 - 125 mg/dL [facility] Blood specimen (specimen) 03/01/2013 7:07 AM EST Narrative [facility] - 03/01/2013 7:13 AM EST Specimen Type: Blood Historical Provider POINT OF CARE TEST ORDERA BLES Final Result Performing Organization Address [facility] de Phone Number [facility] [address] [place] [address], * (ABNORMAL) CBC and Differential (03/01/2013 5:55 AM EST) WBC 10.35 3.50 - 10.80 K/[facility] LABORATORY RBC 5.21 4.20 - 5.76 /[facility] Hemoglobin 14.6 13.1 - 17.5 g/dL [facility] Hematocrit 44.6 38.9 - 50.9 % [facility] MCV 85.6 80.0 - 99.0 fL [facility] MCH 28.0 27.0 - 31.0 pg [facility] MCHC 32.7 32.0 - 36.0 g/dL [facility] RDW-CV 17.1(H) 11.3 - 14.5 % [facility] Platelets 216 150 - 450 K/[facility] Neutrophils Absolute 6.83 1.50 - 8.30 K/[facility] Lymphocytes Absolute 2.39 0.60 - 4.80 K/mcL [facility] Monocytes Absolute 1.07(H) 0.00 - 1.00 K/[facility] Eosinophils Absolute 0.02(L) 0.10 - 0.30 [facility] Basophils Absolute 0.02 0.00 - 0.20 [facility] Neutrophil Rel % 66.0 41.0 - 71.0 % [facility] Lymphocyte Rel % 23.1(L) 24.0 - 44.0 % [facility] Monocyte Rel % 10.3 0.0 - 12.0 % [facility] Eosinophil Rel % 0.2 0.0 - 3.0 % [facility] Basophil Rel % 0.2 0.0 - 1.0 % [facility] Immature Granulocyte Rel % 0.2 0.0 - 0.6 % [facility] Blood specimen (specimen) 03/01/2013 5:55 AM EST [facility] - 03/01/2013 6:30 AM EST Specimen Type: Blood Albino CASSIDY LAB BLOOD ORDERABLES Final Result Performing Organization Address City/State/[facility] Co de Phone Number [facility] [address] [place] [address], * (ABNORMAL) Protime-INR (03/01/2013 5:55 AM EST) Protime 23.4(H) 9.6 - 11.5 Seconds [facility] Comment:Verified by repeat a nalysis. INR 2.09 [facility] Comment: Verified by repeat analysis. [place] by [id number] @ 03/01/2013 07:03 Therapeutic Ranges for INR: 2.0-3.0 (PT 20-30) 2.5-3.5 (PT 25-34) Blood specimen (specimen) 03/01/2013 5:55 AM EST Narrative [facility] - 03/01/2013 7:03 AM EST Specimen Type: Blood Cedric Mora MD LAB BLOOD ORDERABLES Final Result Performing Organization Address City/[facility]/ZIP Co de Phone Number [facility] [address] [place] [address], * (ABNORMAL) BNP (03/01/2013 5:55 AM EST) [facility] BNP 1,758(H) 0 - 100 pg/mL [facility] Blood specimen (specimen) 03/01/2013 5:55 AM EST Narrative [facility] - 03/01/2013 8:56 AM EST Specimen Type: Blood Cedric Mora MD LAB BLOOD ORDERABLES Final Result Performing Organization Address [facility] Co de Phone Number [facility] [address] [place] [address], * (ABNORMAL) Comprehensive metabolic panel (03/01/2013 5:55 AM EST) [facility] Glucose 85 70 - 100 mg/dL [facility] BUN 27(H) 6 - 20 mg/dL [facility] Creatinine 1.3 0.6 - 1.3 mg/dL [facility] Sodium 136 136 - 145 mmol/L [facility] Potassium 3.6 3.4 - 5.4 mmol/L [facility] Chloride 98 98 - 107 mmol/L [facility] CO2 29 20 - 31 mmol/L [facility] Calcium 8.6(L) 8.7 - 10.4 mg/dL [facility] Alkaline Phosphatase 56 25 - 100 Units/L [facility] AST (SGOT) 115(H) 8 - 33 Units/L [facility] ALT (SGPT) 88(H) 7 - 40 Units/L [facility] Total Bilirubin 4.3(H) 0.3 - 1.2 mg/dL [facility] Total Protein 5.7(L) 6.4 - 8.3 g/dL [facility] Albumin 3.0(L) 3.4 - 4.8 g/dL [facility] eGFR 52 ml/min/1.7 32 [facility] Comment: DF by IF @ 03/01/2013 06:50 [employer] Guidelines Stage Description GFR 1 Normal or High 90+ 2 Mild decrease 60-89 3 Moderate decrease 30-59 4 Severe decrease 15-29 5 Kidney failure <15 Anion Gap 9 3 - 11 mmol/L [facility] Blood specimen (specimen) 03/01/2013 5:55 AM EST [facility]AT[facility] - 03/01/2013 6:51 AM EST Specimen Type: Blood Cedric Mora MD LAB BLOOD ORDERABLES Final Result Performing Organization Address [facility] Co de Phone Number [facility] [address] [place] [address], * POCT Glucose Fingerstick (02/28/2013 8:20 PM EST) Glucose 113 75 - 125 mg/dL [facility] Blood specimen (specimen) 02/28/2013 8:20 PM EST [facility] - 02/28/2013 8:42 PM EST Specimen Type: Blood Historical Provider POINT OF CARE TEST ORDERA BLES Final Result Performing Organization Address City/[facility] Co de Phone Number [facility] [address] [place] [address], * POCT Glucose Fingerstick (02/28/2013 4:25 PM EST) Glucose 107 75 - 125 mg/dL [facility] Blood specimen (specimen) 02/28/2013 4:25 PM EST [facility] - 02/28/2013 4:46 PM EST Specimen Type: Blood Historical Provider POINT OF CARE TEST ORDERA BLES Final Result Performing Organization Address [facility] Co de Phone Number [facility] [address] [place] [address], * (ABNORMAL) Protime-INR (02/28/2013 12:23 PM EST) Protime 73.3(AA) 9.6 - 11.5 Seconds [facility] Comment: Called to, read back and verified by: Ms. Gibran RN, @ 1302 INR 6.10 [facility] Comment: Called to, read back and verified by: Ms. Gibran RN, @ 1302 US by [id number] @ 02/28/2013 13:03 Therapeutic Ranges for INR: 2.0-3.0 (PT 20-30) 2.5-3.5 (PT 25-34) Blood specimen (specimen) 02/28/2013 12:23 PM EST [facility] - 02/28/2013 1:03 PM EST Specimen Type: Blood Cedric Mora MD LAB BLOOD ORDERABLES Final Result Performing Organization Address [facility] Co de Phone Number [facility] [address] [place] [address], * (ABNORMAL) POCT Glucose Fingerstick (02/28/2013 11:14 AM EST) Glucose 232(H) 75 - 125 mg/dL [facility] Blood specimen (specimen) 02/28/2013 11:14 AM EST [facility] - 02/28/2013 11:23 AM EST Specimen Type: Blood Historical Provider POINT OF CARE TEST ORDERA BLES Final Result Performing Organization Address [facility] Co de Phone Number [facility] [address] [place] [address], * POCT Glucose Fingerstick (02/28/2013 7:07 AM EST) Glucose 100 75 - 125 mg/dL [facility] Blood specimen (specimen) 02/28/2013 7:07 AM EST [facility] - 02/28/2013 7:13 AM EST Specimen Type: Blood Elizabeth Provider MD POINT OF CARE TEST ORDERA BLES Final Result Performing Organization Address City/[facility] Co de Phone Number [facility] [address] [place] [address], * Troponin (02/28/2013 4:54 AM EST) Pathologist [facility] Troponin I 0.15 0.00 - 0.60 ng/mL [facility] Blood specimen (specimen) 02/28/2013 4:54 AM EST [facility] - 02/28/2013 6:33 AM EST Specimen Type: Blood Albino CASSIDY LAB BLOOD ORDERABLES Final Result Performing Organization Address [facility] de Phone Number [facility] [address] [place] [address], * (ABNORMAL) Lipid panel (02/28/2013 4:54 AM EST) Total Cholesterol 90 0 - 200 mg/dL [facility] Comment: DF by IF @ 02/28/2013 06:31 Cholesterol Reference Ranges: Desirable: less than 200 mg/dL Borderline: 200-239 mg/dL High: greater than 239 mg/dL Triglycerides 64 0 - 150 mg/dL [facility] Comment: DF by IF @ 02/28/2013 06:31 Triglyceride Reference Ranges: Normal less than 150 mg/dL Borderline 150-199 mg/dL High 200-499 mg/dL Very High greater than 499 mg/dL HDL Cholesterol 14(L) 40 - 60 mg/dL [facility] Comment: DF by IF @ 02/28/2013 06:31 HDL Cholesterol Reference Ranges: Low less than 40 mg/dL High greater than 59 mg/dL LDL Cholesterol 74 0 - 100 mg/dL [facility] Comment: US by [id number] @ 02/28/2013 06:33 LDL Cholesterol Reference Ranges: Optimal less than 100 mg/dL Near Optimal 100-129 mg/dL Borderline 130-159 mg/dL High 160-189 mg/dL Very High greater than 189 mg/dL Blood specimen (specimen) 02/28/2013 4:54 AM EST Narrative [facility] - 02/28/2013 6:33 AM EST Specimen Type: Blood Albino CASSIDY LAB BLOOD ORDERABLES Final Result Performing Organization Address [facility] [place] [address], * (ABNORMAL) Protime-INR (02/28/2013 4:54 AM EST) Protime 92.6(AA) 9.6 - 11.5 Seconds [facility] Comment: Verified by repeat analysis. CALLED TO YAS MONROE RN, 02/28/2013 0602, TLR INR 7.60 [facility] Comment: Verified by repeat analysis. CALLED TO YAS MONROE RN, 02/28/2013 0602, TLR US by [id number] @ 02/28/2013 06:02 Therapeutic Ranges for INR: 2.0-3.0 (PT 20-30) 2.5-3.5 (PT 25-34) Blood specimen (specimen) 02/28/2013 4:54 AM EST Narrative [facility] - 02/28/2013 6:02 AM EST Specimen Type: Blood Albino CASSIDY LAB BLOOD ORDERABLES Final Result Performing Organization Address [facility] de Phone Number [facility] [address] [place] [address], * (ABNORMAL) Hemoglobin A1c (02/28/2013 4:54 AM EST) Hemoglobin A1C 7.0(H) 4.00 - 6.00 % [facility] Comment: DF by IF @ 02/28/2013 07:05 The [place] [employer] recommends maintenance of Hemoglobin A1C at 7.0% or lower. Goals for Hemoglobin A1C reduction may need to be modified if hypoglycemia is a problem. Mean Bld Glu Estim. 150 mg/dL [facility] Blood specimen (specimen) 02/28/2013 4:54 AM EST Narrative [facility] - 02/28/2013 7:05 AM EST Specimen Type: Blood Albino CASSIDY LAB BLOOD ORDERABLES Final Result [place] [id number] [place] [address], * (ABNORMAL) CBC and Differential (02/28/2013 4:54 AM EST) WBC 9.35 3.50 - 10.80 K/[facility] RBC 5.01 4.20 - 5.76 /[facility] Hemoglobin 14.0 13.1 - 17.5 g/dL [facility] Hematocrit 42.4 38.9 - 50.9 % [facility] MCV 84.6 80.0 - 99.0 fL [facility] MCH 27.9 27.0 - 31.0 pg [facility] MCHC 33.0 32.0 - 36.0 g/dL [facility] RDW-CV 17.1(H) 11.3 - 14.5 % [facility] Platelets 195 150 - 450 K/[facility] Neutrophils Absolute 6.77 1.50 - 8.30 K/[facility] Lymphocytes Absolute 1.66 0.60 - 4.80 [facility] Monocytes Absolute 0.88 0.00 - 1.00 /mcL [facility] Eosinophils Absolute 0.01(L) 0.10 - 0.30 [facility] Basophils Absolute 0.01 0.00 - 0.20 K/[facility] Neutrophil Rel % 72.4(H) 41.0 - 71.0 % [facility] Lymphocyte Rel % 17.8(L) 24.0 - 44.0 % [facility] Monocyte Rel % 9.4 0.0 - 12.0 % [facility] Eosinophil Rel % 0.1 0.0 - 3.0 % [facility] Basophil Rel % 0.1 0.0 - 1.0 % [facility] Immature Granulocyte Rel % 0.2 0.0 - 0.6 % [facility] Blood specimen (specimen) 02/28/2013 4:54 AM EST Narrative [facility] - 02/28/2013 6:03 AM EST Specimen Type: Blood Albino CASSIDY LAB BLOOD ORDERABLES Final Result Performing Organization Address City/State/[facility] Co de Phone Number [facility] [address] [place] [address], * (ABNORMAL) Basic metabolic panel (02/28/2013 4:54 AM EST) Glucose 111(H) 70 - 100 mg/dL [facility] BUN 31(H) 6 - 20 mg/dL [facility] Creatinine 1.4(H) 0.6 - 1.3 mg/dL [facility] Sodium 140 136 - 145 mmol/L [facility] Potassium 3.4 3.4 - 5.4 mmol/L [facility] Comment:Verified by repeat a nalysis. Chloride 99 98 - 107 mmol/L [facility] CO2 30 20 - 31 mmol/L [facility] Calcium 8.5(L) 8.7 - 10.4 mg/dL [facility] eGFR 56 ml/min/1.7 32 [facility] Comment: DF by IF @ 02/28/2013 06:31 [employer] Guidelines Stage Description GFR 1 Normal or High 90+ 2 Mild decrease 60-89 3 Moderate decrease 30-59 4 Severe decrease 15-29 5 Kidney failure <15 Anion Gap 11 3 - 11 mmol/L [facility] Blood specimen (specimen) 02/28/2013 4:54 AM EST [facility] - 02/28/2013 6:33 AM EST Specimen Type: Blood Albino CASSIDY LAB BLOOD ORDERABLES Final Result Performing Organization Address [facility]/[place] [address], * (ABNORMAL) POCT Glucose Fingerstick (02/27/2013 8:35 PM EST) Glucose 166(H) 75 - 125 mg/dL [facility] Blood specimen (specimen) 02/27/2013 8:35 PM EST [facility] - 02/27/2013 11:35 PM EST Specimen Type: Blood Historical Provider POINT OF CARE TEST ORDERA BLES Final Result Performing Organization Address [facility] Co de Phone Number [facility] [address] [place] [address], * POCT Glucose Fingerstick (02/27/2013 4:23 PM EST) Glucose 101 75 - 125 mg/dL [facility] Blood specimen (specimen) 02/27/2013 4:23 PM EST [facility] - 02/27/2013 4:29 PM EST Specimen Type: Blood Historical Provider MD POINT OF CARE TEST ORDERA BLES Final Result Performing Organization Address City/[facility] Co de Phone Number [facility] [address] [place] [address], * POCT Troponin, Rapid (02/27/2013 2:00 PM EST) Troponin I 0.11 0.00 - 0.60 ng/mL [facility] Comment: Different methodologies are used for cardiac testing between the ED and main laboratory. Refer to the appropriate reference range for interpretation. Blood specimen (specimen) 02/27/2013 2:00 PM EST Narrative [facility] - 02/27/2013 2:15 PM EST Specimen Type: Blood us Historical Provider POINT OF CARE TEST ORDERA BLES Final Result [facility] [address] [place] [address], * CONVERTED (HISTORICAL) ECHO (02/27/2013 12:49 PM EST) Anatomical Region Laterality Modality Ultrasound 02/27/2013 12:4 9 PM EST Narrative 02/27/2013 12:49 PM EST Patient: KEN MOON Med Rec#: [id number] : 1955 Date: 02/27/2013 Age: 57y Height: 172.72 cm / 68.0 in Weight: 92.99 kg / 204.9 lbs Sex: M BSA: 2.07 Room#: ER 14 Cytotechnologist Supervisor: Ayla Kwon RDCS, RDMS Referring: LAMBERT Reading: JOSIAH STEELE M.D. Referring: LAMBERT Reading: Cedric Mora MD Transthoracic Echocardiogram Indication: dyspnea BP: 118/54 Conclusions 1. The left ventricular chamber size is moderately dilated. 2. Severe global hypokinesis of the left ventricle is observed. 3. There is severely decreased left ventricular systolic function. 4. The estimated ejection fraction is less than 20%. 5. Abnormal left ventricular diastolic function is observed. 6. The right ventricular global systolic function is moderately reduced. 7. A pacemaker wire is visualized in the right ventricle. 8. There is moderate mitral regurgitation. 9. There is mild tricuspid regurgitation. 10. There is mild pulmonic regurgitation. Findings Left Ventricle: The left ventricular chamber size is moderately dilated. Severe global hypokinesis of the left ventricle is observed. There is severely decreased left ventricular systolic function. The estimated ejection fraction is less than 20%. Abnormal left ventricular diastolic function is observed. Left Atrium: The left atrial chamber size is normal. Right Ventricle: The right ventricular cavity size is normal. The right ventricular global systolic function is moderately reduced. A pacemaker wire is visualized in the right ventricle. Right Atrium: The right atrial cavity size is normal. No atrial septal defect is visualized. Aortic Valve: The aortic valve is trileaflet. There is no evidence of aortic regurgitation. There is no evidence of aortic stenosis. Mitral Valve: The mitral valve leaflets appear normal. There is no evidence of mitral valve prolapse. There is moderate mitral regurgitation. There is no evidence of mitral stenosis. Tricuspid Valve: The tricuspid valve leaflets are normal. There is mild tricuspid regurgitation. Pulmonic Valve: The pulmonic valve appears normal. There is mild pulmonic regurgitation. Pericardium: There is a small pericardial effusion. Aorta: There is no dilatation of the aortic root. Pulmonary Artery: The main pulmonary artery appears normal. Venous: The venous system appears normal. Measurements Chambers Name Value RVIDd (AP) 2D 3.46 cm IVSd (2D) 0.88 cm LVIDd (2D) 7.56 cm LVIDs (2D) 7.43 cm LVPWd (2D) 1.05 cm EF (2D) 3.95 % Diastolic/Systolic Function Name Value MV E-wave Vmax 1.38 m/sec MV A-wave Vmax 0.57 m/sec MV E:A ratio 2.4 ratio LV lateral e' Vmax 0.08 m/sec LV E:e' lateral ratio 17.7 ratio Aortic Valve Name Value AV Vmax 0.56 m/sec AV peak gradient 1 mmHg Mitral Valve Name Value MR Vmax 4.95 m/sec MR VTI 118 cm MR volume (PISA) 34 ml MR ERO 0.29 cm2 MR PISA radius 0.8 cm MR alias Vmax 35.4 cm/sec Tricuspid Valve Name Value TR Vmax 3.01 m/sec TR peak gradient 36 mmHg RAP 10 mmHg RVSP 46 mmHg Pulmonic Valve/Qp:Qs Name Value PV Vmax 0.72 m/sec PV peak gradient 2 mmHg CA end-diastolic Vmax 2.17 m/sec Procedure Note Interface, See Report - 08/06/2015 Patient: KEN MOON [facility] Rec#: [id number] : 1955 Date: 02/27/2013 Age: 57y Height: 172.72 cm / 68.0 in Weight: 92.99 kg / 204.9 lbs Sex: M BSA: 2.07 Room#: ER 14 Cytotechnologist Supervisor: Ayla Kwon RDCS, RDMS Referring: RUSCHMANERIC Reading: JOSIAH STEELE M.D. Referring: RUSCHMANERIC Reading: Cedric Mora MD Transthoracic Echocardiogram Indication: dyspnea BP: 118/54 Conclusions 1. The left ventricular chamber size is moderately dilated. 2. Severe global hypokinesis of the left ventricle is observed. 3. There is severely decreased left ventricular systolic function. 4. The estimated ejection fraction is less than 20%. 5. Abnormal left ventricular diastolic function is observed. 6. The right ventricular global systolic function is moderately reduced. 7. A pacemaker wire is visualized in the right ventricle. 8. There is moderate mitral regurgitation. 9. There is mild tricuspid regurgitation. 10. There is mild pulmonic regurgitation. Findings Left Ventricle: The left ventricular chamber size is moderately dilated. Severe global hypokinesis of the left ventricle is observed. There is severely decreased left ventricular systolic function. The estimated ejection fraction is less than 20%. Abnormal left ventricular diastolic function is observed. Left Atrium: The left atrial chamber size is normal. Right Ventricle: The right ventricular cavity size is normal. The right ventricular global systolic function is moderately reduced. A pacemaker wire is visualized in the right ventricle. Right Atrium: The right atrial cavity size is normal. No atrial septal defect is visualized. Aortic Valve: The aortic valve is trileaflet. There is no evidence of aortic regurgitation. There is no evidence of aortic stenosis. Mitral Valve: The mitral valve leaflets appear normal. There is no evidence of mitral valve prolapse. There is moderate mitral regurgitation. There is no evidence of mitral stenosis. Tricuspid Valve: The tricuspid valve leaflets are normal. There is mild tricuspid regurgitation. Pulmonic Valve: The pulmonic valve appears normal. There is mild pulmonic regurgitation. Pericardium: There is a small pericardial effusion. Aorta: There is no dilatation of the aortic root. Pulmonary Artery: The main pulmonary artery appears normal. Venous: The venous system appears normal. Measurements Chambers Name Value RVIDd (AP) 2D 3.46 cm IVSd (2D) 0.88 cm LVIDd (2D) 7.56 cm LVIDs (2D) 7.43 cm LVPWd (2D) 1.05 cm EF (2D) 3.95 % Diastolic/Systolic Function Name Value MV E-wave Vmax 1.38 m/sec MV A-wave Vmax 0.57 m/sec MV E:A ratio 2.4 ratio LV lateral e' Vmax 0.08 m/sec LV E:e' lateral ratio 17.7 ratio Aortic Valve Name Value AV Vmax 0.56 m/sec AV peak gradient 1 mmHg Mitral Valve Name Value MR Vmax 4.95 m/sec MR VTI 118 cm MR volume (PISA) 34 ml MR ERO 0.29 cm2 MR PISA radius 0.8 cm MR alias Vmax 35.4 cm/sec Tricuspid Valve Name Value TR Vmax 3.01 m/sec TR peak gradient 36 mmHg RAP 10 mmHg RVSP 46 mmHg Pulmonic Valve/Qp:Qs Name Value PV Vmax 0.72 m/sec PV peak gradient 2 mmHg CA end-diastolic Vmax 2.17 m/sec us See Report Interface CV ECHO ORDERABLES Final Re sult * Cardiac catheterization (02/27/2013 12:49 PM EST) Anatomical Region Laterality Modality Other 02/27/2013 12:4 9 PM EST Narrative 02/27/2013 12:49 PM EST [address] [address] CARDIAC CATHETERIZATION PATIENT NAME: KEN MOON [id number] [facility] NO: [id number] [facility] NO: [id number] DATE OF : 1955 DATE OF ADMISSION: 02/27/2013 DATE OF PROCEDURE: 03/04/2013 REFERRING PHYSICIAN: PRIMARY CARE PHYSICIAN: Addis Lopes M.D.* [facility] [place], [place] STEAM ENGINEER: Albino Arriaza M.D.* [facility] [place], [place] [employer] DRIVER: Cedric Mora M.D.* INDICATIONS FOR THIS PROCEDURE: The patient is a 57-year-old man with end-stage cardiomyopathy. The patient is being referred for cardiac transplantation. PROCEDURES PERFORMED: 1. Right heart catheterization. 2. Left heart catheterization. 3. Coronary angiography. DESCRIPTION OF THE PROCEDURE: Informed and signed consent was obtained, and the patient was brought to the Cardiac Catheterization Laboratory and placed on the table in the supine position. The right groin was prepped, draped, and anesthetized in the usual sterile fashion. Using the modified Seldinger technique, a 6 Nigerian sheath was placed in right femoral artery and an 8 Nigerian sheath was placed in the right femoral vein and both were flushed with heparinized saline. A 7 Nigerian, balloon-tipped, Owen-Jazmyne catheter was used to perform right heart catheterization with a pullback from the right pulmonary artery back to the right atrium. Thermodilution cardiac outputs were obtained. 6 Nigerian, Elpidio, L 4.0 and R 4.0 catheters were used to perform selective coronary angiography under fluoroscopic guidance in multiple views. At the completion procedure, the catheters were removed, the sheath was sewn in place, and the patient was transported to the [facility] for sheath removal. COMPLICATIONS: There were no complications noted. The results of the diagnostic study were as follows. RESULTS: HEMODYNAMIC DATA (Pressures in mm Hg): LEFT HEART PRESSURES: ASCENDING AORTIC PRESSURE: 100/60 mmHg RIGHT HEART PRESSURES: PULMONARY ARTERY PRESSURE: 80/38 mmHg RESULTS (Continued): HEMODYNAMIC DATA (Pressures in mmHg) (Continued): RIGHT HEART PRESSURES (Continued): PULMONARY CAPILLARY WEDGE PRESSURE: This could not be obtained due to high pulmonary artery pressures. RIGHT VENTRICULAR PRESSURE: 85/20 mmHg RIGHT ATRIAL PRESSURE: 18 mmHg CORONARY ANGIOGRAPHY: FLUOROSCOPY: There was calcification noted under cine fluoroscopy in the proximal left anterior descending coronary artery. MATCH-E-BE-NASH-SHE-WISH BAND VESSELS: LEFT MAIN CORONARY ARTERY: The left main coronary artery was a normal vessel. The left main coronary artery bifurcated into a left anterior descending coronary artery and left circumflex coronary artery. LEFT ANTERIOR DESCENDING CORONARY ARTERY: There was approximately 25 percent plaquing in the left anterior descending coronary artery on either side of the takeoff of the major diagonal vessel. The remainder of the mid- and distal LAD was free of disease. The major diagonal branch and major septal computer training specialist were both free of disease. LEFT CIRCUMFLEX CORONARY ARTERY: The left circumflex coronary artery was a large, nondominant vessel. CORONARY ANGIOGRAPHY (Continued): LEFT CIRCUMFLEX CORONARY ARTERY: There was a large, branching obtuse marginal vessel, which was free of disease. The terminal marginal branch was small and free of disease. The left circumflex coronary artery in the AV groove was a moderate-sized vessel, which was free of disease. RIGHT CORONARY ARTERY: The right coronary artery was anatomically dominant for the posterior circulation. The right coronary artery had luminal irregularity and plaquing of less than 25 percent in its proximal and mid- segments. The posterior descending artery was normal. FINAL IMPRESSIONS: 1. No significant, obstructive coronary artery disease. 2. The patient has severe pulmonary hypertension. SPECIAL NOTE: The thermodilution cardiac output was 3.0 L/minute. Cedric Mora M.D.* MGR/rxjaw Voice Rec. ID #[id number] Original Voice Rec. ID #[id number] Doc ID #[id number] Revision Count: 0 cc: Cedric Mora M.D.* Addis Lopes M.D.* Albino Arriaza M.D.* [place] [address] CARDIAC CATHETERIZATION PATIENT NAME: KEN MOON [id number] [facility] NO: [id number] [facility] NO: [id number] DATE OF : 1955 <END HEADER> DO NOT TEXT EDIT THIS LINE :[facility]:[id number]: Authenticated by CEDRIC MORA M.D. On 03/07/2013 09:27:12 AM Procedure Note Interface, See Report - 11/16/2014 [place] [address] CARDIAC CATHETERIZATION PATIENT NAME: KEN MOON [address] [facility] NO: [id number] [facility] NO: [id number] DATE OF : 1955 DATE OF ADMISSION: 02/27/2013 DATE OF PROCEDURE: 03/04/2013 REFERRING PHYSICIAN: PRIMARY CARE PHYSICIAN: Addis Lopes M.D.* [facility] [place], [place] STEAM ENGINEER: Albino Arriaza M.D.* [facility] [place], [place] [employer] DRIVER: Cedric Mora M.D.* INDICATIONS FOR THIS PROCEDURE: The patient is a 57-year-old man with end-stage cardiomyopathy. The patient is being referred for cardiac transplantation. PROCEDURES PERFORMED: 1. Right heart catheterization. 2. Left heart catheterization. 3. Coronary angiography. DESCRIPTION OF THE PROCEDURE: Informed and signed consent was obtained, and the patient was brought to the Cardiac Catheterization Laboratory and placed on the table in the supine position. The right groin was prepped, draped, and anesthetized in the usual sterile fashion. Using the modified Seldinger technique, a 6French sheath was placed in right femoral artery and an 8 Nigerian sheath was placed in the right femoral vein and both were flushed with heparinized saline. A 7 Nigerian, balloon-tipped, Owen-Jazmyne catheter was used to perform rightheart catheterization with a pullback from the right pulmonary artery back to the right atrium. Thermodilutioncardiac outputs were obtained. 6 Nigerian, Elpidio, L 4.0 and R 4.0 catheters were used to performselective coronary angiography under fluoroscopic guidance in multiple views. At the completion procedure, the catheters were removed, the sheath was sewn in place, and the patient was transported to the [facility] for sheath removal. COMPLICATIONS: There were no complications noted. The results of the diagnostic study were as follows. RESULTS: HEMODYNAMIC DATA (Pressures in mm Hg): LEFT HEART PRESSURES: ASCENDING AORTIC PRESSURE: 100/60 mmHg RIGHT HEART PRESSURES: PULMONARY ARTERY PRESSURE: 80/38 mmHg RESULTS (Continued): HEMODYNAMIC DATA (Pressures in mmHg) (Continued): RIGHT HEART PRESSURES (Continued): PULMONARY CAPILLARY WEDGE PRESSURE: This could not be obtained due to high pulmonary artery pressures. RIGHT VENTRICULAR PRESSURE: 85/20 mmHg RIGHT ATRIAL PRESSURE: 18 mmHg CORONARY ANGIOGRAPHY: FLUOROSCOPY: There was calcification noted under cine fluoroscopy in the proximalleft anterior descending coronary artery. MATCH-E-BE-NASH-SHE-WISH BAND VESSELS: LEFT MAIN CORONARY ARTERY: The left main coronary artery was a normal vessel. The left main coronary artery bifurcated into a left anterior descending coronary artery and left circumflex coronary artery. LEFT ANTERIOR DESCENDING CORONARY ARTERY: There was approximately 25 percent plaquing in the left anteriordescending coronary artery on either side of the takeoff of the major diagonalvessel. The remainder of the mid- and distal LAD was free of disease. The major diagonal branch andmajor septal computer training specialist were both free of disease. LEFT CIRCUMFLEX CORONARY ARTERY: The left circumflex coronary artery was a large, nondominant vessel. CORONARY ANGIOGRAPHY (Continued): LEFT CIRCUMFLEX CORONARY ARTERY: There was a large, branching obtuse marginal vessel, which was free of disease. The terminal marginal branch was small and free of disease. The left circumflex coronary artery in the AV groove was a moderate-sized vessel, which was free of disease. RIGHT CORONARY ARTERY: The right coronary artery was anatomically dominant for the posterior circulation. The right coronary artery had luminal irregularity andplaquing of less than 25 percent in its proximal and mid- segments. The posterior descending artery was normal. FINAL IMPRESSIONS: 1. No significant, obstructive coronary artery disease. 2. The patient has severe pulmonary hypertension. SPECIAL NOTE: The thermodilution cardiac output was 3.0 L/minute. Cedric Mora M.D.* MGFatoumata/rxjaw Voice Rec. ID #[id number] Original Voice Rec. ID #[id number] Doc ID #[id number] Revision Count: 0 cc: Cedric Mora M.D.* Addis Lopes M.D.* Albino Arriaza M.D.* [facility] [address] [place] [address] CARDIAC CATHETERIZATION PATIENT NAME: KEN MOON [address] [facility] NO: [id number] [facility] NO: [id number] DATE OF : 1955 <END HEADER> DO NOT TEXT EDIT THIS LINE :[facility]:[id number]: Authenticated by CEDRIC MORA M.D. On 03/07/2013 09:27:12 AM us See Report Interface CV CARDIAC CATH ORDERABLES Final Result * Blood culture (02/27/2013 12:10 PM EST) Blood specimen (specimen) 02/27/2013 12:10 PM EST Narrative [facility] - 03/05/2013 8:14 AM EST Specimen Type: Blood Specimen Source: [facility] - Culture Blood Specimen: Blood Collected: 02/27/2013 12:10 Status: FINAL Last Updated: 03/05/2013 08:14 Culture Result (CRB) (Final) No Growth 5 Days us Fausto Castle MD MICROBIOLOGY - GENERAL [place] [address], * (ABNORMAL) D-dimer, quantitative (02/27/2013 12:10 PM EST) D-Dimer, Quant 3.18(H) 0.00 - 0.50 mg/L FEU [facility] Comment: Verified by repeat analysis. DF by IF @ 02/27/2013 13:07 Negative predictive value for exclusion of venous thromboembolism: < or = 0.5 mg/L (FEU) Blood specimen (specimen) 02/27/2013 12:10 PM EST Narrative [facility] - 02/27/2013 1:20 PM EST Specimen Type: Blood This order is a replacement of the rejected order with accession number [id number] us Fausto Castle MD LAB BLOOD ORDERABLES Final Re sult Performing Organization Address [facility] Co de Phone Number [facility] [address] [place] [address], * (ABNORMAL) Protime-INR (02/27/2013 12:10 PM EST) Protime >100.0(AA) 9.6 - 11.5 Seconds [facility] Comment: Verified by repeat analysis. Called to, read back and verified by: ALLI VALVERDE RN INR Unable to calculate INR due to elevated PT result. [facility] Comment: Verified by repeat analysis. Called to, read back and verified by: ALLI VALVERDE RN by [id number] @ 02/27/2013 13:20 Therapeutic Ranges for INR: 2.0-3.0 (PT 20-30) 2.5-3.5 (PT 25-34) Blood specimen (specimen) 02/27/2013 12:10 PM EST Narrative [facility] - 02/27/2013 1:20 PM EST Specimen Type: Blood This order is a replacement of the rejected order with accession number [id number] Fausto Castle MD LAB BLOOD ORDERABLES Final Re sult Performing Organization Address [facility] Co de Phone Number [facility] [address] [place] [address], * XR chest 1 vw (02/27/2013 11:05 AM EST) Anatomical Region Laterality Modality Body N/A Radiographic Lorena ging 02/27/2013 11:0 5 AM EST Narrative 02/27/2013 11:17 AM EST PORTABLE CHEST X-RAY HISTORY: Congestion. FINDINGS: The heart is large. There is mild congestive change which has slightly improved when compared with 02/18/13. An implantable cardio defibrillator is noted. IMPRESSION- Mild congestive changes, improved since the previous examination. E: 02/27/2013 Locomotive Driver- BRENDA KOWALSKI Reading Radiologist- Horace DANIELS Releasing Radiologist- Horace DANIELS Released Date Time- 02/27/13 142 Procedure Note Dominick Espino MD - 11/18/2014 PORTABLE CHEST X-RAY HISTORY: Congestion. FINDINGS: The heart is large. There is mild congestive change which has slightly improved when compared with 02/18/13. An implantable cardio defibrillator is noted. IMPRESSION- Mild congestive changes, improved since the previous examination. E: 02/27/2013 Locomotive Driver- BRENDA DANIELS Releasing Stacy DANIELS Released Date Time- 02/27/13 142 Fausto Castle MD [facility] DIAGNOSTIC IMAGING ORDERA BLES Final Result * POCT Troponin, Rapid (02/27/2013 10:56 AM EST) Troponin I 0.10 0.00 - 0.60 ng/mL [facility] Comment: Different methodologies are used for cardiac testing between the ED and main laboratory. Refer to the appropriate reference range for interpretation. Blood specimen (specimen) 02/27/2013 10:56 AM EST Narrative [facility] - 02/27/2013 11:10 AM EST Specimen Type: Blood Historical Provider POINT OF CARE TEST ORDERA BLES Final Result [facility] [address] [place] [address], * (ABNORMAL) BNP (02/27/2013 10:35 AM EST) Pathologist [facility] BNP 2,250(H) 0 - 100 pg/mL [facility] Blood specimen (specimen) 02/27/2013 10:35 AM EST Narrative [facility] - 02/27/2013 11:41 AM EST Specimen Type: Blood Fausto Castle MD LAB BLOOD [place]AB[place] [address], * (ABNORMAL) APTT (02/27/2013 10:35 AM EST) Pathologist [facility] PTT 40(H) 24 - 31 Seconds [facility] Comment: [place] by [id number] @ 02/27/2013 11:54 PTT = The equivalent PTT values for the therapeutic range of heparin levels at 0.3 to 0.5 U/ml are 45 to 60 seconds. PTT = The equivalent PTT values for the therapeutic range of heparin levels at 0.3 to 0.5 U/ml are 45 to 60 seconds. Blood specimen (specimen) 02/27/2013 10:35 AM EST Narrative [facility] - 02/27/2013 11:54 AM EST Specimen Type: Blood Called to, read back and verified by: ALLI VALVERDE RN Fausto Castle MD LAB BLOOD ORDERAB[place] [address], * (ABNORMAL) Comprehensive metabolic panel (02/27/2013 10:35 AM EST) Pathologist [facility] Glucose 91 70 - 100 mg/dL [facility] BUN 25(H) 6 - 20 mg/dL [facility] Creatinine 1.8(H) 0.6 - 1.3 mg/dL [facility] Sodium 139 136 - 145 mmol/L [facility] Potassium 4.7 3.4 - 5.4 mmol/L [facility] Chloride 98 98 - 107 mmol/L [facility] CO2 25 20 - 31 mmol/L [facility] Calcium 10.4 8.7 - 10.4 mg/dL [facility] Alkaline Phosphatase 86 25 - 100 Units/L [facility] AST (SGOT) 68(H) 8 - 33 Units/L [facility] ALT (SGPT) 58(H) 7 - 40 Units/L [facility] Total Bilirubin 5.0(H) 0.3 - 1.2 mg/dL [facility] Total Protein 8.6(H) 6.4 - 8.3 g/dL [facility] Albumin 4.5 3.4 - 4.8 g/dL [facility] eGFR 44 ml/min/1.7 32 [facility] Comment: DF by IF @ 02/27/2013 11:42 National Kid[employer] Guidelines Stage Description GFR 1 Normal or High 90+ 2 Mild decrease 60-89 3 Moderate decrease 30-59 4 Severe decrease 15-29 5 Kidney failure <15 Anion Gap 16(H) 3 - 11 mmol/L [facility] Blood specimen (specimen) 02/27/2013 10:35 AM EST Narrative [facility] - 02/27/2013 11:42 AM EST Specimen Type: Blood us Fausto Castle MD LAB BLOOD ORDERABLES Final Re sult [facility] [address] [place] [address], * (ABNORMAL) CBC and Differential (02/27/2013 10:35 AM EST) WBC 10.08 3.50 - 10.80 K/mcL [facility] RBC 6.26(H) 4.20 - 5.76 /[facility] Hemoglobin 18.1(H) 13.1 - 17.5 g/dL [facility] Hematocrit 54.1(H) 38.9 - 50.9 % [facility] MCV 86.4 80.0 - 99.0 fL [facility] MCH 28.9 27.0 - 31.0 pg [facility] MCHC 33.5 32.0 - 36.0 g/dL [facility] RDW-CV 17.3(H) 11.3 - 14.5 % [facility] Platelets 225 150 - 450 [facility] Neutrophils Absolute 5.47 1.50 - 8.30 [facility] Lymphocytes Absolute 3.61 0.60 - 4.80 [facility] Monocytes Absolute 0.92 0.00 - 1.00 [facility] Eosinophils Absolute 0.03(L) 0.10 - 0.30 [facility] Basophils Absolute 0.03 0.00 - 0.20 [facility] Neutrophil Rel % 54.3 41.0 - 71.0 % [facility] Lymphocyte Rel % 35.8 24.0 - 44.0 % [facility] Monocyte Rel % 9.1 0.0 - 12.0 % [facility] Eosinophil Rel % 0.3 0.0 - 3.0 % [facility] Basophil Rel % 0.3 0.0 - 1.0 % [facility] Immature Granulocyte Rel % 0.2 0.0 - 0.6 % [facility] Blood specimen (specimen) 02/27/2013 10:35 AM EST Narrative [facility] - 02/27/2013 11:02 AM EST Specimen Type: Blood us Fausto Castle MD LAB BLOOD ORDERABLES Final Re sult [facility] [address] [place] [address], [place] [phone] * SCANNED - CARDIOLOGY (02/27/2013) Anatomical Region Laterality Modality Other [facility] New Onbase CV CARDIAC SERVICES ORDERABLE S Final Result * SCANNED EKG (02/27/2013) [facility] New Onbase ECG ORDERABLES Final Result documented in this encounter Visit Diagnoses Not on filedocumented in this encounter
--- OUTSIDE RECORDS SUMMARY | 2024-09-18 08:21 | XMS_ITS | Encounter Summary ---
Author Organization [facility] Address [address] [id number] Care Team Providers Care Pole Climber Name Role Phone Alpesh Hanson MD Primary Care Provider +1- [phone] Encounter Details Date Type Department Care Team (Late st Contact Info) Description 12/08/2019 Legacy OTTR Encounter Historical OTTR [address] [place] [address] Arabella Arellano, RN [id number] [address] [place] [address] Social History Tobacco Use Types Packs/Day Years [...] 06/16/2020 12:30 PM EDT Pt seen in [facility] for routine follow up. Medications reviewed. Pt [...] have re- faxed the lab order to [phone] and [phone] * Progress Notes - Arabella Arellano RN [...] already faxed a standing lab order to [facility] and I let him know.Also reminded him [...] the importance. 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 Medications reviewed. We discussed [...] covid screening for 11/30 @ [facility] for his up comong cath 12/03. He should be contacted with date/time/location ofscreening prior to cath. * Progress Notes - Mariana Hayward - 11/14/2019 3:41 PM EDT Amolodipine 10mg po qd #30 with Refill x2 sent to [facility] * Progress Notes - Mariana Hayward - 11/12/2019 5:38 PM EDT Lisinopril 10mg po qd #90 No refills sent to [facility] per fax request * Progress Notes - Elizabeth Arzola MD - 11/04/2019 9:49 AM EDT DOS 12/04/2019 Post heart LHC/RHC/Echo/CXR/Labs Pt has Fed Med AandB active NPR updating IAuth and nurse. Electronically signed by Interface, Electronics Technology Department Chair Conversion at 06/17/2020 4:42 PM EDT * Progress Notes - Melissa Linda - 06/12/2019 1:31 PM EDT spoke to pt, he is aware Electronically signed by Interface, Electronics Technology Department Chair Conversion at 06/17/2020 4:42 PM EDT * Progress Notes - Melissa Linda - 06/11/2019 1:12 PM EDT unable to reach pt or leave vm, vm is full. Unable to reach Hailey at her #. Will try again to notify them of CANCELED MAY appt and cath being scheduled. If I cannot reach them tomorrow I will mail a letter signifying change in care plan. Electronically signed by Interface, Electronics Technology Department Chair Conversion at 06/17/2020 4:42 PM EDT * Progress Notes - Arabella Arellano - 06/05/2019 1:04 PM EDT d/t covid-19 pandemic: 5/6 apt canceled. Pt scheduled for 5 year Cath Any 12/03 documented in this encounter Plan of Treatment Upcoming Encounters Date Type Department Care Team (Late st Contact Info) Description 03/12/2025 Hospital Encounter Cardiac Community Liaison [address] [place] [phone] Molly Viscera WasherMD [address] [place] [address] Scheduled Procedures Name Priority Associated Diagnoses [...] EXTERNAL LAB - 06/18/2020 2:46 PM EDT [facility] Historical Provider MD LAB BLOOD ORDERABLES Angi [...] EXTERNAL LAB - 01/14/2019 3:48 PM EST [facility] us Historical Provider LAB BLOOD ORDERABLES Angi [...] documented as of this encounter Care Teams Pole Climber Relationship Specialty Start Date End Date Alpesh Hanson MD [address] [place] [address] PCP - General 07/09/20 documented as of this encounter
--- OUTSIDE RECORDS SUMMARY | 2024-09-18 08:21 | XMS_ITS | Encounter Summary ---
Author Organization [facility] Address [address] [place] [address] Care Team Providers Care Computer Systems Analyst Name Role Phone Alpesh Hanson MD Primary Care Provider +1- [phone] Encounter Details Date Type Department Care Team (Latest Contact Info) Description 09/17/2024 Travel Social History Tobacco Use Types Packs/Day Years [...] Contact Info) Description 03/12/2025 Hospital Encounter Cardiac Cut Roll Machine Operator [address] [place] [address] Sandoval BarnesCollar Folder OperatorMD [address] [place] [address] Scheduled Procedures Name Priority Associated Diagnoses [...] documented as of this encounter Care Teams Computer Systems Analyst Relationship Specialty Start Date End Date Alpesh Hanson MD [address] [place] [address] PCP - General 07/09/20 documented as of this encounter
--- OUTSIDE RECORDS SUMMARY | 2024-09-18 08:21 | XMS_ITS | Encounter Summary ---
Author Organization [facility] Address [address] [id number] Care Team Providers Care Senior Sql Server Database Developer Name Role Phone Alpesh Hanson MD Primary Care Provider +1- [phone] Encounter Details Date Type Department Care Team (Late st Contact Info) Description 09/03/2024 Refill [facility] [place] Joselo [address] [facility] 1st Floor [address] [place] [phone] Dorota Quevedo RN [facility] [id number] [address] [place] [address] Social History Tobacco Use Types [...] Contact Info) Description 03/12/2025 Hospital Encounter Cardiac Assistant Librarian [address] [place] [phone] Sandoval BarnesClinical Research TechnicianMD [address] [place] [address] Scheduled Procedures Name Priority Associated Diagnoses [...] documented as of this encounter Care Teams Senior Sql Server Database Developer Relationship Specialty Start Date End Date Alpesh Hanson MD [address] [place] [address] PCP - General 07/09/20 documented as of this encounter
--- OUTSIDE RECORDS SUMMARY | 2024-09-18 08:21 | XMS_ITS | Encounter Summary ---
Author Organization [facility] Address [address] [place] [address] Care Team Providers Care Veterinary Technician Instructor Name Role Phone Alpesh Hanson MD Primary Care Provider +1- [phone] Reason for Visit * Reason Comments Med Refill Encounter Details Date Type Department Care Team (Late st Contact Info) Description 08/05/2024 Refill [facility] [place] [address] [facility]. [address] [place] [phone] Bharathi Goodrich MD [address] [place] [address] Social History Tobacco Use Types [...] Contact Info) Description 03/12/2025 Hospital Encounter Cardiac Seaming Inspector [address] [place] [phone] Sandoval BarnesFire Fighters DispatcherMD [address] [place], [place] [id number] Scheduled Procedures Name Priority Associated Diagnoses Date/Ti [...] documented as of this encounter Care Teams Veterinary Technician Instructor Relationship Specialty Start Date End Date Alpesh Hanson MD [address] [place] [address] PCP - General 07/09/20 documented as of this encounter
--- OUTSIDE RECORDS SUMMARY | 2024-09-18 08:21 | XMS_ITS | Encounter Summary ---
Author Organization [facility] Address [address] [id number] Care Team Providers Care Packer Operator Automatic Name Role Phone Alpesh Hanson MD Primary Care Provider +1- [phone] Encounter Details Date Type Department Care Team (Late st Contact Info) Description 01/14/2021 Lab Requisition [facility] [address] [place] [phone] Bharathi Goodrich MD [address] [place] [address] Heart transplant status (CMS/HCC) Social [...] Contact Info) Description 03/12/2025 Hospital Encounter Cardiac Personal Injury Attorney [address] [place] [address] Sandoval BarnesLeasing Machine TenderMD [address] [place], [place] [id number] Scheduled Procedures Name Priority Associated Diagnoses Date/Ti [...] - 17 ng/mL 01/15/2021 1:51 PM EST [facility] Comment: Tacrolimus therapeutic range: Initial (<3 mo.) Maintenance Kidney 8-13 ng/mL 4-8 ng/mL Liver 8-13 ng/mL 4-8 ng/mL Heart 8-15 ng/mL 7-13 ng/mL Lung;Heart/Lung 8-17 ng/mL 8-13 ng/mL Test performed by LC-MS/MS at the [facility]. This test was developed and its performance characteristics determined by [facility]. It has not been cleared or approved by the FDA. The laboratory is regulated under CLIA as qualified to perform high-complexity testing. This test is used for clinical purposes. Blood Venous blood specimen / Unknown 01/14/2021 10:00 AM EST 01/14/2021 12:43 PM EST Bharathi Goodrich MD LAB BLOOD ORDERABLES Final Result Performing Organization Address City/State/[facility] Co de Phone Number LAB [address] [place] [address] * Sirolimus level (01/14/2021 10:00 AM EST) Sirolimus 6.7 3 - 20 ng/mL 01/15/2021 1:52 PM EST [facility] Comment: Test performed by LC-MS/MS at the [facility]. This test was developed and its performance characteristics determined by [facility]. It has not been cleared or approved by the FDA. The laboratory is regulated under CLIA as qualified to perform high-complexity testing. This test is used for clinical purposes. 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
--- OUTSIDE RECORDS SUMMARY | 2024-09-18 08:21 | XMS_ITS | Clinical Summary ---
Author Organization [facility] Address [address] [place] [address] Care Team Providers Care Associate Professor Of Literacy Name Role Phone Alpesh Hanson MD Primary Care Provider +1- [phone] Allergies Active Allergy Reactions Criticality Noted Date [...] (12/13/2020): Added automatically from request for surgery [id number] Long-term use of immunosuppressant medication Overview (12/13/2020): Added automatically from request for surgery [id number] HTN (hypertension) 09/24/2014 Overview (03/28/2024): Hypertensive disorder Diabetes mellitus Hyperlipidemia Encounters Date Type Department Care Team Description 09/17/2024 9:30 AM EDT Office Visit [facility] [place] [address] [place] [address] Sharla Whitman MD Sketch, Anna M, DYE REEL OPERATOR HELPER Heart transplanted ([facility]) (Primary Dx); Long-term use of immunosuppressant medication; Vasculopathy of cardiac allograft; Essential hypertension 09/17/2024 Orders Only [facility] [address] [facility] 1st Floor [address] [place] [address] Dorota Quevedo, RN Status post transplant, heart ([facility]) (Primary Dx); Long-term use of immunosuppressant medication 09/17/2024 Travel 09/03/2024 Refill [facility] [place] [facility] [address] [facility] 1st Floor [address] [place] [address] Dorota Quevedo RN 08/05/2024 Refill [facility] [address] [place] [address] Bharathi Goodrich MD from Last 3 Months [...] Pulse 84 09/17/2024 8:53 AM EDT Temperature 36.7 C (98 F) 03/27/2024 11:30 AM EST Respiratory Rate 14 03/27/2024 2:00 PM EST Oxygen Saturation 97% 09/17/2024 8:5 3 AM EDT Inhaled Oxygen Concentration - - Weight 82.4 kg (181 lb 10.5 oz) 09/17/2024 8:53 AM EDT Height 172.7 cm (5' 8 ) 09/17/2024 8:53 AM EDT Body Mass Index 27.62 09/17/2024 8:53 AM EDT Plan of Treatment Upcoming Encounters Date Type Department Care Team (Late st Contact Info) Description 03/12/2025 Hospital Encounter Cardiac Clothing Examiner [address] [place] [address] Molly Swing GrinderMD [address] [place], [place] [id number] Scheduled Procedures Name Priority Associated Diagnoses Date/Ti me RIGHT HEART CATH Status post transplant, heart (CMS/HCC) CORONARY ANGIOGRAPHY Status post transplant, heart (CMS/HCC) Health Maintenance Due Date Last Done Comments [facility]-Medicare Annual Wellness (AWV) 1955 [facility]-Infant/Child/Adol SDOH Screenings 1955 [id number] Vaccine (#1) 1962 Diabetes: Dental Exam 07/30/1967 [...] on patient's age to complete this topic [facility]-Pneumococcal Vaccine: 50+ Years Completed 02/14/2024, 12/13/2021, 08/25/2016, Additional history exists [facility]-Obesity Intervention Completed 025, 09/13/2023, 11/22/2022, Additional history exists HPV Vaccines Aged Out [...] this topic Medical Devices Implanted Type Area Application Technician Device Identifier Shelf Expiration Date Model / Serial / Lot Pacemaker Pacemaker Chest Wall Stent Coronary Resolute [place] Rx 3.50mm X 30mm - [id number] Implanted:Qty : 1 on 12/09/2020 by Arnie Jensen MD at [id number] 07/03/2023 [id number] / / [id number] Stent Rapides [place] Rx 2.5mm X 34mm - [id number] Implanted:Qty : 1 on 04/19/2023 by Arnie Jensen MD at [facility]-[id number] 06/14/2025 [id number] / / [id number] Stent Coronary Rapides [place] Rx 3.50mm X 18mm - [id number] Implanted:Qty : 1 on 04/19/2023 by Arnie Jensen MD at [id number] 01/18/2026 [id number] / / [id number] Procedures Procedure Name Priority Date/Time Associated Diagnosis Comments CBC WITH AUTO DIFFERENTIAL Routine 09/17/2024 8:40 AM EDT Status post transplant, heart (CMS/HCC) Long-term use of immunosuppressant medication COMPREHENSIVE METABOLIC PANEL, PLASMA Routine 09/17/2024 8:40 AM EDT Status post transplant, heart (CMS/HCC) Long-term use of immunosuppressant medication TACROLIMUS LEVEL Routine 09/17/2024 8:40 AM EDT Status post transplant, heart (CMS/HCC) Long-term use of immunosuppressant medication SIROLIMUS LEVEL Routine 09/17/2024 8:40 AM EDT Status post transplant, heart (CMS/HCC) Long-term use of immunosuppressant medication HEMOGLOBIN A1C Routine 03/27/2024 8:14 AM EST HEPATITIS C ANTIBODY W/REFLEX TO HCV QUANT PCR Routine 02/10/2015 4:23 AM EST COLONOSCOPY 04/22/2013 from Last 3 Months or Most Recently Relevant to Health Maintenance Results * Tacrolimus (09/17/2024 8:40 AM EDT) Tacrolimus 12.1 4.0 - 17.0 ng/mL 09/17/2024 4:20 PM EDT [facility] Comment: Tacrolimus therapeutic range: Initial (<3 mo.) Maintenance Kidney 8-13 ng/mL 4-8 ng/mL Liver 8-13 ng/mL 4-8 ng/mL Heart 8-15 ng/mL 7-13 ng/mL Lung;Heart/Lung 8-17 ng/mL 8-13 ng/mL Blood Venous blood specimen / Unknown Venipuncture / Unknown 09/17/2024 8:40 AM EDT 09/17/2024 8:40 AM EDT Narrative [facility] - 09/17/2024 4:20 PM EDT Test performed by LC-MS/MS at the [facility]. This test was developed and its performance characteristics determined by [facility]. It has not been cleared or approved by the FDA. The laboratory is regulated under CLIA as qualified to perform high-complexity testing. This test is used for clinical purposes. Test performed by LC-MS/MS at the [facility]. This test was developed and its performance characteristics determined by [facility]. It has not been cleared or approved by the FDA. The laboratory is regulated under CLIA as qualified to perform high-complexity testing. This test is used for clinical purposes. Bharathi Goodrich MD LAB BLOOD ORDERABLES Final Result Performing Organization Address [facility]/ZIP Co de Phone Number [facility] [address] [place] [address] * Sirolimus Level (09/17/2024 8:40 AM EDT) Sirolimus 9.8 3.0 - 20.0 ng/mL 09/17/2024 4:20 PM EDT [facility] Comment: Test performed by LC-MS/MS at the [facility]. This test was developed and its performance characteristics determined by [facility]. It has not been cleared or approved by the FDA. The laboratory is regulated under CLIA as qualified to perform high-complexity testing. This test is used for clinical purposes. Test performed by LC-MS/MS at the [facility]. This test was developed and its performance characteristics determined by [facility]. It has not been cleared or approved by the FDA. The laboratory is regulated under CLIA as qualified to perform high-complexity testing. This test is used for clinical purposes. Blood Venous blood specimen / Unknown Venipuncture / Unknown 09/17/2024 8:40 AM EDT 09/17/2024 8:40 AM EDT Bharathi Goodrich MD LAB BLOOD ORDERABLES Final Result Performing Organization Address City/[facility]/ZIP Co de Phone Number [facility] [address] [place] [address] * (ABNORMAL) CBC and Differential (09/17/2024 8:40 AM EDT) [facility] WBC Count 8.94 3.70 - 10.30 10*3/uL LAB HEMATOLOGY METHOD 09/17/2024 9:54 AM EDT [facility] RBC Count 5.16 4.60 - 6.10 10*6/uL LAB HEMATOLOGY METHOD 09/17/2024 9:54 AM EDT [facility] HGB 13.1(L) 13.7 - 17.5 g/dL LAB HEMATOLOGY METHOD 09/17/2024 9:54 AM EDT [facility] HCT 41.5 40.0 - 51.0 % LAB HEMATOLOGY METHOD 09/17/2024 9:54 AM EDT [facility] Platelet Count 263 155 - 369 10*3/uL LAB HEMATOLOGY METHOD 09/17/2024 9:54 AM EDT [facility] MCV 80 79 - 98 fL LAB HEMATOLOGY METHOD 09/17/2024 9:54 AM EDT [facility] MCH 25.4(L) 26.0 - 32.0 pg LAB HEMATOLOGY METHOD 09/17/2024 9:54 AM EDT [facility] MCHC 31.6 30.7 - 35.5 g/dL LAB HEMATOLOGY METHOD 09/17/2024 9:54 AM EDT [facility] RDW 19.2(H) 11.5 - 14.5 % LAB HEMATOLOGY METHOD 09/17/2024 9:54 AM EDT [facility] MPV 9.2 8.8 - 12.5 fL LAB HEMATOLOGY METHOD 09/17/2024 9:54 AM EDT [facility] nRBC 0.0 <=0.0 per 100 WBCs LAB HEMATOLOGY METHOD 09/17/2024 9:54 AM EDT [facility] Differential Type Automated LAB HEMATOLOGY METHOD 09/17/2024 9:54 AM EDT [facility] Neutrophils % 70 % LAB HEMATOLOGY METHOD 09/17/2024 9:54 AM EDT [facility] Lymphocytes % 21 % LAB HEMATOLOGY METHOD 09/17/2024 9:54 AM EDT [facility] Monocytes % 7 % LAB HEMATOLOGY METHOD 09/17/2024 9:54 AM EDT [facility] Eosinophils % 2 % LAB HEMATOLOGY METHOD 09/17/2024 9:54 AM EDT [facility] Basophils % 0 % LAB HEMATOLOGY METHOD 09/17/2024 9:54 AM EDT [facility] Immature Granulocytes % 0 % LAB HEMATOLOGY METHOD 09/17/2024 9:54 AM EDT [facility] Neutrophils Absolute 6.17(H) 1.60 - 6.10 10*3/uL LAB HEMATOLOGY METHOD 09/17/2024 9:54 AM EDT [facility] Lymphocytes Absolute 1.88 1.20 - 3.90 10*3/uL LAB HEMATOLOGY METHOD 09/17/2024 9:54 AM EDT [facility] Monocytes Absolute 0.64 0.30 - 0.90 10*3/uL LAB HEMATOLOGY METHOD 09/17/2024 9:54 AM EDT [facility] Eosinophils Absolute 0.18 0.00 - 0.50 10*3/uL LAB HEMATOLOGY METHOD 09/17/2024 9:54 AM EDT [facility] Basophils Absolute 0.03 0.00 - 0.10 10*3/uL LAB HEMATOLOGY METHOD 09/17/2024 9:54 AM EDT [facility] Immature Granulocytes Absolute 0.04 0.00 - 0.06 10*3/uL LAB HEMATOLOGY METHOD 09/17/2024 9:54 AM EDT [facility] Blood Venous blood specimen / Unknown Venipuncture / Unknown 09/17/2024 8:40 AM EDT 09/17/2024 8:40 AM EDT Narrative [facility] - 09/17/2024 9:54 AM EDT Therapeutic decision making should be based on absolute values, rather than percentages. us Bharathi Goodrich MD LAB BLOOD ORDERABLES Final Result [facility] [address] [place] [address] * (ABNORMAL) Comprehensive Metabolic Panel, Plasma (09/17/2024 8:40 AM EDT) Glucose, Plasma 157(H) 74 - 99 mg/dL 09/17/2024 10:05 AM EDT [facility] BUN, Plasma 14 8 - 23 mg/dL 09/17/2024 10:05 AM EDT [facility] Creatinine, Plasma 0.75 0.70 - 1.20 mg/dL 09/17/2024 10:05 AM EDT [facility] BUN/Creatinine Ratio 19 09/17/2024 10:05 AM EDT [facility] Sodium, Plasma 141 136 - 145 mmol/L 09/17/2024 10:05 AM EDT [facility] Potassium, Plasma 3.8 3.6 - 4.9 mmol/L 09/17/2024 10:05 AM EDT [facility] Chloride, Plasma 104 97 - 107 mmol/L 09/17/2024 10:05 AM EDT [facility] CO2, Plasma 24 22 - 29 mmol/L 09/17/2024 10:05 AM EDT [facility] Anion Gap 13 6 - 16 mmol/L 09/17/2024 10:05 AM EDT [facility] Total Calcium, Plasma 9.3 8.9 - 10.2 mg/dL 09/17/2024 10:05 AM EDT [facility] Total Protein 6.8 6.3 - 7.9 g/dL 09/17/2024 10:05 AM EDT [facility] Albumin, Plasma 3.9 3.5 - 5.2 g/dL 09/17/2024 10:05 AM EDT [facility] AST, Plasma 18 10 - 50 U/L 09/17/2024 10:05 AM EDT [facility] ALT, Plasma 19 10 - 50 U/L 09/17/2024 10:05 AM EDT [facility] Alkaline Phosphatase, Plasma 110 40 - 115 U/L 09/17/2024 10:05 AM EDT [facility] Total Bilirubin, Plasma 0.5 0.2 - 1.1 mg/dL 09/17/2024 10:05 AM EDT [facility] eGFRcr 98.9 mL/min/1.7 3m*2 09/17/2024 10:05 AM EDT [facility] Comment:Reported eGFRcr in m L/min/1.73m2 is based the CKD-EPI 2020 equation that does not use a race coefficient. Blood Venous blood specimen / Unknown Venipuncture / Unknown 09/17/2024 8:40 AM EDT 09/17/2024 8:40 AM EDT Result [facility] Bharathi Goodrich MD LAB BLOOD ORDERABLES Final Result Performing Organization Address [facility] de Phone Number [facility] [address] [place] [address] * (ABNORMAL) Hemoglobin A1c (03/27/2024 8:14 AM EST) Hemoglobin A1c 9.0(H) <5.7 % 03/27/2024 9:16 AM EST [facility] Blood Venous blood specimen / Unknown Venipuncture / Unknown 03/27/2024 8:14 AM EST 03/27/2024 8:51 AM EST Narrative [facility] - 03/27/2024 9:16 AM EST HA1C Interpretive Data: Diagnosis of Diabetes: Diabetic > or = 6.5% Pre-diabetic 5.7 to 6.4% Non-diabetic < or = 5.6% Glycemic Targets for Type I and Type II Diabetics: Non- Adults <7.0% Adults <6.0% Children and Adolescents <7.5% Source: [place] [employer]. Standards of medical care in diabetes,2017. Diabetes Care.2017:40 (suppl 1):S1-S135. HbA1c assay performed by an ion-exchange chromatography method that is certified traceable to the DCCT. Result [facility] Bharathi Goodrich MD LAB BLOOD ORDERABLES Final Result Performing Organization Address [facility] Co de Phone Number [facility] [address] [place] [address] * Hepatitis C Antibody (02/10/2015 4:23 AM EST) Hepatitis C Antibody NEGATIVE Reference Range: Negative [facility] 02/10/2015 4:23 AM EST 02/10/2015 5:53 AM EST Result [facility] Refugio Juarez MD LAB BLOOD ORDERABLES Final Result [facility] * COLONOSCOPY (04/22/2013) Anatomical Region Laterality Modality Endoscopy Narrative 04/22/2013 Ordered by an unspecified provider. us Historical Provider GI PROCEDURE ORDERABLES F inal [...] Patient has decision-making capacity? Yes Care Teams Associate Professor Of Literacy Relationship Specialty Start Date End Date Alpesh Hanson MD [address] [place] [address] PCP - General 07/09/20
--- OUTSIDE RECORDS SUMMARY | 2024-09-18 08:21 | XMS_ITS | Encounter Summary ---
Author Organization [facility] Address [address] [place] [address] Care Team Providers Care Packerhead Machine Operator Name Role Phone Alpesh Hanson MD Primary Care Provider +1- [phone] Encounter Details Date Type Department Care Team (Latest Contact Info) Description 09/17/2024 Orders Only [facility] [place] [address] [facility] 1st Floor [address] [place] [address] Dorota Quevedo RN [id number] [address] [place] [address] Status post transplant, heart (CMS/HCC) (Primary Dx); Long-term use of immunosuppressant medication Social History Tobacco Use Types Packs/Day Years [...] Contact Info) Description 03/12/2025 Hospital Encounter Cardiac Paper Finisher [address] [place] [address] Sandoval BarnesPrint Graphic Designer, [address] [place] [address] Scheduled Procedures Name Priority Associated Diagnoses Date/Ti me RIGHT HEART CATH Status post transplant, heart (CMS/HCC) CORONARY ANGIOGRAPHY Status post transplant, heart (CMS/HCC) documented as of this encounter Visit Diagnoses Diagnosis Status post transplant, heart (CMS/HCC)- Primary Heart replaced by transplant Long-term use of immunosuppressant medication Status post transplant, heart ([facility])- Primary Heart replaced by transplant documented in this encounter Additional Health Concerns Infection Onset Date Last Indicated Resolved Time 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
--- OUTSIDE RECORDS SUMMARY | 2024-09-18 08:21 | XMS_ITS | Encounter Summary ---
Author Organization [facility] Address [address] [place] [place] [id number] Care Team Providers Care Media Professional Name Role Phone Alpesh Hanson MD Primary Care Provider +1- [phone] Encounter Details Date Type Department Care Team (Late st Contact Info) Description 02/09/2021 Lab Requisition [facility] [address] [place] [address] Bharathi Goodrich MD [address] [place] [address] Heart transplant status (CMS/HCC) Social [...] Contact Info) Description 03/12/2025 Hospital Encounter Cardiac Parent Partner [address] [place] [phone] Sandoval BarnesBrewmasterMD [address] [place] [address] Scheduled Procedures Name Priority Associated Diagnoses [...] - 17 ng/mL 02/10/2021 1:52 PM EST [facility] Comment: Tacrolimus therapeutic range: Initial (<3 mo.) Maintenance Kidney 8-13 ng/mL 4-8 ng/mL Liver 8-13 ng/mL 4-8 ng/mL Heart 8-15 ng/mL 7-13 ng/mL Lung;Heart/Lung 8-17 ng/mL 8-13 ng/mL Test performed by LC-MS/MS at the [facility]. This test was developed and its performance characteristics determined by [facility]. It has not been cleared or approved by the FDA. The laboratory is regulated under CLIA as qualified to perform high-complexity testing. This test is used for clinical purposes. Blood Venous blood specimen / Unknown 02/09/2021 9:00 AM EST 02/09/2021 1:20 PM EST Bharathi Goodrich MD LAB BLOOD ORDERABLES Final Result [facility] [address] [place] [address] * Sirolimus level (02/09/2021 9:00 AM EST) Sirolimus 4.6 3 - 20 ng/mL 02/10/2021 1:52 PM EST [facility] Comment: Test performed by LC-MS/MS at the [facility]. This test was developed and its performance characteristics determined by [facility]. It has not been cleared or approved by the FDA. The laboratory is regulated under CLIA as qualified to perform high-complexity testing. This test is used for clinical purposes. 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
[2024-09-18 09:14] LABS: Hematocrit 40.2 % (42.0-52.0); Hemoglobin 12.8 g/dL (14.1-18.0); Mean Corpuscular HGB Conc 31.8 g/dL (31.8-35.4); Mean Corpuscular Hemoglobin 25.8 pg (27.0-31.2); Mean Corpuscular Volume 81.0 fl (80-94); Nucleated Red Blood Cells % 0 %; Platelet Count 233 K/mm3 (142-424); Red Blood Count 4.96 M/mm3 (4.60-6.20); Red Cell Distribution Width-SD 56.1 fL; White Blood Count 6.4 K/mm3 (4.8-10.8)
[2024-09-18 09:22] LABS: Activated Partial Thrombo Time 26.4 seconds (22.8-30.6); INR 0.97 (0.9-1.1); Prothrombin Time 10.8 seconds (10.1-12.5)
[2024-09-18 10:01] LABS: Alanine Aminotransferase 21 U/L (12-78); Albumin Level 3.8 g/dl (3.5-5.0); Albumin/Globulin Ratio 1.7 (1.1-1.8); Alkaline Phosphatase 121 U/L (38-126); Anion Gap 10.2 mEq/L (5-15); Aspartate Amino Transferase 24 U/L (17-59); Bilirubin,Total 0.3 mg/dl (0.2-1.3); Blood Urea Nitrogen 14 mg/dl (9-20); Calcium 9.3 mg/dl (8.4-10.2); Carbon Dioxide 27 mmol/L (22.0-30.0); Chloride 104 mmol/L (98-107); Creatinine,Serum 0.70 mg/dl (0.66-1.25); Estimated Glomerular Filt Rate 112 ml/min (>60); GFR (African American) 136 ML/MIN (>60); Globulin 2.2 g/dL (1.3-3.2); Glucose 227 mg/dl (74-100); Potassium 4.2 mmoL/L (3.5-5.1); Sodium 137 mmol/L (136-145); Total Protein,Serum 6.0 g/dl (6.3-8.2)
[2024-09-21 07:28] LABS: Sirolimus(Rapamune) 4.3 ng/mL (3.0-20.0); Tacrolimus (FK506), Blood 5.7 ng/mL (5.0-20.0)
== END 2024-09-18 23:59 | disposition home or self-care (01) ==
PROVIDERS: PCP Family Medicine; Visit Provider Internal Medicine
DX: E13.65 Other specified diabetes mellitus with hyperglycemia (principal); F41.9 Anxiety disorder, unspecified; I10 Essential (primary) hypertension; I48.91 Unspecified atrial fibrillation; B96.89 Other specified bacterial agents as the cause of diseases classified elsewhere; Z94.1 Heart transplant status
CPT/HCPCS: 36415; 80053; 80195; 80197; 85027; 85610; 85730